=== PATIENT | female | born 1960 | race Caucasian/White ===

== ENCOUNTER 2024-09-10 18:48 | Observation (INO) ==
[2024-09-10] MEDS: NITROGLYCERIN SL 0.4 MG/TAB TAB SL PRN (19:15)
--- NOTE | 2024-09-10 19:15 | Emergency Department Note ---
Impression & Plan Chest pain, Hypertensive urgency, Acute hyponatremia ED Provider Note NAME: AMPARO PERKINS AGE: 63 SEX: F : 1960 ARRIVES VIA: Ambulance INFORMANT: Patient, nursing report ED PROVIDER(S): Armand Yanes MD CHIEF COMPLAINT: Chest pain MEDICAL DECISION MAKING: Patient presents due to concern for chest pain. IV was established and blood work was obtained. Patient did already receive nitro and aspirin and route. Additional nitro ordered as she still had 3 out of 10 pain. Chest x-ray does not show obvious pneumonia or pneumothorax patient was hypertensive here in the department. After initial nitro no significant improvement. The patient was ordered additional nitro. Patient has normal white count hemoglobin 11.1. Platelet count is unremarkable. The patient's kidney function with grade 1.24. Sodium 134. The patient's troponin is not elevated. Upon reassessment the patient had virtual resolution of her pain. BioFire negative. Chest x-ray without obvious pneumonia. I did speak with the on-call hospital service Dr. Dailey and the patient was admitted to the medicine service. Discussion w/ other healthcare providers: Dr. Dailey inpatient medicine service Prior /Outside records reviewed: None Differential diagnosis: Cardiac ischemia, aortic dissection, pulmonary embolism, pneumothorax, pneumonia, pericarditis, myocarditis, GERD, cholecystitis, pancreatitis, musculoskeletal, as well as other pathologies were considered. Diagnostics, as interpreted by me: ECG: Normal sinus rhythm, rate of 88, normal intervals, normal axis T wave version lead III no obvious STEMI. Cardiac monitoring: An order was placed for continuous cardiac monitoring. The monitor shows a rate of 85 with sinus rhythm. Patient was placed on pulse oximetry Medical decision rules: Heart score Imaging studies: I informally interpreted the patient's chest x-ray does not show obvious pneumonia or pneumothorax with formal report to follow. HPI: Patient presents due to concern for chest pain. Patient reports that she began having chest pain around 330 while she was unpacking at her new home. Patient reports that when she moved from her old home there was there are some COVID illnesses. The patient denies any shortness of breath or cough. Patient did receive aspirin 324 and 2 of nitro and route had improvement of her pain from an 8 out of 10 to a 3 out of 10. No prior cardiac history. The patient states the pain is centralized and achy nonradiating no associated nausea vomiting or diaphoresis. Patient denies any leg swelling or calf pain no history of DVT or PE. Patient denies any recent surgeries procedures or hospitalizations and no recent prolonged car plane travel. Patient did recently moved from [place] to the [facility]. PAST MEDICAL HISTORY: See Below PAST SURGICAL HISTORY: See Below SOCIAL HISTORY: See Below HOME MEDICATIONS: See Below ALLERGIES: See Below VITALS: See Below PHYSICAL EXAMINATION: GENERAL: NAD, non-toxic. EYE EXAM: Normal conjunctiva. PERRL, no anisocoria and EOM's grossly intact w/o pain. OROPHARYNX: Moist mucus membranes, grossly normal dentition. NECK: Trachea midline, no stridor. LUNGS: Clear to auscultation. Normal chest wall mechanics. HEART: NSR, no MRG. ABDOMEN: Abdomen soft, non-tender, no masses, no rebound or guarding. BACK: No CVA TTP. SKIN: No rashes and no bruising. UPPER EXTREMITIES: Upper extremities are grossly normal. LOWER EXTREMITIES: Grossly normal, no edema. Negative Homans' sign bilaterally. NEURO EXAM: A&O x3, cranial nerves II-XII grossly intact, normal speech, moves all 4 extremities. Past Med/Surg History Problem List (Updated 09/10/24 @ 21:42 by Armand Yanes MD) Acute hyponatremia (Acute) Hypertensive urgency (Acute) Chest pain (Acute) Colon cancer screening GERD (gastroesophageal reflux disease) Constipation Encounter for pre-operative examination Diabetes Psychiatric illness Anemia Medical History Constipation GERD (gastroesophageal reflux disease) Hx of respiratory syncytial virus infection 10/2023 Hypomagnesemia Manic episode Disorganized schizophrenia Insomnia Generalized weakness Hypertension Hyperlipidemia Hypothyroidism Diabetes mellitus, type 2 Chronic kidney disease stage 3 Surgical History Surgical history unknown Social History Smoking Status: Former smoker Preferred Language: Macedonian Communication Ability: Unknown Communication Ability Comment: of sound mind to sign consent, alert and oriented x3 Sulfide Head Operator Required: No Current Living Situation: Prison Current Living Situation Comment: [facility] Feels Safe at Home: Yes Allergies Allergies Allergy/AdvReac Type Severity Reaction Status Date / Time EUGENIO Inhibitors Allergy Unknown ON [facility] Verified 12/02/23 23:51 MED LIST clonazepam Allergy Unknown ON [facility] Verified 12/02/23 23:51 MED LIST lithium Allergy Unknown ON [facility] Verified 12/02/23 23:51 MED LIST Penicillins Allergy Unknown ON [facility] Verified 12/02/23 23:51 MED LIST pseudoephedrine Allergy Unknown ON [facility] Verified 12/02/23 23:51 MED LIST Sulfa (Sulfonamide Allergy Unknown ON [facility] Verified 12/02/23 23:51 Antibiotics) MED LIST sulfanilamide Allergy Unknown ON [facility] Verified 12/02/23 23:51 MED LIST trifluoperazine Allergy Unknown ON [facility] Verified 12/02/23 23:51 MED LIST ziprasidone Allergy Unknown ON [facility] Verified 12/02/23 23:51 MED LIST Home Meds Home Medications Medication Instructions Recorded Confirmed atorvastatin 20 mg tablet 20 mg PO HS 02/26/22 09/10/24 calcium carbonate (Calcium 500) 1,000 mg PO Q6H PRN Indigestion 02/26/22 09/10/24 divalproex 500 mg tablet,extended 500 mg PO Q12H 02/26/22 09/10/24 release 24 hr fluticasone propionate 50 1 spray intranasal [facility] 02/26/22 09/10/24 mcg/actuation nasal spray,suspension haloperidol decanoate 50 mg/mL 0.75 mg IM Q28D 02/26/22 09/10/24 intramuscular solution levothyroxine 50 mcg tablet 50 mcg PO [facility] 02/26/22 09/10/24 loratadine 10 mg tablet 10 mg PO [facility] 02/26/22 09/10/24 multivitamin with folic acid 400 1 tab PO [facility] 02/26/22 09/10/24 mcg tablet (Daily-Han (with folic acid)) cholecalciferol (vitamin D3) 125 125 mcg PO QAM 11/19/22 09/10/24 mcg (5,000 unit) tablet (Vitamin D3) docusate sodium 50 mg capsule 50 mg PO BID PRN Constipation 11/19/22 09/10/24 metformin 500 mg tablet 500 mg PO BID 11/19/22 09/10/24 acetaminophen 325 mg tablet 650 mg PO QAM 09/10/24 09/10/24 icosapent ethyl 1 gram capsule 0 g PO UD 09/10/24 09/10/24 (Vascepa) olmesartan 5 mg tablet 5 mg PO BID 09/10/24 09/10/24 paroxetine HCl 30 mg tablet 30 mg PO QAM 09/10/24 09/10/24 sitagliptin phosphate 50 mg tablet 50 mg PO DAILY 09/10/24 09/10/24 (Januvia) Previous Rx's Medication Instructions Recorded albuterol sulfate 90 mcg/actuation 2 inh inhalation Q6H PRN shortness 10/28/23 breath activated powder inhaler of breath or wheezing #1 ea pantoprazole 40 mg tablet,delayed 40 mg PO QAM #30 tabs 01/25/24 release famotidine 20 mg tablet 20 mg PO HS #30 tabs 08/12/24 Results & Data (ED) Vital Signs Vital Signs - 24 hr 09/10/24 18:52 09/10/24 18:55 09/10/24 19:00 Temperature 36.6 C Temperature Source Oral Pulse Rate 90 86 84 Pulse Rate [Apical] Respiratory Rate 16 18 Respiratory Effort / Characteristics Non-Labored Spontaneous Respiratory Depth Normal Blood Pressure 176/100 H 178/97 H Blood Pressure [Right Arm] Blood Pressure Mean 125 119 Blood Pressure Mean [Right Arm] Blood Pressure Position Lying Pulse Oximetry 97 97 Oxygen Delivery Method Room Air Room Air Oxygen Flow Rate Sepsis Recent Fever Within 48 Hours No Sepsis New/Unexplained Change in Mental Status N/A Sepsis Action Taken by Nursing No Action Required 09/10/24 19:10 09/10/24 19:15 09/10/24 19:16 Temperature Temperature Source Pulse Rate 83 Pulse Rate [Apical] 84 Respiratory Rate 16 18 Respiratory Effort / Characteristics Respiratory Depth Blood Pressure 161/101 H Blood Pressure [Right Arm] 169/97 H Blood Pressure Mean 138 Blood Pressure Mean [Right Arm] 121 Blood Pressure Position Pulse Oximetry 95 96 Oxygen Delivery Method Room Air Room Air Room Air Oxygen Flow Rate 96 Sepsis Recent Fever Within 48 Hours Sepsis New/Unexplained Change in Mental Status Sepsis Action Taken by Nursing 09/10/24 19:17 09/10/24 19:20 09/10/24 19:25 Temperature Temperature Source Pulse Rate 94 H 90 Pulse Rate [Apical] Respiratory Rate 18 18 Respiratory Effort / Characteristics Respiratory Depth Blood Pressure 139/96 171/101 H Blood Pressure [Right Arm] Blood Pressure Mean 115 141 Blood Pressure Mean [Right Arm] Blood Pressure Position Pulse Oximetry 96 93 96 Oxygen Delivery Method Room Air Room Air Room Air Oxygen Flow Rate Sepsis Recent Fever Within 48 Hours Sepsis New/Unexplained Change in Mental Status Sepsis Action Taken by Nursing 09/10/24 19:30 09/10/24 19:31 09/10/24 19:35 Temperature Temperature Source Pulse Rate 88 91 H Pulse Rate [Apical] 85 Respiratory Rate 20 20 18 Respiratory Effort / Characteristics Respiratory Depth Blood Pressure 162/93 H 156/90 H Blood Pressure [Right Arm] 162/93 H Blood Pressure Mean 106 105 Blood Pressure Mean [Right Arm] 116 Blood Pressure Position Pulse Oximetry 94 96 93 Oxygen Delivery Method Room Air Room Air Room Air Oxygen Flow Rate Sepsis Recent Fever Within 48 Hours Sepsis New/Unexplained Change in Mental Status Sepsis Action Taken by Nursing 09/10/24 19:40 09/10/24 19:45 09/10/24 19:59 Temperature Temperature Source Pulse Rate 88 88 Pulse Rate [Apical] 85 Respiratory Rate 18 18 20 Respiratory Effort / Characteristics Respiratory Depth Blood Pressure 154/92 H 170/99 H Blood Pressure [Right Arm] 175/102 H Blood Pressure Mean 117 147 Blood Pressure Mean [Right Arm] 126 Blood Pressure Position Pulse Oximetry 95 94 97 Oxygen Delivery Method Room Air Room Air Room Air Oxygen Flow Rate Sepsis Recent Fever Within 48 Hours Sepsis New/Unexplained Change in Mental Status Sepsis Action Taken by Nursing 09/10/24 20:00 09/10/24 20:04 09/10/24 20:36 Temperature Temperature Source Pulse Rate Pulse Rate [Apical] 89 94 H 92 H Respiratory Rate 18 20 20 Respiratory Effort / Characteristics Respiratory Depth Blood Pressure Blood Pressure [Right Arm] 151/98 H 142/91 H 184/93 H Blood Pressure Mean Blood Pressure Mean [Right Arm] 115 108 123 Blood Pressure Position Pulse Oximetry 95 95 96 Oxygen Delivery Method Room Air Room Air Room Air Oxygen Flow Rate Sepsis Recent Fever Within 48 Hours Sepsis New/Unexplained Change in Mental Status Sepsis Action Taken by Nursing 09/10/24 21:00 09/10/24 21:30 Temperature Temperature Source Pulse Rate 80 79 Pulse Rate [Apical] Respiratory Rate 16 18 Respiratory Effort / Characteristics Respiratory Depth Blood Pressure 160/90 H 168/109 H Blood Pressure [Right Arm] Blood Pressure Mean 107 135 Blood Pressure Mean [Right Arm] Blood Pressure Position Pulse Oximetry 98 97 Oxygen Delivery Method Room Air Room Air Oxygen Flow Rate Sepsis Recent Fever Within 48 Hours Sepsis New/Unexplained Change in Mental Status Sepsis Action Taken by Prison Medications Current Medication List: was personally reviewed by me Laboratory Data Attestation: I reviewed the patient's lab results. 09/10/24 18:52 09/10/24 18:52 Lab Results 09/10/24 09/10/24 Range/Units 18:52 19:15 WBC 5.98 (4.8-10.8) K/ul RBC 3.63 L (4.20-5.40) M/uL Hgb 11.1 L (12.0-16.0) g/dl Hct 32.4 L (37.0-47.0) % MCV 89.3 (80.0-100.0) fL MCH 30.6 (25.0-34.0) pg MCHC 34.3 (32.0-36.0) g/dL RDW Std Deviation 39.4 (36.4-46.3) fL RDW Coeff of Kp 12.1 (11.5-14.5) % Plt Count 205 (130-400) K/uL MPV 10.4 (9.4-12.4) fL Immature Gran % (Auto) 0.2 % Neut % (Auto) 44.4 % Lymph % (Auto) 38.3 % Trinity % (Auto) 12.2 % Eos % (Auto) 4.2 % Baso % (Auto) 0.7 % Neut # (Auto) 2.66 (1.40-6.50) K/uL Lymph # (Auto) 2.29 (1.20-3.40) K/uL Trinity # (Auto) 0.73 H (0.11-0.59) K/uL Eos # (Auto) 0.25 (0.00-0.50) K/uL Baso # (Auto) 0.04 (0.00-0.20) K/uL Immature Gran # (Auto) 0.01 (0.01-0.20) K/uL PT 10.6 (9.0-12.0) Seconds INR 1.0 (0.9-1.1) APTT 27 (21-31) Seconds PTT Ratio 1.0 Sodium 134 L (136-145) mmol/L Potassium 4.6 (3.5-5.1) mmol/L Chloride 98 (98-107) mmol/L Carbon Dioxide 26 (21-32) mmol/L Anion Gap 10 (3-11) BUN 15 (6-23) mg/dl Creatinine 1.24 H (0.6-1.2) mg/dl Est Cr Clr Drug Dosing 49.5 ml/min eGFR 48.30 BUN/Creatinine Ratio 12.1 (10-20) Glucose 154 H (70-99(Fasting)) mg/dl Calcium 10.0 (8.6-10.3) mg/dl Total Bilirubin 0.3 (0.2-1.0) mg/dl AST 17 (13-39) U/L ALT 14 (7-52) U/L Alkaline Phosphatase 56 (34-104) U/L Troponin I High Sens 6.2 (0-14) pg/ml Total Protein 6.5 (6.0-8.3) gm/dl Albumin 4.3 (3.4-5.0) gm/dl Globulin 2.2 L (2.5-4.0) gm/dl Albumin/Globulin Ratio 2.0 (0.9-2) Lipase 56 (11-82) U/L Adenovirus (PCR) Not Detected (NotDetected) B. pertussis DNA (PCR) Not Detected (NotDetected) B.parapertussis DNA PCR Not Detected (NotDetected) C. pneumoniae DNA (PCR) Not Detected (NotDetected) Coronavirus OC43 (PCR) Not Detected (NotDetected) Coronavirus HKU1 (PCR) Not Detected (NotDetected) Coronavirus 229E (PCR) Not Detected (NotDetected) SARS-CoV-2 (PCR) Not Detected (NotDetected) Coronavirus NL63 (PCR) Not Detected (NotDetected) Human Metapneumovir PCR Not Detected (NotDetected) Influenza Type A (PCR) Not Detected (NotDetected) Influenza Type B (PCR) Not Detected (NotDetected) M. pneumoniae (PCR) Not Detected (NotDetected) Parainfluenza 1 (PCR) Not Detected (NotDetected) Parainfluenza 2 (PCR) Not Detected (NotDetected) Parainfluenza 3 (PCR) Not Detected (NotDetected) Parainfluenza 4 (PCR) Not Detected (NotDetected) RSV (PCR) Not Detected (NotDetected) Entero/Rhino (PCR) Not Detected (NotDetected) Administered Medications Nitroglycerin (Nitroglycerin Sl 0.4 Mg/Tab Tab) 0.4 mg SL Q5M PRN PRN Reason: Chest Pain Stop: 10/10/24 19:01 Last Admin: 09/10/24 20:00 Dose: 0.4 mg Documented By: Admin: 09/10/24 19:32 Dose: 0.4 mg Documented By: Admin: 09/10/24 19:15 Dose: 0.4 mg Documented By: JACKSON Imaging Data Radiologist's Impression: Chest X-Ray 09/10/24 19:02 Exam(s): XR CXR 1 VIEW EXAM: XR Chest, 1 View CLINICAL HISTORY: Chest Pain, nonspecific. TECHNIQUE: Frontal view of the chest. COMPARISON: Chest radiograph 12/02/2023 FINDINGS: Lungs: Bibasilar interstitial prominence are present. No consolidation. Pleural space: Unremarkable. No pneumothorax. Heart: Unremarkable. No cardiomegaly. Mediastinum: Unremarkable. Normal mediastinal contour. Bones/joints: There are degenerative changes of the spine. No acute fracture. IMPRESSION: Bibasilar interstitial prominence may represent atelectasis, pulmonary edema or atypical infection. Electronically signed by: Dayna Holland MD 09/10/24 20:22 PM Discharge Plan Visit Data Chief Complaint: Chest Pain Stated Complaint: CHEST PAIN ED Provider: Armand Yanes Discharge Problem: Chest pain, Hypertensive urgency, Acute hyponatremia Forms Stand Alone Forms: [facility] [employer] Prescriptions Prescriptions: No Action pantoprazole 40 mg tablet,delayed release (DR/EC) 40 mg PO QAM Qty: 30 4RF famotidine 20 mg tablet 20 mg PO HS Qty: 30 5RF atorvastatin 20 mg tablet 20 mg PO HS levothyroxine 50 mcg tablet 50 mcg PO QAM loratadine 10 mg tablet 10 mg PO QAM multivitamin with folic acid [Daily-Han (with folic acid)] 400 mcg tablet 1 tab PO QAM divalproex 500 mg tablet extended release 24 hr 500 mg PO Q12H Rx Instructions: 0800 & 2000 haloperidol decanoate 50 mg/mL solution 0.75 mg IM Q28D Rx Instructions: ON THE 12TH OF THE MONTH fluticasone propionate 50 mcg/actuation spray,suspension 1 spray INTRANASAL QAM Rx Instructions: 1 spray into each nostril daily calcium carbonate [Calcium 500] 500 mg calcium (1,250 mg) Tablet,Chewable 1,000 mg PO Q6H PRN (Reason: Indigestion) metformin 500 mg Tablet 500 mg PO BID docusate sodium 50 mg Capsule 50 mg PO BID PRN (Reason: Constipation) cholecalciferol (vitamin D3) [Vitamin D3] 125 mcg (5,000 unit) Tablet 125 mcg PO QAM albuterol sulfate 90 mcg/actuation aerosol powdr breath activated 2 inh inhalation Q6H PRN (Reason: shortness of breath or wheezing) Qty: 1 0RF Rx Instructions: administer with spacer acetaminophen 325 mg tablet 650 mg PO QAM olmesartan 5 mg tablet 5 mg PO BID Rx Instructions: pt not sure about this med Januvia 50 mg tablet 50 mg PO DAILY paroxetine HCl 30 mg tablet 30 mg PO QAM icosapent ethyl [Vascepa] 1 gram capsule 0 g PO UD Referrals Referrals: Aleshia Ramirez MD [Primary Care Provider] - Discharge Problem: Chest pain Qualifiers: Chest pain type: unspecified Qualified Code(s): R07.9 - Chest pain, unspecified
[2024-09-10 19:24] LABS: Basophils # (auto) 0.04 K/uL (0.00-0.20); Basophils % (auto) 0.7 %; Eosinophils # (auto) 0.25 K/uL (0.00-0.50); Eosinophils % (auto) 4.2 %; Hematocrit (blood only) 32.4 % (37.0-47.0); Hemoglobin 11.1 g/dl (12.0-16.0); Immature Granulocytes # (auto) 0.01 K/uL (0.01-0.20); Immature Granulocytes % (auto) 0.2 %; Lymphocytes # (auto) 2.29 K/uL (1.20-3.40); Lymphocytes % (auto) 38.3 %; Mean Corpuscular Hemoglobin 30.6 pg (25.0-34.0); Mean Corpuscular Hgb Conc 34.3 g/dL (32.0-36.0); Mean Corpuscular Volume 89.3 fL (80.0-100.0); Mean Platelet Volume 10.4 fL (9.4-12.4); Monocytes # (auto) 0.73 K/uL (0.11-0.59); Monocytes % (auto) 12.2 %; Neutrophils # (auto) 2.66 K/uL (1.40-6.50); Neutrophils % (auto) 44.4 %; Platelet Count 205 K/uL (130-400); RDW Coefficient of Variation 12.1 % (11.5-14.5); RDW Standard Deviation 39.4 fL (36.4-46.3); Red Blood Count 3.63 M/uL (4.20-5.40); White Blood Count 5.98 K/ul (4.8-10.8)
[2024-09-10 19:37] LABS: Albumin Level 4.3 gm/dl (3.4-5.0); BUN Creatinine Ratio 12.1 (10-20); Bilirubin,Total 0.3 mg/dl (0.2-1.0); Creatinine Clr Calc Pharmacy 49.5 ml/min; Globulin 2.2 gm/dl (2.5-4.0); Potassium 4.6 mmol/L (3.5-5.1); Total Protein 6.5 gm/dl (6.0-8.3)
[2024-09-10 19:45] LABS: Troponin I High Sensitivity 6.2 pg/ml (0-14)
[2024-09-10 19:50] LABS: Partial Thromboplastin Time 27 Seconds (21-31); Prothrombin Time 10.6 Seconds (9.0-12.0)
[2024-09-10 20:11] LABS: Adenovirus PCR Not Detected (NotDetected); Bordetella parapertussis PCR Not Detected (NotDetected); Bordetella pertussis PCR Not Detected (NotDetected); Chlamydia pneumoniae PCR Not Detected (NotDetected); Coronavirus 229E PCR Not Detected (NotDetected); Coronavirus CoV-2 (COVID19)PCR Not Detected (NotDetected); Coronavirus HKU1 PCR Not Detected (NotDetected); Coronavirus NL63 PCR Not Detected (NotDetected); Coronavirus OC43PCR Not Detected (NotDetected); Human Metapneumovirus PCR Not Detected (NotDetected); Influenza A PCR Not Detected (NotDetected); Influenza B PCR Not Detected (NotDetected); Mycoplasma pneumoniae PCR Not Detected (NotDetected); Parainfluenza Virus 1 PCR Not Detected (NotDetected); Parainfluenza Virus 2 PCR Not Detected (NotDetected); Parainfluenza Virus 3 PCR Not Detected (NotDetected); Parainfluenza Virus 4 PCR Not Detected (NotDetected); Respiratory Syncytial VirusPCR Not Detected (NotDetected); Rhinovirus/Enterovirus PCR Not Detected (NotDetected)
--- NOTE | 2024-09-10 20:22 | XRay Report ---
Exam(s): XR CXR 1 VIEW EXAM: XR Chest, 1 View CLINICAL HISTORY: Chest Pain, nonspecific. TECHNIQUE: Frontal view of the chest. COMPARISON: Chest radiograph 12/02/2023 FINDINGS: Lungs: Bibasilar interstitial prominence are present. No consolidation. Pleural space: Unremarkable. No pneumothorax. Heart: Unremarkable. No cardiomegaly. Mediastinum: Unremarkable. Normal mediastinal contour. Bones/joints: There are degenerative changes of the spine. No acute fracture. IMPRESSION: Bibasilar interstitial prominence may represent atelectasis, pulmonary edema or atypical infection. Electronically signed by: Dayna Holland MD 09/10/24 20:22 PM
--- NOTE | 2024-09-10 22:02 | History & Physical Report ---
Date of Service September 10, 2024 Assessment & Plan (1) Chest pain: Plan: - Trop= 6.2 with repeat pending, no ischemic changes on EKG - will continue to trend troponin - TTE pending - monitor on telemetry - nitro prn (2) Hypertensive urgency: Plan: - BPs elevated to 190s/100s -> no signs of HTN emergency - Will give 10mg IV labetalol - continue home olmesartan 5mg BID-> may consider increased/switching to 20mg daily based on BPs (3) Acute hyponatremia: Plan: - Na= 134 - mildly hyponatremic - repeat qAM Plan Chronic Medical Conditions: DM2: hold home oral medications, continue home dosing Lantus 16 units daily, SSI ACHS while inpatient Hypothymism: continue levothyroxine Schizophrenia/Bipolar Disorder: continue home medications-> divalproex 500mg BID, haloperidol IM q28 days, paroxetine 20mg daily VTE Prophylaxis: Heparin q12 Diet: DM2 Code: Full Dispo: Med Tele History of Present Illness Primary Care Provider: Aleshia Ramirez MD 63 year old female with a past medical history of DM2, schizophrenia, HTN, hypothyroidism, Bipolar disorder presenting with chest pain. States the pain started this afternoon. Mid sternal, no radiation. Denies associated symptoms- denies nausea, diaphoresis, dyspnea. States that she has had similar pain in the past, but has been over a year. Recently moved to the [place] and felt the pain could have been related to moving boxes, but is not reproducible. Notes that a few of her friends have had COVID recently, she is asymptomatic- denies cough, congestion, fever, chills. Received 324mg Asp and nitro via EMS. Pain has now almost completely resolved. ED Course Significant for: CBC unremarkable, CMP with creatine= 1.24 (baseline 1.2-1.3), Trop= 6.2-> repeat pending. EKG with NSR, HR= 88, non-specific ST changes- no acute ischemic changes. Allergies Allergy/AdvReac Type Severity Reaction Status Date / Time EUGENIO Inhibitors Allergy Unknown ON [facility] Verified 12/02/23 23:51 MED LIST clonazepam Allergy Unknown ON [facility] Verified 12/02/23 23:51 MED LIST lithium Allergy Unknown ON [facility] Verified 12/02/23 23:51 MED LIST Penicillins Allergy Unknown ON [facility] Verified 12/02/23 23:51 MED LIST pseudoephedrine Allergy Unknown ON [facility] Verified 12/02/23 23:51 MED LIST Sulfa (Sulfonamide Allergy Unknown ON [facility] Verified 12/02/23 23:51 Antibiotics) MED LIST sulfanilamide Allergy Unknown ON [facility] Verified 12/02/23 23:51 MED LIST trifluoperazine Allergy Unknown ON [facility] Verified 12/02/23 23:51 MED LIST ziprasidone Allergy Unknown ON [facility] Verified 12/02/23 23:51 MED LIST Home Medications Medication Instructions Recorded Confirmed Type atorvastatin 20 mg tablet 20 mg PO HS 02/26/22 09/10/24 History calcium carbonate (Calcium 500) 1,000 mg PO Q6H PRN Indigestion 02/26/22 4 History divalproex 500 mg tablet,extended 500 mg PO Q12H 02/26/22 09/10/24 History release 24 hr fluticasone propionate 50 1 spray intranasal QAM 02/26/22 09/10/24 History mcg/actuation nasal spray,suspension haloperidol decanoate 50 mg/mL 0.75 mg IM Q28D 02/26/22 09/10/24 History intramuscular solution levothyroxine 50 mcg tablet 50 mcg PO QAM 02/26/22 09/10/24 History loratadine 10 mg tablet 10 mg PO QAM 02/26/22 09/10/24 History multivitamin with folic acid 400 1 tab PO QAM 02/26/22 09/10/24 History mcg tablet (Daily-Han (with folic acid)) cholecalciferol (vitamin D3) 125 125 mcg PO QAM 11/19/22 09/10/24 History mcg (5,000 unit) tablet (Vitamin D3) docusate sodium 50 mg capsule 50 mg PO BID PRN Constipation 11/19/22 09/10/24 History metformin 500 mg tablet 500 mg PO BID 11/19/22 09/10/24 History albuterol sulfate 90 mcg/actuation 2 inh inhalation Q6H PRN shortness 10/28/23 09/10/24 Rx breath activated powder inhaler of breath or wheezing #1 ea pantoprazole 40 mg tablet,delayed 40 mg PO QAM #30 tabs 01/25/24 09/10/24 Rx release famotidine 20 mg tablet 20 mg PO HS #30 tabs 08/12/24 09/10/24 Rx acetaminophen 325 mg tablet 650 mg PO QAM 09/10/24 09/10/24 History icosapent ethyl 1 gram capsule 0 g PO UD 09/10/24 09/10/24 History (Vascepa) olmesartan 5 mg tablet 5 mg PO BID 09/10/24 09/10/24 History paroxetine HCl 30 mg tablet 30 mg PO QAM 09/10/24 09/10/24 History sitagliptin phosphate 50 mg tablet 50 mg PO DAILY 09/10/24 09/10/24 History (Januvia) Past Med/Surg History Problem List Acute hyponatremia (Acute) Hypertensive urgency (Acute) Chest pain (Acute) Colon cancer screening GERD (gastroesophageal reflux disease) Constipation Encounter for pre-operative examination Diabetes Psychiatric illness Anemia Medical History Constipation GERD (gastroesophageal reflux disease) Hx of respiratory syncytial virus infection 10/2023 Hypomagnesemia Manic episode Disorganized schizophrenia Insomnia Generalized weakness Hypertension Hyperlipidemia Hypothyroidism Diabetes mellitus, type 2 Chronic kidney disease stage 3 Surgical History Surgical history unknown Social History Smoking Status: Former smoker Tobacco Type: Cigarettes Smoking End Date: 2019; Second Hand Exposure: No; Do You Dip or Chew Tobacco: No; Tobacco Cessation Education Requested by Patient: No Hx Alcohol Use: No Hx Substance Use: No Preferred Language: Senegalese Communication Ability: Effective Communication Ability Comment: of sound mind to sign consent, alert and oriented x3 Instructor Ground Services Required: No Beliefs That Will Affect Care: None Current Living Situation: Personal Care Facility Current Living Situation Comment: lives at [facility] Other Information That Helps Us Care for You: No Feels Safe at Home: Yes Safety Concerns: Feels Safe At This Time Assistive Devices: Denture - Upper, Denture - Lower and Glasses Review of Systems Review of Systems: As per above Physical Exam Physical Exam: Constitutional: well-appearing, no acute distress HEENT: NCAT, no conjunctival injection CV: regular rhythm, no murmur appreciated, extremities well-perfused, no LE edema Resp: CTABL, no wheezes/rales/rhonchi appreciated, no increased work of breathing GI: soft, nondistended, nontender MSK: no gross deformities appreciated Skin: warm, dry, no rash appreciated Neuro: alert, oriented, no focal neurologic deficit appreciated Results & Data Results & Data Vital Signs (Past 12 Hours) Vital Signs Temp Pulse Pulse Resp BP BP Pulse Ox 09/10/24 20:36 92 H 20 184/93 H 96 09/10/24 20:04 94 H 20 142/91 H 95 09/10/24 20:00 89 18 151/98 H 95 09/10/24 19:59 85 20 175/102 H 97 09/10/24 19:45 88 18 170/99 H 94 09/10/24 19:40 88 18 154/92 H 95 09/10/24 19:35 91 H 18 156/90 H 93 09/10/24 19:31 85 20 162/93 H 96 09/10/24 19:30 88 20 162/93 H 94 09/10/24 19:25 90 18 171/101 H 96 09/10/24 19:20 94 H 18 139/96 93 09/10/24 19:17 96 09/10/24 19:16 09/10/24 19:15 83 18 161/101 H 96 09/10/24 19:10 84 16 169/97 H 95 09/10/24 19:00 84 18 178/97 H 97 09/10/24 18:55 86 09/10/24 18:52 36.6 C 90 16 176/100 H 97 O2 Del Method O2 Flow Rate 09/10/24 20:36 Room Air 09/10/24 20:04 Room Air 09/10/24 20:00 Room Air 09/10/24 19:59 Room Air 09/10/24 19:45 Room Air 09/10/24 19:40 Room Air 09/10/24 19:35 Room Air 09/10/24 19:31 Room Air 09/10/24 19:30 Room Air 09/10/24 19:25 Room Air 09/10/24 19:20 Room Air 09/10/24 19:17 Room Air 09/10/24 19:16 Room Air 96 09/10/24 19:15 Room Air 09/10/24 19:10 Room Air 09/10/24 19:00 Room Air 09/10/24 18:55 09/10/24 18:52 Room Air Laboratory Results Laboratory Results WBC 5.98 K/ul (4.8-10.8) 09/10/24 18:52 RBC 3.63 M/uL (4.20-5.40) L 09/10/24 18:52 Hgb 11.1 g/dl (12.0-16.0) L 09/10/24 18:52 Hct 32.4 % (37.0-47.0) L 09/10/24 18:52 MCV 89.3 fL (80.0-100.0) 09/10/24 18:52 MCH 30.6 pg (25.0-34.0) 09/10/24 18:52 MCHC 34.3 g/dL (32.0-36.0) 09/10/24 18:52 RDW Std Deviation 39.4 fL (36.4-46.3) 09/10/24 18:52 RDW Coeff of Kp 12.1 % (11.5-14.5) 09/10/24 18:52 Plt Count 205 K/uL (130-400) 09/10/24 18:52 MPV 10.4 fL (9.4-12.4) 09/10/24 18:52 Immature Gran % (Auto) 0.2 % 09/10/24 18:52 Neut % (Auto) 44.4 % 09/10/24 18:52 Lymph % (Auto) 38.3 % 09/10/24 18:52 Cobb % (Auto) 12.2 % 09/10/24 18:52 Eos % (Auto) 4.2 % 09/10/24 18:52 Baso % (Auto) 0.7 % 09/10/24 18:52 Neut # (Auto) 2.66 K/uL (1.40-6.50) 09/10/24 18:52 Lymph # (Auto) 2.29 K/uL (1.20-3.40) 09/10/24 18:52 Cobb # (Auto) 0.73 K/uL (0.11-0.59) H 09/10/24 18:52 Eos # (Auto) 0.25 K/uL (0.00-0.50) 09/10/24 18:52 Baso # (Auto) 0.04 K/uL (0.00-0.20) 09/10/24 18:52 Immature Gran # (Auto) 0.01 K/uL (0.01-0.20) 09/10/24 18:52 PT 10.6 Seconds (9.0-12.0) 09/10/24 18:52 INR 1.0 (0.9-1.1) 09/10/24 18:52 APTT 27 Seconds (21-31) 09/10/24 18:52 PTT Ratio 1.0 09/10/24 18:52 Sodium 134 mmol/L (136-145) L 09/10/24 18:52 Potassium 4.6 mmol/L (3.5-5.1) 09/10/24 18:52 Chloride 98 mmol/L (98-107) 09/10/24 18:52 Carbon Dioxide 26 mmol/L (21-32) 09/10/24 18:52 Anion Gap 10 (3-11) 09/10/24 18:52 BUN 15 mg/dl (6-23) 09/10/24 18:52 Creatinine 1.24 mg/dl (0.6-1.2) H 09/10/24 18:52 Est Cr Clr Drug Dosing 49.5 ml/min 09/10/24 18:52 eGFR 48.30 09/10/24 18:52 BUN/Creatinine Ratio 12.1 (10-20) 09/10/24 18:52 Glucose 154 mg/dl (70-99(Fasting)) H 09/10/24 18:52 POC Glucose 169 mg/dl (70-99) H 09/10/24 23:05 Calcium 10.0 mg/dl (8.6-10.3) 09/10/24 18:52 Total Bilirubin 0.3 mg/dl (0.2-1.0) 09/10/24 18:52 AST 17 U/L (13-39) 09/10/24 18:52 ALT 14 U/L (7-52) 09/10/24 18:52 Alkaline Phosphatase 56 U/L (34-104) 09/10/24 18:52 Troponin I High Sens 7.5 pg/ml (0-14) 09/10/24 22:30 Total Protein 6.5 gm/dl (6.0-8.3) 09/10/24 18:52 Albumin 4.3 gm/dl (3.4-5.0) 09/10/24 18:52 Globulin 2.2 gm/dl (2.5-4.0) L 09/10/24 18:52 Albumin/Globulin Ratio 2.0 (0.9-2) 09/10/24 18:52 Lipase 56 U/L (11-82) 09/10/24 18:52 Adenovirus (PCR) Not Detected (NotDetected) 09/10/24 19:15 B. pertussis DNA (PCR) Not Detected (NotDetected) 09/10/24 19:15 B.parapertussis DNA PCR Not Detected (NotDetected) 09/10/24 19:15 C. pneumoniae DNA (PCR) Not Detected (NotDetected) 09/10/24 19:15 Coronavirus OC43 (PCR) Not Detected (NotDetected) 09/10/24 19:15 Coronavirus HKU1 (PCR) Not Detected (NotDetected) 09/10/24 19:15 Coronavirus 229E (PCR) Not Detected (NotDetected) 09/10/24 19:15 SARS-CoV-2 (PCR) Not Detected (NotDetected) 09/10/24 19:15 Coronavirus NL63 (PCR) Not Detected (NotDetected) 09/10/24 19:15 Human Metapneumovir PCR Not Detected (NotDetected) 09/10/24 19:15 Influenza Type A (PCR) Not Detected (NotDetected) 09/10/24 19:15 Influenza Type B (PCR) Not Detected (NotDetected) 09/10/24 19:15 M. pneumoniae (PCR) Not Detected (NotDetected) 09/10/24 19:15 Parainfluenza 1 (PCR) Not Detected (NotDetected) 09/10/24 19:15 Parainfluenza 2 (PCR) Not Detected (NotDetected) 09/10/24 19:15 Parainfluenza 3 (PCR) Not Detected (NotDetected) 09/10/24 19:15 Parainfluenza 4 (PCR) Not Detected (NotDetected) 09/10/24 19:15 RSV (PCR) Not Detected (NotDetected) 09/10/24 19:15 Entero/Rhino (PCR) Not Detected (NotDetected) 09/10/24 19:15 Impressions Chest X-Ray 09/10/24 19:02 Exam(s): XR CXR 1 VIEW EXAM: XR Chest, 1 View CLINICAL HISTORY: Chest Pain, nonspecific. TECHNIQUE: Frontal view of the chest. COMPARISON: Chest radiograph 12/02/2023 FINDINGS: Lungs: Bibasilar interstitial prominence are present. No consolidation. Pleural space: Unremarkable. No pneumothorax. Heart: Unremarkable. No cardiomegaly. Mediastinum: Unremarkable. Normal mediastinal contour. Bones/joints: There are degenerative changes of the spine. No acute fracture. IMPRESSION: Bibasilar interstitial prominence may represent atelectasis, pulmonary edema or atypical infection. Electronically signed by: Dayna Holland MD 09/10/24 20:22 PM Supervising Physician Co-Signing Physician Notes Patient seen and examined, chart reviewed, case discussed with Dr. Crouch and I agree with the assessment and plan as above Resident Activity Tracking Resident Involvement: Resident Care Provided Care Provided: Adult Hospital Medicine (1) Chest pain Chest pain type: unspecified Qualified Code(s): R07.9 - Chest pain, unspecified
[2024-09-10] MEDS: LABETALOL HCL IV 5 MG/ML 20ML IV STA (22:31)
[2024-09-10] MEDS ORDERED: CARBOHYDRATES FOR HYPOGLYCEMIA PO PRN (23:03)
[2024-09-10] MEDS ORDERED: GLUCOSE 10 TAB/TUBE PO PRN (23:03)
[2024-09-10] MEDS ORDERED: DEXTROSE 50% 50 ML SYRINGE IV PRN (23:03)
[2024-09-10] MEDS ORDERED: GLUCOSE 40% GEL 15 GM TUBE PO PRN (23:03)
[2024-09-10] MEDS ORDERED: GLUCAGON FOR INJ 1 MG VIAL SQ PRN (23:03)
[2024-09-10] MEDS ORDERED: ALBUTEROL HFA 8 GM INHALER INH PRN (23:06)
[2024-09-10] MEDS: DIVALPROEX EXTENDED RELEASE 500 MG TAB PO SCH (23:29)
--- NOTE | 2024-09-11 01:50 | Billing Data ---
Date of Service September 10, 2024 Coding Level of Care Code 80569 INT INP/OBS CARE
[2024-09-11] MEDS: LEVOTHYROXINE SODIUM 50 MCG TABLET PO SCH (05:56)
[2024-09-11 07:00] LABS: Basophils # (auto) 0.04 K/uL (0.00-0.20); Basophils % (auto) 0.8 %; Eosinophils # (auto) 0.25 K/uL (0.00-0.50); Hematocrit (blood only) 32.8 % (37.0-47.0); Hemoglobin 10.9 g/dl (12.0-16.0); Immature Granulocytes # (auto) 0.02 K/uL (0.01-0.20); Immature Granulocytes % (auto) 0.4 %; Lymphocytes # (auto) 2.28 K/uL (1.20-3.40); Lymphocytes % (auto) 45.5 %; Mean Corpuscular Hemoglobin 30.4 pg (25.0-34.0); Mean Corpuscular Hgb Conc 33.2 g/dL (32.0-36.0); Mean Corpuscular Volume 91.4 fL (80.0-100.0); Mean Platelet Volume 10.1 fL (9.4-12.4); Monocytes # (auto) 0.53 K/uL (0.11-0.59); Monocytes % (auto) 10.6 %; Neutrophils # (auto) 1.89 K/uL (1.40-6.50); Neutrophils % (auto) 37.7 %; Platelet Count 179 K/uL (130-400); RDW Coefficient of Variation 12.4 % (11.5-14.5); RDW Standard Deviation 40.9 fL (36.4-46.3); Red Blood Count 3.59 M/uL (4.20-5.40); White Blood Count 5.01 K/ul (4.8-10.8)
[2024-09-11 07:22] LABS: BUN Creatinine Ratio 12.6 (10-20); Calcium 9.7 mg/dl (8.6-10.3); Creatinine Clr Calc Pharmacy 48.4 ml/min; Magnesium 1.3 mg/dl (1.7-2.4); Potassium 4.4 mmol/L (3.5-5.1)
[2024-09-11] MEDS: INSULIN ASPART PER UNIT CHARGE SC SCH (07:56)
[2024-09-11] MEDS: LANTUS PER UNIT CHARGE SQ SCH (08:23)
[2024-09-11] MEDS: HEPARIN SOD 5,000 UNIT/0.5 ML VIAL SQ SCH (08:24)
[2024-09-11] MEDS: MAGNESIUM SULFATE / D5W 1 GM/100 ML BAG IV SCH (08:24)
[2024-09-11] MEDS: FLUTICASONE PROPIONATE NA SPR 16 GM BTL SCH (08:24)
[2024-09-11] MEDS: PARoxetine HCL 20 MG TAB PO SCH (08:25)
[2024-09-11] MEDS: LOSARTAN POTASSIUM 25 MG TAB PO SCH (08:26)
[2024-09-11] MEDS: PANTOprazole 40 MG TAB PO SCH (08:26)
[2024-09-11] MEDS: LORATADINE 10 MG TAB PO SCH (08:27)
[2024-09-11] MEDS: ACETAMINOPHEN 325 MG TAB PO SCH (08:37)
[2024-09-11] MEDS ORDERED: INFLUENZA VACC TS2024-25(65y+)/PF (IIV3) 0.5mL Syr IM ONE (09:00)
--- NOTE | 2024-09-11 10:28 | Hospitalist Progress Note ---
Date of Service September 11, 2024 Assessment & Plan (1) Chest pain: Plan: Appears to be noncardiac. Troponin series negative so far. She is now asymptomatic. First EKG is unremarkable. Second EKG is pending. Cardiac echo is pending. (2) Hypertensive urgency: Plan: Elevated blood pressure on admission. Now improved. Continue current medical management. (3) Acute hyponatremia: Plan: Mild on admission. Now resolved. (4) Diabetes: Plan: ADA diet. Continue current medical management. Sliding scale coverage as needed (5) Hypomagnesemia: Plan: Parenteral replacement ordered. Repeat magnesium level in a.m. Plan Hopeful discharge to home tomorrow, September 12 Admission and Anticipated Discharge Date Admission Date: September 10, 2024 Subjective Alert and oriented. No chest pain at this time. Initial troponins are negative. EKG #2 is ordered and pending. Awaiting cardiac echo report. Sodium is now 142. Magnesium is low and IV replacement ordered. Review of Systems 2 Review of Systems: Constitutionalno fever or chills ENTno blurred vision, no double vision, no epistaxis, no sore throat Respiratoryno cough, no wheezing, no shortness of breath Cardiacno palpitations, no syncope. Chest discomfort which prompted this admission has resolved Kezia nausea, vomiting, diarrhea, melena, hematochezia GUno urinary retention, no urinary incontinence, no dysuria, no hematuria Musculoskeletalno joint pain, no muscle tenderness Skinno bruising, no rashes, no pruritus Neurono isolated weakness, no paresthesia, no weakness Psychno depression, no anxiety Physical Exam 2 Physical Exam: General-alert and oriented x3, no fever, no chills HEENT-head atraumatic and normocephalic, pupils equal and reactive to light, extraocular muscles intact Neck-no lymphadenopathy or thyromegaly, trachea midline Chest-clear to auscultation. No rales, wheezing or rhonchi Cardiac-regular rate and rhythm, normal S1 and S2 Abdomen-normal bowel sounds, no hepatosplenomegaly Extremities-no cyanosis, clubbing, or edema Neuro-cranial nerves II through XII intact, motor and sensory function within normal limits, strength symmetrical, no focal deficits Psych-normal affect, normal mood Results & Data Results & Data Vital Signs (Past 12 Hours) Vital Signs Temp Pulse Pulse Pulse Resp BP BP 09/11/24 07:08 36.4 C L 68 15 118/77 09/11/24 03:12 36.8 C 69 17 129/64 09/10/24 23:17 09/10/24 23:08 73 09/10/24 23:05 36.9 C 77 16 09/10/24 22:47 36.6 C 73 20 09/10/24 22:46 73 148/82 H 09/10/24 22:39 72 18 09/10/24 22:31 78 185/86 H 09/10/24 22:31 79 09/10/24 22:26 95 H 20 BP Pulse Ox O2 Del Method 09/11/24 07:08 98 Room Air 09/11/24 03:12 96 Room Air 09/10/24 23:17 163/85 H 09/10/24 23:08 09/10/24 23:05 184/97 H 95 Room Air 09/10/24 22:47 148/82 H 96 Room Air 09/10/24 22:46 09/10/24 22:39 160/83 H 96 Room Air 09/10/24 22:31 09/10/24 22:31 185/86 H 09/10/24 22:26 217/124 H 96 Room Air Laboratory Results 09/11/24 06:09 09/11/24 06:09 PG Care Time/CCT Total # of Minutes Spent Total Time Spent with Patient: Total time spent is greater than 50% in coordination of care (as documented) at patient's floor/unit and/or counseling patient: Coding Level of Care Code 76600 SUB INP/OBS CARE 3/50MIN Diagnoses Chest pain R07.9 Chest pain type: unspecified Hypertensive urgency I16.0 Acute hyponatremia E87.1 Diabetes E11.9 Hypomagnesemia E83.42 (1) Chest pain Chest pain type: unspecified Qualified Code(s): R07.9 - Chest pain, unspecified
--- NOTE | 2024-09-11 11:48 | XCELERA ---
[id number] [id number]
--- NOTE | 2024-09-11 12:12 | Electrocardiogram Report ---
Test Reason : Blood Pressure : */* mmHG Vent. Rate : 88 BPM Atrial Rate : 88 BPM P-R Int : 130 ms QRS Dur : 78 ms QT Int : 370 ms P-R-T Axes : 53 36 21 degrees QTcB Int : 447 ms Normal sinus rhythm Nonspecific T wave abnormality Abnormal ECG When compared with ECG of 02-Dec-2023 21:43, No significant change was found Confirmed by Stoney Chang ([id number]) on 09/11/2024 12:12:20 PM Referred By: REFERRED SELF Confirmed By: Stoney Chang
[2024-09-11] MEDS: GENTAMICIN SULFATE 0.3% OP SOLN 5 ML BTL OP SCH (18:06)
[2024-09-11] MEDS: ATORVASTATIN 20 MG TAB PO SCH (20:03)
[2024-09-11] MEDS: FAMOTIDINE 20 MG TAB PO SCH (20:03)
[2024-09-11] MEDS: icosapent ethyL 1 GM CAP PO SCH (20:05)
[2024-09-12 07:07] VITALS: RESP 16
[2024-09-12 07:59] LABS: BUN Creatinine Ratio 14.9 (10-20); Calcium 9.4 mg/dl (8.6-10.3); Creatinine Clr Calc Pharmacy 39.7 ml/min; Magnesium 1.6 mg/dl (1.7-2.4); Potassium 4.4 mmol/L (3.5-5.1)
[2024-09-12 08:05] LABS: Troponin I High Sensitivity 4.7 pg/ml (0-14)
[2024-09-12] MEDS: MAGNESIUM SULFATE / D5W 1 GM/100 ML BAG IV ONE (08:20)
--- NOTE | 2024-09-12 13:22 | Electrocardiogram Report ---
Test Reason : Blood Pressure : */* mmHG Vent. Rate : 66 BPM Atrial Rate : 66 BPM P-R Int : 138 ms QRS Dur : 82 ms QT Int : 416 ms P-R-T Axes : 61 24 21 degrees QTcB Int : 436 ms Normal sinus rhythm Nonspecific T wave abnormality Abnormal ECG When compared with ECG of 10-Sep-2024 18:52, No significant change was found Confirmed by Stoney Chang ([id number]) on 09/12/2024 1:21:51 PM Referred By: REFERRED SELF Confirmed By: Stoney Chang
--- NOTE | 2024-09-12 14:32 | Discharge Summary ---
Discharge Summary Date of Service September 12, 2024 Principal Dx & Hospital Course #1 = Principal Diagnosis (1) Chest pain: Appears to be noncardiac. Pain came on at rest, was partially relieved with nitroglycerin, nonradiating, no acute changes on ECG. BPs high, no hypoxia. No recurrence of pain. No associated symptoms with it. ECG did have TWIs anterior leads but unchanged from previous ECGs Troponin negative x 4, ECHO normal No events on tele Could have been related to elevated BPs She does not have any chest pain with exertion or walking typically so likely does not need exercise stress but could be considered as an outpt Stable for discharge to home (2) Hypertensive urgency: Elevated blood pressure on admission. Now improved. Continue current medical management (3) Hypomagnesemia: Parenteral replacement given on 2 occasions Likely related to PPI use-advised possible dc of PPI as outpt-defer to PCP (4) Acute hyponatremia: Mild on admission. Now resolved. (5) Diabetes: ADA diet. Sliding scale coverage as needed given here resume home metformin and Januvia on discharge Plan Dispo-dc to home Notes For Next Care Provider Consider outpt stress test Medication Changes From Visit None Admission HPI Per Admitting Provider 63 year old female with a past medical history of DM2, schizophrenia, HTN, hypothyroidism, Bipolar disorder presenting with chest pain. States the pain started this afternoon. Mid sternal, no radiation. Denies associated symptoms- denies nausea, diaphoresis, dyspnea. States that she has had similar pain in the past, but has been over a year. Recently moved to the [place] and felt the pain could have been related to moving boxes, but is not reproducible. Notes that a few of her friends have had COVID recently, she is asymptomatic- denies cough, congestion, fever, chills. Received 324mg Asp and nitro via EMS. Pain has now almost completely resolved. ED Course Significant for: CBC unremarkable, CMP with creatine= 1.24 (baseline 1.2-1.3), Trop= 6.2-> repeat pending. EKG with NSR, HR= 88, non-specific ST changes- no acute ischemic changes. Discharge Exam Constitutional WD/WN, vitals as above Respiratory normal respiratory effort, lungs clear to auscultation Cardiovascular RRR, no murmur, no edema Chest (Breasts) normal inspection/palpation of breasts (no ttp over chest wall) Psychiatric A+Ox3, euthymic affect Discharge Plan Discharge Items Patient Disposition: Home - Self-Care Reason For Visit: CHEST PAIN Discharge Diagnosis: Chest pain Hypomagnesemia Condition on Discharge: Good Activity: As commented below Lifting: Gradually increase as tolerated Bathing: No limitations Exercise/Sports: Gradually increase as tolerated Non-emergency contact: Primary Care Provider Call non-emergency contact if: you have any medication questions, your symptoms worsen and your pain is not controlled Follow-up/Referrals: Aleshia Ramirez MD [Primary Care Provider] - (Follow up within 1-2 weeks) Diet: Heart Healthy Addtl Attending Provider Instructions: You were admitted with chest pain that was not from your heart. You did not have a heart attack. Your magnesium levels were low and this was replaced. This could be from taking Protonix which can make it hard for your to absorb magnesium in your gut. Talk to your doctor to see if it is time for you to stop taking Protonix so that your magnesium levels can improve. Pending Studies at Discharge: No Stand-Alone Forms: My [facility] eventblimp, Smoking Cessation Medications and DC Order Prescriptions: Continued pantoprazole 40 mg tablet,delayed release (DR/EC) 40 mg PO QAM Qty: 30 4RF famotidine 20 mg tablet 20 mg PO HS Qty: 30 5RF atorvastatin 20 mg tablet 20 mg PO HS levothyroxine 50 mcg tablet 50 mcg PO QAM loratadine 10 mg tablet 10 mg PO QAM multivitamin with folic acid [Daily-Han (with folic acid)] 400 mcg tablet 1 tab PO QAM divalproex 500 mg tablet extended release 24 hr 500 mg PO Q12H Rx Instructions: 0800 & 2000 haloperidol decanoate 50 mg/mL solution 0.75 mg IM Q28D Rx Instructions: ON THE 12TH OF THE MONTH fluticasone propionate 50 mcg/actuation spray,suspension 1 spray INTRANASAL QAM Rx Instructions: 1 spray into each nostril daily calcium carbonate [Calcium 500] 500 mg calcium (1,250 mg) Tablet,Chewable 1,000 mg PO Q6H PRN (Reason: Indigestion) metformin 500 mg Tablet 500 mg PO BID docusate sodium 50 mg Capsule 50 mg PO BID PRN (Reason: Constipation) cholecalciferol (vitamin D3) [Vitamin D3] 125 mcg (5,000 unit) Tablet 125 mcg PO QAM albuterol sulfate 90 mcg/actuation aerosol powdr breath activated 2 inh inhalation Q6H PRN (Reason: shortness of breath or wheezing) Qty: 1 0RF Rx Instructions: administer with spacer acetaminophen 325 mg tablet 650 mg PO QAM olmesartan 5 mg tablet 5 mg PO BID Rx Instructions: pt not sure about this med Januvia 50 mg tablet 50 mg PO DAILY paroxetine HCl 30 mg tablet 30 mg PO QAM Changed icosapent ethyl [Vascepa] 1 gram capsule 2 g PO BID Qty: 120 0RF Discharge Orders: Discharge Order (Routine); Ordered 09/12/24 Ordered By: Mandie Larson Admission Data Admit Date/Time: 09/10/24 21:43 Attending Provider: Mandie Larson Admit Provider: Mariel Crouch Primary Care Provider: Aleshia Ramirez Other Providers: Eva Dailey Hospital Stay Data Consultations 09/10/24 21:22 ED Decision to Admit Stat Diagnostic Imagining Performed ECHO Pending Results Patient Have Any Pending Studies at Discharge: No Discharge Instructions Given to Patient (Per Discharging Provider) You were admitted with chest pain that was not from your heart. You did not have a heart attack. Your magnesium levels were low and this was replaced. This could be from taking Protonix which can make it hard for your to absorb magnesium in your gut. Talk to your doctor to see if it is time for you to stop taking Protonix so that your magnesium levels can improve. Total Time Total Time Spent Total Time Spent (In Minutes): 35 min Total Time Includes: Examination of the Patient, Discharge Planning and Medication Reconciliation Coding Level of Care Code 47627 INP/OBS DISCH >30 MIN Diagnoses Chest pain R07.9 Chest pain type: unspecified Hypertensive urgency I16.0 Hypomagnesemia E83.42 Acute hyponatremia E87.1 Diabetes E11.9
[2024-09-12 15:25] VITALS: BP 137/69; PULSE 72; TEMP 97.9; O2SAT 96
--- NOTE | 2024-09-13 12:56 | Electrocardiogram Report ---
Test Reason : Blood Pressure : */* mmHG Vent. Rate : 68 BPM Atrial Rate : 68 BPM P-R Int : 138 ms QRS Dur : 82 ms QT Int : 418 ms P-R-T Axes : 61 52 47 degrees QTcB Int : 444 ms Normal sinus rhythm Nonspecific T wave abnormality Abnormal ECG When compared with ECG of 11-Sep-2024 10:58, No significant change was found Confirmed by Stoney Chang ([id number]) on 09/13/2024 12:56:54 PM Referred By: REFERRED SELF Confirmed By: Stoney Chang
== END 2024-09-12 16:00 | disposition home or self-care (01) ==
LOC: 2E 18:48 → ED 18:48 → SUATTDRO 21:43 → 2E 22:51

== ENCOUNTER 2024-12-14 17:46 | Inpatient (IN) ==
--- NOTE | 2024-12-14 18:16 | Emergency Department Note ---
Impression & Plan Delusional disorder, Hypertension, Low magnesium level ED Provider Note NAME: AMPARO PERKINS AGE: 64 SEX: F : 1960 ARRIVES VIA: [employer] INFORMANT: Patient ED PROVIDER(S): Hudson Rodriguez DO CHIEF COMPLAINT: Depression HPI: Patient is a 64-year-old female with a past medical history of bipolar disorder, schizophrenia, depression who presents to the ER on a 302 petition. Patient denies any suicidal or homicidal ideations. No auditory or visual hallucinations. Per the petitioning statement she has been not taking her meds for the past 2 to 3 days and has been rambling about the dark web and the safety of the president and jumps from topic to topic including very random tragedies, traumas of her life. She has also been refusing to sleep in her bed. ADDITIONAL HISTORY OBTAINED: Per HPI Chronic Medical/Social Conditions Affecting Care: Per HPI PAST MEDICAL HISTORY:See Below PAST SURGICAL HISTORY:See Below FAMILY HISTORY:See Below SOCIAL HISTORY:See Below HOME MEDICATIONS:See Below ALLERGIES:See Below VITALS:See Below PHYSICAL EXAMINATION: GENERAL: Sitting up in bed, alert, well appearing, well nourished, no distress, non-toxic EYE EXAM: normal conjunctiva. PERRL and EOM's grossly intact. OROPHARYNX: no exudate, no erythema, lips, buccal mucosa, and tongue normal and mucous membranes are moist NECK: supple, no nuchal rigidity, no adenopathy, non-tender LUNGS: Clear to auscultation. Normal chest wall mechanics HEART: no murmurs, S1 normal and S2 normal ABDOMEN: abdomen soft, non-tender, normo-active bowel sounds, no masses, no rebound or guarding. BACK: Back is symmetrical on inspection and there is no deformity, no midline tenderness, no CVA tenderness. SKIN: no rashes and no bruising UPPER EXTREMITIES: upper extremities are grossly normal. LOWER EXTREMITIES: No pitting edema. NEURO EXAM: Normal sensorium, cranial nerves II-XII grossly intact, normal speech, no gross weakness of arms, no gross weakness of legs. PSYCH: Denies any suicidal or homicidal ideations. No auditory visual hallucinations. MEDICAL DECISION MAKING: Patient is a 64-year-old female who presents to the ER with a past medical history of GERD, diabetes and anemia for 302 petition. No grounds to a [place] consequently was denied. She does appear to be delusional however but does not appear to be danger to herself. She is agreeable to coming in and being evaluated by the hospitalist as well as psychiatry. Blood pressures were 200-2 20. Patient was given IV Lopressor. Labs show no significant leukocytosis or anemia. BMP with creatinine 1.6. Mag slightly low at 1.6. LFTs and bilirubin is unremarkable. Troponin is negative. TSH unremarkable. Salicylates and acetaminophen were negative. Alcohol negative. Patient was updated bedside discussed with the hospitalist for further evaluation management treatment. Consults/Care Managements Discussions: Per [facility] Triage Nursing notes reviewed. Limited review of prior medical records performed Vital Signs: reviewed and remarkable for no significant abnormalities Differential diagnosis: Benign hypertension, hypertensive emergency, cardiovascular pathology, toxicologic, pheochromocytoma, electrolyte abnormality, renal disease, endorgan damage, as well as other pathologies. ER treatment provided: See below Diagnostics interpreted by me include EKG and cardiac monitoring as listed below: -Cardiac Monitoring: An order was placed for continuous cardiac monitoring. The monitor shows a rate of 80 with sinus rhythm. -ECG: Sinus rhythm rate 96 Normal axis No PVCs Poor baseline QTc 462 -Laboratory studies:Interpreted by me as stated above in MDM and shown below. Imaging studies: Xrays: As interpreted by me:none CTs show: none Procedures:none Critical Care: None Past Med/Surg History Problem List (Updated 12/14/24 @ 22:52 by Hudson Rodriguez DO) Low magnesium level (Acute) Hypertension (Acute) Delusional disorder (Acute) Hypertension (Acute) Dehydration (Acute) Hypomagnesemia (Acute) Chest pain (Acute) Diarrhea (Acute) Colon cancer screening GERD (gastroesophageal reflux disease) Constipation Encounter for pre-operative examination Diabetes Psychiatric illness Anemia Medical History Constipation GERD (gastroesophageal reflux disease) Hx of respiratory syncytial virus infection 10/2023 Hypomagnesemia Manic episode Disorganized schizophrenia Insomnia Generalized weakness Hypertension Hyperlipidemia Hypothyroidism Diabetes mellitus, type 2 Chronic kidney disease stage 3 Surgical History Surgical history unknown Social History Smoking Status: Former smoker Tobacco Type: Cigarettes Second Hand Exposure: No; Do You Dip or Chew Tobacco: No; Hx Alcohol Use: No Hx Substance Use: No Preferred Language: Danish Communication Ability: Effective Communication Ability Comment: of sound mind to sign consent, alert and oriented x3 Network Systems Administrator Required: No Beliefs That Will Affect Care: None Current Living Situation: Personal Care Facility Current Living Situation Comment: lives at [facility] Feels Safe at Home: Yes Assistive Devices: None Allergies Allergies Allergy/AdvReac Type Severity Reaction Status Date / Time EUGENIO Inhibitors Allergy Unknown ON [facility] Verified 12/02/23 23:51 MED LIST clonazepam Allergy Unknown ON [facility] Verified 12/02/23 23:51 MED LIST lithium Allergy Unknown ON [facility] Verified 12/02/23 23:51 MED LIST Penicillins Allergy Unknown ON [facility] Verified 12/02/23 23:51 MED LIST pseudoephedrine Allergy Unknown ON [facility] Verified 12/02/23 23:51 MED LIST Sulfa (Sulfonamide Allergy Unknown ON [facility] Verified 12/02/23 23:51 Antibiotics) MED LIST sulfanilamide Allergy Unknown ON [facility] Verified 12/02/23 23:51 MED LIST trifluoperazine Allergy Unknown ON [facility] Verified 12/02/23 23:51 MED LIST ziprasidone Allergy Unknown ON [facility] Verified 12/02/23 23:51 MED LIST Home Meds Home Medications Medication Instructions Recorded Confirmed atorvastatin 20 mg tablet 20 mg PO HS 02/26/22 12/04/24 calcium carbonate (Calcium 500) 1,000 mg PO Q6H PRN Indigestion 02/26/22 12/04/24 divalproex 500 mg tablet,extended 500 mg PO Q12H 02/26/22 12/04/24 release 24 hr fluticasone propionate 50 1 spray intranasal [facility] 02/26/22 12/04/24 mcg/actuation nasal spray,suspension haloperidol decanoate 50 mg/mL 0.75 mg IM Q28D 02/26/22 12/04/24 intramuscular solution levothyroxine 50 mcg tablet 50 mcg PO [facility] 02/26/22 12/04/24 loratadine 10 mg tablet 10 mg PO [facility] 02/26/22 12/04/24 multivitamin with folic acid 400 1 tab PO [facility] 02/26/22 12/04/24 mcg tablet (Daily-Han (with folic acid)) cholecalciferol (vitamin D3) 125 125 mcg PO QAM 11/19/22 12/04/24 mcg (5,000 unit) tablet (Vitamin D3) docusate sodium 50 mg capsule 50 mg PO BID PRN Constipation 11/19/22 12/04/24 acetaminophen 325 mg tablet 650 mg PO QAM 09/10/24 12/04/24 olmesartan 5 mg tablet 5 mg PO BID 09/10/24 12/04/24 paroxetine HCl 30 mg tablet 0 mg PO QAM 09/10/24 12/04/24 sitagliptin phosphate 50 mg tablet 50 mg PO DAILY 09/10/24 12/04/24 (Januvia) icosapent ethyl 1 gram capsule 0 g PO BID 12/04/24 12/04/24 (Vascepa) metformin 500 mg tablet,extended 500 mg PO BID 12/04/24 12/04/24 release 24 hr Previous Rx's Medication Instructions Recorded albuterol sulfate 90 mcg/actuation 2 inh inhalation Q6H PRN shortness 10/28/23 breath activated powder inhaler of breath or wheezing #1 ea pantoprazole 40 mg tablet,delayed 40 mg PO QAM #30 tabs 01/25/24 release famotidine 20 mg tablet 20 mg PO HS #30 tabs 08/12/24 Results & Data (ED) Vital Signs Vital Signs - 24 hr 12/14/24 17:35 12/14/24 19:00 12/14/24 20:11 Temperature 36.5 C Temperature Source Oral Pulse Rate 132 H 95 H Pulse Rate [Finger] 97 H Pulse Rhythm [Finger] Regular Pulse Strength [Finger] Normal Respiratory Rate 20 18 Respiratory Effort / Characteristics Non-Labored Non-Labored Spontaneous Respiratory Depth Normal Normal Respiratory Pattern Regular Blood Pressure 197/132 H 199/123 H Blood Pressure [Right Arm] 200/101 H Blood Pressure Mean 153 Blood Pressure Mean [Right Arm] 134 Blood Pressure Position [Right Arm] Semi-fowlers Pulse Oximetry 99 99 Oxygen Delivery Method Room Air Room Air Sepsis Recent Fever Within 48 Hours No Sepsis New/Unexplained Change in Mental Status N/A Sepsis Action Taken by Nursing No Action Required 12/14/24 20:25 Temperature Temperature Source Pulse Rate 71 Pulse Rate [Finger] Pulse Rhythm [Finger] Pulse Strength [Finger] Respiratory Rate Respiratory Effort / Characteristics Respiratory Depth Respiratory Pattern Blood Pressure Blood Pressure [Right Arm] Blood Pressure Mean Blood Pressure Mean [Right Arm] Blood Pressure Position [Right Arm] Pulse Oximetry Oxygen Delivery Method Sepsis Recent Fever Within 48 Hours Sepsis New/Unexplained Change in Mental Status Sepsis Action Taken by Nursing Laboratory Data 12/14/24 18:16 12/14/24 18:16 Lab Results 12/14/24 12/14/24 Range/Units 16:22 18:16 WBC 6.00 (4.8-10.8) K/ul RBC 4.41 (4.20-5.40) M/uL Hgb 13.3 (12.0-16.0) g/dl Hct 40.0 (37.0-47.0) % MCV 90.7 (80.0-100.0) fL MCH 30.2 (25.0-34.0) pg MCHC 33.3 (32.0-36.0) g/dL RDW Std Deviation 43.6 (36.4-46.3) fL RDW Coeff of Kp 13.0 (11.5-14.5) % Plt Count 272 (130-400) K/uL MPV 10.0 (9.4-12.4) fL Immature Gran % (Auto) 0.2 % Neut % (Auto) 45.1 % Lymph % (Auto) 38.2 % [place] % (Auto) 11.8 % Eos % (Auto) 4.0 % Baso % (Auto) 0.7 % Neut # (Auto) 2.71 (1.40-6.50) K/uL Lymph # (Auto) 2.29 (1.20-3.40) K/uL [place] # (Auto) 0.71 H (0.11-0.59) K/uL Eos # (Auto) 0.24 (0.00-0.50) K/uL Baso # (Auto) 0.04 (0.00-0.20) K/uL Immature Gran # (Auto) 0.01 (0.01-0.20) K/uL Sodium 138 (136-145) mmol/L Potassium 3.8 (3.5-5.1) mmol/L Chloride 101 (98-107) mmol/L Carbon Dioxide 27 (21-32) mmol/L Anion Gap 10 (3-11) BUN 22 (6-23) mg/dl Creatinine 1.61 H (0.6-1.2) mg/dl Est Cr Clr Drug Dosing 35.3 ml/min eGFR 35.09 BUN/Creatinine Ratio 13.7 (10-20) Glucose 290 H (70-99(Fasting)) mg/dl Calcium 10.9 H (8.6-10.3) mg/dl Magnesium 1.6 L (1.7-2.4) mg/dl Total Bilirubin 0.4 (0.2-1.0) mg/dl AST 10 L (13-39) U/L ALT 15 (7-52) U/L Alkaline Phosphatase 83 (34-104) U/L Troponin I High Sens 11.3 (0-14) pg/ml Total Protein 8.0 (6.0-8.3) gm/dl Albumin 4.7 (3.4-5.0) gm/dl Globulin 3.3 (2.5-4.0) gm/dl Albumin/Globulin Ratio 1.4 (0.9-2) TSH 1.561 (0.300-4.500) uIu/ml Salicylates < 3.0 L (3.0-30) mg/dl Acetaminophen < 3 L (10-30) ug/ml Valproic Acid 68 (50-100) mcg/ml Ethyl Alcohol mg/dL < 10.0 (<10.0) mg/dl SARS-CoV-2, RNA, NAAT NEGATIVE (NEGATIVE) Administered Medications Lactated Ringer's (Lr) 1,000 mls @ 80 mls/hr IV .[id number] RADHA Stop: 12/15/24 22:38 Last Admin: 12/14/24 22:30 Dose: 80 mls/hr Documented By: MED Insulin Aspart (Insulin Aspart Per Unit Charge) 0 units SC ACHS RADHA Stop: 01/13/25 21:38 Last Admin: 12/14/24 22:29 Dose: 2 units Documented By: MED Co-signed By: BUD Discontinued Medications Insulin Glargine (Lantus Per Unit Charge) 5 units SQ NOW STA Stop: 12/14/24 20:38 Last Admin: 12/14/24 21:35 Dose: 5 units Documented By: IDD Co-signed By: HERMAN Labetalol HCl (Labetalol Hcl Iv 5 Mg/Ml 20ml) 10 mg IV NOW STA Stop: 12/14/24 19:29 Last Admin: 12/14/24 20:11 Dose: 10 mg Documented By: ELI Lorazepam (Lorazepam 1 Mg Tab) 1 mg SL NOW STA Stop: 12/14/24 19:07 Last Admin: 12/14/24 20:10 Dose: Not Given Documented By: ELI Olanzapine (Olanzapine 5 Mg Tablet) 5 mg PO NOW STA Stop: 12/14/24 19:12 Last Admin: 12/14/24 20:11 Dose: 5 mg Documented By: ELI Discharge Plan Visit Data Chief Complaint: Mental Health Evaluation Stated Complaint: 302 ED Provider: Hudson Rodriguez Discharge Problem: Delusional disorder, Hypertension, Low magnesium level Patient Disposition: Admitted As Inpatient Discharge Instructions Interventions: ED Discharge Assessment Last Done: 12/14/24 21:40 Discharge Problem: Hypertension Qualifiers: Hypertension type: unspecified Qualified Code(s): I10 - Essential (primary) hypertension
[2024-12-14 18:43] LABS: Basophils # (auto) 0.04 K/uL (0.00-0.20); Basophils % (auto) 0.7 %; Eosinophils # (auto) 0.24 K/uL (0.00-0.50); Hemoglobin 13.3 g/dl (12.0-16.0); Immature Granulocytes # (auto) 0.01 K/uL (0.01-0.20); Immature Granulocytes % (auto) 0.2 %; Lymphocytes # (auto) 2.29 K/uL (1.20-3.40); Lymphocytes % (auto) 38.2 %; Mean Corpuscular Hemoglobin 30.2 pg (25.0-34.0); Mean Corpuscular Hgb Conc 33.3 g/dL (32.0-36.0); Mean Corpuscular Volume 90.7 fL (80.0-100.0); Monocytes # (auto) 0.71 K/uL (0.11-0.59); Monocytes % (auto) 11.8 %; Neutrophils # (auto) 2.71 K/uL (1.40-6.50); Neutrophils % (auto) 45.1 %; Platelet Count 272 K/uL (130-400); RDW Standard Deviation 43.6 fL (36.4-46.3); Red Blood Count 4.41 M/uL (4.20-5.40)
[2024-12-14 18:47] LABS: Albumin Level 4.7 gm/dl (3.4-5.0); Bilirubin,Total 0.4 mg/dl (0.2-1.0); Calcium 10.9 mg/dl (8.6-10.3); Potassium 3.8 mmol/L (3.5-5.1)
[2024-12-14 18:53] LABS: Acetaminophen < 3 ug/ml (10-30); Albumin Globulin Ratio 1.4 (0.9-2); BUN Creatinine Ratio 13.7 (10-20); Creatinine Clr Calc Pharmacy 35.3 ml/min; Globulin 3.3 gm/dl (2.5-4.0); Salicylate < 3.0 mg/dl (3.0-30)
[2024-12-14 19:05] LABS: Thyroid Stimulating Hormone 1.561 uIu/ml (0.300-4.500)
[2024-12-14 19:42] LABS: Troponin I High Sensitivity 11.3 pg/ml (0-14)
[2024-12-14] MEDS: LORazepam 1 MG TAB SL STA (20:10)
[2024-12-14] MEDS: LABETALOL HCL IV 5 MG/ML 20ML IV STA (20:11)
[2024-12-14] MEDS: OLANZapine 5 MG TABLET PO STA (20:11)
--- NOTE | 2024-12-14 20:37 | History & Physical Report ---
Date of Service December 14, 2024 Assessment & Plan (1) Psychiatric illness: (2) Hypertension: (3) Diabetes: (4) GERD (gastroesophageal reflux disease): (5) Hyperlipidemia: Plan 64yo female with history of Bipolar disorder, schizophrenia, HTN, DM presenting with increased paranoia and disorganized thinking in setting of medication non- adherence for the last 2-3 days. Patient with hypertension and elevated blood sugar as well. #Psychiatric Illness - denies SI/HI. Medication non-adherence -Admit to medical with telemetry -Resume home medications - Divalproex ER 500mg po BID -Continue Paxil -Psychiatry consultation appreciated #Hypertension - elevated blood pressure in the ER to 200/100. Now improved to 166/98 -Continue Olmesartan 5mg po BID or formulary equivalent -Continue to monitor #Diabetes - elevated blood sugar at 290. Patient on Januvia. Last [id number]=8.4 on 06/10/23 -Lantus 5u BID -ISS -Check HgbA1C with AM labs #GERD - chronic -Continue Pepcid 20mg po qHS -Continue Protonix 40mg po daily #Hyperlipidemia - chronic -Continue Atorvastatin F/E/N - LR at 80mL/hr x 2L, Mg x 2gm IV, CC diet as tolerated Ppx - low risk for DVT Code - Full Dispo -Admit to medical with telemetry History of Present Illness Chief Complaint: paranoia Primary Care Provider: Aleshia Ramirez MD Beatrice Calhoun is a pleasant 64yo female with history of Bipolar disorder, Schizophrenia, Depression, hypertension, DM presenting with increased paranoia. Patient presented on 302 petition. Reports she has not been taking her medications for the past 2-3 days. She has increased focus on the dark web, safety of the president and family members that do not like the president. She denies SI or HI. In the ER she is afebrile, hypertensive with blood pressure to 200/100 and elevated blood sugars. Medical admission requested ER Course: Olanzapine 5mg PO Labetalol 10mg IV Lantus 5u SQ Allergies Allergy/AdvReac Type Severity Reaction Status Date / Time EUGENIO Inhibitors Allergy Unknown ON [facility] Verified 12/02/23 23:51 MED LIST clonazepam Allergy Unknown ON [facility] Verified 12/02/23 23:51 MED LIST lithium Allergy Unknown ON [facility] Verified 12/02/23 23:51 MED LIST Penicillins Allergy Unknown ON [facility] Verified 12/02/23 23:51 MED LIST pseudoephedrine Allergy Unknown ON [facility] Verified 12/02/23 23:51 MED LIST Sulfa (Sulfonamide Allergy Unknown ON [facility] Verified 12/02/23 23:51 Antibiotics) MED LIST sulfanilamide Allergy Unknown ON [facility] Verified 12/02/23 23:51 MED LIST trifluoperazine Allergy Unknown ON [facility] Verified 12/02/23 23:51 MED LIST ziprasidone Allergy Unknown ON [facility] Verified 12/02/23 23:51 MED LIST Home Medications Medication Instructions Recorded Confirmed Type atorvastatin 20 mg tablet 20 mg PO HS 02/26/22 12/04/24 History calcium carbonate (Calcium 500) 1,000 mg PO Q6H PRN Indigestion 02/26/22 12/04/24 History divalproex 500 mg tablet,extended 500 mg PO Q12H 02/26/22 12/04/24 History release 24 hr fluticasone propionate 50 1 spray intranasal [facility] 02/26/22 12/04/24 History mcg/actuation nasal spray,suspension haloperidol decanoate 50 mg/mL 0.75 mg IM Q28D 02/26/22 12/04/24 History intramuscular solution levothyroxine 50 mcg tablet 50 mcg PO [facility] 02/26/22 12/04/24 History loratadine 10 mg tablet 10 mg PO M 02/26/22 12/04/24 History multivitamin with folic acid 400 1 tab PO QAM 02/26/22 12/04/24 History mcg tablet (Daily-Han (with folic acid)) cholecalciferol (vitamin D3) 125 125 mcg PO QAM 11/19/22 12/04/24 History mcg (5,000 unit) tablet (Vitamin D3) docusate sodium 50 mg capsule 50 mg PO BID PRN Constipation 11/19/22 12/04/24 History albuterol sulfate 90 mcg/actuation 2 inh inhalation Q6H PRN shortness 10/28/23 12/04/24 Rx breath activated powder inhaler of breath or wheezing #1 ea pantoprazole 40 mg tablet,delayed 40 mg PO QA #30 tabs 01/25/24 12/04/24 Rx release famotidine 20 mg tablet 20 mg PO HS #30 tabs 11/01/24 02/23/25 Rx acetaminophen 325 mg tablet 650 mg PO QAM 09/10/24 12/04/24 History olmesartan 5 mg tablet 5 mg PO BID 09/10/24 12/04/24 History paroxetine HCl 30 mg tablet 0 mg PO QAM 09/10/24 12/04/24 History sitagliptin phosphate 50 mg tablet 50 mg PO DAILY 09/10/24 12/04/24 History (Januvia) icosapent ethyl 1 gram capsule 0 g PO BID 12/04/24 12/04/24 History (Vascepa) metformin 500 mg tablet,extended 500 mg PO BID 12/04/24 12/04/24 History release 24 hr Past Med/Surg History Problem List Low magnesium level (Acute) Hypertension (Acute) Delusional disorder (Acute) Hypertension (Acute) Dehydration (Acute) Hypomagnesemia (Acute) Chest pain (Acute) Diarrhea (Acute) Colon cancer screening GERD (gastroesophageal reflux disease) Constipation Encounter for pre-operative examination Diabetes Psychiatric illness Anemia Medical History Hypomagnesemia Constipation GERD (gastroesophageal reflux disease) Hx of respiratory syncytial virus infection 10/2023 Hypomagnesemia Manic episode Disorganized schizophrenia Insomnia Generalized weakness Hypertension Hyperlipidemia Hypothyroidism Diabetes mellitus, type 2 Chronic kidney disease stage 3 Surgical History Surgical history unknown Social History Smoking Status: Former smoker Tobacco Type: Cigarettes Smoking End Date: 2019; Second Hand Exposure: No; Do You Dip or Chew Tobacco: No; Hx Alcohol Use: Yes Alcohol type: other Hx Substance Use: No Preferred Language: Occitan Communication Ability: Effective Communication Ability Comment: of sound mind to sign consent, alert and oriented x3 Patrol Judge Required: No Beliefs That Will Affect Care: None Current Living Situation: Personal Care Facility Current Living Situation Comment: [facility] Other Information That Helps Us Care for You: No Feels Safe at Home: Yes Safety Concerns: Feels Safe At This Time Assistive Devices: Denture - Upper, Denture - Lower and Glasses Review of Systems Review of Systems: All systems reviewed & are unremarkable except as noted in HPI & below Physical Exam Physical Exam: General: patient with tangential and scattered thoughts, somewhat rapid speech. She is able to answer questions and follow commands. Skin: warm, dry, intact, no rashes or lesions HEENT: NC/AT, PERRL, EOMI, anicteric sclera, conjunctiva without injection, external ear normal to inspection and nontender, nares patent, moist mucus membranes, dentition intact, no oropharyngeal lesions, neck supple, trachea midline, no LAD, no thyromegaly, no JVD Heart: +S1/S2, regular, no m/r/g Lungs: equal air entry bilaterally, no rales/rhonchi/wheezes Abd: +BS, soft, NT/ND, no masses/organomegaly/ascites Ext: warm, 2+ pulses in UE/LE bilaterally, no clubbing/cyanosis or edema Neuro: nonfocal, patient AA&O x 4, speech intact, no facial droop, moving all extremities on command with equal strength 5/5 Results & Data Results & Data Vital Signs (Past 12 Hours) Vital Signs Temp Pulse Pulse Resp BP BP Pulse Ox 12/14/24 20:25 71 12/14/24 20:11 95 H 199/123 H 12/14/24 19:00 97 H 18 200/101 H 99 12/14/24 17:35 36.5 C 132 H 20 197/132 H 99 O2 Del Method 12/14/24 20:25 12/14/24 20:11 12/14/24 19:00 Room Air 12/14/24 17:35 Room Air Laboratory Results Laboratory Results WBC 6.00 K/ul (4.8-10.8) 12/14/24 18:16 RBC 4.41 M/uL (4.20-5.40) 12/14/24 18:16 Hgb 13.3 g/dl (12.0-16.0) 12/14/24 18:16 Hct 40.0 % (37.0-47.0) 12/14/24 18:16 MCV 90.7 fL (80.0-100.0) 12/14/24 18:16 MCH 30.2 pg (25.0-34.0) 12/14/24 18:16 MCHC 33.3 g/dL (32.0-36.0) 12/14/24 18:16 RDW Std Deviation 43.6 fL (36.4-46.3) 12/14/24 18:16 RDW Coeff of Kp 13.0 % (11.5-14.5) 12/14/24 18:16 Plt Count 272 K/uL (130-400) 12/14/24 18:16 MPV 10.0 fL (9.4-12.4) 12/14/24 18:16 Immature Gran % (Auto) 0.2 % 12/14/24 18:16 Neut % (Auto) 45.1 % 12/14/24 18:16 Lymph % (Auto) 38.2 % 12/14/24 18:16 [place] % (Auto) 11.8 % 12/14/24 18:16 Eos % (Auto) 4.0 % 12/14/24 18:16 Baso % (Auto) 0.7 % 12/14/24 18:16 Neut # (Auto) 2.71 K/uL (1.40-6.50) 12/14/24 18:16 Lymph # (Auto) 2.29 K/uL (1.20-3.40) 12/14/24 18:16 [place] # (Auto) 0.71 K/uL (0.11-0.59) H 12/14/24 18:16 Eos # (Auto) 0.24 K/uL (0.00-0.50) 12/14/24 18:16 Baso # (Auto) 0.04 K/uL (0.00-0.20) 12/14/24 18:16 Immature Gran # (Auto) 0.01 K/uL (0.01-0.20) 12/14/24 18:16 Sodium 138 mmol/L (136-145) 12/14/24 18:16 Potassium 3.8 mmol/L (3.5-5.1) 12/14/24 18:16 Chloride 101 mmol/L (98-107) 12/14/24 18:16 Carbon Dioxide 27 mmol/L (21-32) 12/14/24 18:16 Anion Gap 10 (3-11) 12/14/24 18:16 BUN 22 mg/dl (6-23) 12/14/24 18:16 Creatinine 1.61 mg/dl (0.6-1.2) H 12/14/24 18:16 Est Cr Clr Drug Dosing 35.3 ml/min 12/14/24 18:16 eGFR 35.09 12/14/24 18:16 BUN/Creatinine Ratio 13.7 (10-20) 12/14/24 18:16 Glucose 290 mg/dl (70-99(Fasting)) H 12/14/24 18:16 POC Glucose 212 mg/dl (70-99) H 12/14/24 22:12 Calcium 10.9 mg/dl (8.6-10.3) H 12/14/24 18:16 Magnesium 1.6 mg/dl (1.7-2.4) L 12/14/24 18:16 Total Bilirubin 0.4 mg/dl (0.2-1.0) 12/14/24 18:16 AST 10 U/L (13-39) L 12/14/24 18:16 ALT 15 U/L (7-52) 12/14/24 18:16 Alkaline Phosphatase 83 U/L (34-104) 12/14/24 18:16 Troponin I High Sens 11.3 pg/ml (0-14) 12/14/24 18:16 Total Protein 8.0 gm/dl (6.0-8.3) 12/14/24 18:16 Albumin 4.7 gm/dl (3.4-5.0) 12/14/24 18:16 Globulin 3.3 gm/dl (2.5-4.0) 12/14/24 18:16 Albumin/Globulin Ratio 1.4 (0.9-2) 12/14/24 18:16 TSH 1.561 uIu/ml (0.300-4.500) 12/14/24 18:16 Urine Color Yellow 12/14/24 Unknown Urine Appearance Clear (Clear) 12/14/24 Unknown Urine pH 7.0 (4.5-7.5) 12/14/24 Unknown Ur Specific [place] 1.013 (1.000-1.030) 12/14/24 Unknown Urine Protein Negative (Negative) 12/14/24 Unknown Urine Glucose (UA) 2+ (Negative) H 12/14/24 Unknown Urine Ketones Negative (Negative) 12/14/24 Unknown Urine Blood Negative (Negative) 12/14/24 Unknown Urine Nitrite Negative (Negative) 12/14/24 Unknown Urine Bilirubin Negative (Negative) 12/14/24 Unknown Urine Urobilinogen Negative (Negative) 12/14/24 Unknown Ur Leukocyte Esterase 2+ (Negative) H 12/14/24 Unknown Urine WBC (Auto) 6-10 /hpf (0-5) H 12/14/24 Unknown Urine RBC (Auto) 0-2 /hpf (0-2) 12/14/24 Unknown U Hyaline Cast (Auto) 0-2 /lpf (0-2) 12/14/24 Unknown U Epithel Cells (Auto) 0-2 /hpf (0-2) 12/14/24 Unknown Urine Bacteria (Auto) None Seen (None Seen) 12/14/24 Unknown Ur Random Creatinine 68.7 mg/dl 12/14/24 Unknown Ur Random Sodium 67 mmol/L 12/14/24 Unknown Salicylates < 3.0 mg/dl (3.0-30) L 12/14/24 18:16 Urine Opiates Screen Neg (Neg) 12/14/24 Unknown Ur Methadone, Qual Neg (Neg) 12/14/24 Unknown Urine Fentanyl Screen Neg (Neg) 12/14/24 Unknown Acetaminophen < 3 ug/ml (10-30) L 12/14/24 18:16 Urine Barbiturates Neg (Neg) 12/14/24 Unknown Valproic Acid 68 mcg/ml (50-100) 12/14/24 18:16 Ur Phencyclidine (PCP) Neg (Neg) 12/14/24 Unknown U Amphetamin/Meth Scrn Neg (Neg) 12/14/24 Unknown MDMA (Ecstasy) Screen Neg (Neg) 12/14/24 Unknown U Benzodiazepines Scrn Neg (Neg) 12/14/24 Unknown Ur Cocaine Metabolite Neg (Neg) 12/14/24 Unknown U Marijuana (THC) Screen Neg (Neg) 12/14/24 Unknown Ethyl Alcohol mg/dL < 10.0 mg/dl (<10.0) 12/14/24 18:16 SARS-CoV-2, RNA, NAAT NEGATIVE (NEGATIVE) 12/14/24 16:22 ECG Additional Comments: EKG with NSR at 96bpm, normal axis, no acute ischemic changes PG Care Time/CCT Total # of Minutes Spent Total Time Spent with Patient: Total time spent is greater than 50% in coordination of care (as documented) at patient's floor/unit and/or counseling patient: Coding Level of Care Code 22718 INT INP/OBS CARE MIN Diagnoses Psychiatric illness F99 Hypertension I10 Hypertension type: unspecified Diabetes E11.9 GERD (gastroesophageal reflux disease) K21.9 Hyperlipidemia E78.5 (2) Hypertension Hypertension type: unspecified Qualified Code(s): I10 - Essential (primary) hypertension
[2024-12-14] MEDS: LANTUS PER UNIT CHARGE SQ STA (21:35)
[2024-12-14] MEDS ORDERED: GLUCAGON FOR INJ 1 MG VIAL SQ PRN (21:39)
[2024-12-14] MEDS ORDERED: GLUCOSE 10 TAB/TUBE PO PRN (21:39)
[2024-12-14] MEDS ORDERED: CARBOHYDRATES FOR HYPOGLYCEMIA PO PRN (21:39)
[2024-12-14] MEDS ORDERED: GLUCOSE 40% GEL 15 GM TUBE PO PRN (21:39)
[2024-12-14] MEDS ORDERED: ONDANSETRON INJ 2 MG/ML 2 ML VIAL IV PRN (21:39)
[2024-12-14] MEDS ORDERED: ACETAMINOPHEN 325 MG TAB PO PRN (21:39)
[2024-12-14] MEDS ORDERED: DEXTROSE 50% 50 ML SYRINGE IV PRN (21:39)
[2024-12-14 22:00] LABS: Magnesium 1.6 mg/dl (1.7-2.4)
[2024-12-14] MEDS: INSULIN ASPART PER UNIT CHARGE SC SCH (22:29)
[2024-12-14] MEDS: LACTATED RINGER'S 1,000 ML IV SCH (22:30)
[2024-12-14 23:06] LABS: Appearance Urine Clear (Clear); Bacteria Urine Automated None Seen (None Seen); Bilirubin Urine Negative (Negative); Blood Urine Negative (Negative); Cast Urine Automated 0-2 /lpf (0-2); Color Urine Yellow; Epithelial Cell Urine Auto 0-2 /hpf (0-2); Glucose Urine UA 2+ (Negative); Ketones Urine Negative (Negative); Leukocyte Esterase Urine 2+ (Negative); Nitrite Urine Negative (Negative); Protein Urine Negative (Negative); RBC Urine Automated 0-2 /hpf (0-2); Specific Gravity Urine 1.013 (1.000-1.030); Urobilinogen Urine Negative (Negative)
[2024-12-14 23:30] LABS: Amphetamines+Metham, Urine Neg (Neg); Barbiturates, Urine Neg (Neg); Benzodiazepine, Urine Neg (Neg); Cocaine, Urine Neg (Neg); Creatinine Urine Random 68.7 mg/dl; Fentanyl, Urine Neg (Neg); MDMA (Ecstacy), Urine Neg (Neg); Marijuana, Urine Neg (Neg); Methadone, Urine Neg (Neg); Opiate, Urine Neg (Neg); Phencyclidine, Urine Neg (Neg)
[2024-12-14] MEDS ORDERED: ALBUTEROL 0.5% NEB SOLN 2.5 MG/0.5 ML VIAL NEB PRN (23:39)
[2024-12-15] MEDS: MAGNESIUM SULFATE / D5W 1 GM/100 ML BAG IV SCH (00:19)
[2024-12-15] MEDS: DIVALPROEX EXTENDED RELEASE 500 MG TAB PO SCH (00:20)
[2024-12-15] MEDS: LEVOTHYROXINE SODIUM 50 MCG TABLET PO SCH (05:41)
[2024-12-15 07:15] LABS: Hematocrit (blood only) 33.8 % (37.0-47.0); Hemoglobin 11.1 g/dl (12.0-16.0); Mean Corpuscular Hemoglobin 29.8 pg (25.0-34.0); Mean Corpuscular Hgb Conc 32.8 g/dL (32.0-36.0); Mean Corpuscular Volume 90.6 fL (80.0-100.0); Mean Platelet Volume 9.8 fL (9.4-12.4); Platelet Count 200 K/uL (130-400); RDW Coefficient of Variation 13.1 % (11.5-14.5); RDW Standard Deviation 42.8 fL (36.4-46.3); Red Blood Count 3.73 M/uL (4.20-5.40); White Blood Count 5.14 K/ul (4.8-10.8)
--- NOTE | 2024-12-15 07:35 | Hospitalist Progress Note ---
Date of Service December 15, 2024 Assessment & Plan (1) Psychiatric illness: (2) Hypertension: (3) Diabetes: (4) GERD (gastroesophageal reflux disease): (5) Hyperlipidemia: Plan 64yo female with history of Bipolar disorder, schizophrenia, HTN, DM presenting with increased paranoia and disorganized thinking in setting of medication non- adherence for the last 2-3 days. Patient presented on 302 petition (not upheld as no SI/HI). Reported increased focus on the dark web, safety of the president and family members that do not like the president. No SI/HI. Admission w/ HTN w/ BP 200/100s and Glu 290 #Psychiatric Illness/Bipolar/Schizophrenia - Medication non-adherence Continues to deny SI/HI. Currently is alert/oriented to person/place/year/event. Some flight of ideas/pressure speech but pleasant/cooperative History:Reports hx Bipolar * Pt reports was previously on [place] but stopped 2nd to renal dysfunction. * Liked her Zyprexa but issues w/ compliance and prior outside provider w/ plans to switch her to Invega (per patient) for once yearly injections to improve compliance. Per nursing, got report she missed her Haldol injection and was to get labs for new start Invega Divalproex ER 500mg BID continued Paxil 40mg daily STOPPED Psych consult pending -- they are following up w/ daughter for discussion. Possible 3S tomorrow for ongoing management Continue to monitor #Hypertension BP elevated 200s/100s on admission --> improved to 166/98 --> 146/78 but again elevated this afternoon and metoprolol 12.5mg PO x 1 in addition to home olmesartan 50mg BID (or hospital equivalent) Monitor/adjustment as needed. Consider tartrate BID if needed IVF has been discontinued, PO hydration encouraged #Diabetes/hyperglycemia Elevated blood sugar at 290. No anion gap. A1c 7.4-->7.4 on repeat on Junuvia at baseline Lantus 5u BID, sliding scale and will tighten parameters given low 200s still. Monitor on repeat/increase glargine as needed if remains elevated #Hypomagnesemia Mag 1.6 on arrival. 2gm IV ordered and repeat 2.1 -->Given chronic hypomag (is on PPI), likely benefit from PO supplementation and will monitor if remains low #GERD Chronic, maintained on pepcid HS/protonix 40mg QAM which have been continued and ?cause for her hypomag #Hyperlipidemia Chronic, continue atorvastatin Vit D Deficiency Hx of such, added to labs given noncompliance/adjust PO as able (?once weekly higher dosing?) Vit D acceptable/higher end of normal at 88 Review home meds w/ Vit D 125mcg PO daily -- would reduce to 1000IU daily if needed vs discontinue for now but has not been ordered inpatient Dispo: continued inpatient stay, appreciate psych consult. Possible dc to 3S for med management 12/16 Admission and Anticipated Discharge Date Admission Date: December 14, 2024 Supervising Physician Co-Signing Physician Notes The patient was not seen by me. The chart was reviewed. Case discussed with LARRY Nicholas. Agree with assessment and plan Subjective Eval this morning, resting in bed on her phone. Reports she is in [facility], year 2024 but she does report she frequently forgets not 2023 anymore, month is December and excited for the for her [place] shake from [employer]. She reports someone gave her Paxil and Wellbutrin and they didn't know she had a history of bipolar as it wasn't on her chart. She reports she was happy on Zyprexa in the past but that they had talked about switching her to Abilify or Invega so she would only need a once yearly injection. She also notes she was on lithium in the past that worked well but that she had to go off this because of kidney failure. She denies any active SI/HI at this time and notes her daughter left work as was worried about her and her affinity for [employer]. Denies CP/SOB at this time and then noted to say she quit smoking 4.5 years ago followed by that she was going to run for office and laughed. Cannot find 302 petition on chart but was denied as no SI/HI at this time. Will touch base w/ psych for coordination of care Quit smoking 4.5 yrs ago, then said was going to run for office and laughed. Per nursing, patient missed IV Haldol shot on the as they were going to give Invega but bc she didn't get the blood work it was not able to be given. Results & Data Results & Data Vital Signs (Past 12 Hours) Vital Signs Temp Pulse Pulse Resp BP BP BP 12/15/24 02:58 36.5 C 76 16 146/78 H 12/14/24 23:09 36.5 C 99 H 18 166/98 H 12/14/24 22:29 100 H 12/14/24 21:39 36.5 C 99 H 18 166/98 H 12/14/24 21:07 80 170/84 H 12/14/24 21:00 75 18 170/84 H 12/14/24 20:25 71 12/14/24 20:11 95 H 199/123 H Pulse Ox O2 Del Method 12/15/24 02:58 98 Room Air 12/14/24 23:09 98 Room Air 12/14/24 22:29 12/14/24 21:39 98 Room Air 12/14/24 21:07 12/14/24 21:00 99 Room Air 12/14/24 20:25 12/14/24 20:11 PG Care Time/CCT Total # of Minutes Spent Total Time Spent with Patient: Total time spent is greater than 50% in coordination of care (as documented) at patient's floor/unit and/or counseling patient: Coding Level of Care Code 55278 SUB INP/OBS CARE 3/50MIN Diagnoses Psychiatric illness F99 Hypertension I10 Hypertension type: unspecified Diabetes E11.9 GERD (gastroesophageal reflux disease) K21.9 Hyperlipidemia E78.5 (2) Hypertension Hypertension type: unspecified Qualified Code(s): I10 - Essential (primary) hypertension
[2024-12-15 07:51] LABS: BUN Creatinine Ratio 13.6 (10-20); Creatinine Clr Calc Pharmacy 40.6 ml/min; Potassium 4.4 mmol/L (3.5-5.1)
--- NOTE | 2024-12-15 08:13 | Electrocardiogram Report ---
Test Reason : Blood Pressure : */* mmHG Vent. Rate : 96 BPM Atrial Rate : 96 BPM P-R Int : 126 ms QRS Dur : 74 ms QT Int : 366 ms P-R-T Axes : 61 51 17 degrees QTcB Int : 462 ms Normal sinus rhythm Diffuse Nonspecific ST and T wave abnormality Abnormal ECG When compared with ECG of 04-Dec-2024 03:24, No significant change was found Confirmed by Larry Fajardo ([id number]) on 12/15/2024 8:12:59 AM Referred By: REFERRED SELF Confirmed By: Larry Fajardo
--- OUTSIDE RECORDS SUMMARY | 2024-12-15 08:41 | External Medical Summary | Continuity of Care Document ---
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 Name Role Phone Aleshia Ramirez Primary Care Physician [phone] Encounter [id number] Date(s): 12/07/24 - 12/07/24 [facility] [address], [address] [place] [address] [phone] Encounter Diagnosis Chest pain(Discharge Diagnosis) - 12/06/24 Breast cancer screening(Discharge Diagnosis) - 12/07/24 Bipolar disorder(Discharge Diagnosis) - 12/08/24 Chronic diarrhea(Discharge Diagnosis) - 12/07/24 Dehydration(Discharge Diagnosis) - 12/06/24 Type 2 diabetes, HbA1c goal < 7%(Discharge Diagnosis) - 12/06/24 Hypomagnesemia(Discharge Diagnosis) - 12/06/24 Janet vaginitis(Discharge Diagnosis) - 12/07/24 Living accommodation issues(Discharge Diagnosis) - 12/06/24 Adult hypothyroidism(Discharge Diagnosis) - 12/07/24 Discharge Disposition: Home or Self Care Attending Physician: MD Ramirez Amy L Encounter Type: Clinic Allergies, Adverse Reactions, Alerts Substance Criticality Severity Reaction Reaction Severity Status lithium muscle weakness , incontinence Active penicillin anaphylaxis Active EUGENIO inhibitors 1 unknown Act breezy pseudoephedrine 2 unknown Ac tive clonazePAM 3 unknown Active trifluoperazine 4 unknown Ac tive sulfa drugs anaphylaxis Active ziprasidone 5 unknown Active Sulfanilamide 6 unknown Acti ve 1On updated document from [facility] 2On updated document from [facility] 3On updated document from [facility] 4On updated document from [facility] 5On updated document from [facility] [place] 6On updated document from [facility] Assessment and Plan Extracted from: Title:Office Visit Note Author:MD James, Aleshia Hutchins ate:12/08/24 1.Chest pain STATUS : chronic, resolved. DATA : hx,exam& ER reportreviewed. GOAL : maintain euvolemia, stable cardiac rhythm. PLAN : she didruleout forMIin ER.Herhx isnot suggestiveoftypicalangina, however,since sheis diabetic,this doesincrease herCVDrisk. Will refer tocardiology. 2.Bipolar disorder STATUS: Chronic, uncontrolled. DATA: hx reviewed. GOAL: Maintain psychiatricstability. PLAN: she does appearsomewhathypomanictoday, butisnothallucinating& doesnotappeartobe a dangertoherself. In addition,her daughter& caretakerareprovidinggreat care& supervisionfor her. She has been seeing psychiatry & they are adjusting her medsappropriately. 3.Chronic diarrhea STATUS : chronic, intermittent &somewhat improved. DATA : hx,exam & ER reportreviewed. GOAL : restore normal stooling pattern. PLAN: discussed with her that Metformin &/or magnesium supplement could be contributing to this. Coincidentally, she has a colonoscopy scheduled in few days. Will stop Metformin, as below, & see if this is helpful. 4.Hypomagnesemia STATUS: Chronic, resolved. DATA: Labs reviewed. GOAL: Maintain electrolytestability. PLAN: recheckMg++levelwithnextlabs. Will continue Magnesium supplement at same dose, pending labs. 5.Dehydration STATUS: acute, resolved. DATA: hx,exam& ERreportsreviewed. GOAL: Maintain adequatehydration. PLAN: discussedneed tomaintainwaterintake & advised on alternating water with fluid containing electrolytes. 6.Type 2 diabetes, HbA1c goal < 7% Status : chronic, controlled. Data : diet & glucometers reviewed. Goal : maintain normal blood sugars. Plan : [id number] was 7% in 10/04. Will try stoppingMetformin& havehercontinueJanuvia.Will needto reassess level of diabetic control off of it & decide if any other meds are needed. Asked her daughtertoresearchwhkaylyn acostaofCGMor glucometerwouldbe covered underher insurance. Referral ordered for bladder changer. Her daughter was given phone numbers of rajat valentine she could self-refer. 7.Adult hypothyroidism Status : chronic, stable. Data : sx & TSHreviewed. Goal : maintain euthyroid state. Plan : her last TSH in 10/04 was too low. It was advised to get repeat lab, rather than changing dose, so will recheck now. To decide on any dose change accordingly. However, this could contribute to diarrhea, as well. 8.Living accommodation issues She is doing well in her own apartment & has good supervision from her daughter & rv repairer. 9.Janet vaginitis STATUS: new complaint,stable. DATA: hx reviewed. GOAL: resolvecandidalinfection. PLAN: give themultiplicityof issuesdiscussed today,we werenot ableto completepelvicexam. MaytryTerconazolecreamprn. 10.Breast cancer screening Mammo ordered. Return in3-4 months. Time:Total time spent with this patient on day of evaluation including chart review, ordering, education and coordination of care elements: 45_ minutes Medications acetaminophen 325 mg oral tablet Start: 10/15/21 1:12:00 PM EST, 2 tab, PO, bid Start Date: 10/15/21 Status: Ordered Repeat number: 1 atorvastatin 20 mg oral tablet Start: 07/14/24 5:22:00 PM EDT, 1 tab, PO, qhs, Disp# 28 tab, Refills: 10, FOR HYPERLIPIDEMIA., Pharmacy: [facility] Start Date: 07/14/24 Status: Ordered Quantity: 28.0 Unit: tab Repeat number: 1 Colace 50 mg oral capsule Start: 05/28/22 5:22:00 PM EDT, 1 cap, PO, bid, Disp# 60 cap, Refills: 6, PRN: as needed for constipation, Pharmacy: [facility] Start Date: 05/28/22 Status: Ordered Quantity: 60.0 Unit: cap Repeat number: 7 Contour Test Strips 50 ct Start: 03/03/22 1:35:00 PM EDT, See Instructions, Disp# 50 strip, Use for glucose monitoring in the AM., Pharmacy: [facility] Start Date: 03/03/22 Status: Ordered Quantity: 50.0 Unit: Repeat number: 1 Daily Han oral tablet Start: 07/14/24 5:23:00 PM EDT, 1 tab, PO, Daily, Disp# 28 tab, Refills: 10, *SUPPLEMENT*., Pharmacy: [facility] Start Date: 07/14/24 Status: Ordered Quantity: 28.0 Unit: tab Repeat number: 1 divalproex sodium Start: 10/15/21 1:13:00 PM EST, 500 mg =, PO, bid Start Date: 10/15/21 Status: Ordered Repeat number: 1 famotidine 20 mg oral tablet Start: 11/25/22 7:49:00 PM EST, See Instructions, Disp# 28 tab, Refills: 6, TAKE ONE TABLET BY MOUTHONCE DAILY FOR HEARTBURN, Pharmacy: [facility] Start Date: 11/25/22 Status: Ordered Quantity: 28.0 Unit: tab Repeat number: 1 fluticasone 50 mcg/inh nasal spray Start: 11/19/23 6:12:00 PM EST, 1 spray, each nostril, Daily, Disp# 1 each, Refills: 11, Pharmacy: [facility] Start Date: 11/19/23 Status: Ordered Quantity: 1.0 Unit: each Repeat number: 12 FreeStyle (28G) Lancets Start: 03/31/22 6:09:00 PM EDT, See Instructions, Disp# 50 lancet, Refills: 5, Test glucose in AM and record., Pharmacy: [facility] Start Date: 03/31/22 Status: Ordered Quantity: 50.0 Unit: Repeat number: 6 FreeStyle Test Strip 50 ct Start: 02/28/22 4:30:00 PM EDT, See Instructions, Disp# 50 each, Test every morning before morning meal., Pharmacy: [facility] Start Date: 02/28/22 Status: Ordered Quantity: 50.0 Unit: each Repeat number: 1 Indication: Type 2 diabetes mellitus without complications haloperidol decanoate 50 mg/mL intramuscular solution Start: 10/15/21 8:55:00 PM EST, See Instructions, Disp# 1 each, Refills: 0, Inject 0.75ML IM ONCE EVERY 28 DAYS., Pharmacy: [facility] Start Date: 10/15/21 Status: Ordered Quantity: 1.0 Unit: each Repeat number: 1 Imodium A-D 2 mg oral tablet Start: 05/03/24 8:53:00 PM EDT, 1 tab, PO, q6h, Disp# 120 tab, Refills: 1, PRN: diarrhea, Pharmacy: [facility] Start Date: 05/03/24 Status: Ordered Quantity: 120.0 Unit: tab Repeat number: 2 lamoTRIgine Start: 12/07/24 8:05:00 AM EST Start Date: 12/07/24 Status: Ordered Repeat number: 1 lamoTRIgine 25 mg oral tablet Start: 12/07/24 8:05:00 AM EST Start Date: 12/07/24 Status: Ordered Repeat number: 1 levothyroxine 50 mcg (0.05 mg) oral tablet Start: 07/14/24 5:23:00 PM EDT, 1 tab, PO, Daily, Disp# 28 tab, Refills: 10, *HYPOTHYROIDISM*., Pharmacy: [facility] Start Date: 07/14/24 Status: Ordered Quantity: 28.0 Unit: tab Repeat number: 1 loratadine 10 mg oral tablet Start: 12/24/23 6:38:00 PM EDT, 1 tab, PO, Daily, Disp# 28 tab, Refills: 10, *ALLERGIES*, Pharmacy: [facility] Start Date: 12/24/23 Status: Ordered Quantity: 28.0 Unit: tab Repeat number: 1 Mag-Ox 400 oral tablet Start: 09/23/24 5:00:00 PM EST, 1 tab, PO, bid, Disp# 60 tab, Refills: 5, Pharmacy: [facility] Start Date: 09/23/24 Status: Ordered Quantity: 60.0 Unit: tab Repeat number: 6 Melatonin Start: 10/15/21 1:23:00 PM EST, See Instructions, 3MG tAKE ON TABLET BY MOUTH DAILY AT BEDTIME Start Date: 10/15/21 Status: Ordered Repeat number: 1 NOVOFINE AUTOCOVER 30G NEEDLE Start: 03/22/24 4:58:00 PM EDT, NOVOFINE AUTOCOVER 30G NEEDLE, See Instructions, Disp# 30 pen_needle, Refills: 4, USE ONCE DAILY IN THE AM, Pharmacy [facility] Start Date: 03/22/24 Status: Ordered Quantity: 30.0 Unit: Repeat number: 1 olmesartan 5 mg oral tablet Start: 12/28/23 10:56:00 PM EDT, 2 tab, PO, Daily, Disp# 56 tab, Refills: 10, FOR HTN., Pharmacy: [facility] Start Date: 12/28/23 Status: Ordered Quantity: 56.0 Unit: tab Repeat number: 11 ONE TOUCH ULTRA TEST STRIPS Start: 02/26/24 1:00:00 PM EDT, ONE TOUCH ULTRA TEST STRIPS, See Instructions, Disp# 100 strip, Refills: 4, USE TO TEST BLOOD SUGAR ONCE DAILY IN THE AM FOR DM TEST BLOOD SUGAR THREE TIMES DAILY NEEDED FOR D/D HYPO-HYPERGLYCEMIA, Pharmacy [facility] Start Date: 02/26/24 Status: Ordered Quantity: 100.0 Unit: Repeat number: 1 pantoprazole 40 mg oral delayed release tablet Start: 06/16/24 3:34:00 PM EDT, See Instructions, Disp# 28 tab, Refills: 10, TAKE ONE TABLET BY MOUTHONCE DAILY 30MINS PRIOR TO FIRST MEAL *GERD*, Pharmacy: [facility] Start Date: 06/16/24 Status: Ordered Quantity: 28.0 Unit: tab Repeat number: 1 SITagliptin 50 mg oral tablet Start: 07/21/24 8:37:00 PM EDT, 1 tab, PO, Daily, Disp# 30 tab, Refills: 6, Pharmacy: [facility] Start Date: 07/21/24 Status: Ordered Quantity: 30.0 Unit: tab Repeat number: 7 terconazole 0.4% vaginal cream Start: 12/07/24 8:41:00 AM EST, See Instructions, Disp# 45 g, Refills: 0, apply externally qhs, Pharmacy: [facility] Start Date: 12/07/24 Status: Ordered Quantity: 45.0 Unit: g Repeat number: 1 Vitamin D3 Start: 10/15/21 1:24:00 PM EST, See Instructions, 5,000 UNIT PO DAILY Start Date: 10/15/21 Status: Ordered Repeat number: 1 Mental Status 12/07/24 Barriers to Learning one year None evide nt Mandatory Health Literacy Documentation Yes Health Literacy Communication Barriers N ever Primary Language Afghan Problem List Condition Confirmation Course Effective Dates Status H ealth Status Informant Benign essential hypertension Confirmed Active Chronic bipolar disorder Confirmed Active Chest pain Confirmed Active Constipation, chronic Confirmed Active Chronic diarrhea Confirmed Active Chronic disorganized schizophrenia Confirmed Active Borderline hyperlipidemia Confirmed Active Hypomagnesemia Confirmed Active Adult hypothyroidism Confirmed Active Living accommodation issues Confirmed Active Anxious depression Confirmed Active Type 2 diabetes, HbA1c goal < 7% Confirmed Active Diagnosis Diagnosis Type Effective Dates Health Status Clinical Service Informant Type 2 diabetes, HbA1c goal < 7% Discharge Diagnosis 12/06/24 Non-Specified Hypomagnesemia Discharge Diagnosis 12/06/24 Non-Specified Dehydration Discharge Diagnosis 12/06/24 Non-Specified Chest pain Discharge Diagnosis 12/06/24 Non-Specified Living accommodation issues Discharge Diagnosis 12/06/24 Non-Specified Janet vaginitis Discharge Diagnosis 12/07/24 Non-Specified Chronic diarrhea Discharge Diagnosis 12/07/24 Non-Specified Breast cancer screening Discharge Diagnosis 12/07/24 Non-Specified Adult hypothyroidism Discharge Diagnosis 12/07/24 Non-Specified Bipolar disorder Discharge Diagnosis 12/08/24 Non-Specified Procedures Procedure Date Related Diagnosis Body Site Status Colonoscopy 1, 2 11/30/23 Complete d Upper GI (gastrointestinal) endoscopy 3 01/12/23 Completed Mammogram 4 12/12/22 Completed Colonoscopy 5, 6 11/24/22 Complete d LEEP Completed Tubal ligation Completed 12 polyps, next scope in 6 months 2Pathology: Colon: Fragmented tubular adenoma. Cecum: - Benign cecal mucosa with focal hyperplastic change of the mucosal surface is seen. Dysplasia and carcinoma are not seen 3Z line irregular, at the gastroephageal junction. Biopsied. Gastritis. Biopsied. Normal duodenal bulb and second portion of the duodenum. Biopsied. 41. No mammographic evidence of malignancy 1 year screening is recommended. 5Preparation of the colon was poor. Stool in the sigmoid colon, in the descending colon and in the transverse colon. No specimens collected. 6repeat in 1 yr with 3 day extended prep; refer for capsule endoscopy Vital Signs Most recent to oldest [Reference Range]: 1 Patient Weight 78.7 kg (12/07/24 7:56 AM) Heart Rate 86 bpm (12/07/24 7:56 AM) Respiratory Rate 18 br/min (12/07/24 7:56 AM) Blood Pressure 132/90mmHg (12/07/24 7:56 AM) Cuff Pulse Pressure 42 mmHg (12/07/24 7:56 AM) BP Location # 1 Left Arm (12/07/24 7:56 AM) Social History Social History Type Response Tobacco Former smoker, Cigar ettes, Stopped age 60 Years. Smoking Status Former Smoker, quit > 1 yr Sex Female Sex Representation Female (finding) [facility] Outpt Note * MD James, Aleshia Em: PERFORM Event Display: [facility] Outpt Note Authored Date: [id number] Chief Complaint ER follow up, low magnesium, swelling in lower extremities, podiatry referral, cardiology referral,optometry referral, diarrhea History of Present Illness * This patient is being followed longitudinally for chronic serious medical problems by Dr. Aleshia Ramirez. Their most recent visitwith Dr. Ramirez:09/21/24. She is seen along with her daughter, Maria Alejandra, & a rv repairer. Here for ERfollowupoftheseconcerns : 1) Chestpain - she had a "tight" feeling in left mid-chest, once while she was very anxious. She had this for about hour, lasting until she was given NTG in ER. No SOB, sweating or nausea. She has hadno sx brought on by exertion, but admits that she rarely ever exerts herself.Her onlycardiac hx isthat she had "heart attack" for which she was admitted years ago. No cardiac tests were done, as she was told that it was brought on by accidental exposure to powdered Fentanyl. InER, all tests were normal, so they advised her to follow up with her PCP. She has had no further chest pain since the ER visit. However, she would like a referral for a optics test technician. 2) Bipolar d/o/schizophrenia - her psychiatry provider accidentally started her on Wellbutrin, which made her borderline manic. They have now taperedit off& haveoffered her other med options. She& her daughter arestarting to do some research to decide which medto go with. She is considering an injectable med that is dosed every 6 months. She & her daughter realize that she is somewhat hypomanic, but this is improving over time. She has not been hallucinating & just saw psychiatrist, who started her on Lamotrigine. She just started it this am. 3)Diarrhea- she does have chronic diarrhea, which has been worse recently. She canhave as many as 10 watery stools some days. Someone told her that it could be due to her Metformin. No blood in stool or abdominal pain. 4) Dehydration - she doesn't understand how she can keep getting dehydrated, since she drinks as much water as she does. Her daughter got her sugar-free Gatoraid, so she will be trying that. 5)Type 2 DM - she is worried that Metformin is the cause of her diarrhea & wondered if it could be stopped. Her glucometer is broken, so she needs new testing supplies. She would like to get a CGM. Her diet is better, since she left personal jail. Her daughter cooks a very healthy menu. 6)Hypomagnesemia - she wondered if her magnesium dose should be increased, as ER told her that her level was low. 7)External vaginal yeast infection - she has itching & some clear vaginal discharge, so thinks that it might be a yeast infection. Amparo alsorequests: referral to eye doctor, referral to bladder changer, order for mammogram, diabetic testing supplies (but wants CGM). Review of Systems Review of Systems- Constitutional: no fatigue, has intentionally lost someweight. HEENT: no vision changes, or sinus congestion. Respiratory: no cough, SOB, or wheezing. Cardiac: no chest painor palpitations, +pedal edema. GI: no abdominal pain orvomiting, +change in bowel habits. : no dysuria. Neurologic: no headaches. Musculoskeletal: No joint pains. Physical Exam Vitals & Measurements HR:86(Monitored) RR:18 BP:132/90 SpO2:98% WT:78.700kg(Dosing) WT:78.7kg PHQ2 Data(Data Documented on:12/07/2024 07:56) Emotional health assessment NEGATIVE PE : Alert, in NAD. HEENT - PERRL. Nares - clear. Oropharynx - normal. Neck - supple, without thyromegaly or lymphadenopathy. Lungs - clear, with good breath sounds bilaterally. Heart - RRR without murmur. No pedal edema. Abdomen - +BS, soft, NT without HSM or mass. Neuro - alert & oriented, cognition normal. Skin - warm & dry. Psych - affect somewhatanimated & speaking somewhat loudly, with bouts of pressured speech. Assessment/Plan 1.Chest pain STATUS : chronic, resolved. DATA : hx,exam& ER reportreviewed. GOAL : maintain euvolemia, stable cardiac rhythm. PLAN : she didruleout forMIin ER.Herhx isnot suggestiveoftypicalangina, however,since sheis diabetic,this doesincrease herCVDrisk. Will refer tocardiology. 2.Bipolar disorder STATUS: Chronic, uncontrolled. DATA: hx reviewed. GOAL: Maintain psychiatricstability. PLAN: she does appearsomewhathypomanictoday, butisnothallucinating& doesnotappeartobe a dangertoherself. In addition,her daughter& caretakerareprovidinggreat care& supervisionfor her. She has been seeing psychiatry & they are adjusting hermedsappropriately. 3.Chronic diarrhea STATUS : chronic, intermittent &somewhat improved. DATA : hx,exam & ER reportreviewed. GOAL : restore normal stooling pattern. PLAN: discussed with her that Metformin &/or magnesium supplement could be contributing to this. Coincidentally, she has a colonoscopy scheduled in few days. Will stop Metformin, as below, & see if this is helpful. 4.Hypomagnesemia STATUS: Chronic, resolved. DATA: Labs reviewed. GOAL: Maintain electrolytestability. PLAN: recheckMg++levelwithnextlabs. Will continue Magnesium supplement at same dose, pending labs. 5.Dehydration STATUS: acute, resolved. DATA: hx,exam& ERreportsreviewed. GOAL: Maintain adequatehydration. PLAN: discussedneed tomaintainwaterintake & advised on alternating water with fluid containing electrolytes. 6.Type 2 diabetes, HbA1c goal < 7% Status : chronic, controlled. Data : diet & glucometers reviewed. Goal : maintain normal blood sugars. Plan : ceenguvR5H was 7% in 10/04. Will try stoppingMetformin& havehercontinueJanuvia.Will needto reassess level of diabetic control off of it & decide if any other medsare needed. Asked her daughtertoresearchwhat brandofCGMor glucometerwouldbe covered underiKnowl insurance. Referral ordered for bladder changer. Her daughter was given phone numbers of rajat valentine she could self-refer. 7.Adult hypothyroidism Status : chronic, stable. Data : sx & TSHreviewed. Goal : maintain euthyroid state. Plan : her last TSH in 10/04 was too low. It was advised to get repeat lab, rather than changing dose, so will recheck now. To decide on any dose change accordingly. However, this could contribute to diarrhea, as well. 8.Living accommodation issues She is doing well in her own apartment & has good supervision from her daughter & rv repairer. 9.Janet vaginitis STATUS: new complaint,stable. DATA: hx reviewed. GOAL: resolvecandidalinfection. PLAN: give themultiplicityof issuesdiscussed today,we werenot ableto completepelvicexam. MaytryTerconazolecreamprn. 10.Breast cancer screening Mammo ordered. Return in3-4 months. Time:Total time spent with this patient on day of evaluation including chart review, ordering, education and coordination of care elements: 45_ minutes Problem List/Past Medical History Ongoing Adult hypothyroidism Anxious depression Benign essential hypertension Borderline hyperlipidemia Chest pain Chronic bipolar disorder Chronic diarrhea Chronic disorganized schizophrenia Constipation, chronic Hypomagnesemia Living accommodation issues Type 2 diabetes, HbA1c goal < 7% Procedure/Surgical History Colonoscopy| Service Date: 11/30/2023Upper GI (gastrointestinal) endoscopy| Service Date: 01/12/2023Mammogram| Service Date: 12/12/2022olonoscopy| Service Date: 11/24/2022LEEPTuballigation Medications acetaminophen(acetaminophen 325 mg oral tablet), 650 mg= 2 tab, PO, bid atorvastatin(atorvastatin 20 mg oral tablet), 1 tab, PO, qhs cholecalciferol(Vitamin D3), See Instructions diabetes supplies(Contour Test Strips 50 ct), See Instructions diabetes supplies(FreeStyle Test Strip 50 ct), See Instructions diabetes supplies(FreeStyle (28G) Lancets), See Instructions, 5 refills divalproex sodium, 500 mg, PO, bid docusate(Colace 50 mg oral capsule), 50 mg= 1 cap, PO, bid, PRN, 6 refills famotidine(famotidine 20 mg oral tablet), See Instructions fluticasone nasal(fluticasone 50 mcg/inh nasal spray), 50 mcg= 1 spray, each nostril, Daily, 11 refills haloperidol(haloperidol decanoate 50 mg/mL intramuscular solution), See Instructions lamoTRIgine lamoTRIgine(lamoTRIgine 25 mg oral tablet) levothyroxine(levothyroxine 50 mcg (0.05 mg) oral tablet), 1 tab, PO, Daily loperamide(Imodium A-D 2 mg oral tablet), 2 mg= 1 tab, PO, q6h, PRN, 1 refills loratadine(loratadine 10 mg oral tablet), 1 tab, PO, Daily magnesium oxide(Mag-Ox 400 oral tablet), 400 mg= 1 tab, PO, bid, 5 refills melatonin(Melatonin), See Instructions multivitamin(Daily Han oral tablet), 1 tab, PO, Daily olmesartan(olmesartan 5 mg oral tablet), 2 tab, PO, Daily, 10 refills pantoprazole(pantoprazole 40 mg oral delayed release tablet), See Instructions SITagliptin(SITagliptin 50 mg oral tablet), 50 mg= 1 tab, PO, Daily, 6 refills terconazole topical(terconazole 0.4% vaginal cream), See Instructions unlisted medication(ONE TOUCH ULTRA TEST STRIPS), See Instructions unlisted medication(NOVOFINE AUTOCOVER 30G NEEDLE), See Instructions Allergies EUGENIO inhibitorsunknown Sulfanilamideunknown clonazePAMunknown lithiummuscle weakness, incontinence penicillinanaphylaxis pseudoephedrineunknown sulfa drugsanaphylaxis trifluoperazineunknown ziprasidoneunknown Social History Smoking Status Former Smoker, quit > 1 yr Employment/School Status:Unemployed Tobacco Use:Former smoker Type:Cigarettes Stopped at age:60Years Intake ([employer]) Smoking History Cigarette smoker: Former Smoker, quit > 1 yr Tobacco Product Use: Never used other tobacco products Total pack years: 30 If past smoker, what year did you quit: 2019 What was avg daily use when smoking: .75 (15 cigarettes) How many total years did you smoke: 40 SHX E-Cigarette Use: Never Family History Heart failure: Mother. Malignant tumor of lung: Father. Pacemaker rhythm: PGM. Skin cancer: PGF. Health Status Family Member(s) Recommendations Health Maintenance Pending(in the next year) OverDue Adult Influenza Vaccine due04/11/24and every 1year Due Adult Social Determinants of Health Screening due12/08/24Unknown Frequency Adult Tdap/Td Vaccine due12/08/24Unknown Frequency Diabetic Eye Exam due12/08/24Unknown Frequency Falls Plan of Care due12/08/24Unknown Frequency Hepatitis C Screening due12/08/24One-time only Kidney Health Evaluation due12/08/24Unknown Frequency Osteoporosis Screening due12/08/24One-time only Pneumococcal Vaccine Older Adults due12/08/24One-time only Shingles Vaccine due12/08/24One-time only Due In Future Breast Cancer Screening not due until12/15/24and every 731day Diabetes Management A1c not due until09/22/25and every 366day Satisfied(in the past 1 year) Satisfied Body Mass Index on04/11/24.Satisfied by KEVIN Stevenson, [facility] A1c on09/21/24.Satisfied by Contributor_system, [facility] Evaluation on10/10/24.Satisfied by Contributor_system, [id number] Electronic Signature on File Electronically Reviewed/Signed by: Aleshia Ramirez MD Author Signature Dt/Tm:12/08/2024 11:04 AM 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 [address] [facility] Patient Care team information Care Team Personnel Name: MD James, Aleshia Em Position: Physician - Family Med Member Role: Primary Care Provider Address: [address] [place] [address] Telecom: [phone] Care Team Related Persons Name: MARIA ALEJANDRA MYRICK Name: JENNIFER DANG Insurance Providers Guarantor name: AMPARO PERKINS Health Plan Information #: 2 Payer: KEVIN JUAREZ Member Number: [id number] Policy Number: NA Group Number: NA Health Plan Information #: 1 Payer: [facility] Member Number: [id number] Policy Number: NA Group Number: [id number] Health Plan Information #: 3 Payer: MEDICARE Member Number: NA Policy Number: NA Group Number: NA Health Plan Information #: 4 Payer: [employer] Member Number: NA Policy Number: NA Group Number: NA
[2024-12-15] MEDS: FLUTICASONE PROPIONATE NA SPR 16 GM BTL SCH (08:59)
[2024-12-15] MEDS: PARoxetine HCL 20 MG TAB PO SCH (09:00)
[2024-12-15] MEDS: PANTOprazole 40 MG TAB PO SCH (09:03)
[2024-12-15] MEDS: LOSARTAN POTASSIUM 25 MG TAB PO SCH (09:03)
[2024-12-15] MEDS: LANTUS PER UNIT CHARGE SQ SCH (09:12)
[2024-12-15 11:03] LABS: Estimated Average Glucose 166 mg/dl; Hemoglobin A1C 7.4 % (4.5-5.6)
--- NOTE | 2024-12-15 12:27 | Psychiatric Consultation ---
Date of Consultation December 15, 2024 Impression / Recommendations Impression Diagnostically consistent with acute exacerbation of psychosis and mood lability from BPAD vs schizophrenia vs schizoaffective disorder likely due to recent medication non-adherence due to decreased support around taking daily medications as her daughter typically checks in frequently to ensure she takes them properly. For now continue with Depakote. Can consider restarting recent script for lamictal once medical concerns stabilize. Overall, I spent a total of 60 minutes with this case including review of chart records, review of labwork, review of EKG QTc, direct evaluation of the patient at bedside, counseling the patient, discussion of the patient with the hospitalist provider, discussion with the psychiatric liason during clinical rounds, review of collateral historian information from the family and documentation in the electronic health record. (1) Unspecified psychosis not due to a substance or known physiological condition: (2) Bipolar disorder: Plan -If she attempts to leave AMA please call security and psych liason as she may meet 302 criteria -Continue Depakote 500mg BID -Valproic acid level order to help determine recent adherence with Depakote -For acute behavioral event recommend: haldol 5mg IM, ativan 2mg IM -Attempt to get records from [place] -May benefit from psychiatric hospitalization once medically stable to ensure mood stabilization and to monitor and make further medication changes Psych History Identifying Data Beatrice Calhoun is a 64yo woman with history of Bipolar disorder, Schizophrenia, Depression, hypertension, DM presenting with increased paranoia admitted medically due to HTN and elevated blood sugars. Psychiatry consulted for disorganized thinking and paranoia. Chief Complaint "I was having problems with the meds". History of Present Illness Beatrice presented to the hospital on a 302 petition completed by her daughter due to concerns for increased mood lability and history of reckless behavior during mood episodes and with increased paranoia and delusions. Collateral from daughter to psych liason notable for daughter recently being ill and therefore last week was unable to help Beatrice with her medications and so unclear if she was adherent with these. Today Beatrice presents with bright affect but also discusses possible recent confusion regarding her medications. She can confirm that she's been on Depakote and recently had a haldol PAGAN though her outpatient provider, Suzanne at [place], was planning to switch her to Invega or Abilify PAGAN next month. Collateral from daughter notable for recent initiation of lamictal last week to help with possible depression contributing to excessive sedation. Beatrice describes symptoms of paranoia and delusions including belief that the "[employer]" are monitoring her phone "to communicate with space and defense". Weaves current events, including TV coverage of [place] conflict with her being monitored and helping with defense. Allergies Allergy/AdvReac Type Severity Reaction Status Date / Time EUGENIO Inhibitors Allergy Unknown ON [facility] Verified 12/02/23 23:51 MED LIST clonazepam Allergy Unknown ON [facility] Verified 12/02/23 23:51 MED LIST lithium Allergy Unknown ON [facility] Verified 12/02/23 23:51 MED LIST Penicillins Allergy Unknown ON [facility] Verified 12/02/23 23:51 MED LIST pseudoephedrine Allergy Unknown ON [facility] Verified 12/02/23 23:51 MED LIST Sulfa (Sulfonamide Allergy Unknown ON [facility] Verified 12/02/23 23:51 Antibiotics) MED LIST sulfanilamide Allergy Unknown ON [facility] Verified 12/02/23 23:51 MED LIST trifluoperazine Allergy Unknown ON [facility] Verified 12/02/23 23:51 MED LIST ziprasidone Allergy Unknown ON [facility] Verified 12/02/23 23:51 MED LIST Home Medications Medication Instructions Recorded Confirmed Type atorvastatin 20 mg tablet 20 mg PO HS 02/26/22 12/04/24 History calcium carbonate (Calcium 500) 1,000 mg PO Q6H PRN Indigestion 02/26/22 12/04/24 History divalproex 500 mg tablet,extended 500 mg PO Q12H 02/26/22 12/04/24 History release 24 hr fluticasone propionate 50 1 spray intranasal [facility] 02/26/22 12/04/24 History mcg/actuation nasal spray,suspension haloperidol decanoate 50 mg/mL 0.75 mg IM Q28D 02/26/22 12/04/24 History intramuscular solution levothyroxine 50 mcg tablet 50 mcg PO [facility] 02/26/22 12/04/24 History loratadine 10 mg tablet 10 mg PO [facility] 02/26/22 12/04/24 History multivitamin with folic acid 400 1 tab PO [facility] 02/26/22 12/04/24 History mcg tablet (Daily-Han (with folic acid)) cholecalciferol (vitamin D3) 125 125 mcg PO [facility] 11/19/22 12/04/24 History mcg (5,000 unit) tablet (Vitamin D3) docusate sodium 50 mg capsule 50 mg PO BID PRN Constipation 11/19/22 12/04/24 History albuterol sulfate 90 mcg/actuation 2 inh inhalation Q6H PRN shortness 10/28/23 12/04/24 Rx breath activated powder inhaler of breath or wheezing #1 ea pantoprazole 40 mg tablet,delayed 40 mg PO QAM #30 tabs 01/25/24 12/04/24 Rx release famotidine 20 mg tablet 20 mg PO HS #30 tabs 08/12/24 12/04/24 Rx acetaminophen 325 mg tablet 650 mg PO QAM 09/10/24 12/04/24 History olmesartan 5 mg tablet 5 mg PO BID 09/10/24 12/04/24 History paroxetine HCl 30 mg tablet 0 mg PO QAM 09/10/24 12/04/24 History sitagliptin phosphate 50 mg tablet 50 mg PO DAILY 09/10/24 12/04/24 History (Januvia) icosapent ethyl 1 gram capsule 0 g PO BID 12/04/24 12/04/24 History (Vascepa) metformin 500 mg tablet,extended 500 mg PO BID 12/04/24 12/04/24 History release 24 hr Patient History Medical History Hypomagnesemia Constipation GERD (gastroesophageal reflux disease) Hx of respiratory syncytial virus infection 10/2023 Hypomagnesemia Manic episode Disorganized schizophrenia Insomnia Generalized weakness Hypertension Hyperlipidemia Hypothyroidism Diabetes mellitus, type 2 Chronic kidney disease stage 3 Surgical History Surgical history unknown Social History Smoking Status: Former smoker Tobacco Type: Cigarettes Smoking End Date: 2019; Second Hand Exposure: No; Do You Dip or Chew Tobacco: No; Hx Alcohol Use: Yes Alcohol type: other Hx Substance Use: No Preferred Language: Romansh Communication Ability: Effective Communication Ability Comment: of sound mind to sign consent, alert and oriented x3 Binder Operator Required: No Beliefs That Will Affect Care: None Current Living Situation: Personal Care Facility Current Living Situation Comment: [facility] Other Information That Helps Us Care for You: No Feels Safe at Home: Yes Safety Concerns: Feels Safe At This Time Assistive Devices: Denture - Upper, Denture - Lower and Glasses Physical Exam Psychiatric: Orientation: alert, oriented x 3 and cooperative Apperance: appropriately dressed Eye Contact: good eye contact Motor Behavior: no abnormal motor movements Speech: + pressured speech Affect: + elated affect Mood: + anxious mood; no depressed mood Thought Process: + tangential thought process Thought Content: + paranoid and + delusions Suicidal Thoughts: denies suicidal thoughts Homicidal Thoughts: denies homicidal thoughts Hallucinations: no auditory hallucinations and no visual hallucinations Insight: + limited insight Judgment: + limited judgement Vital Signs (Past 24 Hours): Last Vital Signs Temp 36.4 C L 12/15/24 12:10 Pulse 84 12/15/24 12:10 Resp 18 12/15/24 12:10 BP 176/104 H 12/15/24 12:10 Pulse Ox 100 12/15/24 12:10 O2 Del Method Room Air 12/15/24 12:10 Results & Data (PSY) Medications Administered Divalproex Sodium (Divalproex Extended Release 500 Mg Tab) 500 mg PO BID [facility] Stop: 01/13/25 23:44 Last Admin: 12/15/24 09:04 Dose: 500 mg Documented By: FESTUS Co-signed By: TIFFANY Admin: 12/15/24 00:20 Dose: 500 mg Documented By: MARTHA Fluticasone Propionate (Fluticasone Propionate Na Spr 16 Gm Btl) 1 sprays NA QAM [facility] Stop: 01/14/25 08:59 Last Admin: 12/15/24 08:59 Dose: 1 sprays Documented By: FESTUS Co-signed By: TIFFANY Lactated Ringer's (Lr) 1,000 mls @ 80 mls/hr IV .[id number] [facility] Stop: 12/15/24 22:38 Last Admin: 12/15/24 10:48 Dose: Not Given Documented By: Infusion: 12/15/24 10:47 Dose: Infused Documented By: Infusion: 12/15/24 08:23 Dose: Infused Documented By: Admin: 12/14/24 22:30 Dose: 80 mls/hr Documented By: MARTHA Insulin Aspart (Insulin Aspart Per Unit Charge) 0 units SC ACHS [facility] Stop: 01/13/25 21:38 Last Admin: 12/15/24 09:10 Dose: 3 units Documented By: FESTUS Co-signed By: TIFFANY Admin: 12/14/24 22:29 Dose: 2 units Documented By: MARTHA Co-signed By: BUD Insulin Glargine (Lantus Per Unit Charge) 5 units SQ BID [facility] Stop: 01/14/25 08:59 Last Admin: 12/15/24 09:12 Dose: 5 units Documented By: FESTUS Co-signed By: TIFFANY Levothyroxine Sodium (Levothyroxine Sodium 50 Mcg Tablet) 50 mcg PO DAILYBB [facility] Stop: 01/14/25 06:29 Last Admin: 12/15/24 05:41 Dose: 50 mcg Documented By: MARTHA Losartan Potassium (Losartan Potassium 25 Mg Tab) 12.5 mg PO DAILY [facility] Stop: 01/14/25 08:59 Last Admin: 12/15/24 09:03 Dose: 12.5 mg Documented By: FESTUS Co-signed By: TIFFANY Pantoprazole Sodium (Pantoprazole 40 Mg Tab) 40 mg PO QAM [facility] Stop: 01/14/25 08:59 Last Admin: 12/15/24 09:03 Dose: 40 mg Documented By: FESTUS Co-signed By: TIFFANY Paroxetine HCl (Paroxetine Hcl 20 Mg Tab) 30 mg PO QAM [facility] Stop: 01/14/25 08:59 Last Admin: 12/15/24 09:00 Dose: 30 mg Documented By: FESTUS Co-signed By: TIFFANY Coding Level of Care Code 09338 IN/OBS CONSULT LVL 4,60M Diagnoses Unspecified psychosis not due to a substance or known physiological condition F29 Bipolar disorder F31.9
[2024-12-15] MEDS: METOPROLOL TARTRATE 25 MG TAB PO ONE (14:51)
[2024-12-15] MEDS: FAMOTIDINE 20 MG TAB PO SCH (20:55)
[2024-12-15] MEDS: ATORVASTATIN 20 MG TAB PO SCH (20:57)
[2024-12-15] MEDS: hydrALAZINE HCL 20 MG/ML VIAL IV PRN (22:50)
[2024-12-16 06:58] LABS: BUN Creatinine Ratio 14.1 (10-20); Calcium 9.7 mg/dl (8.6-10.3); Creatinine Clr Calc Pharmacy 33.2 ml/min; Magnesium 1.6 mg/dl (1.7-2.4); Potassium 4.5 mmol/L (3.5-5.1)
--- NOTE | 2024-12-16 07:33 | Hospitalist Progress Note ---
Date of Service December 16, 2024 Assessment & Plan (1) Psychiatric illness: (2) Hypertension: (3) Diabetes: (4) GERD (gastroesophageal reflux disease): (5) Hyperlipidemia: Plan 64yo female with history of Bipolar disorder, schizophrenia, HTN, DM presenting with increased paranoia and disorganized thinking in setting of medication non- adherence for the last 2-3 days. Patient presented on 302 petition (not upheld as no SI/HI). Reported increased focus on the dark web, safety of the president and family members that do not like the president. No SI/HI. Admission w/ HTN w/ BP 200/100s and Glu 290 Pt reports was previously on [place] but stopped 2nd to renal dysfunction. * Liked her Zyprexa but issues w/ compliance and prior outside provider w/ plans to switch her to Invega (per patient) for once yearly injections to improve compliance. Per nursing, got report she missed her Haldol injection and was to get labs for new start Invega #Psychiatric Illness/Bipolar/Schizophrenia suspected 2nd to Medication non-adherence , also daughter was sick and did not help w/ her pills/missed a few doses Currently is alert/oriented to person/place/year/event with some tangential speech/hypomania at present time. Continues to deny SI/HI, no 302 per psych and outpatient follow up recommended at dc unless wants inpatient voluntary Continues on Divalproex ER 500mg BID, level acceptable @59 Paxil DISCONTINUED Consideration to resume lamictal once medically stable. Plans for [facility] follow up dc Continue to monitor #VIDA on CKD acute on chronic, reports stopped lithium in the past 2nd to renal dysfunction - ?2nd to volume overload w/ LE edema. IVF provided on admission and Cr 1.6--> 1.4 but was 1.7 on AM labs once off IVF and reports good PO intake. Repeat BUN/Cr 28/1.75 and was to have follow up w/ cards and reported discontinued her lasix in past w/ renal dysfunction. ?2nd to HTN--Repeat UA only trace leuk esterase and no bacteria/WBC and remains OFF abx at this time. Did add metoprolol 12.5mg BID and BP stable 148/83 but will order HCTZ 25mg PO x 1 and monitor renal function in AM. Home olmesartan/hospital equivalent on hold for now Renal dose meds/avoid nephrotoxins HTN Not at goal, significant elevation 200s/100s on admission On olmesartan 5mg BID [employer]. Was provided 5mg IV hydralazine for elevated BP AM 3 and given metoprolol 12.5mg PO x 1 and scheduled 12.5mg BID for now Avoiding amlodipine w/ her LE edema and HCTZ 25mg PO x 1 given ARB on hold and monitor BP presently 148/83 and acceptable and hydralazine available if needed for significant elevations Diabetes/hyperglycemia Elevated blood sugar at 290 without AG on admission. A1c remains 7.4 and on Januvia at baseline. Insulin 5u BID and SSI with tightened parameters and monitoring/adjustment as needed Hypomagnesemia Mag 1.6 on arrival with 2gm IV ordered and normalized but checked again for completeness and again 1.6 and additional 2gm IV ordered and starting mag oxide BID suspect possible 2nd to chronic PPI use and will monitor in AM for completeness GERD -Chronic, maintained on pepcid HS/protonix 40mg QAM which have been continued Hyperlipidemia -Chronic, continue atorvastatin Vit D Deficiency-Hx of such, added to labs given noncompliance/adjust PO as able (?once weekly higher dosing?) --> VIt D 88 and likely would decrease home supplementation to 1000IU daily at ok to prevent over treatment (on 125mcg PO daily) Dispo: continued inpatient stay working on HTN/VIDA and monitor BNP in AM. Repeat UA does not appear infected and will add for microalbumin to see about resumption of ARB vs alternative medication Hopeful dc 12/17 if HTN improved and renal function with outpatient follow up with [facility]. Admission and Anticipated Discharge Date Admission Date: December 14, 2024 Supervising Physician Co-Signing Physician Notes The patient was not seen by me. The chart was reviewed. Case discussed with LARRY Nicholas. Agree with assessment and plan Subjective Eval this afternoon around lunch, sleepy/tired appearing. Remained similarlly that way during much of encounter until discussed about her appetite and she perked up and said great appetite. Does have some abdominal distention. Was going to have low dose HCTZ for LE edema but decreased on exam and will hold off for now as appears slightly dry mm. Encouraged to push oral fluids (she notes they took her off lasix in the past w/ her renal dysfunctoin). Colace BID to be ordered given constipation. Had added metoprolol BID for BP control and could be causing fatigue but BP improved. She has not seen psych yet but her preference is home w/ her caregivers she has 40hr/week if possible. Will continue to monitor/appreciate psych recs this afternoon. Physical Exam 2 Physical Exam: General: 64yo female laying in bed, fatigued but didn't get good sleep with yelling roommate down the melo Head atraumatic, normocephalic, mm slightly dry, trachea midline Resp: even/unlabored, slightly diminished in the bases but no overt wheezing/rales, on room air CV: RRR, no significant m/r/g, trace pedal edema, calves nontender/pulses present GI: +BS, soft/slight distension, nontender no howard/voiding spontaneously MSK/Neuro; nonfocal , answering questions appropriate w/ some tangential though but no SI/HI, able to follow commands as asked Results & Data Results & Data Vital Signs (Past 12 Hours) Vital Signs Temp Pulse Pulse Resp BP Pulse Ox O2 Del Method 12/16/24 02:22 36.7 C 76 18 176/77 H 94 Room Air 12/15/24 22:35 36.3 C L 79 18 210/115 H 98 Room Air 12/15/24 21:56 74 12/15/24 19:42 36.6 C 83 18 159/83 H 97 Room Air Laboratory Results 12/15/24 06:48 12/16/24 15:38 Mag 1.6 PG Care Time/CCT Total # of Minutes Spent Total Time Spent with Patient: Total time spent is greater than 50% in coordination of care (as documented) at patient's floor/unit and/or counseling patient: Coding Level of Care Code 31813 SUB INP/OBS CARE 3/50MIN Diagnoses Psychiatric illness F99 Hypertension I10 Hypertension type: unspecified Diabetes E11.9 GERD (gastroesophageal reflux disease) K21.9 Hyperlipidemia E78.5 (2) Hypertension Hypertension type: unspecified Qualified Code(s): I10 - Essential (primary) hypertension
[2024-12-16] MEDS: METOPROLOL TARTRATE 25 MG TAB PO SCH (08:28)
[2024-12-16] MEDS: MAGNESIUM OXIDE 400 MG TAB PO SCH (08:28)
[2024-12-16] MEDS: MAGNESIUM SULFATE / D5W 1 GM/100 ML BAG IV SCH (08:28)
[2024-12-16 11:06] LABS: Appearance Urine Clear (Clear); Bacteria Urine Automated None Seen (None Seen); Bilirubin Urine Negative (Negative); Blood Urine Negative (Negative); Cast Urine Automated 0-2 /lpf (0-2); Color Urine Yellow; Epithelial Cell Urine Auto 0-2 /hpf (0-2); Glucose Urine UA Negative (Negative); Ketones Urine Negative (Negative); Leukocyte Esterase Urine Trace (Negative); Nitrite Urine Negative (Negative); Protein Urine Negative (Negative); RBC Urine Automated 0-2 /hpf (0-2); Urobilinogen Urine Negative (Negative); WBC Urine Automated 0-5 /hpf (0-5)
[2024-12-16] MEDS: hydroCHLOROthiazide 25 MG TAB PO STA ×2 (12:10→18:09)
[2024-12-16] MEDS: DOCUSATE SODIUM 100 MG CAP PO SCH (12:56)
--- NOTE | 2024-12-16 16:14 | Communication Note ---
Date of Service: December 16, 2024 Psychiatry update: Beatrice was reported as awake at times overnight and given tangential thought process suggests possible episode of hypomania. However, still no acute safety concerns nor events to suggest 302 criteria. Once medically stable psychiatry to revisit option for voluntary inpatient psychiatric hospitalization, which is recommended, to ensure no worsening of mood instability and to adjust psychiatric medications if needed. However, if she declines she will not meet 302 criteria, unless something changes, as today she is denying any safety c oncerns, is engaging in self-care needs, can speak to her medical conditions and speaks to her outpatient providers, treatment plans and desire to continue to engage with these services for both her psychiatric and medical needs. Discussed with psychiatric liason RN and hospitalist provider.
[2024-12-16 16:15] LABS: Calcium 10.1 mg/dl (8.6-10.3); Creatinine Clr Calc Pharmacy 32.3 ml/min; Potassium 4.1 mmol/L (3.5-5.1)
[2024-12-17 01:35] LABS: Creatinine Urine Random 33.2 mg/dl; Microalbumin Creatinine Ratio < 21.0 mg/g (0-30); Microalbumin Urine < 7.0 mg/L
[2024-12-17 06:31] LABS: Hematocrit (blood only) 39.2 % (37.0-47.0); Hemoglobin 13.1 g/dl (12.0-16.0); Mean Corpuscular Hemoglobin 30.7 pg (25.0-34.0); Mean Corpuscular Hgb Conc 33.4 g/dL (32.0-36.0); Mean Corpuscular Volume 91.8 fL (80.0-100.0); Mean Platelet Volume 10.1 fL (9.4-12.4); Platelet Count 257 K/uL (130-400); RDW Coefficient of Variation 13.2 % (11.5-14.5); RDW Standard Deviation 43.9 fL (36.4-46.3); Red Blood Count 4.27 M/uL (4.20-5.40); White Blood Count 7.91 K/ul (4.8-10.8)
[2024-12-17 06:44] LABS: Anion Gap 8 (3-11); Calcium 10.5 mg/dl (8.6-10.3); Carbon Dioxide 25 mmol/L (21-32); Chloride 107 mmol/L (98-107); Magnesium 1.9 mg/dl (1.7-2.4); Sodium 140 mmol/L (136-145)
[2024-12-17 07:20] LABS: BUN Creatinine Ratio 18.9 (10-20); Blood Urea Nitrogen 31 mg/dl (6-23); Creatinine Clr Calc Pharmacy 34.4 ml/min; Glucose 176 mg/dl (70-99(Fasting))
--- NOTE | 2024-12-17 07:27 | Hospitalist Progress Note ---
Date of Service December 17, 2024 Assessment & Plan (1) Psychiatric illness: (2) Hypertension: (3) Diabetes: (4) GERD (gastroesophageal reflux disease): (5) Hyperlipidemia: Plan 64yo female with history of Bipolar disorder, schizophrenia, HTN, DM presenting with increased paranoia and disorganized thinking in setting of medication non- adherence for the last 2-3 days. Patient presented on 302 petition (not upheld as no SI/HI). Reported increased focus on the dark web, safety of the president and family members that do not like the president. No SI/HI. Admission w/ HTN w/ BP 200/100s and Glu 290 Pt reports was previously on [place] but stopped 2nd to renal dysfunction. * Liked her Zyprexa but issues w/ compliance and prior outside provider w/ plans to switch her to Invega (per patient) for once yearly injections to improve compliance. Per nursing, got report she missed her Haldol injection and was to get labs for new start Invega #Psychiatric Illness/Bipolar/Schizophrenia suspected 2nd to Medication non-adherence , also daughter was sick and did not help w/ her pills/missed a few doses Currently is alert/oriented to person/place/year/event with some tangential speech/hypomania at present time. Continues to deny SI/HI, no 302. Does not want inpatient at this time and can be arranged for outpatient f/u [facility] for possible start Invega/other injectable Psych consulted while inpatient Continue divalproex ER 500mg PO BID - Level acceptable at 59, no adjustment to dose Paxil DC'd Consideration for lamictal resumption however did have some pain to legs/slight rash the other day and ?2nd to use. Does have elevated Cr above baseline and issues w/ lithium and renal impairment in the past. Rash improving on exam. Did not have significant elevated eosinophils on differential but were present. No LFT elevation to suggest DRESS but is possible w/ ongoing use and did recently start this medication in the past 1-2 weeks per patient (confirmed w/ psych is true) and will HOLD OFF resumption of this medication at this time. Stable from psych standpoint for outpatient follow up at [facility] however working on VIDA/HTN as below and hopefully able to dc back to apartment w/ caregivers 12/18 #VIDA on CKD acute on chronic, reports stopped lithium in the past 2nd to renal dysfunction. Cr 1.6 on admission and IVF provided and was 1.4 however off IVF back to 1.7. Gave 1 dose HCTZ for some swelling and dry on exam/hold off further but Cr to 1.6 on AM labs) Suspect multifactorial w/ medication use , also uncontrolled HTN -- uses olmesartan 5mg BID at baseline and recent start lamictal as above which can cause renal impairment/AIN UA did not appear infected. Renal US w/o obstruction, making good urine. ARB remains on HOLD - Hx DM but no significant microalbumin -- possible should stop this medication. Metoprolol BID for HTN w/ improvement and stable 146/81 at present NOT resuming lamictal Renal dose meds/avoid nephrotoxins BMP in AM HTN Not at goal, significant elevation 200s/100s on admission and on olmesartan 5mg BID [employer] and was continued on losartan PO daily inpatient however w/ VIDA on CKD placed on hold and utilizing metoprolol BID for now w/ improvement BP currently stable as above and would avoid further diuretics (BNP not elevated) and have hydralazine IV available Monitor/adjustments as needed but if stable on tartrate 12.5mg BID can continue such at ri. HR stable/no lows Diabetes/hyperglycemia Elevated blood sugar at 290 without AG on admission. A1c remains 7.4 and on Januvia at baseline. Insulin 5u BID and SSI with tightened parameters and monitoring/adjustment as needed Hypomagnesemia Low on arrival -- CHRONIC issue (suspected 2nd to PPI use). Replaced/resolved but again low and placed on mag oxide PO BID and has been stable today and will check in AM to ensure not needing increased dose --> If stable, continue PO BID at ri GERD -Chronic, maintained on pepcid HS/protonix 40mg QAM which have been continued Hyperlipidemia -Chronic, continue atorvastatin Vit D Deficiency-Hx of such, added to labs given noncompliance/adjust PO as able (?once weekly higher dosing?) --> VIt D 88 and likely would decrease home supplementation to 1000IU daily at ri to prevent over treatment (on 125mcg PO daily) Dispo: continued inpatient stay and if renal function improved in AM and BP stable consider ri w/ outpatient follow up with [facility]. F/u with psych in AM if any additional recs for lamictal (was messaged today) but would hold off resuming for now for concerns worsening renal impairment Admission and Anticipated Discharge Date Admission Date: December 14, 2024 Supervising Physician Co-Signing Physician Notes The patient was not seen by me. The chart was reviewed. Case discussed with LARRY Nicholas. Agree with assessment and plan Subjective Eval this morning, resting in bed. Reports feeling better. BP improved. Mental status stable, leg discomfort/swelling resolved. Upon further discussion and prior slight redness, lamictal use discussed and she reports that was new medicine in the past 1-2 weeks. Discussed prior issues w/ lithium and her kidney in the past and possible that having issues w/ lamictal as can cause rash. She reports urine histopath tech in color and good output. No back p ain. Was sent for renal US. Possible dc tomorrow. Physical Exam Physical Exam: General: 64yo female laying in bed, less fatigued, reports feeling better, NAD Head atraumatic, normocephalic, mm improved but still slightly dry Resp: even/unlabored, no wheezing/crackles, on room air CV: RRR, no significant m/r/g, trace pedal edema, calves nontender, pulses present, resolving redness/rash to legs GI: +BS, soft/no overt tenderness, no guarding/rebound : no howard/voiding spontaneously MSK/Neuro: nonfocal, answering questions appropriately, Psych: alert/oriented, cooperative with exam, some tangential thought at times, no SI/HI Results & Data Results & Data Vital Signs (Past 12 Hours) Vital Signs Temp Pulse Pulse Resp BP Pulse Ox O2 Del Method 12/17/24 06:50 62 12/17/24 03:40 36.6 C 64 16 153/80 H 96 Room Air 12/16/24 23:12 78 18 204/132 H 94 Room Air 12/16/24 21:42 75 12/16/24 20:00 101 H 12/16/24 19:42 36.6 C 82 18 127/84 98 Room Air Laboratory Results 12/17/24 12/17/24 12/17/24 Range/Units 08:27 06:52 06:12 WBC 7.91 (4.8-10.8) K/ul RBC 4.27 (4.20-5.40) M/uL Hgb 13.1 (12.0-16.0) g/dl Hct 39.2 (37.0-47.0) % MCV 91.8 (80.0-100.0) fL MCH 30.7 (25.0-34.0) pg MCHC 33.4 (32.0-36.0) g/dL RDW Std Deviation 43.9 (36.4-46.3) fL RDW Coeff of Kp 13.2 (11.5-14.5) % Plt Count 257 (130-400) K/uL MPV 10.1 (9.4-12.4) fL Sodium 140 (136-145) mmol/L Potassium 4.3 TNP (3.5-5.1) mmol/L Chloride 107 (98-107) mmol/L Carbon Dioxide 25 (21-32) mmol/L Anion Gap 8 (3-11) BUN 31 H (6-23) mg/dl Creatinine 1.64 H (0.6-1.2) mg/dl Est Cr Clr Drug Dosing 34.4 ml/min eGFR 34.32 BUN/Creatinine Ratio 18.9 (10-20) Glucose 176 H (70-99(Fasting)) mg/dl POC Glucose 169 H (70-99) mg/dl Calcium 10.5 H (8.6-10.3) mg/dl Magnesium 1.9 (1.7-2.4) mg/dl Ammonia (18-72) umol/L B-Natriuretic Peptide 54 (0-100) pg/ml Ur Random Creatinine mg/dl Ur Random Microalbumin mg/L Microalb/Creat Ratio (0-30) mg/g 12/17/24 12/16/24 12/16/24 Range/Units 00:30 20:12 17:05 WBC (4.8-10.8) K/ul RBC (4.20-5.40) M/uL Hgb (12.0-16.0) g/dl Hct (37.0-47.0) % MCV (80.0-100.0) fL MCH (25.0-34.0) pg MCHC (32.0-36.0) g/dL RDW Std Deviation (36.4-46.3) fL RDW Coeff of Kp (11.5-14.5) % Plt Count (130-400) K/uL MPV (9.4-12.4) fL Sodium (136-145) mmol/L Potassium (3.5-5.1) mmol/L Chloride (98-107) mmol/L Carbon Dioxide (21-32) mmol/L Anion Gap (3-11) BUN (6-23) mg/dl Creatinine (0.6-1.2) mg/dl Est Cr Clr Drug Dosing ml/min eGFR BUN/Creatinine Ratio (10-20) Glucose (70-99(Fasting)) mg/dl POC Glucose 155 H 124 H (70-99) mg/dl Calcium (8.6-10.3) mg/dl Magnesium (1.7-2.4) mg/dl Ammonia (18-72) umol/L B-Natriuretic Peptide (0-100) pg/ml Ur Random Creatinine 33.2 mg/dl Ur Random Microalbumin < 7.0 mg/L Microalb/Creat Ratio < 21.0 (0-30) mg/g 12/16/24 12/16/24 Range/Units 15:38 12:20 WBC (4.8-10.8) K/ul RBC (4.20-5.40) M/uL Hgb (12.0-16.0) g/dl Hct (37.0-47.0) % MCV (80.0-100.0) fL MCH (25.0-34.0) pg MCHC (32.0-36.0) g/dL RDW Std Deviation (36.4-46.3) fL RDW Coeff of Kp (11.5-14.5) % Plt Count (130-400) K/uL MPV (9.4-12.4) fL Sodium 140 (136-145) mmol/L Potassium 4.1 (3.5-5.1) mmol/L Chloride 107 (98-107) mmol/L Carbon Dioxide 25 (21-32) mmol/L Anion Gap 8 (3-11) BUN 28 H (6-23) mg/dl Creatinine 1.75 H (0.6-1.2) mg/dl Est Cr Clr Drug Dosing 32.3 ml/min eGFR 31.75 BUN/Creatinine Ratio 16.0 (10-20) Glucose 140 H (70-99(Fasting)) mg/dl POC Glucose 213 H (70-99) mg/dl Calcium 10.1 (8.6-10.3) mg/dl Magnesium (1.7-2.4) mg/dl Ammonia 26.0 (18-72) umol/L B-Natriuretic Peptide (0-100) pg/ml Ur Random Creatinine mg/dl Ur Random Microalbumin mg/L Microalb/Creat Ratio (0-30) mg/g Diagnostic Findings Renal Ultrasound 12/17/24 07:21 RENAL ULTRASOUND HISTORY: [facility] COMPARISON: CT of 12/03/2023 FINDINGS: Right kidney measures 10 x 5 cm. Left kidney measures 10 x 5 cm. There is no hydronephrosis bilaterally. No renal calculi seen. Renal cortical thickness is normal. There is normal Doppler flow. There are a few cysts at the left kidney measuring up to 2 cm greatest dimension. Urinary bladder is grossly unremarkable. IMPRESSION: No hydronephrosis. ACT 112: Negative or not required by law. Electronically signed by: Vitaliy Maya M.D. 12/17/2024 10:41 AM PG Care Time/CCT Total # of Minutes Spent Total Time Spent with Patient: Total time spent is greater than 50% in coordination of care (as documented) at patient's floor/unit and/or counseling patient: Coding Level of Care Code 86793 SUB INP/OBS CARE 50MIN Diagnoses Psychiatric illness F99 Hypertension I10 Hypertension type: unspecified Diabetes E11.9 GERD (gastroesophageal reflux disease) K21.9 Hyperlipidemia E78.5 (2) Hypertension Hypertension type: unspecified Qualified Code(s): I10 - Essential (primary) hypertension
[2024-12-17 08:04] VITALS: RESP 18
--- NOTE | 2024-12-17 10:42 | Ultrasound Report ---
RENAL ULTRASOUND HISTORY: [facility] COMPARISON: CT of 12/03/2023 FINDINGS: Right kidney measures 10 x 5 cm. Left kidney measures 10 x 5 cm. There is no hydronephrosis bilaterally. No renal calculi seen. Renal cortical thickness is normal. There is normal Doppler flow . There are a few cysts at the left kidney measuring up to 2 cm greatest dimension. Urinary bladder i s grossly unremarkable. IMPRESSION: No hydronephrosis. ACT 112: Negative or not required by law. Electronically signed by: Vitaliy Maya M.D. 12/17/2024 10:41 AM
--- NOTE | 2024-12-17 14:12 | Psychiatric Progress Note ---
Date of Service December 17, 2024 Impression / Recommendations Impression Diagnostically consistent with acute exacerbation of psychosis and mood lability from BPAD vs schizophrenia vs schizoaffective disorder likely due to recent medication non-adherence due to decreased support around taking daily medications as her daughter typically checks in frequently to ensure she takes them properly. A: Concern for hypomania with elevated energy and exaggerated affect. On interview, pt denies SI, HI, AVH; she is oriented to her situation and presents intact reality testing. She presents a reasonable plan to f/u with outpatient providers and use home health care assistance to meet her needs. Has been adherent to her psychiatric medications with therapeutic valproic acid level. She is evasive about daughter's concerns however presents stable behavior and does not appear preoccupied with delusional thoughts. Offered inpatient psychiatry admission however refused. In my opinion, is currently not an imminent threat to herself or others and does not meet 302 criteria for involuntary admission. Can f/u with outpatient psychiatrist for further management. Recommend to hold Lamotrigine. Overall, I spent a total of 60 minutes with this case including review of chart records, review of labwork, review of EKG QTc, direct evaluation of the patient at bedside, counseling the patient, discussion of the patient with the hospitalist provider, discussion with the psychiatric liason during clinical rounds, review of collateral historian information from the family and documentation in the electronic health record. (1) Unspecified psychosis not due to a substance or known physiological condition: (2) Bipolar disorder: Plan -Continue Depakote 500mg BID -Refused inpatient psychiatry admission, does not meet 302 criteria for invol untary admission -For acute behavioral event recommend: haldol 5mg IM, ativan 2mg IM Interval History Identifying Information Beatrice Calhoun is a 64yo woman with history of Bipolar disorder, Schizophrenia, Depression, hypertension, DM presenting with increased paranoia admitted medically due to HTN and elevated blood sugars. Psychiatry consulted for disorganized thinking and paranoia. Chief Complaint Paranoia, delusions Subjective Subjective The patient reports sleeping well. Denies feeling she is targeted or that anyone is after her. Often laughs to herself a lot during the conversation. Re ports "good" energy. Says that her eldest daughter was worried about her safety. When I try to elaborate on this she reports disagreements about the current president and this has been a point of contention with her daughter. Says that they made up and that they both love each other and that she is a good support. She denies SI and HI. Reports sobriety from drugs for 8+ years. Reports a plan to follow up with her outpatient appointments and to get extra home health care assistance for medication management and general caregiving needs. Denies auditory visualizations and feels safe. Reports stopping Paxil and Wellbutrin 2 weeks ago by outpatient provider. Denies having any new onset rashes from lamotrigine initiation. Offered inpatient psychiatric admission and refuses. Physical Exam Mental Examination Appearance: Unkempt Eye Contact: Maintains Eye Contact Motor Behavior: Unremarkable Speech: Normal Mood: Euthymic, Calm and Happy Affect: Congruent and Happy Thought Process: Intact and Evasive Thought Content: Intact and Linear Hallucinations: None Insight: Poor (to limited) Judgement: Poor (to limited) Vital Signs (Past 24 Hours) Last Vital Signs Temp 36.6 C 12/17/24 12:13 Pulse 64 12/17/24 12:13 Resp 18 12/17/24 12:13 BP 149/84 H 12/17/24 12:13 Pulse Ox 99 12/17/24 12:13 O2 Del Method Room Air 12/17/24 12:13 Results & Data ([facility]) Laboratory Results Laboratory Results - last 24 hr 12/16/24 12/16/24 12/16/24 15:38 17:05 20:12 WBC RBC Hgb Hct MCV MCH MCHC RDW Std Deviation RDW Coeff of Kp Plt Count MPV Sodium 140 Potassium 4.1 Chloride 107 Carbon Dioxide 25 Anion Gap 8 BUN 28 H Creatinine 1.75 H Est Cr Clr Drug Dosing 32.3 eGFR 31.75 BUN/Creatinine Ratio 16.0 Glucose 140 H POC Glucose 124 H 155 H Calcium 10.1 Magnesium Ammonia 26.0 B-Natriuretic Peptide Ur Random Creatinine Ur Random Microalbumin Microalb/Creat Ratio 12/17/24 12/17/24 12/17/24 00:30 06:12 06:52 WBC 7.91 RBC 4.27 Hgb 13.1 Hct 39.2 MCV 91.8 MCH 30.7 MCHC 33.4 RDW Std Deviation 43.9 RDW Coeff of Kp 13.2 Plt Count 257 MPV 10.1 Sodium 140 Potassium TNP 4.3 Chloride 107 Carbon Dioxide 25 Anion Gap 8 BUN 31 H Creatinine 1.64 H Est Cr Clr Drug Dosing 34.4 eGFR 34.32 BUN/Creatinine Ratio 18.9 Glucose 176 H POC Glucose Calcium 10.5 H Magnesium 1.9 Ammonia B-Natriuretic Peptide 54 Ur Random Creatinine 33.2 Ur Random Microalbumin < 7.0 Microalb/Creat Ratio < 21.0 12/17/24 12/17/24 08:27 12:24 WBC RBC Hgb Hct MCV MCH MCHC RDW Std Deviation RDW Coeff of Kp Plt Count MPV Sodium Potassium Chloride Carbon Dioxide Anion Gap BUN Creatinine Est Cr Clr Drug Dosing eGFR BUN/Creatinine Ratio Glucose POC Glucose 169 H 242 H Calcium Magnesium Ammonia B-Natriuretic Peptide Ur Random Creatinine Ur Random Microalbumin Microalb/Creat Ratio Current Inpatient Medications Current Inpatient Medications: Current Inpatient Medications Acetaminophen (Acetaminophen 325 Mg Tab) 650 mg PO Q4H PRN PRN Reason: Pain or Fever Stop: 01/13/25 21:38 Albuterol (Albuterol 0.5% Neb Soln 2.5 Mg/0.5 Ml Vial) 2.5 mg NEB Q2H PRN; Protocol PRN Reason: SOB/Wheeze Stop: 01/13/25 23:38 Atorvastatin Calcium (Atorvastatin 20 Mg Tab) [address] [facility] Stop: 01/14/25 20:59 Last Admin: 12/16/24 20:36 Dose: 20 mg Dextrose (Dextrose 50% 50 Ml Syringe) 25 - 50 ml IV UD PRN; Protocol PRN Reason: Hypoglycemia Protocol Stop: 01/13/25 21:38 Divalproex Sodium (Divalproex Extended Release 500 Mg Tab) 500 mg PO BID [facility] Stop: 01/13/25 23:44 Last Admin: 12/17/24 09:09 Dose: 500 mg Docusate Sodium (Docusate Sodium 100 Mg Cap) 100 mg PO BID [facility] Stop: 01/15/25 12:59 Last Admin: 12/17/24 09:20 Dose: 100 mg Famotidine (Famotidine 20 Mg Tab) 20 mg PO HS [facility] Stop: 01/14/25 20:59 Last Admin: 12/16/24 20:36 Dose: 20 mg Fluticasone Propionate (Fluticasone Propionate Na Spr 16 Gm Btl) 1 sprays NA QAM [facility] Stop: 01/14/25 08:59 Last Admin: 12/17/24 11:00 Dose: 1 sprays Glucagon (Glucagon For Inj 1 Mg Vial) 1 mg SQ UD PRN; Protocol PRN Reason: Hypoglycemia Protocol Stop: 01/13/25 21:38 Glucose (Glucose 40% Gel 15 Gm Tube) 15 - 30 gm PO UD PRN; Protocol PRN Reason: Hypoglycemia Protocol Stop: 01/13/25 21:38 Glucose (Glucose 10 Tab/Tube) 4 - 8 tab PO UD PRN; Protocol PRN Reason: Hypoglycemia Protocol Stop: 01/13/25 21:38 Hydralazine HCl (Hydralazine Hcl 20 Mg/Ml Vial) 5 mg IV Q8H PRN PRN Reason: hypertension Stop: 01/14/25 09:27 Last Admin: 12/16/24 23:18 Dose: 5 mg Insulin Aspart (Insulin Aspart Per Unit Charge) 0 units SC ACHS [facility] Stop: 01/13/25 21:38 Last Admin: 12/17/24 12:36 Dose: 5 units Insulin Glargine (Lantus Per Unit Charge) 5 units SQ BID [facility] Stop: 01/14/25 08:59 Last Admin: 12/17/24 09:13 Dose: 5 units Levothyroxine Sodium (Levothyroxine Sodium 50 Mcg Tablet) 50 mcg PO DAILYBB [facility] Stop: 01/14/25 06:29 Last Admin: 12/17/24 06:11 Dose: 50 mcg Losartan Potassium (Losartan Potassium 25 Mg Tab) 12.5 mg PO DAILY [facility] Stop: 01/14/25 08:59 Last Admin: 12/15/24 09:03 Dose: 12.5 mg Magnesium Oxide (Magnesium Oxide 400 Mg Tab) 400 mg PO BID [facility] Stop: 01/15/25 08:59 Last Admin: 12/17/24 09:09 Dose: 400 mg Metoprolol Tartrate (Metoprolol Tartrate 25 Mg Tab) 12.5 mg PO BID [facility] Stop: 01/15/25 08:59 Last Admin: 12/17/24 09:09 Dose: 12.5 mg Miscellaneous (Carbohydrates For Hypoglycemia ) 15 - 30 gm PO UD PRN PRN Reason: Hypoglycemia Protocol Stop: 01/13/25 21:38 Ondansetron HCl (Ondansetron Inj 2 Mg/Ml 2 Ml Vial) 4 mg IV Q6H PRN PRN Reason: Nausea And Vomiting Stop: 01/13/25 21:38 Pantoprazole Sodium (Pantoprazole 40 Mg Tab) 40 mg PO [facility] Stop: 01/14/25 08:59 Last Admin: 12/17/24 09:09 Dose: 40 mg
[2024-12-17] MEDS: SENNA 8.6 MG TAB PO SCH (15:29)
[2024-12-18 06:15] LABS: Calcium 10.4 mg/dl (8.6-10.3); Creatinine Clr Calc Pharmacy 33.2 ml/min; Magnesium 1.6 mg/dl (1.7-2.4); Potassium 4.2 mmol/L (3.5-5.1)
[2024-12-18] MEDS: INFLUENZA VACC TS2024-25(65y+)/PF (IIV3) 0.5mL Syr IM ONE (06:20)
[2024-12-18 07:59] VITALS: BP 120/59; PULSE 79; TEMP 98.1; O2SAT 99
--- NOTE | 2024-12-18 10:00 | Discharge Summary ---
Discharge Summary Date of Service December 18, 2024 Principal Dx & Hospital Course #1 = Principal Diagnosis (1) Psychiatric illness: (2) Hypertension: (3) Diabetes: (4) GERD (gastroesophageal reflux disease): (5) Hyperlipidemia: Plan 64yo female with history of Bipolar disorder, schizophrenia, HTN, DM presenting with increased paranoia and disorganized thinking in setting of medication non- adherence for the last 2-3 days. Patient presented on 302 petition (not upheld as no SI/HI). Reported increased focus on the dark web, safety of the president and family members that do not like the president. No SI/HI. Admission w/ HTN w/ BP 200/100s and Glu 290 Pt reports was previously on [place] but stopped 2nd to renal dysfunction. * Liked her Zyprexa but issues w/ compliance and prior outside provider w/ plans to switch her to Invega (per patient) for once yearly injections to improve compliance. Per nursing, got report she missed her Haldol injection and was to get labs for new start Invega #Psychiatric Illness/Bipolar/Schizophrenia suspected 2nd to Medication non-adherence , also daughter was sick and did not help w/ her pills/missed a few doses Currently is alert/oriented to person/place/year/event with some tangential speech/hypomania at present time. Continues to deny SI/HI, no 302. Does not want inpatient at this time and can be arranged for outpatient f/u [facility] for possible start Invega/other injectable Psych consulted while inpatient Continue divalproex ER 500mg PO BID - Level acceptable at 59, no adjustment to dose Paxil DC'd Consideration for lamictal resumption however did have some pain to legs/slight rash the other day and ?2nd to use. Does have elevated Cr above baseline and issues w/ lithium and renal impairment in the past. Rash improving on exam. Did not have significant elevated eosinophils on differential but were present. No LFT elevation to suggest DRESS but is possible w/ ongoing use and did recently start this medication in the past 1-2 weeks per patient (confirmed w/ psych is true) and will HOLD OFF resumption of this medication at this time. Stable from psych standpoint for outpatient follow up at [facility] however working on VIDA/HTN as below and hopefully able to dc back to apartment w/ caregivers 12/18 #VIDA on CKD acute on chronic, reports stopped lithium in the past 2nd to renal dysfunction. Cr 1.6 on admission and IVF provided and was 1.4 however off IVF back to 1.7. Gave 1 dose HCTZ for some swelling and dry on exam/hold off further but Cr to 1.6 on AM labs) Suspect multifactorial w/ medication use , also uncontrolled HTN -- uses olmesartan 5mg BID at baseline and recent start lamictal as above which can cause renal impairment/AIN UA did not appear infected. Renal US w/o obstruction, making good urine. ARB remains on HOLD - Hx DM but no significant microalbumin -- possible should stop this medication. Metoprolol BID for HTN w/ improvement and stable 146/81 at present NOT resuming lamictal Renal dose meds/avoid nephrotoxins BMP in AM HTN Not at goal, significant elevation 200s/100s on admission and on olmesartan 5mg BID [employer] and was continued on losartan PO daily inpatient however w/ VIDA on CKD placed on hold and utilizing metoprolol BID for now w/ improvement BP currently stable as above and would avoid further diuretics (BNP not elevated) and have hydralazine IV available Monitor/adjustments as needed but if stable on tartrate 12.5mg BID can continue such at oh. HR stable/no lows Diabetes/hyperglycemia Elevated blood sugar at 290 without AG on admission. A1c remains 7.4 and on Januvia at baseline. Insulin 5u BID and SSI with tightened parameters and monitoring/adjustment as needed Hypomagnesemia Low on arrival -- CHRONIC issue (suspected 2nd to PPI use). Replaced/resolved but again low and placed on mag oxide PO BID and has been stable today and will check in AM to ensure not needing increased dose --> If stable, continue PO BID at oh GERD -Chronic, maintained on pepcid HS/protonix 40mg QAM which have been continued Hyperlipidemia -Chronic, continue atorvastatin Vit D Deficiency-Hx of such, added to labs given noncompliance/adjust PO as able (?once weekly higher dosing?) --> VIt D 88 and likely would decrease home supplementation to 1000IU daily at oh to prevent over treatment (on 125mcg PO daily) Dispo: continued inpatient stay and if renal function improved in AM and BP stable consider oh w/ outpatient follow up with [facility]. F/u with psych in AM if any additional recs for lamictal (was messaged today) but would hold off resuming for now for concerns worsening renal impairment Admission HPI Per Admitting Provider Beatrice Calhoun is a pleasant 64yo female with history of Bipolar disorder, Schizoph gen, Depression, hypertension, DM presenting with increased paranoia. Patient presented on 302 petition. Reports she has not been taking her medications for the past 2-3 days. She has increased focus on the dark web, safety of the president and family members that do not like the president. She denies SI or HI. In the ER she is afebrile, hypertensive with blood pressure to 200/100 and eleva ricki blood sugars. Medical admission requested ER Course: Olanzapine 5mg PO Labetalol 10mg IV Lantus 5u SQ Discharge Exam GENERAL APPEARANCE NAD, activity normal for age, well developed/ well nourished, no cyanosis, pallor, or diaphoresis. EYES lids/conjunctiva normal. EARS/NOSE/THROAT Mucous membranes moist, nares normal, lips/teeth normal uvula midline without oral pharyngeal erythema, exudate or swelling TMs normal bilaterally. No lymphangitis/lymphedema. HEAD/NECK normocephalic atraumatic, no facial trauma, neck is supple. RESPIRATORY respiratory effort normal, speaks in full sentences, no tripod position, no accessory muscle use. Lungs clear to auscultation without rhonchi, wheezes, rales CARDIAC Regular rate and rhythm, no edema. ABDOMINAL Soft, ND/NT. No evidence of fluid wave. No pulsatile masses on exam, rebound tenderness, Walters sign or pain over Mcburney's point. MUSCLES/EXTREMITIES No abnormal range of motion, no swelling. SKIN Warm, pink and dry. No rashes, dermatoses, petechiae or lesions. NEUROLOGICAL Speech is clear and appropriate. Normal level of consciousness. Gait and coordination are normal. 5/5 strength in all extremities. PSYCH Normal mood and affect. Judgement/competence is appropriate Discharge Plan Discharge Items Patient Disposition: Home - Self-Care Reason For Visit: HYPERTENSION Discharge Diagnosis: bipolar disorder Activity: Resume your previous activity Non-emergency contact: Primary Care Provider Call non-emergency contact if: you have any medication questions Follow-up/Referrals: Aleshia Ramirez MD [Primary Care Provider] - (PLEASE CALL YOUR PRIMARY CARE PROVIDER TO SCHEDULE A HOSPITAL DISCHARGE FOLLOW-UP APPOINTMENT WITHIN 7-10 DAYS) Diet: Regular Addtl Attending Provider Instructions: MEDS WRITTEN BUT NEED SENT TO PHARMACY IF CONFIRMED DOSING/FREQUENCY FOR THE METOPROLOL AND MAGNESIUM You have been hospitalized for concerns psychosis and paranoia from likely missing several days of your medications, as well as recent start Paxil/Wellbutrin given your underlying bipolar which can make symptoms of kat/hypomania worse and these have been STOPPED. Depakote resumed/continued and your levels have been in acceptable range. Decision to STOP LAMICTAL as we have concerns for possible renal impairment with rash to legs with recent start and can be from that and has resolved since stopping these. Recommend follow up with [facility] to discuss with Invega versus the other injectable agents to help you improve compliance with medications and longer term results for underlying bipolar. For blood pressure, Olmesartan has been STOPPED and we started you on a different medication called METOPROLOL TARTRATE which should be take similarly twice daily at a dose of 12.5mg and can be increased in follow up if needed for ongoing blood pressure control. Your magnesium level was low and has been low in the past. We gave you IV replacement and given repeat was again low started you on Magnesium oxide twice daily to keep stores stable and they have been stable since that time and you are being continued on this twice daily. Would REDUCE vs STOP vitamin D (level acceptable at 88). Please follow up with primary care and psychiatry/[facility] at discharge in 7-10 days to monitor your progress and help to coordinate your care as an outpatient. Please return to the ER with any fever/chills, chest pain, shortness of breath or for any other symptoms concerning for you. It has been a pleasure being a part of the medical team providing for you while you have been in the hospital. Take care! Pending Studies at Discharge: No Stand-Alone Forms: My [facility] [employer], Smoking Cessation Medications and DC Order Prescriptions: New magnesium oxide 400 mg (241.3 mg magnesium) Tablet 400 mg PO BID Qty: 60 0RF metoprolol tartrate 25 mg Tablet 12.5 mg PO BID Qty: 60 0RF Continued pantoprazole 40 mg tablet,delayed release (DR/EC) 40 mg PO QAM Qty: 30 4RF famotidine 20 mg tablet 20 mg PO HS Qty: 30 5RF atorvastatin 20 mg tablet 20 mg PO HS levothyroxine 50 mcg tablet 50 mcg PO QAM loratadine 10 mg tablet 10 mg PO QAM multivitamin with folic acid [Daily-Han (with folic acid)] 400 mcg tablet 1 tab PO QAM divalproex 500 mg tablet extended release 24 hr 500 mg PO Q12H Rx Instructions: 0800 & 1999 haloperidol decanoate 50 mg/mL solution 0.75 mg IM Q28D Rx Instructions: ON THE OF THE MONTH fluticasone propionate 50 mcg/actuation spray,suspension 1 spray INTRANASAL QAM Rx Instructions: 1 spray into each nostril daily calcium carbonate [Calcium 500] 500 mg calcium (1,250 mg) Tablet,Chewable 1,000 mg PO Q6H PRN (Reason: Indigestion) docusate sodium 50 mg Capsule 50 mg PO BID PRN (Reason: Constipation) albuterol sulfate 90 mcg/actuation aerosol powdr breath activated 2 inh inhalation Q6H PRN (Reason: shortness of breath or wheezing) Qty: 1 0RF Rx Instructions: administer with spacer acetaminophen 325 mg tablet 650 mg PO QAM Januvia 50 mg tablet 50 mg PO DAILY metformin 500 mg tablet extended release 24 hr 500 mg PO BID icosapent ethyl [Vascepa] 1 gram capsule 0 g PO BID Rx Instructions: Last filled 09/20/24 x28 day supply. Original Directions: 2g by mouth twice daily Held cholecalciferol (vitamin D3) [Vitamin D3] 125 mcg (5,000 unit) Tablet 125 mcg PO QAM Hold Instructions: hold this until discussed with primary care in follow up Discontinued olmesartan 5 mg tablet 5 mg PO BID Rx Instructions: pt not sure about this med paroxetine HCl 30 mg tablet 0 mg PO QAM Rx Instructions: Last filled 10/17/24 x30 day supply. Original Directions: 30mg by mouth in the morning Discharge Orders: Discharge Order (Routine); Ordered 12/18/24 Ordered By: Gerardo Gutierrez/Other Patient Handouts: Managing Type 2 Diabetes Admission Data Admit Date/Time: 12/14/24 20:36 Attending Provider: Gerardo Rollins Admit Provider: Eva Dailey Primary Care Provider: Aleshia Ramirez Other Providers: Faviola Barnard; Vitaliy Robbins; Ebonie Yañez; Kyleigh Orourke; Andrea Franco; Randal Mccall; Eva Dailey Hospital Stay Data Consultations 12/14/24 19:52 ED Decision to Admit Stat 12/14/24 20:37 Consult Psychiatry Routine Diagnostic Imagining Performed 12/17/24 07:21 US Renal Bladder [US renal/blad retro comp] Routine Pending Results Patient Have Any Pending Studies at Discharge: No Discharge Instructions Given to Patient (Per Discharging Provider) MEDS WRITTEN BUT NEED SENT TO PHARMACY IF CONFIRMED DOSING/FREQUENCY FOR THE METOPROLOL AND MAGNESIUM You have been hospitalized for concerns psychosis and paranoia from likely missing several days of your medications, as well as recent start Paxil/Wellbutrin given your underlying bipolar which can make symptoms of kat/hypomania worse and these have been STOPPED. Depakote resumed/continued and your levels have been in acceptable range. Decision to STOP LAMICTAL as we have concerns for possible renal impairment with rash to legs with recent start and can be from that and has resolved since stopping these. Recommend follow up with [facility] to discuss with Invega versus the other injectable agents to help you improve compliance with medications and longer term results for underlying bipolar. For blood pressure, Olmesartan has been STOPPED and we started you on a different medication called METOPROLOL TARTRATE which should be take similarly twice daily at a dose of 12.5mg and can be increased in follow up if needed for ongoing blood pressure control. Your magnesium level was low and has been low in the past. We gave you IV replacement and given repeat was again low started you on Magnesium oxide twice daily to keep stores stable and they have been stable since that time and you are being continued on this twice daily. Would REDUCE vs STOP vitamin D (level acceptable at 88). Please follow up with primary care and psychiatry/[facility] at discharge in 7-10 days to monitor your progress and help to coordinate your care as an outpatient. Please return to the ER with any fever/chills, chest pain, shortness of breath or for any other symptoms concerning for you. It has been a pleasure being a part of the medical team providing for you while you have been in the hospital. Take care! Total Time Total Time Spent Total Time Spent (In Minutes): 50 Coding Level of Care Code 66549 INP/OBS DISCH >30 MIN Diagnoses Psychiatric illness F99 Hypertension I10 Hypertension type: unspecified Diabetes E11.9 GERD (gastroesophageal reflux disease) K21.9 Hyperlipidemia E78.5
== END 2024-12-18 11:53 | disposition home or self-care (01) | DRG 885 ==
LOC: ED 17:46 → EDINP 20:36 → SUATTDRO 20:36 → 2N 21:40

== ENCOUNTER 2025-07-23 15:57 | Inpatient (IN) ==
[2025-07-23] MEDS: SODIUM CHLORIDE 0.9% 1,000 ML IV SCH (16:08)
--- NOTE | 2025-07-23 16:14 | Emergency Department Note ---
Impression & Plan Acute hyperglycemia, Hypomagnesemia, Acute dehydration, Hypertension, Anemia ED Provider Note NAME: AMPARO PERKINS AGE: 64 SEX: F : 1960 ARRIVES VIA: Ambulance INFORMANT: [Patient][EMS] ED PROVIDER(S): [Guero Banuelos MD] CHIEF COMPLAINT: Illness HISTORY OF PRESENT ILLNESS: Patient is a 64-year-old female who presents to the ED with complaints of higher blood sugars. She has noted some increased thirst and some urinary frequency. As per EMS, the blood sugar as per their device read 546. The patient has not had respiratory complaints or cough or congestion. No vomiting diarrhea. No chest pain or abdominal pain. She thinks she may have a UTI given the urgency with urination. She has not missed any of her medications. PMHx/PSHx/Social Hx: See Below PHYSICAL EXAM: GENERAL: Patient is in no acute distress. HEENT: No acute trauma, normocephalic atraumatic, mucous membranes moist, no nasal congestion. NECK: No stridor, no adenopathy, no meningismus, trachea is midline. LUNGS: Clear to auscultation bilaterally, no wheeze, no rhonchi, breath sounds equal. HEART: Without murmurs gallops or rubs, regular rate and rhythm. ABDOMEN: Soft, nontender, no peritonitis. EXTREMITIES: No cyanosis, full range of motion of all the joints without pain or difficulty. NEUROLOGIC: Oriented x 3, no acute motor or sensory deficits, no focal weakness. SKIN: No jaundice, no diaphoresis. DIFFERENTIAL DIAGNOSIS: UTI, electrolyte imbalance, dehydration, DKA, among others. EMERGENCY DEPARTMENT PROCEDURES: MEDICAL DECISION MAKING: There is no leukocytosis. The patient is anemic however, she has been found anemic before. There was a normal platelet count. No bandemia. VBG did not show any acidosis--I do not think the patient is in DKA. Renal panel testing shows a low sodium and a high sugar. Sugar was over 500. Creatinine was elevated but, this is a baseline finding for the patient. Magnesium is low at 1.5. No liver enzyme elevation. The patient appeared to be in a euthyroid state. Urinalysis shows glucose, no infection. Valproic acid level was therapeutic. Chest film shows some congestion of the left base although, the film looks similar to previous films. No obvious focal pneumonia by my reading. ECG showed a sinus rhythm, no ischemia. On exam, patient was not toxic or febrile. She complained of being thirsty and having urinary frequency. She was hypertensive. The patient received 1.5 L of IV saline. She was given IV magnesium and IV labetalol. The labetalol was given for her higher blood pressure. She was given IV insulin. With our treatment, the patient's blood sugar is now in the 300s. The patient presents hyperglycemic. She is dehydrated. She is hypertensive. The cause for the hyperglycemia is not clear. Given her presentation, given her findings, I do think a hospital stay, further workup/care is in order. I spoke with the patient and case management, the on-call hospitalist was consulted. Prior/Outside records/notes reviewed: Today's EMS notes describing her presentation and transport to this hospital. ECG per my interpretation: Indication was hyperglycemia. The ECG shows a normal sinus rhythm with a rate of 74. There is no ST elevation, no PVCs. The QTc is 432. Continuous Cardiac Monitoring per my interpretation: An order was placed for continuous cardiac monitoring. The monitor shows a rate of 82 with normal sinus rhythm. Imaging/x-ray results per my interpretation: Chest x-ray shows congestion at the left base although, the film seemed similar to previous films. Chronic Medical/Social conditions affecting care: History of bipolar disorder and delusional disorder. Care/Management discussed with: Case management, the on-call hospitalist. Level of care consideration(s): After review of the information above and other included data: --I believe the patient requires escalation of care to admission DISPOSITION: Admission Past Med/Surg History Problem List Anemia (Acute) Hypertension (Acute) Acute dehydration (Acute) Hypomagnesemia (Acute) Acute hyperglycemia (Acute) Atypical chest pain (Acute) Dehydration (Acute) Hypercalcemia (Acute) Viral upper respiratory illness Hypomagnesemia (Acute) Hypercalcemia due to a drug Type 2 diabetes mellitus with hyperglycemia (Acute) Bipolar disorder Delusional disorder (Acute) Constipation Medical History Unspecified psychosis not due to a substance or known physiological condition Low magnesium level Hypertension GERD (gastroesophageal reflux disease) Diabetes Psychiatric illness Constipation GERD (gastroesophageal reflux disease) Hx of respiratory syncytial virus infection 10/2023 Hypomagnesemia Manic episode Disorganized schizophrenia Insomnia Generalized weakness Hypertension Hyperlipidemia Hypothyroidism Diabetes mellitus, type 2 Chronic kidney disease stage 3 Surgical History Surgical history unknown Social History Smoking Status: Former smoker Tobacco Type: Cigarettes Smoking End Date: 2018; Second Hand Exposure: No; Do You Dip or Chew Tobacco: No; Hx Alcohol Use: Yes Alcohol type: other Hx Substance Use: No Preferred Language: Kyrgyz Communication Ability: Effective Communication Ability Comment: of sound mind to sign consent, alert and oriented x3 Ivory Carver Required: No Beliefs That Will Affect Care: None Current Living Situation: Other Current Living Situation Comment: Independent Housing at [facility] Feels Safe at Home: Yes Safety Concerns: Feels Safe At This Time Assistive Devices: Cane, Denture - Upper, Denture - Lower and Glasses Allergies Allergies Allergy/AdvReac Type Severity Reaction Status Date / Time EUGENIO Inhibitors Allergy Unknown ON [facility] Verified 12/26/24 09:55 MED LIST clonazepam Allergy Unknown ON [facility] Verified 12/26/24 09:55 MED LIST lithium Allergy Unknown ON [facility] Verified 12/26/24 09:55 MED LIST Penicillins Allergy Unknown ON [facility] Verified 12/26/24 09:55 MED LIST pseudoephedrine Allergy Unknown ON [facility] Verified 12/26/24 09:55 MED LIST Sulfa (Sulfonamide Allergy Unknown ON [facility] Verified 12/26/24 09:55 Antibiotics) MED LIST sulfanilamide Allergy Unknown ON [facility] Verified 12/26/24 09:55 MED LIST trifluoperazine Allergy Unknown ON [facility] Verified 12/26/24 09:55 MED LIST ziprasidone Allergy Unknown ON [facility] Verified 12/26/24 09:55 MED LIST Home Meds Home Medications Medication Instructions Recorded Confirmed calcium carbonate (Calcium 500) 1,000 mg PO Q6H PRN Indigestion 02/26/22 07/23/25 divalproex 500 mg tablet,extended 500 mg PO BID 02/26/22 07/23/25 release 24 hr levothyroxine 50 mcg tablet 50 mcg PO QAM 02/26/22 07/23/25 loratadine 10 mg tablet 10 mg PO QAM 02/26/22 07/23/25 multivitamin with folic acid 400 1 tab PO QAM 02/26/22 07/23/25 mcg tablet (Daily-Han (with folic acid)) cholecalciferol (vitamin D3) 125 125 mcg PO QAM 11/19/22 07/23/25 mcg (5,000 unit) tablet (Vitamin D3) sitagliptin phosphate 50 mg tablet 50 mg PO DAILY 09/10/24 07/23/25 (Januvia) metoprolol tartrate 25 mg tablet 12.5 mg PO BID 12/27/24 07/23/25 aripiprazole (2 month) 960 mg/3.2 960 mg IM .[id number] 07/10/25 07/23/25 mL susp, extended rel IM syringe (Micahel Asimtufii) peg 3350-electrolytes 236 240 ml PO UD 07/10/25 07/23/25 gram-22.74 gram-6.74 gram-5.86 gram solution (Golytely) aspirin 81 mg tablet,delayed 81 mg PO DAILY 07/23/25 07/23/25 release atorvastatin 80 mg tablet 80 mg PO DAILY 07/23/25 07/23/25 clopidogrel 75 mg tablet 75 mg PO DAILY 07/23/25 07/23/25 Previous Rx's Medication Instructions Recorded famotidine 20 mg tablet 20 mg PO HS #30 tabs 08/12/24 magnesium oxide 400 mg (241.3 mg 400 mg PO BID #60 tabs 12/17/24 magnesium) tablet Results & Data (ED) Vital Signs Vital Signs - 24 hr 07/23/25 16:00 07/23/25 16:03 07/23/25 16:51 Temperature 36.8 C Temperature Source Oral Pulse Rate 82 83 Pulse Rate [Apical] Pulse Rhythm [Apical] Pulse Strength [Apical] Respiratory Rate 19 Respiratory Effort / Characteristics Non-Labored Spontaneous Respiratory Depth Normal Respiratory Pattern Regular Blood Pressure 202/95 H Blood Pressure [Right Arm] Blood Pressure Mean 130 Blood Pressure Mean [Right Arm] Pulse Oximetry 99 99 Oxygen Delivery Method Room Air Room Air Sepsis Recent Fever Within 48 Hours No Sepsis New/Unexplained Change in Mental Status No Sepsis Action Taken by Nursing No Action Required 07/23/25 17:00 07/23/25 18:00 07/23/25 19:22 Temperature Temperature Source Pulse Rate 80 87 Pulse Rate [Apical] 82 Pulse Rhythm [Apical] Regular Pulse Strength [Apical] Normal Respiratory Rate 19 14 16 Respiratory Effort / Characteristics Non-Labored Spontaneous Respiratory Depth Normal Respiratory Pattern Blood Pressure 155/90 H 143/81 H Blood Pressure [Right Arm] 199/74 H Blood Pressure Mean 127 114 Blood Pressure Mean [Right Arm] 115 Pulse Oximetry 95 98 99 Oxygen Delivery Method Room Air Room Air Room Air Sepsis Recent Fever Within 48 Hours Sepsis New/Unexplained Change in Mental Status Sepsis Action Taken by Nursing 07/23/25 19:32 07/23/25 19:54 07/23/25 19:55 Temperature Temperature Source Pulse Rate 83 80 Pulse Rate [Apical] 80 Pulse Rhythm [Apical] Regular Pulse Strength [Apical] Normal Respiratory Rate 16 Respiratory Effort / Characteristics Non-Labored Spontaneous Respiratory Depth Normal Respiratory Pattern Blood Pressure 199/74 H 140/76 Blood Pressure [Right Arm] 140/76 Blood Pressure Mean Blood Pressure Mean [Right Arm] 97 Pulse Oximetry 99 Oxygen Delivery Method Sepsis Recent Fever Within 48 Hours Sepsis New/Unexplained Change in Mental Status Sepsis Action Taken by Nursing 07/23/25 20:44 Temperature Temperature Source Pulse Rate 77 Pulse Rate [Apical] Pulse Rhythm [Apical] Pulse Strength [Apical] Respiratory Rate Respiratory Effort / Characteristics Respiratory Depth Respiratory Pattern Blood Pressure Blood Pressure [Right Arm] Blood Pressure Mean Blood Pressure Mean [Right Arm] Pulse Oximetry Oxygen Delivery Method Sepsis Recent Fever Within 48 Hours Sepsis New/Unexplained Change in Mental Status Sepsis Action Taken by Assisted Medications Current Medication List: was personally reviewed by me Laboratory Data Attestation: I reviewed the patient's lab results. 07/23/25 17:11 07/23/25 17:11 Lab Results 07/23/25 07/23/25 07/23/25 Range/Units 16:19 16:57 17:11 WBC 4.49 L (4.8-10.8) K/ul RBC 3.59 L (4.20-5.40) M/uL Hgb 10.6 L (12.0-16.0) g/dl Hct 31.5 L (37.0-47.0) % MCV 87.7 (80.0-100.0) fL MCH 29.5 (25.0-34.0) pg MCHC 33.7 (32.0-36.0) g/dL RDW Std Deviation 38.4 (36.4-46.3) fL RDW Coeff of Kp 11.9 (11.5-14.5) % Plt Count 147 (130-400) K/uL MPV 10.1 (9.4-12.4) fL Immature Gran % (Auto) 0.9 % Neut % (Auto) 47.4 % Lymph % (Auto) 30.1 % Maury % (Auto) 14.5 % Eos % (Auto) 5.8 % Baso % (Auto) 1.3 % Neut # (Auto) 2.13 (1.40-6.50) K/uL Lymph # (Auto) 1.35 (1.20-3.40) K/uL Maury # (Auto) 0.65 H (0.11-0.59) K/uL Eos # (Auto) 0.26 (0.00-0.50) K/uL Baso # (Auto) 0.06 (0.00-0.20) K/uL Immature Gran # (Auto) 0.04 (0.01-0.20) K/uL VBG pH 7.44 H (7.36-7.41) VBG pCO2 40 (38-50) mmHg VBG pO2 38 mmHg VBG HCO3 27 mmol/L VBG O2 Saturation 70.2 % VBG Base Excess 2.8 mEq/L Sodium 131 L (136-145) mmol/L Potassium 4.5 (3.5-5.1) mmol/L Chloride 99 (98-107) mmol/L Carbon Dioxide 25 (21-32) mmol/L Anion Gap 7 (3-11) BUN 29 H (6-23) mg/dl Creatinine 1.36 H (0.6-1.2) mg/dl Est Cr Clr Drug Dosing 40.7 ml/min eGFR 42.96 BUN/Creatinine Ratio 21.3 H (10-20) Glucose 507 H* (70-99(Fasting)) mg/dl POC Glucose (70-99) mg/dl Calcium 9.2 (8.6-10.3) mg/dl Magnesium 1.5 L (1.7-2.4) mg/dl Total Bilirubin 0.3 (0.2-1.0) mg/dl AST 10 L (13-39) U/L ALT 14 (7-52) U/L Alkaline Phosphatase 82 (34-104) U/L Total Protein 5.9 L (6.0-8.3) gm/dl Albumin 3.6 (3.4-5.0) gm/dl Globulin 2.3 L (2.5-4.0) gm/dl Albumin/Globulin Ratio 1.6 (0.9-2) TSH 0.951 (0.300-4.500) uIu/ml Urine Color Yellow Urine Appearance Clear (Clear) Urine pH 6.5 (4.5-7.5) Ur Specific [place] 1.011 (1.000-1.030) Urine Protein Negative (Negative) Urine Glucose (UA) 3+ H (Negative) Urine Ketones Negative (Negative) Urine Blood Negative (Negative) Urine Nitrite Negative (Negative) Urine Bilirubin Negative (Negative) Urine Urobilinogen Negative (Negative) Ur Leukocyte Esterase Negative (Negative) Urine Comment Valproic Acid 81 (50-100) mcg/ml 07/23/25 Range/Units 19:17 WBC (4.8-10.8) K/ul RBC (4.20-5.40) M/uL Hgb (12.0-16.0) g/dl Hct (37.0-47.0) % MCV (80.0-100.0) fL MCH (25.0-34.0) pg MCHC (32.0-36.0) g/dL RDW Std Deviation (36.4-46.3) fL RDW Coeff of Kp (11.5-14.5) % Plt Count (130-400) K/uL MPV (9.4-12.4) fL Immature Gran % (Auto) % Neut % (Auto) % Lymph % (Auto) % Maury % (Auto) % Eos % (Auto) % Baso % (Auto) % Neut # (Auto) (1.40-6.50) K/uL Lymph # (Auto) (1.20-3.40) K/uL Maury # (Auto) (0.11-0.59) K/uL Eos # (Auto) (0.00-0.50) K/uL Baso # (Auto) (0.00-0.20) K/uL Immature Gran # (Auto) (0.01-0.20) K/uL VBG pH (7.36-7.41) VBG pCO2 (38-50) mmHg VBG pO2 mmHg VBG HCO3 mmol/L VBG O2 Saturation % VBG Base Excess mEq/L Sodium (136-145) mmol/L Potassium (3.5-5.1) mmol/L Chloride (98-107) mmol/L Carbon Dioxide (21-32) mmol/L Anion Gap (3-11) BUN (6-23) mg/dl Creatinine (0.6-1.2) mg/dl Est Cr Clr Drug Dosing ml/min eGFR BUN/Creatinine Ratio (10-20) Glucose (70-99(Fasting)) mg/dl POC Glucose 357 H* (70-99) mg/dl Calcium (8.6-10.3) mg/dl Magnesium (1.7-2.4) mg/dl Total Bilirubin (0.2-1.0) mg/dl AST (13-39) U/L ALT (7-52) U/L Alkaline Phosphatase (34-104) U/L Total Protein (6.0-8.3) gm/dl Albumin (3.4-5.0) gm/dl Globulin (2.5-4.0) gm/dl Albumin/Globulin Ratio (0.9-2) TSH (0.300-4.500) uIu/ml Urine Color Urine Appearance (Clear) Urine pH (4.5-7.5) Ur Specific [place] (1.000-1.030) Urine Protein (Negative) Urine Glucose (UA) (Negative) Urine Ketones (Negative) Urine Blood (Negative) Urine Nitrite (Negative) Urine Bilirubin (Negative) Urine Urobilinogen (Negative) Ur Leukocyte Esterase (Negative) Urine Comment Valproic Acid (50-100) mcg/ml Administered Medications Parenteral Electrolytes (Plasma-Lyte A Ph 7.4) 1,000 mls @ 125 mls/hr IV .Q8H RADHA Stop: 07/24/25 04:14 Last Admin: 07/23/25 20:57 Dose: 125 mls/hr Documented By: AAMIR Insulin Aspart (Insulin Aspart Per Unit Charge) 0 units SC ACHS RADHA Stop: 08/22/25 20:59 Last Admin: 07/23/25 21:44 Dose: 11 units Documented By: DEVAN Co-signed By: [facility] Discontinued Medications Sodium Chloride (Nss) 1,000 mls @ 999 mls/hr IV .Q1H1M RADHA Stop: 07/23/25 17:15 Last Infusion: 07/23/25 17:18 Dose: Infused Documented By: Admin: 07/23/25 16:08 Dose: 999 mls/hr Documented By: HOWARD Magnesium Sulfate/Dextrose (Magnesium Sulfate / D5w) 1 gm in 100 mls @ 100 mls/hr IV Q1H RADHA Stop: 07/23/25 19:46 Last Infusion: 07/23/25 20:11 Dose: Infused Documented By: [facility] Admin: 07/23/25 19:08 Dose: 100 mls/hr Documented By: Infusion: 07/23/25 18:53 Dose: Infused Documented By: [facility] Admin: 07/23/25 17:53 Dose: 100 mls/hr Documented By: HOWARD Sodium Chloride (Nss) 500 mls @ 999 mls/hr IV .Q31M ONE Stop: 07/23/25 19:35 Last Infusion: 07/23/25 19:45 Dose: Infused Documented By: [facility] Admin: 07/23/25 19:11 Dose: 999 mls/hr Documented By: Pawan Potassium Chloride (K [place] / Wtr) 10 meq in 100 mls @ 100 mls/hr IV Q1H [facility] Stop: 07/23/25 22:59 Last Admin: 07/23/25 22:14 Dose: 100 mls/hr Documented By: Infusion: 07/23/25 21:59 Dose: Infused Documented By: [facility] Admin: 07/23/25 20:59 Dose: 100 mls/hr Documented By: Pawan Insulin Glargine (Lantus Per Unit Charge) 15 units SC ONE ONE Stop: 07/23/25 21:01 Last Admin: 07/23/25 21:45 Dose: 15 units Documented By: DEAVN Co-signed By: AAMIR Insulin Human Regular (Novolin-R Insulin Per Unit Charge) 10 units IV NOW STA Stop: 07/23/25 17:47 Last Admin: 07/23/25 17:53 Dose: 10 units Documented By: HOWARD Co-signed By: XIMENA Insulin Human Regular (Novolin-R Insulin Per Unit Charge) 10 units IV NOW STA Stop: 07/23/25 20:12 Last Admin: 07/23/25 20:55 Dose: 10 units Documented By: [facility] Co-signed By: KANDICE Labetalol HCl (Labetalol Hcl Iv 5 Mg/Ml 20ml) 10 mg IV NOW STA Stop: 07/23/25 19:25 Last Admin: 07/23/25 19:32 Dose: 10 mg Documented By: [facility] Imaging Data Radiologist's Impression: Chest X-Ray 07/23/25 18:52 Exam: Chest one view portable. Reason for exam: Weakness. Previous study: Chest radiograph 07/14/2025. FINDINGS: Heart size is normal. Mild residual atelectasis seen in the left lower lobe decreased since the previous study. Right hemithorax is clear. IMPRESSION: Mild atelectasis left lower lobe. Otherwise negative for acute disease. Electronically signed by Vitaliy Patricia 07-23-2025 7:52 PM Discharge Plan Visit Data Chief Complaint: Illness Stated Complaint: HYPERGLYCEMIA ED Provider: Guero Banuelos Discharge Problem: Acute hyperglycemia, Hypomagnesemia, Acute dehydration, Hypertension, Anemia Patient Disposition: Admitted As Inpatient Condition: Fair Discharge Instructions Interventions: ED Discharge Assessment Last Done: 07/23/25 22:30 Discharge Problem: Hypertension Qualifiers: Hypertension type: unspecified Qualified Code(s): I10 - Essential (primary) hypertension Anemia Qualifiers: Anemia type: unspecified type Qualified Code(s): D64.9 - Anemia, unspecified
[2025-07-23 16:37] LABS: Appearance Urine Clear (Clear); Glucose Urine UA 3+ (Negative)
[2025-07-23 17:11] LABS: Base Excess VBG 2.8 mEq/L; HCO3 VBG 27 mmol/L; Oxygen Saturation VBG 70.2 %; PCO2 VBG 40 mmHg (38-50); PO2 VBG 38 mmHg; pH VBG 7.44 (7.36-7.41)
[2025-07-23 17:25] LABS: Hematocrit (blood only) 31.5 % (37.0-47.0); Hemoglobin 10.6 g/dl (12.0-16.0); Immature Granulocytes # (auto) 0.04 K/uL (0.01-0.20); Immature Granulocytes % (auto) 0.9 %; Mean Corpuscular Hemoglobin 29.5 pg (25.0-34.0); Mean Corpuscular Volume 87.7 fL (80.0-100.0); Platelet Count 147 K/uL (130-400); RDW Standard Deviation 38.4 fL (36.4-46.3); Red Blood Count 3.59 M/uL (4.20-5.40); White Blood Count 4.49 K/ul (4.8-10.8)
[2025-07-23 17:45] LABS: Alanine Aminotransferase 14.0 U/L (7-52); Albumin Globulin Ratio 1.6 (0.9-2); Albumin Level 3.6 gm/dl (3.4-5.0); Alkaline Phosphatase 82.0 U/L (34-104); Anion Gap 7.0 (3-11); Bilirubin,Total 0.3 mg/dl (0.2-1.0); Blood Urea Nitrogen 29.0 mg/dl (6-23); Calcium 9.2 mg/dl (8.6-10.3); Carbon Dioxide 25.0 mmol/L (21-32); Chloride 99.0 mmol/L (98-107); Creatinine Clr Calc Pharmacy 40.7 ml/min; Globulin 2.3 gm/dl (2.5-4.0); Glucose 507.0 mg/dl (70-99(Fasting)); Magnesium 1.5 mg/dl (1.7-2.4); Potassium 4.5 mmol/L (3.5-5.1); Sodium 131.0 mmol/L (136-145); Total Protein 5.9 gm/dl (6.0-8.3)
[2025-07-23] MEDS: NovoLIN-R INSULIN PER UNIT CHARGE IV STA ×2 (17:53→20:55)
[2025-07-23] MEDS: MAGNESIUM SULFATE / D5W 1 GM/100 ML BAG IV SCH (17:53)
[2025-07-23 17:57] LABS: Thyroid Stimulating Hormone 0.951 uIu/ml (0.300-4.500)
[2025-07-23] MEDS: SODIUM CHLORIDE 0.9% 500 ML IV ONE (19:11)
[2025-07-23] MEDS: LABETALOL HCL IV 5 MG/ML 20ML IV STA (19:32)
--- NOTE | 2025-07-23 19:52 | XRay Report ---
Exam: Chest one view portable. Reason for exam: Weakness. Previous study: Chest radiograph 07/14/2025. FINDINGS: Heart size is normal. Mild residual atelectasis seen in the left lower lobe decreased since the previous study. Right hemithorax is clear. IMPRESSION: Mild atelectasis left lower lobe. Otherwise negative for acute disease. Electronically signed by Vitaliy Patricia 07-23-2025 7:52 PM
[2025-07-23] MEDS ORDERED: PHARMACY GLYCEMIC MGMT CONSULT PRN (20:11)
--- NOTE | 2025-07-23 20:52 | History & Physical Report ---
"Date of Service July 23, 2025 Assessment & Plan (1) Hypertension: (2) Type 2 diabetes mellitus with hyperglycemia: (3) Hypomagnesemia: Plan Beatrice is a 64 y/o female with PMH of DM2, PAD, hypothyroidism, HTN, Seizures that was brought by EM due to polydipsia, polyuria and urgency. Patient found with glucose of 500 on EMS. Patient takes Januvia. Patient denied any URI, fevers, chills, abdominal pain, nausea, diarrhea, cough, chest pain. She states been compliance to medications. States eating a lasagna and garlic bread for dinner. Denied any new medications. Patient found with hyperglycemia of 507 and hypomagnesemia. Normal UA, no ketones. CXR: negative for acute findings, atelectasis on left lower lobe. No leukocytosis, no fever. Additionally patient found with HTN urgency, treated with IV labetalol. Patient would be admitted for treatment of hyperglycemia Hyperglycemia, osmotic polyuria |DM2 - hx of DM 2 with hyperglycemia on Januvia. Patient states been compliance to medications. currently on Januvia - Patient with complains of polyuria and polydipsias. - Patient denied any chest pain, chills, fevers, abdominal pain, dysuria, frequency, diarrhea. Suspected patient not adherent to medications - By EMS report patient with sugar on 500, 507 on arrival to ED - VBG without acidosis, Urine positive for glucose, no ketones, no protein, no sign of UTI - Chemistry remarkable for hyponatremia 131 (Corrected sodium 138), hypergly cemia, normal potassium and hypomagnesemia 1.5. Normal anion gap - Received 10 units of IV insulin, 2L of NSS, and 2 grams of magnesium - sugar 357 after first intervention, will repeat 10 units of IV insulin on admission - Placed on Plasmalyte 125 ml/hr - Potassium 40 meq IV given - BMP q4 hrs - Novalog Sliding scale added - Hgb A1C in am - Recently increased of atorvastatin to 80 mg, no need to repeat levels now. - CBC, CMP, VBG, Mag in AM Hypertensive urgency - BP on arrival 202/95 - Received labetalol 10 mg IV on ED - continue metoprolol tartrate 12.5 mg BID PAD - On Plavix and Aspirin - Got a stress test recently for surgical intervention - continue atorvastatin 80 mg daily Seizures - continue divalproex - Valproic acid level: 81 hypothyroidism: continue levothyroxine DVT prophylaxis: Aspirin, Plavix Dispo: Med / telemetry History of Present Illness Primary Care Provider: Aleshia Ramirez MD Beatrice is a 64 y/o female with PMH of DM2, PAD, hypothyroidism, HTN, Seizures that was brought by EM due to polydipsia, polyuria and urgency. Patient found with glucose of 500 on EMS. Patient takes Januvia. Patient denied any URI, fevers, chills, abdominal pain, nausea, diarrhea, cough, chest pain. She states been compliance to medications. States eating a lasagna and garlic bread for dinner. Denied any new medications. Patient found with hyperglycemia of 507 and hypomagnesemia. Normal UA, no ketones. CXR: negative for acute findings, atelectasis on left lower lobe. No leukocytosis, no fever. Additionally patient found with HTN urgency, treated with IV labetalol. Patient would be admitted for treatment of hyperglycemia Allergies Allergy/AdvReac Type Severity Reaction Status Date / Time EUGENIO Inhibitors Allergy Unknown ON [facility] Verified 12/26/24 09:55 MED LIST clonazepam Allergy Unknown ON [facility] Verified 12/26/24 09:55 MED LIST lithium Allergy Unknown ON [facility] Verified 12/26/24 09:55 MED LIST Penicillins Allergy Unknown ON [facility] Verified 12/26/24 09:55 MED LIST pseudoephedrine Allergy Unknown ON [facility] Verified 12/26/24 09:55 MED LIST Sulfa (Sulfonamide Allergy Unknown ON [facility] Verified 12/26/24 09:55 Antibiotics) MED LIST sulfanilamide Allergy Unknown ON [facility] Verified 12/26/24 09:55 MED LIST trifluoperazine Allergy Unknown ON [facility] Verified 12/26/24 09:55 MED LIST ziprasidone Allergy Unknown ON [facility] Verified 12/26/24 09:55 MED LIST Home Medications Medication Instructions Recorded Confirmed Type calcium carbonate (Calcium 500) 1,000 mg PO Q6H PRN Indigestion 02/26/22 07/23/25 History divalproex 500 mg tablet,extended 500 mg PO BID 02/26/22 07/23/25 History release 24 hr levothyroxine 50 mcg tablet 50 mcg PO QAM 02/26/22 07/23/25 History loratadine 10 mg tablet 10 mg PO QAM 02/26/22 07/23/25 History multivitamin with folic acid 400 1 tab PO QAM 02/26/22 07/23/25 History mcg tablet (Daily-Han (with folic acid)) cholecalciferol (vitamin D3) 125 125 mcg PO QAM 11/19/22 07/23/25 History mcg (5,000 unit) tablet (Vitamin D3) famotidine 20 mg tablet 20 mg PO HS #30 tabs 08/12/24 07/23/25 Rx sitagliptin phosphate 50 mg tablet 50 mg PO DAILY 09/10/24 07/23/25 History (Januvia) magnesium oxide 400 mg (241.3 mg 400 mg PO BID #60 tabs 12/17/24 07/23/25 Rx magnesium) tablet metoprolol tartrate 25 mg tablet 12.5 mg PO BID 12/27/24 07/23/25 History aripiprazole (2 month) 960 mg/3.2 960 mg IM .[id number] 07/10/25 07/23/25 History mL susp, extended rel IM syringe (Michael Asimtufii) peg 3350-electrolytes 236 240 ml PO UD 07/10/25 07/23/25 History gram-22.74 gram-6.74 gram-5.86 gram solution (Golytely) aspirin 81 mg tablet,delayed 81 mg PO DAILY 07/23/25 07/23/25 History release atorvastatin 80 mg tablet 80 mg PO DAILY 07/23/25 07/23/25 History clopidogrel 75 mg tablet 75 mg PO DAILY 07/23/25 07/23/25 History Past Med/Surg History Problem List (Updated 07/25/25 @ 00:07 by Emily Ramirez) Anemia (Acute) Hypertension (Acute) Acute dehydration (Acute) Hypomagnesemia (Acute) Acute hyperglycemia (Acute) Atypical chest pain (Acute) Viral upper respiratory illness Hypomagnesemia (Acute) Hypercalcemia due to a drug Type 2 diabetes mellitus with hyperglycemia (Acute) Bipolar disorder Delusional disorder (Acute) Constipation Medical History Unspecified psychosis not due to a substance or known physiological condition Low magnesium level Hypertension GERD (gastroesophageal reflux disease) Diabetes Psychiatric illness Constipation GERD (gastroesophageal reflux disease) Hx of respiratory syncytial virus infection 10/2023 Hypomagnesemia Manic episode Disorganized schizophrenia Insomnia Generalized weakness Hypertension Hyperlipidemia Hypothyroidism Diabetes mellitus, type 2 Chronic kidney disease stage 3 Surgical History Surgical history unknown Social History Smoking Status: Former smoker Tobacco Type: Cigarettes Smoking End Date: 2018; Second Hand Exposure: No; Do You Dip or Chew Tobacco: No; Hx Alcohol Use: Yes Alcohol type: other Hx Substance Use: No Preferred Language: Mauritanian Communication Ability: Effective Communication Ability Comment: of sound mind to sign consent, alert and orien ricki x3 Radiation Engineer Required: No Beliefs That Will Affect Care: None Current Living Situation: Other Current Living Situation Comment: Independent Housing at [facility] Feels Safe at Home: Yes Safety Concerns: Feels Safe At This Time Assistive Devices: Cane Review of Systems Review of Systems: as per hpi Physical Exam Constitutional: well developed, well nourished, cooperative and comfortable; no acute distress ENMT: external ear and nose normal, oropharynx normal Respiratory: normal respiratory effort, lungs clear to auscultation Cardiovascular: RRR, no murmur, no edema Gastrointestinal (Abdomen): normal bowel sounds, soft, nontender, no hepato splenomegaly Musculoskeletal: no cyanosis or clubbing, extremities motor strength 5/5 Skin: no rashes, warm and dry Psychiatric: A+Ox3, euthymic affect Results & Data Results & Data Vital Signs (Past 12 Hours) Vital Signs Temp Pulse Pulse Resp BP BP Pulse Ox 07/23/25 19:55 80 140/76 07/23/25 19:54 80 16 140/76 99 07/23/25 19:32 83 199/74 H 07/23/25 19:22 82 16 199/74 H 99 07/23/25 18:00 87 14 143/81 H 98 07/23/25 17:00 80 19 155/90 H 95 07/23/25 16:51 83 07/23/25 16:03 99 07/23/25 16:00 36.8 C 82 19 202/95 H 99 O2 Del Method 07/23/25 19:55 07/23/25 19:54 07/23/25 19:32 07/23/25 19:22 Room Air 07/23/25 18:00 Room Air 07/23/25 17:00 Room Air 07/23/25 16:51 07/23/25 16:03 Room Air 07/23/25 16:00 Room Air Code Status & VTE Plan VTE Prophylaxis Plan VTE Prophylaxis will be ordered: Yes Supervising Physician Co-Signing Physician Notes Attending addendum: I have physically seen this patient, have supervised the medical residents activities, and agree with the H&P unless as otherwise noted. Assessment and Plan: The patient is a 64-year-old female past medical history including diabetes mellitus type 2, hypertension, PAD, hypothyroidism, and seizures. She is brought to the emergency department due to symptoms of increased thirst and increased urination and urinary frequency and urgency. Patient was found to have glucose over 500 on EMS testing. She denies any infectious symptoms predisposing to poor glucose control. Question regarding patient compliance with medications Example if she is lasagna and garlic bread for dinner this evening Glucose in the emergency department was 507, and magnesium was 1.5. She was also given labetalol 10 mg IV for elevated blood pressure. Hyperglycemia/diabetes mellitus type 2/dietary noncompliance- Presently on Januvia, which we continued Symptoms of polyuria and polydipsia secondary to elevated blood sugar Blood sugar 357 after given 10 units regular insulin IV by the ED IV fluids Plasma-Lyte 125 mL/h Potassium chloride 40 mEq IV BMP every 4 hours Further covered with NovoLog sliding scale Check hemoglobin A1c CBC with differential, chemistry profile, VBG and magnesium in a.m. Dietary counseling Hypertensive urgency- Blood pressure on arrival was 202/95 Received labetalol 10 mg IV in ED Continue Toprol tartrate 0.5 mg p.o. twice daily PAD- Continue Plavix and aspirin Continue atorvastatin 80 mg daily Seizure disorder- Continue divalproex Valproic acid level 81 Hypothyroidism- Continue levothyroxine Remaining orders and notations as noted Resident Activity Tracking Resident Involvement: Resident Care Provided Care Provided: Adult Hospital Medicine (1) Hypertension Hypertension type: unspecified Qualified Code(s): I10 - Essential (primary) hypertension (2) Type 2 diabetes mellitus with hyperglycemia Diabetes mellitus assisted insulin use: without termite renewal inspector use Qualified Code(s): E11.65 - Type 2 diabetes mellitus with hyperglycemia"
[2025-07-23] MEDS: PLASMA-LYTE A 1,000 ML IV SCH (20:57)
[2025-07-23] MEDS: POTASSIUM CHLORIDE / WTR 10 MEQ/100 ML PLCT IV SCH (20:59)
[2025-07-23] MEDS ORDERED: GLUCAGON FOR INJ 1 MG VIAL SQ PRN ×2 (21:00→23:36)
[2025-07-23] MEDS ORDERED: GLUCOSE 10 TAB/TUBE PO PRN ×2 (21:00→23:36)
[2025-07-23] MEDS ORDERED: GLUCOSE 40% GEL 15 GM TUBE PO PRN ×2 (21:00→23:36)
[2025-07-23] MEDS ORDERED: CARBOHYDRATES FOR HYPOGLYCEMIA PO PRN ×2 (21:00→23:36)
[2025-07-23] MEDS ORDERED: DEXTROSE 50% 50 ML SYRINGE IV PRN ×2 (21:00→23:36)
[2025-07-23] MEDS: INSULIN ASPART PER UNIT CHARGE SC SCH (21:44)
[2025-07-23] MEDS: LANTUS PER UNIT CHARGE SC ONE (21:45)
[2025-07-23] MEDS ORDERED: INSULIN ASPART PER UNIT CHARGE SC SCH (23:36)
[2025-07-23] MEDS ORDERED: CALCIUM CARBONATE 500 MG CHEWABLE TAB PO PRN (23:45)
[2025-07-24] MEDS: INSULIN ASPART PER UNIT CHARGE SC SCH (00:12)
[2025-07-24] MEDS: FAMOTIDINE 20 MG TAB PO SCH (00:12)
[2025-07-24] MEDS: MELATONIN 3 MG TAB PO PRN (00:12)
[2025-07-24] MEDS: ACETAMINOPHEN 325 MG TAB PO PRN (00:15)
[2025-07-24] MEDS: MAGNESIUM OXIDE 400 MG TAB PO SCH (00:15)
[2025-07-24] MEDS: METOPROLOL TARTRATE 25 MG TAB PO SCH (00:16)
[2025-07-24] MEDS: DIVALPROEX EXTENDED RELEASE 500 MG TAB PO SCH (00:17)
[2025-07-24 01:12] LABS: Anion Gap 8.0 (3-11); Blood Urea Nitrogen 22.0 mg/dl (6-23); Calcium 9.4 mg/dl (8.6-10.3); Carbon Dioxide 25.0 mmol/L (21-32); Chloride 108.0 mmol/L (98-107); Creatinine Clr Calc Pharmacy 43.4 ml/min; Glucose 184.0 mg/dl (70-99(Fasting)); Magnesium 2.1 mg/dl (1.7-2.4); Potassium 3.9 mmol/L (3.5-5.1); Sodium 141.0 mmol/L (136-145)
[2025-07-24] MEDS: ONDANSETRON INJ 2 MG/ML 2 ML VIAL IV PRN (02:04)
[2025-07-24 04:14] LABS: Base Excess VBG -0.6 mEq/L; HCO3 VBG 25 mmol/L; Oxygen Saturation VBG 92.5 %; PCO2 VBG 43 mmHg (38-50); PO2 VBG 61 mmHg; pH VBG 7.37 (7.36-7.41)
[2025-07-24 04:20] LABS: Hematocrit (blood only) 31.5 % (37.0-47.0); Hemoglobin 10.6 g/dl (12.0-16.0); Immature Granulocytes # (auto) 0.03 K/uL (0.01-0.20); Immature Granulocytes % (auto) 0.7 %; Mean Corpuscular Hemoglobin 29.9 pg (25.0-34.0); Mean Corpuscular Volume 89.0 fL (80.0-100.0); Platelet Count 149 K/uL (130-400); RDW Standard Deviation 38.6 fL (36.4-46.3); Red Blood Count 3.54 M/uL (4.20-5.40); White Blood Count 4.15 K/ul (4.8-10.8)
[2025-07-24 04:35] LABS: Anion Gap 7.0 (3-11); Blood Urea Nitrogen 20.0 mg/dl (6-23); Calcium 9.0 mg/dl (8.6-10.3); Carbon Dioxide 25.0 mmol/L (21-32); Chloride 110.0 mmol/L (98-107); Creatinine Clr Calc Pharmacy 46.4 ml/min; Glucose 168.0 mg/dl (70-99(Fasting)); Potassium 4.0 mmol/L (3.5-5.1); Sodium 142.0 mmol/L (136-145)
[2025-07-24] MEDS: LEVOTHYROXINE SODIUM 50 MCG TABLET PO SCH (04:57)
[2025-07-24 08:10] LABS: Hemoglobin A1C 11.9 % (4.5-5.6)
[2025-07-24] MEDS: MULTIVITAMIN TAB PO SCH (10:21)
[2025-07-24] MEDS: CHOLECALCIFEROL 125 MCG (5,000 UNITS) TAB PO SCH (10:23)
[2025-07-24] MEDS: LORATADINE 10 MG TAB PO SCH (10:23)
[2025-07-24] MEDS: ATORVASTATIN 40 MG TAB PO SCH (10:23)
[2025-07-24] MEDS: ASPIRIN 81 MG ECTAB PO SCH (10:24)
[2025-07-24] MEDS: CLOPIDOGREL BISULFATE 75 MG TAB PO SCH (10:24)
--- NOTE | 2025-07-24 12:23 | Pharmacy Report ---
Pharmacy Glycemic Short Note 2 - Date of Service July 24, 2025 - Glycemic Short BSG Results (Last 24 hours): 07/23/25 07/23/25 07/23/25 17:11 19:17 21:31 Glucose 507 H* POC Glucose 357 H* 358 H* 07/24/25 07/24/25 07/24/25 00:07 00:27 00:52 Glucose 184 H POC Glucose 202 H 147 H 07/24/25 07/24/25 07/24/25 04:02 04:52 07:52 Glucose 168 H POC Glucose 170 H 196 H 07/24/25 11:55 Glucose POC Glucose 279 H OUTPATIENT ANTIDIABETIC REGIMEN: * Januvia 50mg PO daily HbA1c: 11.9% on 07/24/25 ASSESSMENT: * Beatrice is a 64 year old female who was admitted 07/23 for hyperglycemia and hypertension. She reportedly has been compliant with her medications at home. Pharmacy has been consulted for glycemic management while she is admitted. * BSG was 507mg/dL on arrival last evening. 10 units of IV regular insulin x 2 were given which brought BSG down to 358mg/dL at bedtime. * Lantus 15 units SQ x 1 was ordered and a weight based bolus insulin regimen with a stress of 3 was started. Overnight BSG checks were also added. * Fasting BSG was 196mg/dL this morning and joan to 279mg/dL at lunch. Lantus 15 units SQ x 1 was ordered and a Lantus scale (0, 5, or 10 units depending on BSG) was added for HS. * Carb ratio was tightened starting with lunch today. PLAN FOR INPATIENT GLYCEMIC CONTROL: * Hold outpatient oral diabetes medications * Basal insulin * Lantus 15 units SQ x 1 at bedtime last night and again at lunch time today and Lantus scale at HS (0,5, or 10 units depending on BSG) * Bolus insulin * NovoLog per scale ACHS or Q6hrs while NPO * Goal Range: Low 120 mg/dL - High 150 mg/dL * Correction Factor: 20 mg/dL/unit * Nutritional / Prandial insulin per carb ratio of 1 unit per 5 grams CHO consumed
[2025-07-24] MEDS: LANTUS PER UNIT CHARGE SC ONE (13:33)
--- NOTE | 2025-07-24 14:30 | Discharge Summary ---
"Date of Service July 24, 2025 Admission HPI Per Admitting Provider Beatrice is a 64 y/o female with PMH of DM2, PAD, hypothyroidism, HTN, Seizures that was brought by EM due to polydipsia, polyuria and urgency. Patient found with glucose of 500 on EMS. Patient takes Januvia. Patient denied any URI, fevers, chills, abdominal pain, nausea, diarrhea, cough, chest pain. She states been compliance to medications. States eating a lasagna and garlic bread for dinner. Denied any new medications. Patient found with hyperglycemia of 507 and hypomagnesemia. Normal UA, no ketones. CXR: negative for acute findings, atelectasis on left lower lobe. No leukocytosis, no fever. Additionally patient found with HTN urgency, treated with IV labetalol. Patient would be admitted for treatment of hyperglycemia Admission Exam Per Admitting Provider Constitutional: well developed, well nourished, cooperative and comfortable; no acute distress ENMT: external ear and nose normal, oropharynx normal Respiratory: normal respiratory effort, lungs clear to auscultation Cardiovascular: RRR, no murmur, no edema Gastrointestinal (Abdomen): normal bowel sounds, soft, nontender, no hepatosplenomegaly Musculoskeletal: no cyanosis or clubbing, extremities motor strength 5/5 Skin: no rashes, warm and dry Psychiatric: A+Ox3, euthymic affect Principal Diagnosis T2DM, hyperglycemia Discharge Exam General: patient resting comfortably, NAD, non-toxic in appearance, answers questions appropriately. Skin: warm, dry, intact HEENT: NC/AT, anicteric sclera, conjunctiva without injection, moist mucus membranes. Heart: +S1/S2, regular, no m/r/g Lungs: equal air entry bilaterally, no rales/rhonchi/wheezes Abd: +BS, soft, NT/ND Ext: warm, no clubbing/cyanosis or edema Neuro: nonfocal, speech intact, no facial droop, moving all extremities. Discharge Data Allergies Allergy/AdvReac Type Severity Reaction Status Date / Time EUGENIO Inhibitors Allergy Unknown ON [facility] Verified 12/26/24 09:55 MED LIST clonazepam Allergy Unknown ON [facility] Verified 12/26/24 09:55 MED LIST lithium Allergy Unknown ON [facility] Verified 12/26/24 09:55 MED LIST Penicillins Allergy Unknown ON [facility] Verified 12/26/24 09:55 MED LIST pseudoephedrine Allergy Unknown ON [facility] Verified 12/26/24 09:55 MED LIST Sulfa (Sulfonamide Allergy Unknown ON [facility] Verified 12/26/24 09:55 Antibiotics) MED LIST sulfanilamide Allergy Unknown ON [facility] Verified 12/26/24 09:55 MED LIST trifluoperazine Allergy Unknown ON [facility] Verified 12/26/24 09:55 MED LIST ziprasidone Allergy Unknown ON [facility] Verified 12/26/24 09:55 MED LIST Consultations 07/23/25 19:25 ED Decision to Admit Stat Hospital Course (1) Hypertension: (2) Type 2 diabetes mellitus with hyperglycemia: (3) Hypomagnesemia: Graciela Barron is a 64 y/o female with PMH of DM2, PAD, hypothyroidism, HTN, Seizures that was brought by EM due to polydipsia, polyuria and urgency. Patient found with glucose of 500 on EMS. Patient takes Januvia. Patient denied any URI, fevers, chills, abdominal pain, nausea, diarrhea, cough, chest pain. She states been compliance to medications. States eating a lasagna and garlic bread for dinner. Denied any new medications. Patient found with hyperglycemia of 507 and hypomagnesemia. Normal UA, no ketones. CXR: negative for acute findings, atelectasis on left lower lobe. No leukocytosis, no fever. Additionally patient found with HTN urgency, treated with IV labetalol. Patient would be admitted for treatment of hyperglycemia Hyperglycemia, osmotic polyuria |DM2 - hx of DM 2 with hyperglycemia on Januvia. Patient states been compliance to medications. currently on Januvia - Patient with complains of polyuria and polydipsias. - Patient denied any chest pain, chills, fevers, abdominal pain, dysuria, frequency, diarrhea. Suspected patient not adherent to medications - By EMS report patient with sugar on 500, 507 on arrival to ED - VBG without acidosis, Urine positive for glucose, no ketones, no protein, no sign of UTI - Chemistry remarkable for hyponatremia 131 (Corrected sodium 138), hyperglycemia, normal potassium and hypomagnesemia 1.5. Normal anion gap - Received 10 units of IV insulin, 2L of NSS, and 2 grams of magnesium - sugar 357 after first intervention, repeated 10 units of IV insulin on admission with 15 units of Insulin glargine given later; sugars: 168 - Novalog Sliding scale added - Hgb A1C: 11.9% from 7.4% in December 2024 - Recently increased of atorvastatin to 80 mg, no need to repeat levels now. - d/c on 20 units daily basal insulin, likely Lantus Hypertensive urgency - BP on arrival / - Received labetalol 10 mg IV on ED - continue metoprolol tartrate 12.5 mg BID - resolved PAD - On Plavix and Aspirin - Got a stress test recently for surgical intervention; stress test unrema rkable, LVEF: 80% - Surgical intervention of R. leg planned with vascular surgery - continue atorvastatin 80 mg daily Seizures - continue divalproex - Valproic acid level: 81 hypothyroidism: continue levothyroxine DVT prophylaxis: Aspirin, Plavix Dispo: Med / telemetry Total Time Total Time Spent Total Time Spent (In Minutes): See attending attestation Discharge Plan Discharge Items Patient Disposition: Personal Skilled Nursing Reason For Visit: HYPERGLYCEMIA Condition on Discharge: Fair Follow-up/Referrals: Aleshia Ramirez MD [Primary Care Provider] - Stand-Alone Forms: My [facility], Smoking Cessation Medications and DC Order Prescriptions: No Action famotidine 20 mg tablet 20 mg PO HS Qty: 30 5RF levothyroxine 50 mcg tablet 50 mcg PO QAM loratadine 10 mg tablet 10 mg PO QAM multivitamin with folic acid [Daily-Han (with folic acid)] 400 mcg tablet 1 tab PO QAM divalproex 500 mg tablet extended release 24 hr 500 mg PO BID calcium carbonate [Calcium 500] 500 mg calcium (1,250 mg) Tablet,Chewable 1,000 mg PO Q6H PRN (Reason: Indigestion) cholecalciferol (vitamin D3) [Vitamin D3] 125 mcg (5,000 unit) Tablet 125 mcg PO QAM Hold Instructions: hold this until discussed with primary care in follow up Januvia 50 mg tablet 50 mg PO DAILY magnesium oxide 400 mg (241.3 mg magnesium) Tablet 400 mg PO BID Qty: 60 0RF metoprolol tartrate 25 mg tablet 12.5 mg PO BID Abilify Asimtufii 960 mg/3.2 mL suspension,extended rel syring 960 mg IM .[id number] Patient Comments: 07/10- Next shot due around Sep 11 per pt peg 3350-electrolytes [Golytely] 236-22.74-6.74 -5.86 gram recon soln 240 ml PO UD Patient Comments: 07/10- hasnt had her procedure, she plans to reschedule. Rx Instructions: Take per split dose instructions aspirin [Aspirin Low-Strength] 81 mg Tablet,Delayed Release (Dr/Ec) 81 mg PO DAILY atorvastatin 80 mg tablet 80 mg PO DAILY clopidogrel 75 mg tablet 75 mg PO DAILY Admission Data Admit Date/Time: 07/23/25 20:45 Attending Provider: Chano Andino Admit Provider: Anisa Cruz Primary Care Provider: Aleshia Ramirez Other Providers: Inocencio Sampson"
--- NOTE | 2025-07-24 14:36 | Hospitalist Progress Note ---
"Date of Service July 24, 2025 Assessment & Plan (1) Hypertension: (2) Type 2 diabetes mellitus with hyperglycemia: (3) Hypomagnesemia: Plan Beatrice is a 64 y/o female with PMH of DM2, PAD, hypothyroidism, HTN, Seizures that was brought by EM due to polydipsia, polyuria and urgency. Patient found with glucose of 500 on EMS. Patient takes Januvia. Patient denied any URI, fevers, chills, abdominal pain, nausea, diarrhea, cough, chest pain. She states been compliance to medications. States eating a lasagna and garlic bread for dinner. Denied any new medications. Patient found with hyperglycemia of 507 and hypomagnesemia. Normal UA, no ketones. CXR: negative for acute findings, atelectasis on left lower lobe. No leukocytosis, no fever. Additionally patient found with HTN urgency, treated with IV labetalol. Patient would be admitted for treatment of hyperglycemia Hyperglycemia, osmotic polyuria |DM2 - hx of DM 2 with hyperglycemia on Januvia. Patient states been compliance to medications. currently on Januvia - Patient with complains of polyuria and polydipsias. - Patient denied any chest pain, chills, fevers, abdominal pain, dysuria, frequency, diarrhea. Suspected patient not adherent to medications - By EMS report patient with sugar on 500, 507 on arrival to ED - VBG without acidosis, Urine positive for glucose, no ketones, no protein, no sign of UTI - Chemistry remarkable for hyponatremia 131 (Corrected sodium 138), hyperglyc emia, normal potassium and hypomagnesemia 1.5. Normal anion gap - Received 10 units of IV insulin, 2L of NSS, and 2 grams of magnesium - sugar 357 after first intervention, repeated 10 units of IV insulin on admission with 15 units of Insulin glargine given later; sugars: 168 - Novalog Sliding scale added - Hgb A1C: 11.9% from 7.4% in December 2024 - Recently increased of atorvastatin to 80 mg, no need to repeat levels now. - d/c on 20 units daily basal insulin. Continue Januvia PO 50mg, consider addition of metformin ER outpatient based on glucose control and follow-up a1c checks; plan for d/c 10/14 AM Hypertensive urgency - BP on arrival 202/95 - Received labetalol 10 mg IV on ED - continue metoprolol tartrate 12.5 mg BID - resolved PAD - On Plavix and Aspirin - Got a stress test recently for surgical intervention; stress test unremarkable, LVEF: 80% - Surgical intervention of R. leg planned with vascular surgery - continue atorvastatin 80 mg daily Seizures - continue divalproex - Valproic acid level: 81 - No seizures inpatient; continue to monitor hypothyroidism: continue levothyroxine DVT prophylaxis: Aspirin, Plavix Dispo: Med / telemetry Admission and Anticipated Discharge Date Admission Date: July 23, 2025 Supervising Physician Co-Signing Physician Notes Attending Attestation & Progress note: Pt seen/examined, chart reviewed, care plan d/w resident physician Dr Conor Mckee. I agree w/ the gonzalez components of his documentation. Patient feeling well today; eager to get home. She is comfortable doing insulin injections outside the hospital. She reports having had a recent stress test ordered by [facility]. She also has upcoming surgery on her right leg PAD with Dr Newton. VSS but BPs are high gen - sitting in chair, NAD mouth - MMM neck - no JVD heart - RRR, s1 s2, no murmur lungs - CTA b/l abd - soft NT ND BS+ ext - pulses right foot <1+, left foot 1-2+ labs reviewed A/P: 1. uncontrolled T2DM - a1c 11.9% -previously all a1c's were 7.5 or less -she admits that she didn't have a glucometer for a while and wasn't monitoring her BSGs -also gained weight over the last few months -agree with once daily lantus; cont januvia; ideally metformin XR if she would be willing to take again -would send to [facility] clinic; would benefit from getting a CGM 2. uncontrolled HTN - -really should be on EUGENIO or ARB -at d/c change metoprolol 12.5mg BID to meto succ 25mg daily for better com pliance watch overnight; hopefully back to [facility] tomorrow Chano Andino MD Subjective Patient is seen resting comfortably at bedside and is eager to return to personal halfway. Patient reports meeting with community nutrition educator who helped teach patient correct use of her long acting insulin medication. Patient remains afebrile and hemodynamically stable w/o acute concerns. Physical Exam Physical Exam: General: patient resting comfortably, NAD, non-toxic in appearance, answers questions appropriately. Skin: warm, dry, intact HEENT: NC/AT, anicteric sclera, conjunctiva without injection, moist mucus membranes. Heart: +S1/S2, regular, no m/r/g Lungs: equal air entry bilaterally, no rales/rhonchi/wheezes Abd: +BS, soft, NT/ND Ext: warm, no clubbing/cyanosis or edema Neuro: nonfocal, speech intact, no facial droop, moving all extremities. 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
--- NOTE | 2025-07-24 15:27 | Electrocardiogram Report ---
Test Reason : Blood Pressure : */* mmHG Vent. Rate : 74 BPM Atrial Rate : 74 BPM P-R Int : 138 ms QRS Dur : 76 ms QT Int : 390 ms P-R-T Axes : 55 16 29 degrees QTcB Int : 432 ms Normal sinus rhythm Normal ECG When compared with ECG of 14-Jul-2025 13:23, No significant change was found Confirmed by Romain Johnson ([id number]) on 07/24/2025 3:27:12 PM Referred By: Confirmed By: Romain Johnson
--- NOTE | 2025-07-24 18:39 | Billing Data ---
Date of Service July 24, 2025 Coding Level of Care Code 47508 SUB INP/OBS CARE
[2025-07-24] MEDS: LANTUS PER UNIT CHARGE SC SCH (20:47)
[2025-07-25 06:09] LABS: Hematocrit (blood only) 36.1 % (37.0-47.0); Hemoglobin 12.1 g/dl (12.0-16.0); Immature Granulocytes # (auto) 0.02 K/uL (0.01-0.20); Immature Granulocytes % (auto) 0.4 %; Mean Corpuscular Hemoglobin 29.9 pg (25.0-34.0); Mean Corpuscular Volume 89.1 fL (80.0-100.0); Platelet Count 162 K/uL (130-400); RDW Standard Deviation 40.3 fL (36.4-46.3); Red Blood Count 4.05 M/uL (4.20-5.40); White Blood Count 4.45 K/ul (4.8-10.8)
--- NOTE | 2025-07-25 06:16 | Billing Data ---
Date of Service July 25, 2025 Coding Level of Care Code 22975 INT INP/OBS CARE
[2025-07-25 06:25] LABS: Anion Gap 9.0 (3-11); Blood Urea Nitrogen 17.0 mg/dl (6-23); Calcium 9.9 mg/dl (8.6-10.3); Carbon Dioxide 24.0 mmol/L (21-32); Chloride 108.0 mmol/L (98-107); Creatinine Clr Calc Pharmacy 40.1 ml/min; Glucose 199.0 mg/dl (70-99(Fasting)); Potassium 4.4 mmol/L (3.5-5.1); Sodium 141.0 mmol/L (136-145)
--- NOTE | 2025-07-25 06:36 | Discharge Summary ---
Date of Service July 25, 2025 Admission HPI Per Admitting Provider Beatrice is a 64 y/o female with PMH of DM2, PAD, hypothyroidism, HTN, Seizures that was brought by EM due to polydipsia, polyuria and urgency. Patient found with glucose of 500 on EMS. Patient takes Januvia. Patient denied any URI, fevers, chills, abdominal pain, nausea, diarrhea, cough, chest pain. She states been compliance to medications. States eating a lasagna and garlic bread for dinner. Denied any new medications. Patient found with hyperglycemia of 507 and hypomagnesemia. Normal UA, no ketones. CXR: negative for acute findings, atelectasis on left lower lobe. No leukocytosis, no fever. Additionally patient found with HTN urgency, treated with IV labetalol. Patient would be admitted for treatment of hyperglycemia Admission Exam Per Admitting Provider Constitutional: well developed, well nourished, cooperative and comfortable; no acute distress ENMT: external ear and nose normal, oropharynx normal Respiratory: normal respiratory effort, lungs clear to auscultation Cardiovascular: RRR, no murmur, no edema Gastrointestinal (Abdomen): normal bowel sounds, soft, nontender, no hepatosplenomegaly Musculoskeletal: no cyanosis or clubbing, extremities motor strength 5/5 Skin: no rashes, warm and dry Psychiatric: A+Ox3, euthymic affect Principal Diagnosis T2DM, hyperglycemia Discharge Exam General: patient resting comfortably, NAD, non-toxic in appearance, answers questions appropriately. Skin: warm, dry, intact HEENT: NC/AT, anicteric sclera, conjunctiva without injection, moist mucus membranes. Heart: +S1/S2, regular, no m/r/g Lungs: equal air entry bilaterally, no rales/rhonchi/wheezes Abd: +BS, soft, NT/ND Ext: warm, no clubbing/cyanosis or edema Neuro: nonfocal, speech intact, no facial droop, moving all extremities. Discharge Data Allergies Allergy/AdvReac Type Severity Reaction Status Date / Time EUGENIO Inhibitors Allergy Unknown ON [facility] Verified 12/26/24 09:55 MED LIST clonazepam Allergy Unknown ON [facility] Verified 12/26/24 09:55 MED LIST lithium Allergy Unknown ON [facility] Verified 12/26/24 09:55 MED LIST Penicillins Allergy Unknown ON [facility] Verified 12/26/24 09:55 MED LIST pseudoephedrine Allergy Unknown ON [facility] Verified 12/26/24 09:55 MED LIST Sulfa (Sulfonamide Allergy Unknown ON [facility] Verified 12/26/24 09:55 Antibiotics) MED LIST sulfanilamide Allergy Unknown ON [facility] Verified 12/26/24 09:55 MED LIST trifluoperazine Allergy Unknown ON [facility] Verified 12/26/24 09:55 MED LIST ziprasidone Allergy Unknown ON [facility] Verified 12/26/24 09:55 MED LIST Consultations 07/23/25 19:25 ED Decision to Admit Stat Hospital Course (1) Hypertension: (2) Type 2 diabetes mellitus with hyperglycemia: (3) Hypomagnesemia: Graciela Barron is a 64 y/o female with PMH of DM2, PAD, hypothyroidism, HTN, Seizures that was brought by EM due to polydipsia, polyuria and urgency. Patient found with glucose of 500 on EMS. Patient takes Januvia. Patient denied any URI, fevers, chills, abdominal pain, nausea, diarrhea, cough, chest pain. She states been compliance to medications. States eating a lasagna and garlic bread for dinner. Denied any new medications. Patient found with hyperglycemia of 507 and hypomagnesemia. Normal UA, no ketones. CXR: negative for acute findings, atelectasis on left lower lobe. No leukocytosis, no fever. Additionally patient found with HTN urgency, treated with IV labetalol. Patient would be admitted for treatment of hyperglycemia Hyperglycemia, osmotic polyuria |DM2 - hx of DM 2 with hyperglycemia on Januvia. Patient states been compliance to medications. currently on Januvia - Patient with complains of polyuria and polydipsias. - Patient denied any chest pain, chills, fevers, abdominal pain, dysuria, frequency, diarrhea. Suspected patient not adherent to medications - By EMS report patient with sugar on 500, 507 on arrival to ED - VBG without acidosis, Urine positive for glucose, no ketones, no protein, no sign of UTI - Chemistry remarkable for hyponatremia 131 (Corrected sodium 138), hyperglycemia, normal potassium and hypomagnesemia 1.5. Normal anion gap - Received 10 units of IV insulin, 2L of NSS, and 2 grams of magnesium - sugar 357 after first intervention, repeated 10 units of IV insulin on admission with 15 units of Insulin glargine given later; sugars: 168 - Novalog Sliding scale added - Hgb A1C: 11.9% from 7.4% in December 2024 - Recently increased of atorvastatin to 80 mg, no need to repeat levels now. - d/c on 25 units daily basal insulin. Continue Januvia PO 50mg, consider addition of metformin ER outpatient based on glucose control and follow-up a1c checks; plan for d/c 07/25 AM Hypertensive urgency - BP on arrival - Received labetalol 10 mg IV on ED - metoprolol tartrate 12.5 mg BID - switch to 25mg succinate ER daily, additionally added Losartan 25mg PO daily PAD - On Plavix and Aspirin - Got a stress test recently for surgical intervention; stress test unremarkable, LVEF: 80% - Surgical intervention of R. leg planned with vascular surgery - continue atorvastatin 80 mg daily Seizures - continue divalproex - Valproic acid level: 81 - No seizures inpatient; continue to monitor hypothyroidism: continue levothyroxine DVT prophylaxis: Aspirin, Plavix Dispo: Med / telemetry Total Time Total Time Spent Total Time Spent (In Minutes): See attending attestation Discharge Plan Discharge Items Patient Disposition: Personal Jail Reason For Visit: HYPERGLYCEMIA Discharge Diagnosis: Hyperglycemia Condition on Discharge: Fair Activity: Per Instructions section Non-emergency contact: Primary Care Provider Call non-emergency contact if: you have any medication questions Follow-up/Referrals: Aleshia Ramirez MD [Primary Care Provider] - Diet: Carb Consistent or DM2 Addtl Attending Provider Instructions: You were admitted to [facility] due to hyperglycemia or high surgar levels in the 500s with excessive thirst and urination. While admitted it was found that your a1c has increased from approximately 7.4% in December to 11.9% in approximately 6 months. This is a large increase and shows poor sugar control for the past few months. To improve these high sugars we have added a medication called Lantus which is a type of long acting insulin to be taken daily. In addition you have met with the nurse informatics educator who was able to help teach you how to administer your Lantus injections and also you were given information about how to maintain a healthier diet and the different types of food you should be eating with division of portions based on differing food groups. If you are able to utilize this diet and medications as discussed, I believe your a1c numbers will decrease and your high sugar counts will be under better control. By doing this, you will be able to avoid the heart, eye, and kidney disease that is often associated with long-term poor control of sugars. Please keep regular follow-up with your PCP and discuss additional medications that may be added. Metformin ER may be an option as this is more tolerable with GI side effects compared to the metformin you were previously on. Additionally please keep follow-up with your regular assistant scientist, Dr. Cazares. You have indicated that you are not interested in a continuous glucose monitoring device, but it may be something to consider ordering with your PCP as it will have the most accurate and frequent records of your blood glucose levels, and would not require you to manually check you glucose numbers. DISCHARGE RECOMMENDATIONS: 1.) Continue Januvia. 2.) Add Lantus 1x/day in AM. 3.) Continue to check blood glucose levels 2x/day- fasting and another time (yvette nge from day to day). 4.) Notify provider of blood glucose values frequently > 200 or any value < 90. 5.) Lifestyle changes- balanced meals with protein/fiber, small portions of carbs/starches. PRESCRIPTIONS NEEDED AT DISCHARGE: 1.) Lantus Solostar Pen (25 units daily) 2.) Pen Needle (non-branded) 32 gauge x 5/32- to inject 1x/day. Your Lantus Solostar Pen, and Pen needles have been sent to your pharmacy. Additionally your Metoprolol tartrate medication has changed from 12.5mg twice daily to Metoprolol succinate 25mg once daily to better control BPs. Additionally a medication called Losartan 25mg has been started to be taken once per day, this will also help you better control your blood pressure. If you feel very lightheaded or that you may pass out, please do not take these medications. Discuss adding/removing blood pressure medications with your PCP and assistant scientist for better BP control after discharge. Take your medications as instructed; do not skip a dose of your medicines. Make sure all of your doctors know every medicine you are taking (including [id number] medicines, vitamins, and supplements). Call your primary care provider before taking any new medicines (including ikpu-xwz-sathwve medicines, vitamins, and supplements), because some of these may interact with your current medications, or may make your symptoms worse. Tell your primary care provider if you cannot afford your medications. CONTACT YOUR PRIMARY CARE PROVIDER if you experience any of the following: Difficulty following your treatment plan, or difficulty taking medications CALL 911 OR GO TO THE EMERGENCY DEPARTMENT if you experience any of the following: Sudden, severe abdominal pain or nausea/vomiting Severe chest pain, or chest pain that radiates (moves) to your jaw or arm Sudden, severe shortness of breath or difficulty breathing Thank you for allowing us to participate in your care. Pending Studies at Discharge: No Stand-Alone Forms: My [employer], Smoking Cessation Skilled Items Patient informed of condition?: Yes DNR: No Discharge Level of Care: Other Communicable Disease: No Discharge Prognosis: Stable Lines: None Urinary Catheter: No Medications and DC Order Prescriptions: New (DME) pen needle, diabetic [Pen Needle] 32 gauge x 5/32" needle See Rx Instructions .Route Qty: 100 0RF Rx Instructions: to be used for insulin admin. 1x per day metoprolol succinate 25 mg tablet extended release 24 hr 25 mg PO DAILY Qty: 30 0RF insulin glargine [Lantus Solostar U-100 Insulin] 100 unit/mL (3 mL) insulin pen 25 unit subcut DAILY Qty: 15 0RF losartan 25 mg tablet 25 mg PO DAILY Qty: 30 0RF Continued famotidine 20 mg tablet 20 mg PO HS Qty: 30 5RF levothyroxine 50 mcg tablet 50 mcg PO QAM loratadine 10 mg tablet 10 mg PO QAM multivitamin with folic acid [Daily-Han (with folic acid)] 400 mcg tablet 1 tab PO QAM divalproex 500 mg tablet extended release 24 hr 500 mg PO BID calcium carbonate [Calcium 500] 500 mg calcium (1,250 mg) Tablet,Chewable 1,000 mg PO Q6H PRN (Reason: Indigestion) cholecalciferol (vitamin D3) [Vitamin D3] 125 mcg (5,000 unit) Tablet 125 mcg PO QAM Hold Instructions: hold this until discussed with primary care in follow up Januvia 50 mg tablet 50 mg PO DAILY magnesium oxide 400 mg (241.3 mg magnesium) Tablet 400 mg PO BID Qty: 60 0RF Abilify Asimtufii 960 mg/3.2 mL suspension,extended rel syring 960 mg IM .[id number] Patient Comments: 07/10- Next shot due around Sep 11 per pt peg 3350-electrolytes [Golytely] 236-22.74-6.74 -5.86 gram recon soln 240 ml PO UD Patient Comments: 07/10- hasnt had her procedure, she plans to reschedule. Rx Instructions: Take per split dose instructions aspirin [Aspirin Low-Strength] 81 mg Tablet,Delayed Release (Dr/Ec) 81 mg PO DAILY atorvastatin 80 mg tablet 80 mg PO DAILY clopidogrel 75 mg tablet 75 mg PO DAILY Discontinued metoprolol tartrate 25 mg tablet 12.5 mg PO BID Discharge Orders: Discharge Order (Routine); Ordered 07/25/25 Ordered By: Conor Mckee Admission Data Admit Date/Time: 07/23/25 20:45 Attending Provider: Chano Andino Admit Provider: Anisa Cruz Primary Care Provider: Aleshia Ramirez Other Providers: Inocencio Sampson Resident Activity Tracking Resident Involvement: Resident Care Provided Care Provided: Adult Hospital Medicine
[2025-07-25 07:45] VITALS: BP 188/96; PULSE 57; RESP 16; TEMP 97.7; O2SAT 97
[2025-07-25] MEDS: LANTUS PER UNIT CHARGE SC SCH (09:04)
== END 2025-07-25 10:16 | disposition home health service (06) | DRG 638 ==
LOC: ED 15:57 → 2N 20:45 → SUATTDRO 20:45 → 2N 22:30

== ENCOUNTER 2025-09-19 06:29 | Inpatient (IN) ==
--- NOTE | 2025-09-13 13:49 | Anesthesiology Consultation ---
Date of Service September 13, 2025 Assessment & Plan Chart Review Chart Review: Acceptable Risk for Surgery and Patient NOT seen in Pre Admission Testing Consults Requested none ASA ASA4 Proposed Anesthesia Anesthesia Type: General Anesthesia Line Insertion: Arterial line History Surgery Operation Date: 09/19/25 10:50 Proposed Procedures p Right Common Femoral Endarterectomy and Bilateral Iliac Stents - Kevin Newton MD Height/Weight Height: 5 ft 2 in Weight: 79.379 kg Allergies Allergy/AdvReac Type Severity Reaction Status Date / Time Penicillins Allergy Severe Anaphylaxis Verified 09/13/25 11:08 Sulfa (Sulfonamide Allergy Severe Anaphylaxis Verified 09/13/25 11:08 Antibiotics) sulfanilamide Allergy Severe Anaphylaxis Verified 09/13/25 11:08 lamotrigine [From Lamictal] Allergy Intermediate Rash Verified 09/13/25 11:08 EUGENIO Inhibitors Allergy Unknown Unknown Verified 09/13/25 11:08 clonazepam Allergy Unknown Unknown Verified 09/13/25 11:08 pseudoephedrine Allergy Unknown Unknown Verified 09/13/25 11:08 trifluoperazine Allergy Unknown Unknown Verified 09/13/25 11:08 ziprasidone Allergy Unknown Unknown Verified 09/13/25 11:08 lithium AdvReac Intermediate MUSCLE Verified 09/13/25 11:08 WEAKNESS, INCONTINENCE Medications Home Medications Medication Instructions Recorded Confirmed Last Taken divalproex 500 mg tablet,extended 500 mg PO BID 02/26/22 09/13/25 08/26/25 release 24 hr levothyroxine 50 mcg tablet 50 mcg PO QAM 02/26/22 09/13/25 08/26/25 loratadine 10 mg tablet 10 mg PO QAM 02/26/22 09/13/25 08/26/25 multivitamin with folic acid 400 1 tab PO QAM 02/26/22 09/13/25 08/26/25 mcg tablet (Daily-Han (with folic acid)) cholecalciferol (vitamin D3) 125 125 mcg PO QAM 11/19/22 09/13/25 08/26/25 mcg (5,000 unit) tablet (Vitamin D3) famotidine 20 mg tablet 20 mg PO HS #30 tabs 08/12/24 09/13/25 08/26/25 magnesium oxide 400 mg (241.3 mg 400 mg PO BID #60 tabs 12/17/24 09/13/25 08/26/25 magnesium) tablet 4 DOSES TODAY aripiprazole (2 month) 960 mg/3.2 960 mg IM .[id number] 07/10/25 09/13/25 Unknown mL susp, extended rel IM syringe (Abilify Asimtufii) aspirin 81 mg tablet,delayed 81 mg PO QAM 07/23/25 09/13/25 08/29/25 release atorvastatin 80 mg tablet 80 mg PO HS 07/23/25 09/13/25 08/26/25 clopidogrel 75 mg tablet 75 mg PO QAM 07/23/25 09/13/25 08/29/25 pen needle, diabetic 32 gauge x #100 ea 07/25/25 08/08/25 Unknown " (Pen Needle) albuterol sulfate 90 mcg/actuation 1 puff inhalation QID PRN Wheezing 08/26/25 09/13/25 Unknown aerosol inhaler docusate sodium 100 mg capsule 100 mg PO BID PRN Constipation 08/26/25 09/13/25 Unknown semaglutide 0.25 mg or 0.5 mg (2 0.25 mg subcut WK 08/26/25 09/13/25 08/23/25 mg/3 mL) subcutaneous pen injector (Ozempic) sitagliptin phosphate 100 mg 100 mg PO QAM 08/26/25 09/13/25 08/26/25 tablet (Januvia) amlodipine 5 mg tablet 5 mg PO QAM #30 tabs 09/04/25 09/13/25 Unknown diphenhydramine HCl 25 mg capsule 50 mg PO BID 09/13/25 09/13/25 Unknown (Benadryl) metoprolol succinate 25 mg 25 mg PO QAM 09/13/25 09/13/25 Unknown tablet,extended release 24 hr Past Medical History Medical History History of anesthesia reaction "during tubal ligation woke up half-way through procedure" Hx of esophageal ulcer 2023 History of asthma PAD (peripheral artery disease) 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 Bipolar disorder Anemia hx Unspecified psychosis not due to a substance or known physiological condition hx Psychiatric illness GERD (gastroesophageal reflux disease) Hx of respiratory syncytial virus infection pt denies Hypomagnesemia Manic episode hx Disorganized schizophrenia Insomnia hx Generalized weakness "numbness not weakness rt leg" Hypertension Hyperlipidemia Hypothyroidism Diabetes mellitus, type 2 Chronic kidney disease hx, "no longer has since stopping lithium" ASCVD Exercise / Class Metabolic Activity III < 4 Walking/Shop/Light housework Past Surgical History Surgical History Hx of cardiac cath (08/29/25) [facility], no stents; f/u [facility] cardio History of bilateral tubal ligation History of esophagogastroduodenoscopy (EGD) Hx of colonoscopy Hx of bilateral cataract extraction Hx of tooth extraction all teeth pulled Past Anesthesia History No Hx of Anesthesia Complications and No Family Hx of Anesthesia Complications History of PONV No Hx of PONV and No Hx of Motion Sickness Social History Smoking Status: Former smoker Do You Dip or Chew Tobacco: No Smoking End Date: 2018 Hx Alcohol Use: Yes Alcohol type: other alcohol intake frequency: other Alcohol Intake Frequency Comment: only once per year Hx Substance Use: No substance use type: does not use Testing Electrocardiogram Date: 09/02/25 Findings: + NSR @ (@ 86) and + NSST changes Chest X-Ray Date: 09/02/25 Findings: + NAD Echocardiogram Date: 09/11/24 EF: 60% LV Function: normal RWMA: + none Other Findings: + LVH (mild) and + diastolic dysfunction (grade 1) Valvular Disease: + no significant valvular disease Cardiac Catheterization Date: 08/29/25 Findings: + RCA (Prox. LI's) and + LCX (Mid LI's;OM1 20-30%prox); no LMA Intervention: + none Location: LAD-30% mid;30% distal
[2025-09-19] MEDS ORDERED: ROCURONIUM BROMIDE 10 MG/ML 5 ML VIAL IV ONE (07:05)
[2025-09-19] MEDS ORDERED: LIDOCAINE 2% 2 ML VIAL/AMP(20MG/ML) INFIL ONE (07:05)
[2025-09-19] MEDS ORDERED: MIDAZOLAM HCL 1 MG/ML 2ML VIAL ONE (07:05)
[2025-09-19] MEDS ORDERED: PROPOFOL IV EMULSION 10 MG/ML 20 ML VIAL IV ONE ×2 (07:05→07:13)
[2025-09-19] MEDS ORDERED: PHENYLEPHRINE HCL 10 MG/ML VIAL ONE ×2 (07:06→11:20)
[2025-09-19] MEDS ORDERED: HEPARIN SOD (PORCINE) 1000 UNIT/ML ONE ×2 (07:06→10:24)
[2025-09-19] MEDS: SODIUM CHLORIDE 0.9% 1,000 ML IV SCH (07:12)
[2025-09-19] MEDS ORDERED: PROMETHAZINE HCL 6.25 MG in SODIUM CHLORIDE 0.9% 50 ML IV PRN (07:13)
[2025-09-19] MEDS ORDERED: ATROPINE SULFATE 0.1 MG/ML 10ML SYR IV PRN (07:13)
[2025-09-19] MEDS ORDERED: ONDANSETRON INJ 2 MG/ML 2 ML VIAL IV PRN ×2 (07:13→13:48)
[2025-09-19] MEDS ORDERED: HYDROmorphone INJ 1 MG/ML SYRINGE IV PRN (07:13)
[2025-09-19] MEDS ORDERED: NALOXONE HCL 0.4 MG/1 ML VIAL/CARP IV PRN (07:13)
[2025-09-19] MEDS ORDERED: FLUMAZENIL 0.1 MG/1 ML 10 ML VIAL IV PRN (07:13)
[2025-09-19] MEDS: LACTATED RINGER'S 1,000 ML IV SCH ×2 (07:13→15:02)
[2025-09-19] MEDS: INSULIN HUMAN REGULAR PER UNIT 15 UNITS in SYRINGE 0 ML IV STA (07:13)
[2025-09-19] MEDS ORDERED: PROTAMINE SULFATE 10 MG/ML 5 ML VIAL IV ONE (07:20)
--- NOTE | 2025-09-19 07:35 | History & Physical Report ---
Date of Service September 19, 2025 History of Present Illness Primary Care Provider: Aleshia Ramirez MD Ms. Calhoun is an elderly female with right iliac artery and common femoral artery stenosis noted on recent imaging. Patient states that she has been complaining of some bilateral leg pain with ambulation, significantly worse in the right leg than the left for the past 6 months or so. She states that after walking about 10-20 steps, she has severe pain and fatigue in her right leg, and both the calf and the thigh. She is unable to determine which area starts first. After resting, she is able to ambulate again. She has had 1 or 2 episodes where both legs just "seize up" where she could not walk anymore and had to be carried or put on a cart. She denies a known history of back problems, and states that she occasionally gets some low back discomfort if she stands for long periods of time. She denies any radiation of this pain down her legs. She denies numbness or tingling in her lower extremities. She denies any nonhealing wounds or ulcerations or discoloration of the feet or toes. She does admit some occasional charley horse type cramps which occur at night. She denies headache, fever, chest pain, shortness of breath, abdominal pain, nausea, vomiting, rest pain, nonhealing wounds or ulcers, other complaints. Review of systems: A total of 14 systems are reviewed and are negative aside from what is related in her HPI Imaging: Patient did have a carotid ultrasound performed prior to today's appointment which demonstrates no significant bilateral ICA stenosis. She had an aortoiliac ultrasound performed prior to today's appointment which demonstrates a 75 to 99% stenosis of the right distal external iliac/common femoral artery, and a bilateral lower extremity arterial ultrasound which redemonstrates the stenosis in her right distal EIA/VEGETABLE TRIMMER with a right leg BLAS of 0.51. There is no other hemodynamically significant stenosis Her CT angiogram showed significant bilateral common iliac artery occlusive disease as well as a 50% left common femoral artery stenosis and a significant high-grade right common femoral artery stenosis. Current Home Meds: ARIPiprazole (Abilify Asimtufii 960 mg/3.2 mL intramuscular suspension, extended release) 960 mg IM every two months SITagliptin (SITagliptin (as phosphate) 50 mg oral tablet) 50 mg PO Daily albuterol (ProAir HFA 90 mcg/inh inhalation aerosol) 1 puff inhaled qid PRN: as needed for wheezing aspirin (aspirin 81 mg oral delayed release tablet) 81 mg PO Daily atorvastatin (atorvastatin 20 mg oral tablet) 20 mg PO qhs cholecalciferol (Vitamin D3) 5,000 UNIT PO DAILY clopidogrel (clopidogrel 75 mg oral tablet) 75 mg PO Daily diabetes supplies (FreeStyle Hemalatha 2 - 14 day sensor) test BID, Dx :E11.9 diabetes supplies (FreeStyle Hemalatha 2 - 14 day reader) test BID, Dx: E11.9 diabetes supplies (FreeStyle Lite Glucose Monitor) Test once dialy diabetes supplies (FreeStyle Lite Test Strips 100 ct) Test once daily diabetes supplies (FreeStyle (28G) Lancets) Test once daily diabetes supplies (FreeStyle Test Strips 100 ct) Test BIDDx: E11.9 diabetes supplies (FreeStyle (28G) Lancets) test BIDDx: E11.9 diabetes supplies (glucometer) Free styleTest BIDDx: E11.9 diabetes supplies (FreeStyle Test Strip 50 ct) Test every morning before morning meal. diabetes supplies (Contour Test Strips 50 ct) Use for glucose monitoring in the AM. diabetes supplies (FreeStyle (28G) Lancets) Test glucose in AM and record. divalproex sodium 500 mg PO bid docusate (Colace 50 mg oral capsule) 50 mg PO bid PRN: as needed for constipation famotidine (famotidine 20 mg oral tablet) TAKE ONE TABLET BY MOUTH ONCE DAILY FOR HEARTBURN levothyroxine (levothyroxine 50 mcg (0.05 mg) oral tablet) 1 tab PO Daily *HYPOTHYROIDISM*. loratadine (loratadine 10 mg oral tablet) 1 tab PO Daily *ALLERGIES* magnesium oxide (Mag-Ox 400 oral tablet) 400 mg PO bid melatonin (Melatonin) 3MG tAKE ON TABLET BY MOUTH DAILY AT BEDTIME metoprolol (metoprolol tartrate 25 mg oral tablet) 12.5 mg PO bid multivitamin (Daily Han oral tablet) 1 tab PO Daily *SUPPLEMENT*. nystatin topical (nystatin 100,000 units/g topical cream) 1 appl topical bid terconazole topical (terconazole 0.4% vaginal cream) apply externally qhs unlisted medication (ONE TOUCH ULTRA TEST STRIPS) USE TO TEST BLOOD SUGAR ONCE DAILY IN THE AM FOR DM TEST BLOOD SUGAR THREE TIMES DAILY NEEDED FOR D/D HYPO-HYPERGLYCEMIA unlisted medication (NOVOFINE AUTOCOVER 30G NEEDLE) USE ONCE DAILY IN THE AM Allergies and Sensitivities: LaMICtal(rash) ziprasidone(unknown) trifluoperazine(unknown) Sulfanilamide(unknown) pseudoephedrine(unknown) clonazePAM(unknown) EUGENIO inhibitors(unknown) sulfa drugs(anaphylaxis) penicillin(anaphylaxis) lithium(muscle weakness, incontinence) Past Medical History: Problems: Peripheral arterial disease Claudication Borderline hyperlipidemia Accelerated hypertension Aortoiliac occlusive disease Peripheral vascular disease Urge incontinence Bilateral hearing loss Ambulatory dysfunction Hyponatremia Hypercholesteremia Type 2 diabetes, HbA1c goal < 7% Chronic disorganized schizophrenia Chronic diarrhea Other cerebrovascular disease Living accommodation issues Benign essential hypertension Hypomagnesemia Ankle edema Adult hypothyroidism Daily urinary incontinence Chronic bipolar disorder Constipation, chronic Anxious depression Surgical history: Positive for EGD, colonoscopy, LEEP, tubal ligation Family history: Positive for heart failure in her mother, lung cancer in her father Social history: Positive for a past history of cigarette smoking, having smoked for 40 years and quit in 2019. She denies alcohol or illicit drug use. She does have a home health aide which accompanies her to visits, as well as a older adult social work specialist due to her history of schizophrenia OBJECTIVE Vitals: 130/80 Right Arm 124/78 Left Arm 78 97 64 98 77.7 height 171 weight Standing Scale Physical Exam Constitutional: In general patient is a healthy-appearing well-nourished well- developed elderly female in no distress. She is alert and oriented without any focal deficits. She does have some mild flight of ideas and is simplistic understanding of her medical care. She does ambulate with a 4 pronged cane. She is in the office with her older adult social work specialist and her home health aide. Her carotids do not demonstrate a bruit. Her heart is regular, lungs are decreased but clear. Radial pulses are +3. Abdomen is soft and nontender with normoactive bowel sounds in all 4 quadrants. Left femoral pulse is +3, right femoral pulse is nonpalpable. Left DP and PT pulses are +1. Right DP and PT pulses are nonpalpable. She has brisk capillary refill to the toes and no sign of ischemia. There are no ulcerations. ASSESSMENT: _ PLAN: _ 1 ) _aortoiliac stenosis Patient appears to have a distal external iliac artery versus proximal common femoral artery stenosis, with a right leg BLAS of 0.51. She does have symptoms of right thigh and calf claudication at a short distance. She has some discomfort in the left leg but it is very mild compared to her right. Due to the symptoms that she is experiencing as well as the location of her stenosis, we recommend a right common femoral artery endarterectomy followed by bilateral iliac stenting. I have discussed the risks options and benefits of the procedure with the patient. The patient understands the risks options and benefits and agrees to the procedure. Allergies Allergy/AdvReac Type Severity Reaction Status Date / Time Penicillins Allergy Severe Anaphylaxis Verified 09/19/25 07:18 Sulfa (Sulfonamide Allergy Severe Anaphylaxis Verified 09/19/25 07:18 Antibiotics) sulfanilamide Allergy Severe Anaphylaxis Verified 09/19/25 07:18 lamotrigine [From Lamictal] Allergy Intermediate Rash Verified 09/19/25 07:18 EUGENIO Inhibitors Allergy Unknown Unknown Verified 09/19/25 07:18 clonazepam Allergy Unknown Unknown Verified 09/19/25 07:18 pseudoephedrine Allergy Unknown Unknown Verified 09/19/25 07:18 trifluoperazine Allergy Unknown Unknown Verified 09/19/25 07:18 ziprasidone Allergy Unknown Unknown Verified 09/19/25 07:18 lithium AdvReac Intermediate MUSCLE Verified 09/19/25 07:18 WEAKNESS, INCONTINENCE Home Medications Medication Instructions Recorded Confirmed Type divalproex 500 mg tablet,extended 500 mg PO BID 02/26/22 09/19/25 History release 24 hr levothyroxine 50 mcg tablet 50 mcg PO QAM 02/26/22 09/19/25 History loratadine 10 mg tablet 10 mg PO QAM 02/26/22 09/19/25 History multivitamin with folic acid 400 1 tab PO QAM 02/26/22 09/19/25 History mcg tablet (Daily-Han (with folic acid)) cholecalciferol (vitamin D3) 125 125 mcg PO QAM 11/19/22 09/19/25 History mcg (5,000 unit) tablet (Vitamin D3) famotidine 20 mg tablet 20 mg PO HS #30 tabs 08/12/24 09/19/25 Rx magnesium oxide 400 mg (241.3 mg 400 mg PO BID #60 tabs 12/17/24 09/19/25 Rx magnesium) tablet aripiprazole (2 month) 960 mg/3.2 960 mg IM .[id number] 07/10/25 09/19/25 History mL susp, extended rel IM syringe (Abilify Asimtufii) aspirin 81 mg tablet,delayed 81 mg PO QAM 07/23/25 09/19/25 History release atorvastatin 80 mg tablet 80 mg PO HS 07/23/25 09/19/25 History clopidogrel 75 mg tablet (Plavix) 75 mg PO QAM 07/23/25 09/19/25 History pen needle, diabetic 32 gauge x #100 ea 07/25/25 08/08/25 Rx /32" (Pen Needle) albuterol sulfate 90 mcg/actuation 1 puff inhalation QID PRN Wheezing 08/26/25 09/19/25 History aerosol inhaler docusate sodium 100 mg capsule 100 mg PO BID PRN Constipation 08/26/25 09/19/25 History semaglutide 0.25 mg or 0.5 mg (2 0.25 mg subcut WK 08/26/25 09/19/25 History mg/3 mL) subcutaneous pen injector (Ozempic) sitagliptin phosphate 100 mg 100 mg PO QAM 08/26/25 09/19/25 History tablet (Januvia) amlodipine 5 mg tablet 5 mg PO QAM #30 tabs 09/04/25 09/19/25 Rx diphenhydramine HCl 25 mg capsule 50 mg PO BID 09/13/25 09/19/25 History (Benadryl) metoprolol succinate 25 mg 25 mg PO QAM 09/13/25 09/19/25 History tablet,extended release 24 hr Past Med/Surg History Problem List Arterial insufficiency of lower extremity (Acute) Hypomagnesemia (Acute) Numbness and tingling of right leg (Acute) Acute leg pain (Acute) Hypertension (Acute) Acute dehydration (Acute) Hypomagnesemia (Acute) Acute hyperglycemia (Acute) Hypercalcemia due to a drug Delusional disorder (Acute) Hypomagnesemia (Acute) Constipation Medical History History of anesthesia reaction "during tubal ligation woke up retirement through procedure" Hx of esophageal ulcer 2023 History of asthma PAD (peripheral artery disease) 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 Bipolar disorder Anemia hx Unspecified psychosis not due to a substance or known physiological condition hx Psychiatric illness GERD (gastroesophageal reflux disease) Hx of respiratory syncytial virus infection pt denies Hypomagnesemia Manic episode hx Disorganized schizophrenia Insomnia hx Generalized weakness "numbness not weakness rt leg" Hypertension Hyperlipidemia Hypothyroidism Diabetes mellitus, type 2 Chronic kidney disease hx, "no longer has since stopping lithium" Surgical History Hx of cardiac cath (08/29/25) [facility], no stents; f/u krystle dejesus [facility] cardio History of bilateral tubal ligation History of esophagogastroduodenoscopy (EGD) Hx of colonoscopy Hx of bilateral cataract extraction Hx of tooth extraction all teeth pulled Social History Smoking Status: Former smoker Tobacco Type: Cigarettes Smoking End Date: 2018; Second Hand Exposure: Yes (hx); Do You Dip or Chew Tobacco: No; Tobacco Cessation Education Requested by Patient: No Hx Alcohol Use: Yes Alcohol type: other Hx Substance Use: No Preferred Language: Greek Communication Ability: Effective Communication Ability Comment: of sound mind to sign consent, alert and oriented x3 Para Educator Required: No Beliefs That Will Affect Care: None Current Living Situation: Alone Current Living Situation Comment: Independent Housing at [facility] Other Information That Helps Us Care for You: No Feels Safe at Home: Yes Safety Concerns: Feels Safe At This Time Assistive Devices: Denture - Upper and Denture - Lower
[2025-09-19] MEDS ORDERED: DEXAMETHASONE SOD INJ 4 MG/ML VIAL ONE (08:49)
[2025-09-19] MEDS ORDERED: KETAMINE HCL 10MG/ML SYR ONE (09:01)
[2025-09-19] MEDS ORDERED: HYDROmorphone INJ 2 MG/ML SYR/VIAL ONE (09:10)
[2025-09-19] MEDS ORDERED: LABETALOL HCL IV 5 MG/ML 20ML IV ONE (09:17)
[2025-09-19] MEDS: GELATIN SPONGE SZ 100 ONE (09:38)
[2025-09-19] MEDS: GELATIN SPONGE SZ 100 EXT ONE (09:38)
[2025-09-19] MEDS: THROMBIN FOR SOLN 20000 UNIT KIT ONE ×2 (11:08→11:41)
[2025-09-19] MEDS ORDERED: ALBUMIN HUMAN 5% 12.5 GM/250 ML VIAL IV ONE (11:08)
[2025-09-19] MEDS ORDERED: PHENYLEPHRINE 100MCG/ML 5ML SYR ONE (11:20)
[2025-09-19] MEDS ORDERED: ePHEDrine sulfate 50 MG/5 ML SYR ONE (11:20)
[2025-09-19] MEDS ORDERED: ONDANSETRON INJ 2 MG/ML 2 ML VIAL ONE (11:25)
[2025-09-19] MEDS: VISIPAQUE IV ONE (11:27)
[2025-09-19] MEDS ORDERED: SUGAMMADEX SODIUM 200 MG/2 ML VIAL IV ONE (11:30)
[2025-09-19] MEDS: HEPARIN (PORCINE) 1000 UNIT/ML 10 ML (CATH LAB USE ONLY) ONE (11:43)
[2025-09-19] MEDS: FLOSEAL HEMOSTATIC MATRIX 10ML TOP ONE (12:02)
[2025-09-19] MEDS: ceFAZolin 330 MG/ML 1 GM VIAL ONE (12:02)
--- NOTE | 2025-09-19 12:02 | Procedure Note ---
Angiogram Post Procedure Fluoroscopy Time (minutes): 1.3 Radiation (mGy): 55 Contrast: 10 Post Operative Report Pre & Post Diagnosis Operation Date: 09/19/25 08:00 Pre-Op Diagnosis: Aortoiliac occlusive disease Post-Op Diagnosis: Aortoiliac occlusive disease I identified the patient and participated in the time-out.: Yes Procedure Operation Date: 09/19/25 08:00 Actual Procedures Right Common Femoral and Superficial Endarterectomy with Patch, Right Common Iliac Artery Transluminal Angioplasty and Stent(Not Applicable) - Kevin Newton MD Surgeon Krys Newton MD Superintendent Quarry MD Sariah Liu PA-C Estimated Blood Loss 550 Findings Consistent with Post-Op Diagnosis R CLUSTER 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 Patient was sedated and intubated and had a Ghosh catheter placed by nursing. The right groin was was prepped and draped in the usual sterile fashion. A vertical incision was made in the right groin and carried down with a combination of electrocautery and sharp dissection. A combination of electrocautery, clips and ties were used for control of superficial branches. The femoral sheath was then opened using Metzenbaum scissors and sharp dissection of the common femoral artery, superficial femoral artery, distal external iliac artery and profunda femoris was performed. The superficial femoral and profunda arteries were encircled with vessel loops. A Satinsky clamp was positioned at the distal external iliac artery after the patient was on therapeutic dose of heparin. A #11 blade was used to make a vertical arteriotomy which was then extended using Lentz scissors proximally and distally. A freer elevator was used to free up the occlusive plaque which encompassed the external iliac, common femoral, superficial femoral and profunda femoris arteries. After all debris was cleared from the femoral artery posterior wall, a bovine pericardial patch was cut to size and was sutured using 5-0 Prolene in a running fashion. Prior to completion of the patch angioplasty, the profunda femoris, diaz perficial femoral artery and external iliac arteries were unclamped and allowed to backbleed and be flushed. Thorough irrigation using heparinized saline flush was performed and the patch angioplasty was completed. At this time, our attention was turned to the endovascular portion of the procedure. A micropuncture needle was used to access the middle of the patch in a retrograde fashion. A micropuncture wire was advanced into the common femoral artery and the micropuncture needle was exchanged for a micropuncture sheath. A soft glide wire was advanced under fluoroscopic guidance into the abdominal aorta and the micropuncture sheath exchanged for a 8 Sinhala sheath. A sheathogram was performed demonstrating atherosclerotic disease of right common iliac artery with the most significant burden just proximal to the origin of the internal iliac artery. The distance from the aortic bifurcation to the origin of the internal iliac was measured intraoperatively and approximately [id number]. We then placed a 8x29mm VBX stent in the right common iliac artery. After deployment, a completion angiogram revealed a small waist at the distal extent of the stent, therefore we elected to perform additional balloon angioplasty using a 9mm [place] balloon with moderate improvement. We then took a completion aortogram. The distal abdominal aorta and contralateral iliac system were also patent. At this time, the wire and sheath were removed from the acess site and the defect was repaired with interrupted 5-0 prolene suture. This appeared hemostatic with no narrowing of the patch. Thrombin-soaked Gelfoam was applied to the right groin. Meticulous hemostasis using electrocautery, thrombin, and floseal was achieved. Antibiotic irrigation was used to irrigate the groin. A multilayer closure of the left groin was completed using 2-0 Vicryl to approximate the femoral sheath as well as multiple layers of subcutaneous tissue. A 3-0 Vicryl suture was used to approximate the deep dermis and jas was used to approximate the skin edges and a provena incisional vac was applied. The patient had excellent signals in the left lower extremity at the end of the case and no change to baseline right lower extremity exam. This concluded the case and the patient was taken to recovery in stable condition. Dr Newton was present and scrubbed for the entirety of the procedure. I attest to the content of the Intraoperative Record and any orders documented therein. Any exceptions are noted below.
--- NOTE | 2025-09-19 12:06 | Post Operative Brief Note ---
Immediate Post Op Note Date of Surgery September 19, 2025 Pre & Post Diagnosis Operation Date: 09/19/25 08:00 Pre-Op Diagnosis: Peripheral artery disease Post-Op Diagnosis: Peripheral artery disease I identified the patient and participated in the time-out.: Yes Procedure Operation Date: 09/19/25 08:00 Actual Procedures p Right Common Femoral and Superficial Endarterectomy with Patch, Right Common Iliac Artery Transluminal Angioplasty and Stent(Not Applicable) - Kevin Newton MD Surgeon Kevin Newton MD Telecommunications Network Engineer MD Sariah Flores PA-C Estimated Blood Loss 550 Findings Consistent with Post-Op Diagnosis Drains Ghosh Catheter Anesthesia Type General Complications none Disposition Accompanied Patient To Recovery: No Disposition: Recovery Room
[2025-09-19] MEDS: INSULIN HUMAN REGULAR PER UNIT 15 UNITS in SYRINGE 14.85 ML IV STA (12:35)
[2025-09-19 13:06] LABS: Hematocrit (blood only) 22.9 % (37.0-47.0); Hemoglobin 7.8 g/dL (12.0-16.0); Immature Granulocytes # (auto) 0.09 K/uL (0.01-0.20); Immature Granulocytes % (auto) 1.1 %; Mean Corpuscular Hemoglobin 31.0 pg (25.0-34.0); Mean Corpuscular Volume 90.9 fL (80.0-100.0); Platelet Count 180 K/uL (130-400); RDW Standard Deviation 41.7 fL (36.4-46.3); Red Blood Count 2.52 M/uL (4.20-5.40); White Blood Count 8.08 K/ul (4.8-10.8)
--- NOTE | 2025-09-19 13:17 | Anesthesiology Progress Note ---
Date of Service September 19, 2025 Anesthesia Post Procedure Vital Signs Vital Signs: Temp Pulse Resp BP BP BP Pulse Ox 09/19/25 13:10 90 12 116/46 L 110/60 95 09/19/25 13:00 36.5 C 88 12 114/47 L 112/65 96 09/19/25 12:50 86 18 118/45 L 112/64 98 09/19/25 12:40 85 14 121/50 L 114/74 100 09/19/25 12:30 84 18 129/67 131/68 100 09/19/25 12:22 36.7 C 84 18 125/66 100 09/19/25 07:26 37.1 C 75 20 146/103 H 96 O2 Del Method O2 Flow Rate 09/19/25 13:10 Room Air 09/19/25 13:00 Room Air 09/19/25 12:50 Room Air 09/19/25 12:40 Oxymask 2 09/19/25 12:30 Oxymask 4 09/19/25 12:22 Oxymask 6 09/19/25 07:26 Room Air Pain Intensity Right Groin: Pain Intensity: 3 Transfer of Care Handoff Completed per policy Notes Mental Status: alert / awake / arousable Patient Amnestic to Procedure: Yes Nausea / Vomiting: adequately controlled Pain: adequately controlled Airway Patency, RR, SpO2: stable & adequate BP & HR: stable & adequate Hydration State: stable & adequate Anesthetic Complications: no major complications apparent
[2025-09-19] MEDS ORDERED: SODIUM CHLORIDE 0.9% 100 ML IV PRN (13:27)
[2025-09-19 13:30] LABS: Polychromasia 1+
[2025-09-19] MEDS ORDERED: [UNRECOGNIZED DRUG - OTHER] IM SCH (13:48)
[2025-09-19] MEDS ORDERED: PHARMACY GLYCEMIC MGMT CONSULT PRN (13:48)
[2025-09-19] MEDS ORDERED: ALBUTEROL HFA 8 GM INHALER INH PRN (13:48)
[2025-09-19] MEDS ORDERED: ARIPIPRAZOLE 960 MG/3.2 ML IM SCH (13:48)
[2025-09-19] MEDS: NovoLIN-R INSULIN PER UNIT CHARGE ONE ×2 (14:01)
--- NOTE | 2025-09-19 14:36 | Critical Care Consultation ---
Date of Consultation September 19, 2025 Assessment & Plan (1) PAD (peripheral artery disease): Pt does have known PAD and underwent RLE DRIER TENDER endarterectomy. Antiplatelets, pain control and antihypertensives per primary team. Monitor neurovascular checks per primary team recommendations. Monitor in ICU overnight. Monitor hemoglobin and transfuse if hemoglobin less than 7. Maintain euglycemia. History of Present Illness Reason for Consultation: Post femoral endarterectomy and iliac stent Attending Physician: Kevin Newton MD History of Present Illness 65-year-old female who presents electively for femoral artery stenosis and endarterectomy with iliac stent. Procedure with about 550 mL blood loss. Mildly hypertensive post procedure. Otherwise no significant issues. Patient without any major complaints. Allergies Allergy/AdvReac Type Severity Reaction Status Date / Time Penicillins Allergy Severe Anaphylaxis Verified 09/19/25 07:18 Sulfa (Sulfonamide Allergy Severe Anaphylaxis Verified 09/19/25 07:18 Antibiotics) sulfanilamide Allergy Severe Anaphylaxis Verified 09/19/25 07:18 lamotrigine [From Lamictal] Allergy Intermediate Rash Verified 09/19/25 07:18 EUGENIO Inhibitors Allergy Unknown Unknown Verified 09/19/25 07:18 clonazepam Allergy Unknown Unknown Verified 09/19/25 07:18 pseudoephedrine Allergy Unknown Unknown Verified 09/19/25 07:18 trifluoperazine Allergy Unknown Unknown Verified 09/19/25 07:18 ziprasidone Allergy Unknown Unknown Verified 09/19/25 07:18 lithium AdvReac Intermediate MUSCLE Verified 09/19/25 07:18 WEAKNESS, INCONTINENCE Home Medications Medication Instructions Recorded Confirmed Type divalproex 500 mg tablet,extended 500 mg PO BID 02/26/22 09/19/25 History release 24 hr levothyroxine 50 mcg tablet 50 mcg PO QAM 02/26/22 09/19/25 History loratadine 10 mg tablet 10 mg PO QAM 02/26/22 09/19/25 History multivitamin with folic acid 400 1 tab PO QAM 02/26/22 09/19/25 History mcg tablet (Daily-Han (with folic acid)) cholecalciferol (vitamin D3) 125 125 mcg PO QAM 11/19/22 09/19/25 History mcg (5,000 unit) tablet (Vitamin D3) famotidine 20 mg tablet 20 mg PO HS #30 tabs 08/12/24 09/19/25 Rx magnesium oxide 400 mg (241.3 mg 400 mg PO BID #60 tabs 12/17/24 09/19/25 Rx magnesium) tablet aripiprazole (2 month) 960 mg/3.2 960 mg IM [id number] 07/10/25 09/19/25 History mL susp, extended rel IM syringe (Abilify Asimtufii) aspirin 81 mg tablet,delayed 81 mg PO QAM 07/23/25 09/19/25 History release atorvastatin 80 mg tablet 80 mg PO HS 07/23/25 09/19/25 History clopidogrel 75 mg tablet (Plavix) 75 mg PO QAM 07/23/25 09/19/25 History pen needle, diabetic 32 gauge x #100 ea 07/25/25 08/08/25 Rx " (Pen Needle) albuterol sulfate 90 mcg/actuation 1 puff inhalation QID PRN Wheezing 08/26/25 09/19/25 History aerosol inhaler docusate sodium 100 mg capsule 100 mg PO BID PRN Constipation 08/26/25 09/19/25 History semaglutide 0.25 mg or 0.5 mg (2 0.25 mg subcut WK 08/26/25 09/19/25 History mg/3 mL) subcutaneous pen injector (Ozempic) sitagliptin phosphate 100 mg 100 mg PO QAM 08/26/25 09/19/25 History tablet (Januvia) amlodipine 5 mg tablet 5 mg PO QAM #30 tabs 09/04/25 09/19/25 Rx diphenhydramine HCl 25 mg capsule 50 mg PO BID 09/13/25 09/19/25 History (Benadryl) metoprolol succinate 25 mg 25 mg PO QAM 09/13/25 09/19/25 History tablet,extended release 24 hr Patient History Medical History History of anesthesia reaction "during tubal ligation woke up retirement through procedure" Hx of esophageal ulcer 2023 History of asthma PAD (peripheral artery disease) 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 Bipolar disorder Anemia hx Unspecified psychosis not due to a substance or known physiological condition hx Psychiatric illness GERD (gastroesophageal reflux disease) Hx of respiratory syncytial virus infection pt denies Hypomagnesemia Manic episode hx Disorganized schizophrenia Insomnia hx Generalized weakness "numbness not weakness rt leg" Hypertension Hyperlipidemia Hypothyroidism Diabetes mellitus, type 2 Chronic kidney disease hx, "no longer has since stopping lithium" Surgical History Hx of cardiac cath (08/29/25) [facility], no stents; [facility] History of bilateral tubal ligation History of esophagogastroduodenoscopy (EGD) Hx of colonoscopy Hx of bilateral cataract extraction Hx of tooth extraction all teeth pulled Social History Smoking Status: Former smoker Tobacco Type: Cigarettes Smoking End Date: 2018; Second Hand Exposure: Yes (hx); Do You Dip or Chew Tobacco: No; Tobacco Cessation Education Requested by Patient: No Hx Alcohol Use: Yes Alcohol type: other Hx Substance Use: No Preferred Language: Syriac Communication Ability: Effective Communication Ability Comment: of sound mind to sign consent, alert and or iented x3 Dermatology Teacher Required: No Beliefs That Will Affect Care: None Current Living Situation: Alone Current Living Situation Comment: Independent Housing at [facility] Other Information That Helps Us Care for You: No Feels Safe at Home: Yes Safety Concerns: Feels Safe At This Time Assistive Devices: Denture - Upper and Denture - Lower Review of Systems Review of Systems: All systems reviewed & are unremarkable except as noted in HPI & below Physical Exam Physical Exam: General-alert and oriented x3, no fever, no chills HEENT-head atraumatic and normocephalic, pupils equal and reactive to light, extraocular muscles intact Neck-no lymphadenopathy or thyromegaly, trachea midline Chest-clear to auscultation. No rales, wheezing or rhonchi Cardiac-regular rate and rhythm, normal S1 and S2 Abdomen-normal bowel sounds, no hepatosplenomegaly Extremities-no cyanosis, clubbing, or edema. Normal warmth and coloration of the right lower extremity with normal peripheral capillary refill of the right lower extremity toes Neuro-cranial nerves II through XII intact, motor and sensory function within normal limits, strength symmetrical, no focal deficits Psych-normal affect, normal mood Results & Data Results & Data Vital Signs (Past 12 Hours) Vital Signs Temp Pulse Pulse Resp BP BP BP 09/19/25 14:12 88 20 09/19/25 14:00 108/58 L 09/19/25 14:00 108/58 L 09/19/25 14:00 108/58 L 09/19/25 14:00 108/58 L 09/19/25 14:00 108/58 L 09/19/25 14:00 36.3 C L 09/19/25 13:51 89 17 09/19/25 13:10 90 12 116/46 L 09/19/25 13:00 36.5 C 88 12 114/47 L 09/19/25 12:50 86 18 118/45 L 09/19/25 12:40 85 14 121/50 L 09/19/25 12:30 84 18 129/67 09/19/25 12:22 36.7 C 84 18 09/19/25 07:26 37.1 C 75 20 146/103 H BP Pulse Ox O2 Del Method O2 Flow Rate 09/19/25 14:12 93 09/19/25 14:00 09/19/25 14:00 09/19/25 14:00 09/19/25 14:00 09/19/25 14:00 09/19/25 14:00 09/19/25 13:51 96 Room Air 09/19/25 13:10 110/60 95 Room Air 09/19/25 13:00 112/65 96 Room Air 09/19/25 12:50 112/64 98 Room Air 09/19/25 12:40 114/74 100 Oxymask 2 09/19/25 12:30 131/68 100 Oxymask 4 09/19/25 12:22 125/66 100 Oxymask 6 09/19/25 07:26 96 Room Air Coding Level of Care Code 79837 INT INP/OBS CARE 40MIN Diagnoses PAD (peripheral artery disease) I73.9
[2025-09-19] MEDS: LANTUS PER UNIT CHARGE SC STA (14:56)
--- NOTE | 2025-09-19 15:10 | Pharmacy Report ---
Pharmacy Glycemic Short Note 2 - Date of Service September 19, 2025 - Glycemic Short BSG Results (Last 24 hours): 09/19/25 09/19/25 09/19/25 07:01 07:43 07:59 POC Glucose 292 H 212 H 160 H 09/19/25 09/19/25 09/19/25 08:54 10:32 12:28 POC Glucose 113 H 219 H 338 H* 09/19/25 09/19/25 12:30 13:06 POC Glucose 341 H* 326 H* OUTPATIENT ANTIDIABETIC REGIMEN: * Sitagliptin 100mg PO daily * Ozempic 0.25mg SQ weekly * HbA1c: 11.9% (07/24/25) ASSESSMENT: * Beatrice is a 65 year old female with T2DM who presents to the hospital for R femoral endarterectomy * AM glucose today around 0700 was 292, above goal range * Patient received 15 units of IV insulin and came down to 113 at 0900 * Glucose at 1230 this afternoon was 338 * Patient received another 15 units of IV insulin and 30 minutes later was still elevated at 326 * Will need to follow up with 1630 glucose value to see how the second 15 units of IV insulin affected the BSG * Given patient already got 30 units of IV insulin, gave insulin glargine 20 units now * Glargine scale this evening for extra coverage depending on BSGs * Insulin aspart meal coverage with stress level of 3 * T2DM diet * Stressors: recent surgery, dexamethasone 8mg IV given around 0900 09/19 PLAN FOR INPATIENT GLYCEMIC CONTROL: * Hold outpatient oral diabetes medications * Basal insulin * Lantus 20 units x1; Lantus 0/5/10 at 2100 (0 units if <180, 5 units if 180- 220, 10 units if >220) * Bolus insulin * NovoLog per scale ACHS or Q6hrs while NPO * Goal Range: Low 110 mg/dL - High 140 mg/dL * Correction Factor: 20 mg/dL/unit * Nutritional / Prandial insulin per carb ratio of 1 unit per 7 grams CHO consumed
[2025-09-19] MEDS ORDERED: GLUCOSE 40% GEL 15 GM TUBE PO PRN (15:15)
[2025-09-19] MEDS ORDERED: GLUCOSE 10 TAB/TUBE PO PRN (15:15)
[2025-09-19] MEDS ORDERED: GLUCAGON FOR INJ 1 MG VIAL SQ PRN (15:15)
[2025-09-19] MEDS ORDERED: CARBOHYDRATES FOR HYPOGLYCEMIA PO PRN (15:15)
[2025-09-19] MEDS ORDERED: DEXTROSE 50% 50 ML SYRINGE IV PRN (15:15)
[2025-09-19] MEDS: DOCUSATE SODIUM 100 MG CAP PO PRN (16:11)
[2025-09-19] MEDS: INSULIN ASPART PER UNIT CHARGE SC SCH (16:52)
[2025-09-19] MEDS: INSULIN HUMAN REGULAR PER UNIT 5 UNITS in SYRINGE 4.95 ML IV ONE (20:48)
[2025-09-19] MEDS: DIVALPROEX EXTENDED RELEASE 500 MG TAB PO SCH (20:48)
[2025-09-19] MEDS: ATORVASTATIN 40 MG TAB PO SCH (20:48)
[2025-09-19] MEDS: diphenhydrAMINE Capsule 25 MG CAP PO SCH (20:48)
[2025-09-19] MEDS: FAMOTIDINE 20 MG TAB PO SCH (20:48)
[2025-09-19] MEDS: LANTUS PER UNIT CHARGE SC ONE (20:49)
[2025-09-19] MEDS: MAGNESIUM OXIDE 400 MG TAB PO SCH (20:55)
[2025-09-20] MEDS: INSULIN ASPART PER UNIT CHARGE SC SCH (00:22)
[2025-09-20] MEDS: LEVOTHYROXINE SODIUM 50 MCG TABLET PO SCH (03:50)
[2025-09-20 05:04] LABS: Hematocrit (blood only) 22.5 % (37.0-47.0); Hemoglobin 7.7 g/dL (12.0-16.0); Immature Granulocytes # (auto) 0.04 K/uL (0.01-0.20); Immature Granulocytes % (auto) 0.4 %; Mean Corpuscular Hemoglobin 29.7 pg (25.0-34.0); Mean Corpuscular Volume 86.9 fL (80.0-100.0); Platelet Count 151 K/uL (130-400); RDW Standard Deviation 44.4 fL (36.4-46.3); Red Blood Count 2.59 M/uL (4.20-5.40); White Blood Count 9.01 K/ul (4.8-10.8)
[2025-09-20 05:18] LABS: Anion Gap 7.0 (3-11); Blood Urea Nitrogen 34.0 mg/dl (6-23); Calcium 8.1 mg/dl (8.6-10.3); Carbon Dioxide 21.0 mmol/L (21-32); Chloride 109.0 mmol/L (98-107); Creatinine Clr Calc Pharmacy 37.7 ml/min; Glucose 126.0 mg/dl (70-99(Fasting)); Potassium 4.3 mmol/L (3.5-5.1); Sodium 137.0 mmol/L (136-145)
[2025-09-20 05:30] LABS: Polychromasia 1+
[2025-09-20] MEDS ORDERED: SODIUM CHLORIDE 0.9% 100 ML IV PRN ×2 (06:26→07:11)
[2025-09-20] MEDS: MoRPHine SULFATE 4 MG/ML 1 ML CARP\\VIAL IV PRN (07:48)
--- NOTE | 2025-09-20 08:00 | Critical Care Progress Note ---
Date of Service September 20, 2025 Assessment & Plan (1) PAD (peripheral artery disease): Plan: Continue to monitor in ICU Consider transfusion due to symptomatic anemia, defer to vascular surgery team Hold Norvasc and Benadryl Decrease metoprolol dose to 12.5 mg PO to avoid tachycardia Pain management, antihypertensives, and antiplatelets management per primary team (2) Acute anemia: Plan: Hemoglobin transfusion per vascular surgery. AM Hgb today (09/20) 7.8, borderline near goal >7 (3) Acute hyperglycemia: Plan: Appreciate pharmacy assistance with management of patient's glucose. She is a poorly controlled diabetic with a recent A1c of over 11. Spoke with PCP Dr. Ramirez via [facility] in regards to elevated A1C, pt previously on insulin but stopped due to issues with receiving it from pharmacy, emphasized importance of taking all her medications and following with PCP within 1 week of discharge, discussed specific importance for appropriate wound healing Plan Patient separately seen and examined from resident physician. Agree with the note as above. Hemodynamically she is stable. She has received 2 packed units of RBCs. She is being transferred out of the ICU progress to the surgery and she is doing well. Art line has been removed. She is sitting up in a chair. Glucoses are better controlled at this time. Neurologic exam benign. Lower extremities are warm. She denies chest pain. Lung sounds are clear. Regular heart rate and rhythm. ICU to sign off. Thank you for the consult. Admission and Anticipated Discharge Date Admission Date: September 19, 2025 Subjective 65 yo F s/p femoral artery stenosis and endarterectomy with iliac stent on 09/19. Patient states she is feeling tired this morning. Reports slight dizziness and LH. She is very tender to touch around surgical site, but denies active bleeding in area. Denies CP, SOB, changes in vision, [place]. No other acute concerns. Review of Systems Review of Systems: All systems reviewed & are unremarkable except as noted in HPI & below Physical Exam Constitutional: no acute distress Respiratory: normal respiratory effort, lungs clear to auscultation Cardiovascular: RRR, no murmur, no edema Gastrointestinal (Abdomen): normal bowel sounds, soft, nontender, no hepatosplenomegaly Musculoskeletal: neurovascularly intact in LE, 2+ pedal pulses b/l, appropriate strength BLE, swelling around surgical site, severe pain to palpation upon touch of medial R thigh Skin: no rashes, warm and dry Psychiatric: A+Ox3, euthymic affect Results & Data Results & Data Vital Signs (Past 12 Hours) Vital Signs Temp Pulse Resp BP Pulse Ox Pulse Ox O2 Del Method 09/20/25 07:38 92 H 09/20/25 07:29 85 13 108/48 L 95 Room Air 09/20/25 06:00 84 12 126/54 L 95 Room Air 09/20/25 05:00 84 14 130/52 L 92 Room Air 09/20/25 04:00 36.5 C 83 13 123/53 L 94 Room Air 09/20/25 03:00 89 13 129/60 95 Room Air 09/20/25 02:00 83 13 116/58 L 94 Room Air 09/20/25 01:00 85 13 124/59 L 93 Room Air 09/20/25 00:00 36.6 C 89 13 121/62 94 Room Air 09/19/25 23:24 96 09/19/25 23:00 81 14 121/62 97 Room Air 09/19/25 22:00 89 14 123/56 L 92 Room Air 09/19/25 21:00 92 H 20 124/70 97 Room Air 09/19/25 20:00 36.8 C 93 H 16 125/72 94 Room Air O2 Del Method 09/20/25 07:38 09/20/25 07:29 09/20/25 06:00 09/20/25 05:00 09/20/25 04:00 09/20/25 03:00 09/20/25 02:00 09/20/25 01:00 09/20/25 00:00 09/19/25 23:24 Room Air 09/19/25 23:00 09/19/25 22:00 09/19/25 21:00 09/19/25 20:00 Resident Activity Tracking Resident Involvement: Resident Care Provided Care Provided: Adult Hospital Medicine
[2025-09-20] MEDS: METOPROLOL SUCC 25MG EXT REL TAB PO SCH (08:50)
[2025-09-20] MEDS: LORATADINE 10 MG TAB PO SCH (08:50)
[2025-09-20] MEDS: CLOPIDOGREL BISULFATE 75 MG TAB PO SCH (08:50)
[2025-09-20] MEDS: ASPIRIN 81 MG ECTAB PO SCH (08:50)
[2025-09-20] MEDS: CHOLECALCIFEROL 125 MCG (5,000 UNITS) TAB PO SCH (08:51)
[2025-09-20] MEDS: MULTIVITAMIN TAB PO SCH (08:51)
--- NOTE | 2025-09-20 08:55 | Critical Care Progress Note ---
Date of Service September 20, 2025 Assessment & Plan (1) PAD (peripheral artery disease): Plan: Pt does have known PAD and underwent RLE SUPERVISOR CLAIMS endarterectomy. Antiplatelets, pain control and antihypertensives per primary team. Monitor neurovascular checks per primary team recommendations. Monitor in ICU overnight. Monitor hemoglobin and transfuse if hemoglobin less than 7. Maintain euglycemia. (2) Acute anemia: Plan: Hemoglobin transfusion per vascular surgery. (3) Acute hyperglycemia: Plan: Appreciate pharmacy assistance with management of patient's glucose. She is a poorly controlled diabetic with a recent A1c of over 11. Admission and Anticipated Discharge Date Admission Date: September 19, 2025 Subjective Patient with some mild dizziness this morning. Also with increased swelling and soreness around the incision site. Denies chest pain or shortness of breath. Review of Systems Review of Systems: All systems reviewed & are unremarkable except as noted in HPI & below Physical Exam Physical Exam: General-alert and oriented x3, no fever, no chills HEENT-head atraumatic and normocephalic, pupils equal and reactive to light, extraocular muscles intact Neck-no lymphadenopathy or thyromegaly, trachea midline Chest-clear to auscultation. No rales, wheezing or rhonchi Cardiac-regular rate and rhythm, normal S1 and S2 Abdomen-normal bowel sounds, no hepatosplenomegaly Extremities-no cyanosis, clubbing, or edema. Normal warmth and coloration of the right lower extremity with normal peripheral capillary refill of the right lower extremity toes. Bruising around the endarterectomy site Neuro-cranial nerves II through XII intact, motor and sensory function within normal limits, strength symmetrical, no focal deficits Psych-normal affect, normal mood Results & Data Results & Data Vital Signs (Past 12 Hours) Vital Signs Temp Pulse Resp BP Pulse Ox Pulse Ox O2 Del Method 09/20/25 08:00 84 17 09/20/25 08:00 111/61 09/20/25 08:00 92 H 09/20/25 07:38 92 H 09/20/25 07:29 85 13 108/48 L 95 Room Air 09/20/25 06:00 84 12 126/54 L 95 Room Air 09/20/25 05:00 84 14 130/52 L 92 Room Air 09/20/25 04:00 36.5 C 83 13 123/53 L 94 Room Air 09/20/25 03:00 89 13 129/60 95 Room Air 09/20/25 02:00 83 13 116/58 L 94 Room Air 09/20/25 01:00 85 13 124/59 L 93 Room Air 09/20/25 00:00 36.6 C 89 13 121/62 94 Room Air 09/19/25 23:24 96 09/19/25 23:00 81 14 121/62 97 Room Air 09/19/25 22:00 89 14 123/56 L 92 Room Air 09/19/25 21:00 92 H 20 124/70 97 Room Air O2 Del Method 09/20/25 08:00 09/20/25 08:00 09/20/25 08:00 09/20/25 07:38 09/20/25 07:29 09/20/25 06:00 09/20/25 05:00 09/20/25 04:00 09/20/25 03:00 09/20/25 02:00 09/20/25 01:00 09/20/25 00:00 09/19/25 23:24 Room Air 09/19/25 23:00 09/19/25 22:00 09/19/25 21:00 Coding Level of Care Code 01949 SUB INP/OBS CARE 11/05MIN Diagnoses PAD (peripheral artery disease) I73.9 Acute anemia D64.9 Acute hyperglycemia R73.9
[2025-09-20] MEDS: LANTUS PER UNIT CHARGE SC SCH (08:57)
--- NOTE | 2025-09-20 13:06 | Surgery Progress Note ---
Date of Service September 20, 2025 Assessment & Plan (1) Arterial insufficiency of lower extremity: Plan: Patient POD#1 from a right femoral endart with patch and an iliac stent insertion. She is doing well. Foot is well perfused. (2) Acute blood loss as cause of postoperative anemia: Plan: She lost a fair amount of blood yesterday requiring transfusion of 2 units post surgery. will follow serial hgb. Admission and Anticipated Discharge Date Admission Date: September 19, 2025 Subjective Complains of incision pain and buttock discomfort when sitting. Denies any foot discomfort. Says her foot feel better. Physical Exam Constitutional: WD/WN, vitals as above Cardiovascular: Rate/Rhythm: regular rate and regular rhythm good dopplers in both feet Skin: + incision (prevena in place) Neurologic: CN's II-XI intact bilaterally and moves all extremities Psychiatric: A+Ox3, euthymic affect Results & Data Vital Signs (Past 12 Hours) Vital Signs Temp Pulse Resp BP Pulse Ox O2 Del Method 09/20/25 11:17 36.6 C 80 17 127/61 99 09/20/25 10:26 36.6 C 77 15 115/51 L 97 09/20/25 09:56 36.5 C 83 14 133/58 L 99 09/20/25 09:41 36.4 C L 78 13 119/53 L 100 09/20/25 09:25 36.4 C L 86 14 122/58 L 100 09/20/25 08:00 84 17 09/20/25 08:00 111/61 09/20/25 08:00 92 H 09/20/25 07:38 92 H 09/20/25 07:29 85 13 108/48 L 95 Room Air 09/20/25 06:00 84 12 126/54 L 95 Room Air 09/20/25 05:00 84 14 130/52 L 92 Room Air 09/20/25 04:00 36.5 C 83 13 123/53 L 94 Room Air 09/20/25 03:00 89 13 129/60 95 Room Air 09/20/25 02:00 83 13 116/58 L 94 Room Air
--- NOTE | 2025-09-20 13:31 | Billing Data ---
Date of Service September 20, 2025 I personally spent 25 minutes on the date of service in activities related to this patient's encounter, including 15 minutes of counseling with patient regarding treatment plan and 10 minutes of clinical review of lab results and documentation. I did preparole counseling aide the patient regarding their diagnosis and treatment plan and they expressed understanding. This note was dictated using voice recognition software and may include grammatical errors, extra words, word substitutions and other inaccuracies due to errors in the voice recognition software and differences in speech patterns. Coding Level of Care Code 79554 SUB INP/OBS CARE 11/05MIN
--- NOTE | 2025-09-20 14:29 | Pharmacy Report ---
Pharmacy Glycemic Short Note 2 - Date of Service September 20, 2025 - Glycemic Short BSG Results (Last 24 hours): 09/19/25 09/19/25 09/19/25 16:15 16:17 19:44 Glucose POC Glucose 322 H* 312 H* 318 H* 09/20/25 09/20/25 09/20/25 00:12 04:09 04:53 Glucose 126 H POC Glucose 190 H 138 H 09/20/25 09/20/25 07:08 11:13 Glucose POC Glucose 132 H 189 H OUTPATIENT ANTIDIABETIC REGIMEN: * Sitagliptin 100mg PO daily * Ozempic 0.25mg SQ weekly * HbA1c: 11.9% (07/24/25) ASSESSMENT: 09/20 * Patient's BSGs have improved, fasting 126 mg/dL today with 50 units of basal yesterday * No further steroids ordered, will reduce lantus to weight stress II and monitor for now * Continue with tighter carb ratio for now- monitor 09/19 * Beatrice is a 65 year old female with T2DM who presents to the hospital for R femoral endarterectomy * AM glucose today around 0700 was 292, above goal range * Patient received 15 units of IV insulin and came down to 113 at 0900 * Glucose at 1230 this afternoon was 338 * Patient received another 15 units of IV insulin and 30 minutes later was still elevated at 326 * Will need to follow up with 1630 glucose value to see how the second 15 units of IV insulin affected the BSG * Given patient already got 30 units of IV insulin, gave insulin glargine 20 units now * Glargine scale this evening for extra coverage depending on BSGs * Insulin aspart meal coverage with stress level of 3 * T2DM diet * Stressors: recent surgery, dexamethasone 8mg IV given around 0900 09/19 PLAN FOR INPATIENT GLYCEMIC CONTROL: * Hold outpatient oral diabetes medications * Basal insulin * Lantus 15 units BID * Bolus insulin * NovoLog per scale ACHS or Q6hrs while NPO * Goal Range: Low 110 mg/dL - High 140 mg/dL * Correction Factor: 15 mg/dL/unit * Nutritional / Prandial insulin per carb ratio of 1 unit per 5 grams CHO consumed
[2025-09-21 07:15] LABS: Hematocrit (blood only) 26.6 % (37.0-47.0); Hemoglobin 9.1 g/dL (12.0-16.0); Immature Granulocytes # (auto) 0.04 K/uL (0.01-0.20); Immature Granulocytes % (auto) 0.6 %; Mean Corpuscular Hemoglobin 29.9 pg (25.0-34.0); Mean Corpuscular Volume 87.5 fL (80.0-100.0); Platelet Count 138 K/uL (130-400); RDW Standard Deviation 46.7 fL (36.4-46.3); Red Blood Count 3.04 M/uL (4.20-5.40); White Blood Count 7.11 K/ul (4.8-10.8)
[2025-09-21] MEDS: POLYETHYLENE (MIRALAX) 17 GM PACK PO PRN (08:26)
--- NOTE | 2025-09-21 13:42 | Surgery Progress Note ---
Date of Service September 21, 2025 Assessment & Plan (1) Arterial insufficiency of lower extremity: Plan: Patient POD#2 from a right femoral endart with patch and an iliac stent insertion. She is doing well. PT\OT recommends rehab. Patient should be ready tomorrow for d\c to rehab. (2) Acute blood loss as cause of postoperative anemia: Plan: VSS. Hgb stable. No current bleeding post op. Admission and Anticipated Discharge Date Admission Date: September 19, 2025 Subjective Complains of incisional pain. Denies any foot or lower leg pain. Physical Exam Constitutional: WD/WN, vitals as above Respiratory: normal respiratory effort; no respiratory distress Cardiovascular: Rate/Rhythm: regular rate and regular rhythm Extremities: no edema Skin: + incision (prevena in place) Neurologic: CN's II-XI intact bilaterally and moves all extremities Psychiatric: A+Ox3, euthymic affect Results & Data Vital Signs (Past 12 Hours) Vital Signs Temp Pulse Resp BP Pulse Ox O2 Del Method 09/21/25 08:38 36.7 C 89 18 132/83 97 Room Air
[2025-09-22 07:15] VITALS: BP 134/83; PULSE 83; RESP 17; TEMP 97.9; O2SAT 97
[2025-09-22 07:38] LABS: Hematocrit (blood only) 27.0 % (37.0-47.0); Hemoglobin 9.1 g/dL (12.0-16.0); Immature Granulocytes # (auto) 0.02 K/uL (0.01-0.20); Immature Granulocytes % (auto) 0.4 %; Mean Corpuscular Hemoglobin 30.3 pg (25.0-34.0); Mean Corpuscular Volume 90.0 fL (80.0-100.0); Platelet Count 145 K/uL (130-400); RDW Standard Deviation 47.6 fL (36.4-46.3); Red Blood Count 3.00 M/uL (4.20-5.40); White Blood Count 5.19 K/ul (4.8-10.8)
--- NOTE | 2025-09-22 09:19 | Surgery Progress Note ---
Date of Service September 22, 2025 Assessment & Plan (1) Arterial insufficiency of lower extremity: Plan: Patient POD#3 from a right femoral endart with patch and an iliac stent insertion. She is doing well post op. Using minimal pain medication. Ambulating with walker. Discussed with Dr Newton. [facility]BIGNIEW for d/c home with home health, Pt/OT. (2) Acute blood loss as cause of postoperative anemia: Plan: VSS. Hgb stable. No current bleeding post op. 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 Pt states having some pain in R groin, but none down her leg or foot. Ambulating with walker indepdently. Feeling well. No new complaints. Review of Systems Review of Systems: All systems reviewed & are unremarkable except as noted in HPI & below Physical Exam Constitutional: WD/WN, vitals as above Respiratory: normal respiratory effort; no respiratory distress Cardiovascular: Rate/Rhythm: regular rate and regular rhythm Vessels: posterior tibial pulses present and dorsalis pedis pulses present Extremities: no edema Skin: + incision (prevena in place) Neurologic: CN's II-XI intact bilaterally and moves all extremities Psychiatric: A+Ox3, euthymic affect Results & Data Vital Signs (Past 12 Hours) Vital Signs Temp Pulse Resp BP BP Pulse Ox O2 Del Method 09/22/25 07:14 36.6 C 83 17 134/83 97 Room Air 09/21/25 21:42 37 C 76 16 125/76 98 Room Air
--- NOTE | 2025-09-22 09:22 | Discharge Summary ---
Date of Service September 22, 2025 Admission HPI Per Admitting Provider Ms. Calhoun is an elderly female with right iliac artery and common femoral artery stenosis noted on recent imaging. Patient states that she has been complaining of some bilateral leg pain with ambulation, significantly worse in the right leg than the left for the past 6 months or so. She states that after walking about 10-20 steps, she has severe pain and fatigue in her right leg, and both the calf and the thigh. She is unable to determine which area starts first. After resting, she is able to ambulate again. She has had 1 or 2 episodes where both legs just "seize up" where she could not walk anymore and had to be carried or put on a cart. She denies a known history of back problems, and states that she occasionally gets some low back discomfort if she stands for long periods of time. She denies any radiation of this pain down her legs. She denies numbness or tingling in her lower extremities. She denies any nonhealing wounds or ulcerations or discoloration of the feet or toes. She does admit some occasional charley horse type cramps which occur at night. She denies headache, fever, chest pain, shortness of breath, abdominal pain, nausea, vomiting, rest pain, nonhealing wounds or ulcers, other complaints. Review of systems: A total of 14 systems are reviewed and are negative aside from what is related in her HPI Imaging: Patient did have a carotid ultrasound performed prior to today's appointment which demonstrates no significant bilateral ICA stenosis. She had an aortoiliac ultrasound performed prior to today's appointment which demonstrates a 75 to 99% stenosis of the right distal external iliac/common femoral artery, and a bilateral lower extremity arterial ultrasound which redemonstrates the stenosis in her right distal EIA/INFORMATION TECHNOLOGY SECURITY ANALYST with a right leg BLAS of 0.51. There is no other hemodynamically significant stenosis Her CT angiogram showed significant bilateral common iliac artery occlusive disease as well as a 50% left common femoral artery stenosis and a significant high-grade right common femoral artery stenosis. Current Home Meds: ARIPiprazole (Abilify Asimtufii 960 mg/3.2 mL intramuscular suspension, extended release) 960 mg IM every two months SITagliptin (SITagliptin (as phosphate) 50 mg oral tablet) 50 mg PO Daily albuterol (ProAir HFA 90 mcg/inh inhalation aerosol) 1 puff inhaled qid PRN: as needed for wheezing aspirin (aspirin 81 mg oral delayed release tablet) 81 mg PO Daily atorvastatin (atorvastatin 20 mg oral tablet) 20 mg PO qhs cholecalciferol (Vitamin D3) 5,000 UNIT PO DAILY clopidogrel (clopidogrel 75 mg oral tablet) 75 mg PO Daily diabetes supplies (FreeStyle Hemalatha 2 - 14 day sensor) test BID, Dx :E11.9 diabetes supplies (FreeStyle Hemalatha 2 - 14 day reader) test BID, Dx: E11.9 diabetes supplies (FreeStyle Lite Glucose Monitor) Test once dialy diabetes supplies (FreeStyle Lite Test Strips 100 ct) Test once daily diabetes supplies (FreeStyle (28G) Lancets) Test once daily diabetes supplies (FreeStyle Test Strips 100 ct) Test BIDDx: E11.9 diabetes supplies (FreeStyle (28G) Lancets) test BIDDx: E11.9 diabetes supplies (glucometer) Free styleTest BIDDx: E11.9 diabetes supplies (FreeStyle Test Strip 50 ct) Test every morning before morning meal. diabetes supplies (Contour Test Strips 50 ct) Use for glucose monitoring in the AM. diabetes supplies (FreeStyle (28G) Lancets) Test glucose in AM and record. divalproex sodium 500 mg PO bid docusate (Colace 50 mg oral capsule) 50 mg PO bid PRN: as needed for constipation famotidine (famotidine 20 mg oral tablet) TAKE ONE TABLET BY MOUTH ONCE DAILY FOR HEARTBURN levothyroxine (levothyroxine 50 mcg (0.05 mg) oral tablet) 1 tab PO Daily *HYPOTHYROIDISM*. loratadine (loratadine 10 mg oral tablet) 1 tab PO Daily *ALLERGIES* magnesium oxide (Mag-Ox 400 oral tablet) 400 mg PO bid melatonin (Melatonin) 3MG tAKE ON TABLET BY MOUTH DAILY AT BEDTIME metoprolol (metoprolol tartrate 25 mg oral tablet) 12.5 mg PO bid multivitamin (Daily Han oral tablet) 1 tab PO Daily *SUPPLEMENT*. nystatin topical (nystatin 100,000 units/g topical cream) 1 appl topical bid terconazole topical (terconazole 0.4% vaginal cream) apply externally qhs unlisted medication (ONE TOUCH ULTRA TEST STRIPS) USE TO TEST BLOOD SUGAR ONCE DAILY IN THE AM FOR DM TEST BLOOD SUGAR THREE TIMES DAILY NEEDED FOR D/D HYPO-HYPERGLYCEMIA unlisted medication (NOVOFINE AUTOCOVER 30G NEEDLE) USE ONCE DAILY IN THE AM Allergies and Sensitivities: LaMICtal(rash) ziprasidone(unknown) trifluoperazine(unknown) Sulfanilamide(unknown) pseudoephedrine(unknown) clonazePAM(unknown) EUGENIO inhibitors(unknown) sulfa drugs(anaphylaxis) penicillin(anaphylaxis) lithium(muscle weakness, incontinence) Past Medical History: Problems: Peripheral arterial disease Claudication Borderline hyperlipidemia Accelerated hypertension Aortoiliac occlusive disease Peripheral vascular disease Urge incontinence Bilateral hearing loss Ambulatory dysfunction Hyponatremia Hypercholesteremia Type 2 diabetes, HbA1c goal < 7% Chronic disorganized schizophrenia Chronic diarrhea Other cerebrovascular disease Living accommodation issues Benign essential hypertension Hypomagnesemia Ankle edema Adult hypothyroidism Daily urinary incontinence Chronic bipolar disorder Constipation, chronic Anxious depression Surgical history: Positive for EGD, colonoscopy, LEEP, tubal ligation Family history: Positive for heart failure in her mother, lung cancer in her father Social history: Positive for a past history of cigarette smoking, having smoked for 40 years and quit in 2019. She denies alcohol or illicit drug use. She does have a home health aide which accompanies her to visits, as well as a social worker clinical due to her history of schizophrenia OBJECTIVE Vitals: 130/80 Right Arm 124/78 Left Arm 78 97 64 98 77.7 height 171 weight Standing Scale Physical Exam Constitutional: In general patient is a healthy-appearing well-nourished well-de veloped elderly female in no distress. She is alert and oriented without any focal deficits. She does have some mild flight of ideas and is simplistic understanding of her medical care. She does ambulate with a 4 pronged cane. She is in the office with her social worker clinical and her home health aide. Her carotids do not demonstrate a bruit. Her heart is regular, lungs are decreased but clear. Radial pulses are +3. Abdomen is soft and nontender with normoactive bowel sounds in all 4 quadrants. Left femoral pulse is +3, right femoral pulse is nonpalpable. Left DP and PT pulses are +1. Right DP and PT pulses are nonpalpable. She has brisk capillary refill to the toes and no sign of ischemia. There are no ulcerations. ASSESSMENT: _ PLAN: _ 1 ) _aortoiliac stenosis Patient appears to have a distal external iliac artery versus proximal common femoral artery stenosis, with a right leg BLAS of 0.51. She does have symptoms of right thigh and calf claudication at a short distance. She has some discomfort in the left leg but it is very mild compared to her right. Due to the symptoms that she is experiencing as well as the location of her stenosis, we recommend a right common femoral artery endarterectomy followed by bilateral iliac stenting. I have discussed the risks options and benefits of the procedure with the patient. The patient understands the risks options and benefits and agrees to the procedure. Admission Exam Per Admitting Provider Constitutional: In general patient is a healthy-appearing well-nourished well- developed elderly female in no distress. She is alert and oriented without any focal deficits. She does have some mild flight of ideas and is simplistic understanding of her medical care. She does ambulate with a 4 pronged cane. She is in the office with her social worker clinical and her home health aide. Her carotids do not demonstrate a bruit. Her heart is regular, lungs are decreased but clear. Radial pulses are +3. Abdomen is soft and nontender with normoactive bowel sounds in all 4 quadrants. Left femoral pulse is +3, right femoral pulse is nonpalpable. Left DP and PT pulses are +1. Right DP and PT pulses are nonpalpable. She has brisk capillary refill to the toes and no sign of ischemia. There are no ulcerations. Principal Diagnosis 1. s/p R INFORMATION TECHNOLOGY SECURITY ANALYST endarterectomy with bovine patch angioplasty, R iliac stent placement 2. Post op anemia - resolved 3. Aortoiliac stenosis 4. PAD Discharge Exam Constitutional WD/WN, vitals as above Respiratory normal respiratory effort; no respiratory distress Cardiovascular Rate/Rhythm: regular rate and regular rhythm Vessels: posterior tibial pulses present and dorsalis pedis pulses present Extremities: no edema Skin + incision (prevena in place) Neurologic CN's II-XI intact bilaterally and moves all extremities Psychiatric A+Ox3, euthymic affect Discharge Data Allergies Allergy/AdvReac Type Severity Reaction Status Date / Time Penicillins Allergy Severe Anaphylaxis Verified 09/19/25 07:18 Sulfa (Sulfonamide Allergy Severe Anaphylaxis Verified 09/19/25 07:18 Antibiotics) sulfanilamide Allergy Severe Anaphylaxis Verified 09/19/25 07:18 lamotrigine [From Lamictal] Allergy Intermediate Rash Verified 09/19/25 07:18 EUGENIO Inhibitors Allergy Unknown Unknown Verified 09/19/25 07:18 clonazepam Allergy Unknown Unknown Verified 09/19/25 07:18 pseudoephedrine Allergy Unknown Unknown Verified 09/19/25 07:18 trifluoperazine Allergy Unknown Unknown Verified 09/19/25 07:18 ziprasidone Allergy Unknown Unknown Verified 09/19/25 07:18 lithium AdvReac Intermediate MUSCLE Verified 09/19/25 07:18 WEAKNESS, INCONTINENCE Consultations 09/19/25 13:48 Consult Sawmill Relief Worker Routine Procedures Performed Operation Date: 09/19/25 08:00 Actual Procedures p Right Common Femoral and Superficial Endarterectomy with Patch, Right Common Iliac Artery Transluminal Angioplasty and Stent(Not Applicable) - Kevin Newton MD Ordered Studies 09/19/25 08:16 EV angio LE RT Routine Hospital Course (1) Arterial insufficiency of lower extremity: Patient POD#3 from a right femoral endart with patch and an iliac stent insertion. She is doing well post op. Using minimal pain medication. Ambulating with walker. Discussed with Dr Newton. OK for d/c home with home health, Pt/OT. (2) Acute blood loss as cause of postoperative anemia: VSS. Hgb stable. No current bleeding post op. Total Time Total Time Spent Total Time Spent (In Minutes): 0 Discharge Plan Discharge Items Patient Disposition: Home - Home Health Services Reason For Visit: Right Common Femoral Artery Stenosis and Bilatera Discharge Diagnosis: 1. s/p R INFORMATION TECHNOLOGY SECURITY ANALYST endarterectomy with bovine patch angioplasty and R iliac artery stent 2. aortoiliac stenosis 3. PAD Condition on Discharge: Good Activity: Per Instructions section Lifting: No more than 10 pounds Lifting Comment: No more than 10 lbs x 6 weeks Bathing Comment: May shower after dressing removed, approx 1 week. NO SOAKING BATHS x 6 wks. Exercise Comment: Ambulate for exercise as tolerated. Weightbearing: Full weightbearing Non-emergency contact: Primary Care Provider and Surgeon Call non-emergency contact if: you have any medication questions, your symptoms worsen, your pain is not controlled, your pain is concerning for you, you have a fever, your wound has increased redness and your wound has increased drainage Follow-up/Referrals: Aleshia Ramirez MD [Primary Care Provider] - (Follow up with PCP within 2 weeks) Kevin Newton MD [Physician] - (Follow up with Dr Newton or Sariah Velazquez PA-C, in 2 weeks for staple removal) Diet: Carb Consistent or DM2 and Heart Healthy Addtl Attending Provider Instructions: ACTIVITY RECOMMENDATIONS: See Above SPECIAL CARE INSTRUCTIONS: 1. Your Right groin has a Prevena incision wound vac in place. When the battery dies in the machine (in approx 1 week), you may remove the entire dressing and machine and place in garbage. Call Dr Newton's office if you have questions. 2. Dry dressing to R groin if there is any drainage after the wound vac removal. If no drainage, no dressing required. Call your doctor if: * Temperature above 101 degrees * Pain not relieved by pain medicine ordered * There is increased drainage or redness from any incision * You have any unanswered questions or concerns. Pending Studies at Discharge: No Stand-Alone Forms: [facility] [email or web address], Smoking Cessation Medications and DC Order Prescriptions: New oxycodone-acetaminophen [Percocet] 5-325 mg Tablet 1 tab PO Q6H PRN (Reason: pain) Qty: 20 0RF Continued famotidine 20 mg tablet 20 mg PO HS Qty: 30 5RF levothyroxine 50 mcg tablet 50 mcg PO QAM loratadine 10 mg tablet 10 mg PO QAM multivitamin with folic acid [Daily-Han (with folic acid)] 400 mcg tablet 1 tab PO QAM divalproex 500 mg tablet extended release 24 hr 500 mg PO BID cholecalciferol (vitamin D3) [Vitamin D3] 125 mcg (5,000 unit) Tablet 125 mcg PO QAM Hold Instructions: hold this until discussed with primary care in follow up magnesium oxide 400 mg (241.3 mg magnesium) Tablet 400 mg PO BID Qty: 60 0RF Rx Instructions: PER PT "TOOK 4 TABLETS TO DAY D/T LEG CRAMPS". docusate sodium 100 mg Capsule 100 mg PO BID PRN (Reason: Constipation) albuterol sulfate 90 mcg/actuation Hfa Aerosol Inhaler 1 puff INHALATION QID PRN (Reason: Wheezing) Januvia 100 mg tablet 100 mg PO QAM Rx Instructions: PER EXT MED HX FILLED 08/10/25 Ozempic 0.25 mg or 0.5 mg (2 mg/3 mL) pen injector 0.25 mg SUBCUT WK Rx Instructions: Wednesdays Asimtufii 960 mg/3.2 mL suspension,extended rel syring 960 mg IM .[id number] Patient Comments: received 09/11/25 Rx Instructions: DUE 09/12/25 aspirin 81 mg Tablet,Delayed Release (Dr/Ec) 81 mg PO QAM atorvastatin 80 mg tablet 80 mg PO HS clopidogrel [Plavix] 75 mg tablet 75 mg PO QAM (DME) pen needle, diabetic [Pen Needle] 32 gauge x 5/32" needle See Rx Instructions .Route Qty: 100 0RF Rx Instructions: to be used for insulin admin. 1x per day amlodipine 5 mg Tablet 5 mg PO QAM Qty: 30 0RF diphenhydramine HCl [Benadryl] 25 mg Capsule 50 mg PO BID metoprolol succinate 25 mg tablet extended release 24 hr 25 mg PO QAM Discharge Orders: Discharge Order (Routine); Ordered 09/22/25 Ordered By: Sariah Velazquez Admission Data Admit Date/Time: 09/19/25 07:35 Attending Provider: Kevin Newton Admit Provider: Kevin Newton Primary Care Provider: Aleshia Ramirez Other Providers: [facility],Home [facility]; Edgar Eckert; Leif Jimenes; Chad Reyes; Zach Cotto; Tyshawn Lawrence; Paulette High; Ronaldo Davila; Malik Wilkerson; Mary Peter; Garfield Vee; Victoria Brady
[2025-09-22] MEDS ORDERED: LANTUS PER UNIT CHARGE SC SCH (21:00)
== END 2025-09-22 16:30 | disposition home health service (06) | DRG 253 ==
LOC: ASU 06:29 → 1E 07:35 → 3N 09-20 17:11
DX: I10 Essential (primary) hypertension; E11.65 Type 2 diabetes mellitus with hyperglycemia; Z79.82 Long term (current) use of aspirin; Z79.85 Long-term (current) use of injectable non-insulin antidiabetic drugs; F20.1 Disorganized schizophrenia; E78.5 Hyperlipidemia, unspecified; F31.9 Bipolar disorder, unspecified; Z88.2 Allergy status to sulfonamides; Z79.890 Hormone replacement therapy; Z88.0 Allergy status to penicillin; I70.211 Atherosclerosis of native arteries of extremities with intermittent claudication, right leg; D62 Acute posthemorrhagic anemia; E03.9 Hypothyroidism, unspecified; I70.0 Atherosclerosis of aorta; I70.8 Atherosclerosis of other arteries; Z87.891 Personal history of nicotine dependence; E11.51 Type 2 diabetes mellitus with diabetic peripheral angiopathy without gangrene

== ENCOUNTER 2025-09-23 13:12 | Inpatient (IN) ==
--- NOTE | 2025-09-23 13:44 | Emergency Department Note ---
Impression & Plan Encounter for management of wound VAC, Ambulatory dysfunction ED Provider Note NAME: AMPARO PERKINS AGE: 65 SEX: F : 1960 ARRIVES VIA: Ambulance INFORMANT: Patient, ED PROVIDER(S): Ray Ramsey MD CHIEF COMPLAINT: Wound VAC assessment HPI: This is 65-year-old female presenting for wound VAC evaluation. Patient was discharged yesterday after having a right femoral graft done by Dr. Newton, vascular surgery. She was discharged home. She that she is having trouble with ambulation at home as well as help. She talk to her to have more help at home but feel that she is having issues. She reports a new sound to her wound VAC like there is an air. She thinks that there may be a tear to this area. She reports no new or worsening leg pain, swelling or redness. ROS: See above HPI for pertinent positives & negatives. A total of 10 systems reviewed and were otherwise negative. PAST MEDICAL HISTORY: See Below PAST SURGICAL HISTORY: See Below FAMILY HISTORY: See Below SOCIAL HISTORY: See Below HOME MEDICATIONS: See Below ALLERGIES: See Below VITALS: See Below PHYSICAL EXAMINATION: General: resting comfortably in no acute distress Head: Normocephalic and atraumatic Eyes: Normal inspection, extraocular muscles intact Ear, nose, throat: Normal external exam Neck: Normal range of motion Respiratory: lungs clear to auscultation bilaterally Cardiovascular: Regular rate/rhythm, no murmur GI: Right groin wound VAC in place, likely tear to the dressing, with a soft nontender abdomen Extremities: nontender, moves all extremities, palpable pulses distally to bilateral lower extremities, well-perfused Neuro: The patient awake and alert, appropriately conversive, no focal deficits, symmetric faces Skin: Warm, dry, and intact MEDICAL DECISION MAKING: This 65-year-old female presenting for wound VAC evaluation. Will replace the wound VAC. Otherwise patient does endorse difficulty with home ambulation and care. - Bloodwork is reviewed showing no significant leukocytosis, anemia, electrolyte or creatinine abnormality. No significant change since yesterday - Will have nurse replace wound VAC. At this time with patient's having difficulty with ambulation at home as well as home care, will admit for PT, OT and possible placement Differential diagnosis: Wound infection, wound VAC malfunction, amatory dysfunction Diagnostics interpreted by me: ECG: None Cardiac Monitoring: An order was placed for continuous cardiac monitoring. The monitor shows a rate of 74 with sinus rhythm. Past Med/Surg History Problem List (Updated 09/24/25 @ 06:30 by Ray Ramsey MD) Ambulatory dysfunction (Acute) Encounter for management of wound VAC (Acute) Rectal bleeding Physical deconditioning Ambulatory dysfunction Acute blood loss as cause of postoperative anemia Acute anemia Arterial insufficiency of lower extremity (Acute) Hypomagnesemia (Acute) Numbness and tingling of right leg (Acute) Acute leg pain (Acute) Hypertension (Acute) Acute dehydration (Acute) Hypomagnesemia (Acute) Acute hyperglycemia (Acute) Hypercalcemia due to a drug Delusional disorder (Acute) Hypomagnesemia (Acute) Constipation Medical History History of anesthesia reaction "during tubal ligation woke up shelter through procedure" Hx of esophageal ulcer 2023 History of asthma PAD (peripheral artery disease) 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 Bipolar disorder Anemia hx Unspecified psychosis not due to a substance or known physiological condition hx Psychiatric illness GERD (gastroesophageal reflux disease) Hx of respiratory syncytial virus infection pt denies Hypomagnesemia Manic episode hx Disorganized schizophrenia Insomnia hx Generalized weakness "numbness not weakness rt leg" Hypertension Hyperlipidemia Hypothyroidism Diabetes mellitus, type 2 Chronic kidney disease hx, "no longer has since stopping lithium" Surgical History Hx of cardiac cath (08/29/25) [facility], no stents; f/u edgar garcia cardio History of bilateral tubal ligation History of esophagogastroduodenoscopy (EGD) Hx of colonoscopy Hx of bilateral cataract extraction Hx of tooth extraction all teeth pulled Social History Smoking Status: Unknown if ever smoked Tobacco Type: Cigarettes Second Hand Exposure: Yes (hx); Do You Dip or Chew Tobacco: No; Hx Alcohol Use: No Hx Substance Use: No Preferred Language: German Communication Ability: Effective Duplicator Punch Operator Required: No Beliefs That Will Affect Care: None Current Living Situation: Alone Current Living Situation Comment: Independent Housing at [facility] Feels Safe at Home: Yes Safety Concerns: Feels Safe At This Time Assistive Devices: Walker Allergies Allergies Allergy/AdvReac Type Severity Reaction Status Date / Time Penicillins Allergy Severe Anaphylaxis Verified 09/19/25 07:18 Sulfa (Sulfonamide Allergy Severe Anaphylaxis Verified 09/19/25 07:18 Antibiotics) sulfanilamide Allergy Severe Anaphylaxis Verified 09/19/25 07:18 lamotrigine [From Lamictal] Allergy Intermediate Rash Verified 09/19/25 07:18 EUGENIO Inhibitors Allergy Unknown Unknown Verified 09/19/25 07:18 clonazepam Allergy Unknown Unknown Verified 09/19/25 07:18 pseudoephedrine Allergy Unknown Unknown Verified 09/19/25 07:18 trifluoperazine Allergy Unknown Unknown Verified 09/19/25 07:18 ziprasidone Allergy Unknown Unknown Verified 09/19/25 07:18 lithium AdvReac Intermediate MUSCLE Verified 09/19/25 07:18 WEAKNESS, INCONTINENCE Home Meds Home Medications Medication Instructions Recorded Confirmed divalproex 500 mg tablet,extended 500 mg PO BID 02/26/22 09/23/25 release 24 hr levothyroxine 50 mcg tablet 50 mcg PO QAM 02/26/22 09/23/25 loratadine 10 mg tablet 10 mg PO QAM 02/26/22 09/23/25 multivitamin with folic acid 400 1 tab PO QAM 02/26/22 09/23/25 mcg tablet (Daily-Han (with folic acid)) cholecalciferol (vitamin D3) 125 125 mcg PO QAM 11/19/22 09/23/25 mcg (5,000 unit) tablet (Vitamin D3) aripiprazole (2 month) 960 mg/3.2 960 mg IM .[id number] 07/10/25 09/23/25 mL susp, extended rel IM syringe (Abilify Asimtufii) aspirin 81 mg tablet,delayed 81 mg PO QAM 07/23/25 09/23/25 release atorvastatin 80 mg tablet 80 mg PO HS 07/23/25 09/23/25 clopidogrel 75 mg tablet (Plavix) 75 mg PO QAM 07/23/25 09/23/25 albuterol sulfate 90 mcg/actuation 1 puff inhalation QID PRN Wheezing 08/26/25 09/23/25 aerosol inhaler docusate sodium 100 mg capsule 100 mg PO BID PRN Constipation 08/26/25 09/23/25 semaglutide 0.25 mg or 0.5 mg (2 0.25 mg subcut WK 08/26/25 09/23/25 mg/3 mL) subcutaneous pen injector (Ozempic) sitagliptin phosphate 100 mg 100 mg PO QAM 08/26/25 09/23/25 tablet (Januvia) diphenhydramine HCl 25 mg capsule 50 mg PO BID 09/13/25 09/23/25 (Benadryl) metoprolol succinate 25 mg 25 mg PO QAM 09/13/25 09/23/25 tablet,extended release 24 hr Previous Rx's Medication Instructions Recorded famotidine 20 mg tablet 20 mg PO HS #30 tabs 08/12/24 magnesium oxide 400 mg (241.3 mg 400 mg PO BID #60 tabs 12/17/24 magnesium) tablet pen needle, diabetic 32 gauge x #100 ea 07/25/25" (Pen Needle) amlodipine 5 mg tablet 5 mg PO QAM #30 tabs 09/04/25 oxycodone-acetaminophen 5 mg-325 1 tab PO Q6H PRN pain #20 tabs 09/22/25 mg tablet (Percocet) Results & Data (ED) Vital Signs Vital Signs - 24 hr 09/23/25 13:01 09/23/25 13:28 09/23/25 15:22 Temperature 36.5 C Temperature Source Oral Pulse Rate 83 90 Pulse Rate [Apical] 84 Pulse Rhythm [Apical] Regular Pulse Strength [Apical] Normal Respiratory Rate 19 16 Respiratory Effort / Characteristics Non-Labored Spontaneous Non-Labored Spontaneous Respiratory Depth Normal Normal Respiratory Pattern Regular Blood Pressure 185/87 H Blood Pressure [Left Arm] 200/118 H Blood Pressure Mean 119 Blood Pressure Mean [Left Arm] 145 Pulse Oximetry 93 97 Oxygen Delivery Method Room Air Room Air Sepsis Recent Fever Within 48 Hours No Sepsis New/Unexplained Change in Mental Status No Sepsis Action Taken by Nursing No Action Required Laboratory Data 09/24/25 05:39 09/23/25 14:33 Lab Results 09/23/25 09/23/25 09/23/25 Range/Units 13:27 14:07 14:33 WBC Cancelled 5.90 RBC Cancelled 3.21 L Hgb Cancelled 9.7 L Hct Cancelled 29.3 L MCV Cancelled 91.3 MCH Cancelled 30.2 MCHC Cancelled 33.1 RDW Std Deviation Cancelled 46.3 RDW Coeff of Kp Cancelled 13.9 Plt Count Cancelled 155 MPV Cancelled 10.7 Immature Gran % (Auto) Cancelled 0.5 Neut % (Auto) Cancelled 53.6 Lymph % (Auto) Cancelled 28.8 Hickman % (Auto) Cancelled 14.4 Eos % (Auto) Cancelled 2.0 Baso % (Auto) Cancelled 0.7 Neut # (Auto) Cancelled 3.16 Lymph # (Auto) Cancelled 1.70 Hickman # (Auto) Cancelled 0.85 H Eos # (Auto) Cancelled 0.12 Baso # (Auto) Cancelled 0.04 Immature Gran # (Auto) Cancelled 0.03 Absolute Nucleated RBC Cancelled Nucleated RBC % (auto) Cancelled Neutrophils % (Manual) Cancelled Band Neutrophils % Cancelled Lymphocytes % (Manual) Cancelled Prolymphocyte % Cancelled Reactive Lymphs % (Man) Cancelled Monocytes % (Manual) Cancelled Eosinophils % (Manual) Cancelled Basophils % (Manual) Cancelled Metamyelocytes % (Man) Cancelled Myelocytes % (Man) Cancelled Promyelocytes % (Man) Cancelled Blast Cells % (Manual) Cancelled Plasma Cell % (Manual) Cancelled Other Cells % Cancelled Nucleated RBC % Cancelled Neutrophils # (Manual) Cancelled Band Neutrophils # Cancelled Total Absolute Neuts Cancelled Lymphocytes # (Manual) Cancelled Prolymphocyte # Cancelled Reactive Lymphs # Cancelled Total Abs Lymphocytes Cancelled Monocytes # (Manual) Cancelled Eosinophils # (Manual) Cancelled Basophils # (Manual) Cancelled Metamyelocytes # (Man) Cancelled Myelocytes # (Manual) Cancelled Promyelocytes # (Man) Cancelled Blast Cells # (Man) Cancelled Plasma Cell # (Manual) Cancelled Other Cells # Cancelled Nucleated RBCs # (Man) Cancelled Hypersegmented Neuts Cancelled Hyposegmented Neuts Cancelled Hypogranular Neuts Cancelled Large Granular Lymphs Cancelled # Lrg Granular Lymphs Cancelled Hairy Cells Cancelled Smudge Cells Cancelled Toxic Granulation Cancelled Toxic Vacuolation Cancelled Dohle Bodies Cancelled Desean Rods Cancelled Platelet Estimate Cancelled Hypogranular Platelets Cancelled Giant Platelets Cancelled Platelet Satelliting Cancelled RBC Morphology Cancelled Polychromasia Cancelled Hypochromasia Cancelled Poikilocytosis Cancelled Basophilic Stippling Cancelled Anisocytosis Cancelled Microcytosis Cancelled Macrocytosis Cancelled Spherocytes Cancelled Pappenheimer Bodies Cancelled Sickle Cells Cancelled Target Cells Cancelled Tear Drop Cells Cancelled Ovalocytes Cancelled Stomatocytes Cancelled [place] Bodies Cancelled Echinocytes Cancelled Acanthocytes (Spur) Cancelled Rouleaux Cancelled RBC Agglutinates Cancelled Schistocytes Cancelled Sezary Cell Cancelled Sodium 139 (136-145) mmol/L Potassium TNP 4.3 Chloride 105 (98-107) mmol/L Carbon Dioxide 26 (21-32) mmol/L Anion Gap 8 (3-11) BUN 19 (6-23) mg/dl Creatinine 1.38 H (0.6-1.2) mg/dl Est Cr Clr Drug Dosing 39.7 ml/min eGFR 41.95 BUN/Creatinine Ratio 13.8 (10-20) Glucose 271 H (70-99(Fasting)) mg/dl Calcium 9.5 (8.6-10.3) mg/dl Total Bilirubin 0.5 (0.2-1.0) mg/dl AST TNP 17 ALT 12 (7-52) U/L Alkaline Phosphatase 129 H (34-104) U/L Total Protein 6.1 (6.0-8.3) gm/dl Albumin 3.4 (3.4-5.0) gm/dl Globulin 2.7 (2.5-4.0) gm/dl Albumin/Globulin Ratio 1.3 (0.9-2) Lipase 17 (11-82) U/L Blood Parasites ID Cancelled Administered Medications Acetaminophen (Acetaminophen 325 Mg Tab) 650 mg PO Q4H PRN PRN Reason: pain/fever Stop: 10/23/25 15:24 Last Admin: 09/24/25 05:46 Dose: 650 mg Documented By: Admin: 09/23/25 20:37 Dose: 650 mg Documented By: JUANITO Atorvastatin Calcium (Atorvastatin 40 Mg Tab) 80 mg PO HS [facility] Stop: 10/23/25 20:59 Last Admin: 09/23/25 20:33 Dose: 80 mg Documented By: JUANITO Divalproex Sodium (Divalproex Extended Release 500 Mg Tab) 500 mg PO BID RADHA Stop: 10/23/25 20:59 Last Admin: 09/23/25 20:34 Dose: 500 mg Documented By: JUANITO Famotidine (Famotidine 20 Mg Tab) 20 mg PO HS [facility] Stop: 10/23/25 20:59 Last Admin: 09/23/25 20:34 Dose: 20 mg Documented By: JUANITO Insulin Aspart (Insulin Aspart Per Unit Charge) 0 units SC ACHS RADHA Stop: 10/23/25 17:29 Last Admin: 09/23/25 20:42 Dose: 3 units Documented By: JUANITO Co-signed By: SKYLER Admin: 09/23/25 18:31 Dose: 7 units Documented By: yaw Co-signed By: philippe Levothyroxine Sodium (Levothyroxine Sodium 50 Mcg Tablet) 50 mcg PO DAILYBB [facility] Stop: 10/24/25 06:29 Last Admin: 09/24/25 05:47 Dose: 50 mcg Documented By: JUANITO Magnesium Hydroxide (Magnesium Hydroxide Susp 30 Ml Udc) 30 ml PO Q6H PRN PRN Reason: Constipation Stop: 10/23/25 15:24 Last Admin: 09/23/25 20:37 Dose: 30 ml Documented By: JUANITO Magnesium Oxide (Magnesium Oxide 400 Mg Tab) 400 mg PO BID [facility] Stop: 10/23/25 17:03 Last Admin: 09/23/25 20:33 Dose: 400 mg Documented By: Admin: 09/23/25 18:27 Dose: 400 mg Documented By: yaw Discontinued Medications Lactated Ringer's (Lr) 1,000 mls @ 80 mls/hr IV .[id number] ONE Stop: 09/24/25 04:17 Last Infusion: 09/24/25 04:31 Dose: Infused Documented By: Admin: 09/23/25 16:16 Dose: 80 mls/hr Documented By: chepe Insulin Glargine (Lantus Per Unit Charge) 20 units SC NOW ONE Stop: 09/23/25 17:31 Last Admin: 09/23/25 18:30 Dose: 20 units Documented By: yaw Co-signed By: philippe Discharge Plan Visit Data Chief Complaint: Wound Recheck Stated Complaint: wound dressing change ED Provider: Ray Ramsey Discharge Problem: Encounter for management of wound VAC, Ambulatory dysfunction Patient Disposition: Admitted As Inpatient Condition: Fair Discharge Instructions Interventions: ED Discharge Assessment Last Done: 09/23/25 16:35
[2025-09-23 14:21] LABS: Alanine Aminotransferase 12 U/L (7-52); Albumin Globulin Ratio 1.3 (0.9-2); Albumin Level 3.4 gm/dl (3.4-5.0); Alkaline Phosphatase 129 U/L (34-104); Anion Gap 8 (3-11); Bilirubin,Total 0.5 mg/dl (0.2-1.0); Blood Urea Nitrogen 19 mg/dl (6-23); Calcium 9.5 mg/dl (8.6-10.3); Carbon Dioxide 26 mmol/L (21-32); Chloride 105 mmol/L (98-107); Creatinine Clr Calc Pharmacy 39.7 ml/min; Globulin 2.7 gm/dl (2.5-4.0); Glucose 271 mg/dl (70-99(Fasting)); Lipase 17 U/L (11-82); Sodium 139 mmol/L (136-145); Total Protein 6.1 gm/dl (6.0-8.3)
[2025-09-23 14:33] LABS: Hematocrit (blood only) 29.3 % (37.0-47.0); Hemoglobin 9.7 g/dL (12.0-16.0); Immature Granulocytes # (auto) 0.03 K/uL (0.01-0.20); Immature Granulocytes % (auto) 0.5 %; Mean Corpuscular Hemoglobin 30.2 pg (25.0-34.0); Mean Corpuscular Volume 91.3 fL (80.0-100.0); Platelet Count 155 K/uL (130-400); RDW Standard Deviation 46.3 fL (36.4-46.3); Red Blood Count 3.21 M/uL (4.20-5.40); White Blood Count 5.90 K/ul (4.8-10.8)
[2025-09-23 15:10] LABS: Potassium 4.3 mmol/L (3.5-5.1)
[2025-09-23] MEDS ORDERED: ONDANSETRON INJ 2 MG/ML 2 ML VIAL IV PRN (15:25)
[2025-09-23] MEDS ORDERED: POLYETHYLENE (MIRALAX) 17 GM PACK PO PRN (15:25)
[2025-09-23] MEDS ORDERED: ALUMINUM/MAGNESIUM SUSP 30 ML UDC PO PRN (15:25)
[2025-09-23] MEDS: LACTATED RINGER'S 1,000 ML IV ONE (16:16)
[2025-09-23] MEDS ORDERED: GLUCAGON FOR INJ 1 MG VIAL SQ PRN (16:41)
[2025-09-23] MEDS ORDERED: GLUCOSE 10 TAB/TUBE PO PRN (16:41)
[2025-09-23] MEDS ORDERED: PHARMACY GLYCEMIC MGMT CONSULT PRN (16:41)
[2025-09-23] MEDS ORDERED: GLUCOSE 40% GEL 15 GM TUBE PO PRN (16:41)
[2025-09-23] MEDS ORDERED: DEXTROSE 50% 50 ML SYRINGE IV PRN (16:41)
[2025-09-23] MEDS ORDERED: CARBOHYDRATES FOR HYPOGLYCEMIA PO PRN (16:41)
[2025-09-23] MEDS ORDERED: ALBUTEROL HFA 8 GM INHALER INH PRN (16:53)
--- NOTE | 2025-09-23 17:24 | History & Physical Report ---
<Statement entered by Indy Isaac MD - 09/23/25 18:49> I have reviewed vital signs, chart notes, labs and imaging. I have personally seen, evaluated and examined the patient. I have also discussed the management of the patient with the TJ and I agree with the exam findings documented in the history and physical examination and the documented assessment and plan unless otherwise stated below. Date of Service September 23, 2025 Assessment & Plan (1) Ambulatory dysfunction: (2) Physical deconditioning: (3) Arterial insufficiency of lower extremity: (4) Hypertension: (5) Bipolar disorder: (6) Type 2 diabetes mellitus with hyperglycemia: (7) VIDA (acute kidney injury): (8) PAD (peripheral artery disease): (9) Rectal bleeding: Plan Patient is a 65-year-old female with past medical history significant for peripheral arterial disease, hypertension, type 2 diabetes, bipolar disorder. She was recently admitted to [facility] on 09/19/2025 for worsening bilateral leg pain with ambulation in the setting of right iliac artery and common femoral artery stenosis. She underwent right femoral endart with stenting on 09/19/25. She was discharged from [facility] on 09/22/25 with plans for PT/OT home health and close follow with personal medical case manager. Presented to [facility] ED via EMS with c/o right Prevena incisional site vac malfunctioning and inability to be strong enough at home with walking. Would like to go to SNF for conditioning. ##Ambulatory dysfunction/deconditioning admit to med/surg in setting of recent surgery-->right femoral endart with patch and an iliac stent insertion PT/OT consults ##VIDA prerenal--Cr 1.38 LR 80ml/hrX1 bag trend ##Arterial insufficiency of lower extremity/PAD s/p right femoral endart with patch and iliac stent insertion with Dr. Newton 09/19/25 cont DAPT, statin spoke with Dr. Newton->ok to leave Prevena off and apply dry dressing to right groin ##T2DM last A1c 07/24/25 11.9 on home Jardiance/Ozempic BSG ACHS with SSI coverage/long acting basal with pharm consult A1C in am ##HTN cont metoprolol, amlodipine ##hypothyroidism cont Synthroid ##rectal bleeding H/H 9/7/29.3 on arrival no melena, hematochezia on DAPT start Protonix one reported episode this post constipated stooling (when wiping rectum) with noted external hemorrhoid on exam FOBT stool last c-scope 11/30/23 (note poor prep)-->5mm polyp cecum, 4mm polyp transverse colon with path of tubular adenoma, no dysplasia/carcinoma, rec to have repeat scope in 6m as prep not adequate for colon CA screening in consideration of recent vascular surgery with intervention/stenting keep DAPT for now trend H/H ##Bi-polar d/o/schizophrenia depakote BID Abilify IM Q2 months, last had 09/12/25 DVT prophylaxis: low risk, SCDs Diet: CC, DM2 Disposition: Full admit med/surg CODE STATUS: FULL CODE History of Present Illness Chief Complaint: Wound vac not working, ambulatory dysfunction Primary Care Provider: Aleshia Ramirez MD Patient is a 65-year-old female with past medical history significant for peripheral arterial disease, hypertension, type 2 diabetes, bipolar disorder|schizophrenia. she was recently admitted to [facility] on 09/19/2025 for worsening bilateral leg pain with ambulation in the setting of right iliac artery and common femoral artery stenosis. She underwent right common femoral and superficial endarterectomy with patch, right common iliac artery transluminal angioplasty and stent with Dr. Newton on 09/19/2025. She did have an estimated 550 mL of blood loss. She received 2 units of packed red blood cells during the admission and was in the intensive care unit postoperatively. She was discharged on 09/22/2025 as she was doing well postoperatively using minimal pain medication with plan to discharge home with home health and PT/OT. She was discharged with Prevena to the right groin area for postoperative healing. Today she noticed that there was a hissing noise coming from the Prevena. She also states she has felt slightly weaker today and feels she needs inpatient rehabilitation due to having more difficulty getting around her apartment. She is taking Oxycodone for her pain which helps take the edge off. Last had a hard BM this am and reports when she wiped there was some blood on the toilet paper. Reports no clots with stooling, covered stool in blood, melena, hematochezia. She denies fever, chills, SOB. ED nursing is attempting to trouble shoot Prevena as there is noted intermittent noise coming from pump. Right groin dressing has been taken down with noted jas from surgical intervention-no bleeding, swelling/hematoma, drainage or erythema to area. After full discussion with patient she has decided to be a FULL CODE during her hospitalization. Allergies Allergy/AdvReac Type Severity Reaction Status Date / Time Penicillins Allergy Severe Anaphylaxis Verified 09/19/25 07:18 Sulfa (Sulfonamide Allergy Severe Anaphylaxis Verified 09/19/25 07:18 Antibiotics) sulfanilamide Allergy Severe Anaphylaxis Verified 09/19/25 07:18 lamotrigine [From Lamictal] Allergy Intermediate Rash Verified 09/19/25 07:18 EUGENIO Inhibitors Allergy Unknown Unknown Verified 09/19/25 07:18 clonazepam Allergy Unknown Unknown Verified 09/19/25 07:18 pseudoephedrine Allergy Unknown Unknown Verified 09/19/25 07:18 trifluoperazine Allergy Unknown Unknown Verified 09/19/25 07:18 ziprasidone Allergy Unknown Unknown Verified 09/19/25 07:18 lithium AdvReac Intermediate MUSCLE Verified 09/19/25 07:18 WEAKNESS, INCONTINENCE Home Medications Medication Instructions Recorded Confirmed Type divalproex 500 mg tablet,extended 500 mg PO BID 02/26/22 09/23/25 History release 24 hr levothyroxine 50 mcg tablet 50 mcg PO QAM 02/26/22 09/23/25 History loratadine 10 mg tablet 10 mg PO QAM 02/26/22 09/23/25 History multivitamin with folic acid 400 1 tab PO QAM 02/26/22 09/23/25 History mcg tablet (Daily-Han (with folic acid)) cholecalciferol (vitamin D3) 125 125 mcg PO QAM 11/19/22 09/23/25 History mcg (5,000 unit) tablet (Vitamin D3) famotidine 20 mg tablet 20 mg PO HS #30 tabs 08/12/24 09/23/25 Rx magnesium oxide 400 mg (241.3 mg 400 mg PO BID #60 tabs 12/17/24 09/23/25 Rx magnesium) tablet aripiprazole (2 month) 960 mg/3.2 960 mg IM .[id number] 07/10/25 09/23/25 History mL susp, extended rel IM syringe (Abilify Asimtufii) aspirin 81 mg tablet,delayed 81 mg PO QAM 07/23/25 09/23/25 History release atorvastatin 80 mg tablet 80 mg PO HS 07/23/25 09/23/25 History clopidogrel 75 mg tablet (Plavix) 75 mg PO QAM 07/23/25 09/23/25 History pen needle, diabetic 32 gauge x #100 ea 07/25/25 09/23/25 Rx 5/32" (Pen Needle) albuterol sulfate 90 mcg/actuation 1 puff inhalation QID PRN Wheezing 08/26/25 09/23/25 History aerosol inhaler docusate sodium 100 mg capsule 100 mg PO BID PRN Constipation 08/26/25 09/23/25 History semaglutide 0.25 mg or 0.5 mg (2 0.25 mg subcut WK 08/26/25 09/23/25 History mg/3 mL) subcutaneous pen injector (Ozempic) sitagliptin phosphate 100 mg 100 mg PO QAM 08/26/25 09/23/25 History tablet (Januvia) amlodipine 5 mg tablet 5 mg PO QAM #30 tabs 09/04/25 09/23/25 Rx diphenhydramine HCl 25 mg capsule 50 mg PO BID 09/13/25 09/23/25 History (Benadryl) metoprolol succinate 25 mg 25 mg PO QAM 09/13/25 09/23/25 History tablet,extended release 24 hr oxycodone-acetaminophen 5 mg-325 1 tab PO Q6H PRN pain #20 tabs 09/22/25 09/23/25 Rx mg tablet (Percocet) Past Med/Surg History Problem List (Updated 09/23/25 @ 17:33 by YOCASTA Chamberlain) Rectal bleeding Physical deconditioning Ambulatory dysfunction Acute blood loss as cause of postoperative anemia Acute anemia Arterial insufficiency of lower extremity (Acute) Hypomagnesemia (Acute) Numbness and tingling of right leg (Acute) Acute leg pain (Acute) Hypertension (Acute) Acute dehydration (Acute) Hypomagnesemia (Acute) Acute hyperglycemia (Acute) Hypercalcemia due to a drug Delusional disorder (Acute) Hypomagnesemia (Acute) Constipation Medical History History of anesthesia reaction "during tubal ligation woke up fpc through procedure" Hx of esophageal ulcer 2023 History of asthma PAD (peripheral artery disease) 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 Bipolar disorder Anemia hx Unspecified psychosis not due to a substance or known physiological condition hx Psychiatric illness GERD (gastroesophageal reflux disease) Hx of respiratory syncytial virus infection pt denies Hypomagnesemia Manic episode hx Disorganized schizophrenia Insomnia hx Generalized weakness "numbness not weakness rt leg" Hypertension Hyperlipidemia Hypothyroidism Diabetes mellitus, type 2 Chronic kidney disease hx, "no longer has since stopping lithium" Surgical History Hx of cardiac cath (08/29/25) [facility], no stents; f/u [facility] cardio History of bilateral tubal ligation History of esophagogastroduodenoscopy (EGD) Hx of colonoscopy Hx of bilateral cataract extraction Hx of tooth extraction all teeth pulled Social History Smoking Status: Former smoker Tobacco Type: Cigarettes Second Hand Exposure: Yes (hx); Do You Dip or Chew Tobacco: No; Hx Alcohol Use: Yes Alcohol type: other Hx Substance Use: No Preferred Language: Vietnamese Communication Ability: Effective Restaurant Area Director Required: No Beliefs That Will Affect Care: None Current Living Situation: Alone Current Living Situation Comment: Independent Housing at [facility] Feels Safe at Home: Yes Assistive Devices: Cane, Walker and Other Review of Systems Review of Systems: All systems reviewed & are unremarkable except as noted in Subjective Physical Exam Physical Exam: GENERAL APPEARANCE: A&O. Sitting comfortably on stretcher. NAD. SKIN: Normal color without rashes or lesions.Normal turgor. R groin incisional site without erythema, drainage, or swelling. Emmett intact. HEENT: Head AT/NC. Buccal mucosa is moist and pink. NECK: No jugular venous distention. No thyroid enlargement. There is no lymphadenopathy. HEART: RRR without m/g/r LUNGS: Normal inspiratory effort. CTA without w/r/r. ABDOMEN: No guarding or rigidity. Normoactive BS in all four quadrants. Abdomen soft and NT. Rectal: Normal spincter tone, small external hemorrhoid with no bleeding, no palpable masses. No BRBPR. MSK: No bony gross/deformities throughout. ROM intact. EXTREMITIES: No edema, No peripheral cyanosis. Neuro: CN 2-12 grossly intact. No focal neuro deficits PSYCHIATRIC: Normal affect. Eye contact is good. Speech is normal rate and content. Responses are appropriate. Results & Data Results & Data Vital Signs (Past 12 Hours) Vital Signs Temp Pulse Pulse Resp BP BP Pulse Ox 09/23/25 16:35 86 16 145/85 H 98 09/23/25 15:41 80 16 175/116 H 100 09/23/25 15:22 84 16 200/118 H 97 09/23/25 13:28 90 09/23/25 13:01 36.5 C 83 19 185/87 H 93 O2 Del Method 09/23/25 16:35 Room Air 09/23/25 15:41 Room Air 09/23/25 15:22 Room Air 09/23/25 13:28 09/23/25 13:01 Room Air Laboratory Results Labs reviewed: CBC, BMP Code Status & VTE Plan VTE Prophylaxis Plan VTE Prophylaxis will be ordered: Yes PG Care Time/CCT Total # of Minutes Spent Total Time Spent with Patient: Total time spent is greater than 50% in coordination of care (as documented) at patient's floor/unit and/or counseling patient: Coding Level of Care Code 84519 INT INP/OBS CARE 2/55MIN Diagnoses Ambulatory dysfunction R26.2 Physical deconditioning R53.81 Arterial insufficiency of lower extremity I73.9 Hypertension I10 Hypertension type: unspecified Bipolar disorder F31.9 Type 2 diabetes mellitus with hyperglycemia, without long-term current use of insulin E11.65 Diabetes mellitus mcfp insulin use: without mcfp use VIDA (acute kidney injury) N17.9 PAD (peripheral artery disease) I73.9 Rectal bleeding K62.5 (4) Hypertension Hypertension type: unspecified Qualified Code(s): I10 - Essential (primary) hypertension (6) Type 2 diabetes mellitus with hyperglycemia Diabetes mellitus mcfp insulin use: without mcfp use Qualified Code(s): E11.65 - Type 2 diabetes mellitus with hyperglycemia
--- NOTE | 2025-09-23 18:11 | Pharmacy Report ---
Pharmacy Glycemic Short Note 2 - Date of Service September 23, 2025 - Glycemic Short BSG Results (Last 24 hours): 09/23/25 09/23/25 13:27 17:33 Glucose 271 H POC Glucose 160 H OUTPATIENT ANTIDIABETIC REGIMEN: * Semaglutide * Sitagliptin * HbA1c 11.9% on 07/24/25 ASSESSMENT: * 65 yo F w T2DM and very recent admission with steroid-induced hyperglycemia after a dose of dexamethasone on 09/19. No basal insulin on 09/22 (day of discharge). Re-admitted today (09/23) for wound vac malfunction and ambulatory dysfunction. Insulin regimen now likely will need to be reduced as compared to prior now that steroids are wearing/have worn off * Will give one-time dose of Lantus for hyperglycemia this PM. Ongoing to be assessed in AM * Will initiate weight-based moderate stress Novolog PLAN FOR INPATIENT GLYCEMIC CONTROL: * Hold outpatient oral diabetes medications * Basal insulin * Lantus 20 units SQ x1 * Bolus insulin * NovoLog per scale ACHS or Q6hrs while NPO * Goal Range: Low 110 mg/dL - High 140 mg/dL * Correction Factor: 30 mg/dL/unit * Nutritional / Prandial insulin per carb ratio of 1 unit per 9 grams CHO consumed
[2025-09-23] MEDS: MAGNESIUM OXIDE 400 MG TAB PO SCH (18:27)
[2025-09-23] MEDS: LANTUS PER UNIT CHARGE SC ONE (18:30)
[2025-09-23] MEDS: INSULIN ASPART PER UNIT CHARGE SC SCH (18:31)
[2025-09-23] MEDS: ATORVASTATIN 40 MG TAB PO SCH (20:33)
[2025-09-23] MEDS: DIVALPROEX EXTENDED RELEASE 500 MG TAB PO SCH (20:34)
[2025-09-23] MEDS: FAMOTIDINE 20 MG TAB PO SCH (20:34)
[2025-09-23] MEDS: MAGNESIUM HYDROXIDE SUSP 30 ML UDC PO PRN (20:37)
[2025-09-23] MEDS: ACETAMINOPHEN 325 MG TAB PO PRN (20:37)
[2025-09-24] MEDS: LEVOTHYROXINE SODIUM 50 MCG TABLET PO SCH (05:47)
[2025-09-24 06:09] LABS: Hematocrit (blood only) 25.5 % (37.0-47.0); Hemoglobin 8.4 g/dL (12.0-16.0); Immature Granulocytes # (auto) 0.01 K/uL (0.01-0.20); Immature Granulocytes % (auto) 0.2 %; Mean Corpuscular Hemoglobin 29.6 pg (25.0-34.0); Mean Corpuscular Volume 89.8 fL (80.0-100.0); Platelet Count 165 K/uL (130-400); RDW Standard Deviation 45.8 fL (36.4-46.3); Red Blood Count 2.84 M/uL (4.20-5.40); White Blood Count 4.14 K/ul (4.8-10.8)
[2025-09-24 06:33] LABS: Anion Gap 7.0 (3-11); Blood Urea Nitrogen 17.0 mg/dl (6-23); Calcium 9.0 mg/dl (8.6-10.3); Carbon Dioxide 27.0 mmol/L (21-32); Chloride 109.0 mmol/L (98-107); Creatinine Clr Calc Pharmacy 45.3 ml/min; Glucose 101.0 mg/dl (70-99(Fasting)); Potassium 4.3 mmol/L (3.5-5.1); Sodium 143.0 mmol/L (136-145)
[2025-09-24 07:16] LABS: Hemoglobin A1C 7.7 % (4.5-5.6)
[2025-09-24] MEDS: METOPROLOL SUCC 25MG EXT REL TAB PO SCH (08:02)
[2025-09-24] MEDS: ASPIRIN 81 MG ECTAB PO SCH (08:02)
[2025-09-24] MEDS: CLOPIDOGREL BISULFATE 75 MG TAB PO SCH (08:02)
[2025-09-24] MEDS: LORATADINE 10 MG TAB PO SCH (08:03)
[2025-09-24] MEDS: POLYETHYLENE (MIRALAX) 17 GM PACK PO SCH (12:46)
--- NOTE | 2025-09-24 16:43 | Hospitalist Progress Note ---
Date of Service September 24, 2025 Assessment & Plan (1) Ambulatory dysfunction: (2) Physical deconditioning: (3) Arterial insufficiency of lower extremity: (4) Hypertension: (5) Bipolar disorder: (6) Type 2 diabetes mellitus with hyperglycemia: (7) VIDA (acute kidney injury): (8) PAD (peripheral artery disease): (9) Rectal bleeding: Plan Patient is a 65-year-old female with past medical history significant for peripheral arterial disease, hypertension, type 2 diabetes, bipolar disorder. She was recently admitted to [facility] on 09/19/2025 for worsening bilateral leg pain with ambulation in the setting of right iliac artery and common femoral artery stenosis. She underwent right femoral endart with stenting on 09/19/25. She was discharged from [facility] on 09/22/25 with plans for PT/OT home health and close follow with personal director of casework department. Presented to [facility] ED via EMS with c/o right Prevena incisional site vac malfunctioning and inability to be strong enough at home with walking. Would like to go to SNF for conditioning. ##Ambulatory dysfunction/deconditioning admit to med/surg in setting of recent surgery-->right femoral endart with patch and an iliac stent insertion PT/OT consults - rec short term rehab ##VIDA prerenal--Cr 1.38 LR 80ml/hrX1 bag -resolved, improved to 1.2 which is within her baseline ##Arterial insufficiency of lower extremity/PAD s/p right femoral endart with patch and iliac stent insertion with Dr. Newton 09/19/25 cont DAPT, statin spoke with Dr. Newton->ok to leave Prevena off and apply dry dressing to right groin -incision site doing well and no bleeding -RLE warm/wp and good pulses ##T2DM last A1c 07/24/25 11.9 on home Jardiance/Ozempic BSG ACHS with SSI coverage/long acting basal with pharm consult A1C 7.7 which is huge improvement from previous (11s) ##HTN cont metoprolol, amlodipine ##hypothyroidism cont Synthroid ##rectal bleeding H/H 06/18/.3 on arrival no melena, hematochezia on DAPT start Protonix one reported episode this post constipated stooling (when wiping rectum) with noted external hemorrhoid on exam FOBT stool last c-scope 11/30/23 (note poor prep)-->5mm polyp cecum, 4mm polyp transverse colon with path of tubular adenoma, no dysplasia/carcinoma, rec to have repeat scope in 6m as prep not adequate for colon CA screening in consideration of recent vascular surgery with intervention/stenting keep DAPT for now trend H/H -drop in Hg today but likely dilutional, recheck CBC in AM, iron studies ##Bi-polar d/o/schizophrenia depakote BID Abilify IM Q2 months, last had 09/12/25 DVT prophylaxis: low risk, SCDs Diet: CC, DM2 Disposition: Full admit med/surg CODE STATUS: FULL CODE Admission and Anticipated Discharge Date Admission Date: September 23, 2025 Subjective Feels fine except for postsurgical pain in right groin hurts when she gets up Controlled by oral pain medicines No bleeding from incision Physical Exam 2 Physical Exam: Last 24h vitals reviewed GEN: no acute distress, lying flat on HEENT: pupils equal, sclerae anicteric, moist MM RESP: normal WOB, CTAB CV: reg no mrg ABD: soft/nt/nd +BT : no howard SKIN: warm and dry, no generalized rashes EXT: RLE warm and well perfused 2+ DP pulse. R groin incision dressed, no swelling, c/d/i NEURO: AOx person, place, and situation. Face symmetric, speech normal, moves 4 ext spontaneously and equally Results & Data Results & Data Vital Signs (Past 12 Hours) Vital Signs Temp Pulse Resp BP BP Pulse Ox O2 Del Method 09/24/25 15:00 36.8 C 66 18 146/79 H 97 Room Air 09/24/25 07:55 36.8 C 64 18 118/76 94 Room Air Laboratory Results 09/24/25 05:39 09/24/25 05:39 PG Care Time/CCT Total # of Minutes Spent Total Time Spent with Patient: Total time spent is greater than 50% in coordination of care (as documented) at patient's floor/unit and/or counseling patient: Coding Level of Care Code 10390 SUB INP/OBS CARE 2/35MIN Diagnoses Ambulatory dysfunction R26.2 Physical deconditioning R53.81 Arterial insufficiency of lower extremity I73.9 Hypertension I10 Hypertension type: unspecified Bipolar disorder F31.9 Type 2 diabetes mellitus with hyperglycemia, without long-term current use of insulin E11.65 Diabetes mellitus mcc insulin use: without mcc use VIDA (acute kidney injury) N17.9 PAD (peripheral artery disease) I73.9 Rectal bleeding K62.5 (4) Hypertension Hypertension type: unspecified Qualified Code(s): I10 - Essential (primary) hypertension (6) Type 2 diabetes mellitus with hyperglycemia Diabetes mellitus mcc insulin use: without mcc use Qualified Code(s): E11.65 - Type 2 diabetes mellitus with hyperglycemia
[2025-09-24] MEDS: SENNA 8.6 MG TAB PO SCH (20:18)
[2025-09-24] MEDS: LANTUS PER UNIT CHARGE SC SCH (20:21)
[2025-09-25 06:46] LABS: Hematocrit (blood only) 27.1 % (37.0-47.0); Hemoglobin 9.1 g/dL (12.0-16.0); Mean Corpuscular Hemoglobin 30.1 pg (25.0-34.0); Mean Corpuscular Volume 89.7 fL (80.0-100.0); Platelet Count 188 K/uL (130-400); RDW Standard Deviation 45.5 fL (36.4-46.3); Red Blood Count 3.02 M/uL (4.20-5.40); White Blood Count 4.49 K/ul (4.8-10.8)
[2025-09-25 07:11] LABS: Iron 44.0 mcg/dl (35-150); Transferrin 198.0 mg/dl (200-360)
[2025-09-25 07:31] LABS: Ferritin 60.2 ng/ml (8-388)
--- NOTE | 2025-09-25 14:02 | Pharmacy Report ---
Pharmacy Glycemic Short Note 2 - Date of Service September 25, 2025 - Glycemic Short BSG Results (Last 24 hours): 09/24/25 09/24/25 09/25/25 16:47 20:03 07:49 POC Glucose 130 H 162 H 143 H 09/25/25 11:50 POC Glucose 168 H OUTPATIENT ANTIDIABETIC REGIMEN: * Semaglutide * Sitagliptin * HbA1c 11.9% on 07/24/25, 7.7% 09/24/25 ASSESSMENT: 09/25 * A1c improved to 7.7% from previous. * Fasting 143 mg/dL this morning with 5 units of basal last PM, will continue with same today * BSGs have been within acceptable range (<180 mg/dL), continue with current parameters 09/23 * 65 yo F w T2DM and very recent admission with steroid-induced hyperglycemia after a dose of dexamethasone on 09/19. No basal insulin on 09/22 (day of discharge). Re-admitted today (09/23) for wound vac malfunction and ambulatory dysfunction. Insulin regimen now likely will need to be reduced as compared to prior now that steroids are wearing/have worn off * Will give one-time dose of Lantus for hyperglycemia this PM. Ongoing to be assessed in AM * Will initiate weight-based moderate stress Novolog PLAN FOR INPATIENT GLYCEMIC CONTROL: * Hold outpatient oral diabetes medications * Basal insulin * Lantus 5 units sq HS * Bolus insulin * NovoLog per scale ACHS or Q6hrs while NPO * Goal Range: Low 110 mg/dL - High 140 mg/dL * Correction Factor: 30 mg/dL/unit * Nutritional / Prandial insulin per carb ratio of 1 unit per 9 grams CHO consumed
--- NOTE | 2025-09-25 16:56 | Hospitalist Progress Note ---
Date of Service September 25, 2025 Assessment & Plan (1) Ambulatory dysfunction: (2) Physical deconditioning: (3) Arterial insufficiency of lower extremity: (4) Hypertension: (5) Bipolar disorder: (6) Type 2 diabetes mellitus with hyperglycemia: (7) VIDA (acute kidney injury): (8) PAD (peripheral artery disease): (9) Rectal bleeding: Plan Patient is a 65-year-old female with past medical history significant for peripheral arterial disease, hypertension, type 2 diabetes, bipolar disorder. 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 She underwent right femoral endart with stenting on 09/19/25. She was discharged from [facility] on 09/22/25 with plans for PT/OT home health and close follow with personal spring encaser. Ham ricki to [facility] ED via EMS with c/o right Prevena incisional site vac malfunctioning and inability to be strong enough at home with walking. Would like to go to SNF for conditioning. #Ambulatory dysfunction/deconditioning in setting of recent surgery and recent hospital discharge-->right femoral endart with patch and an iliac stent insertion PT/OT consults - rec short term rehab #VIDA prerenal--Cr 1.38. treated with IV fluids -resolved, improved to 1.2 which is within her baseline #Arterial insufficiency of lower extremity/PAD s/p right femoral endart with patch and iliac stent insertion with Dr. Newton 09/19/25 cont DAPT, statin spoke with Dr. Newton->ok to leave Prevena off and apply dry dressing to right groin -incision site doing well and no bleeding -RLE warm/wp and good pulses, exertional claudication has resolved #T2DM last A1c 07/24/25 11.9 on home Jardiance/Ozempic BSG ACHS with SSI coverage/long acting basal with pharm consult A1C 7.7 which is huge improvement from previous (11s) - reviewed blood glucoses and they are at goal today #HTN - she was quite high yesterday much improved today though still labile, continue to monitor cont metoprolol, amlodipine #hypothyroidism cont Synthroid #rectal bleeding - reports rectal blood this sounds like hemorrhoid blood and has external hemorrhoid on exam, no melena last c-scope 11/30/23 (note poor prep)-->5mm polyp cecum, 4mm polyp transverse colon with path of tubular adenoma, no dysplasia/carcinoma, rec to have repeat scope in 6m as prep not adequate for colon CA screening in consideration of recent vascular surgery with intervention/stenting keep DAPT for now trend H/H - hemoglobin was 9.1 today which is same as 48 hours ago, so yesterday's drop was spurious. No evidence of ongoing bleeding - constipation now resolved on bowel regimen, no rectal bleeding noted during this admission - I will stop the PPI because she does not usually take 1 and risks outweigh benefits #Bi-polar d/o/schizophrenia depakote BID Abilify IM Q2 months, last had 09/12/25 DVT prophylaxis: enoxaparin discussed with care coordination and acute rehab and some SNF referrals have been made Admission and Anticipated Discharge Date Admission Date: September 23, 2025 Subjective continues to have right groin postoperative pain, it is better lying flat and aggravates her when she is sitting up in a chair too long. on the plus side she is not having any calf pain or leg pain with ambulation which is definitely an improvement compared to baseline Physical Exam Physical Exam: General Appearance: Normal. Vital signs: Reviewed past 24h vital signs in EMR, unremarkable. HEENT: Within normal limits. Respiratory: Respirations nonlabored, no rhonchi rales or wheezes. Cardiovascular: Regular rate and rhythm, no murmur. Gastrointestinal: Abdomen soft NT/ND, normal active bowel tones. Extremities: warm and well perfused, no LE edema. right groin incision dressed, no swelling no strikethrough. 1+ DP pulse on right lower extremity which is warm and well-perfused Skin: Warm and dry, no rash. Neurological: AOx4, normal speech and mentation, harrison x 4. Psychiatric: Normal. Results & Data Results & Data Vital Signs (Past 12 Hours) Vital Signs Temp Pulse Pulse Resp BP BP Pulse Ox 09/25/25 14:16 36.3 C L 70 18 170/87 H 97 09/25/25 07:50 36.6 C 66 18 118/76 96 O2 Del Method 09/25/25 14:16 Room Air 09/25/25 07:50 Room Air Laboratory Results - Laboratory Studies: - Blood glucose: within target range - WBC: 4.4 - Platelets: 188 - Transferrin: 198 - Iron: 44 - Ferritin: 60 serum iron 44 PG Care Time/CCT Total # of Minutes Spent Total Time Spent with Patient: Total time spent is greater than 50% in coordination of care (as documented) at patient's floor/unit and/or counseling patient: Coding Level of Care Code 12801 SUB INP/OBS CARE 2/35MIN Diagnoses Ambulatory dysfunction R26.2 Physical deconditioning R53.81 Arterial insufficiency of lower extremity I73.9 Hypertension I10 Hypertension type: unspecified Bipolar disorder F31.9 Type 2 diabetes mellitus with hyperglycemia, without long-term current use of insulin E11.65 Diabetes mellitus local company intermodal truck driver insulin use: without local company intermodal truck driver use VIDA (acute kidney injury) N17.9 PAD (peripheral artery disease) I73.9 Rectal bleeding K62.5 (4) Hypertension Hypertension type: unspecified Qualified Code(s): I10 - Essential (primary) hypertension (6) Type 2 diabetes mellitus with hyperglycemia Diabetes mellitus senior living insulin use: without senior living use Qualified Code(s): E11.65 - Type 2 diabetes mellitus with hyperglycemia
[2025-09-25] MEDS: ENOXAPARIN INJ 40 MG/0.4 ML SYR SQ SCH (21:44)
[2025-09-25] MEDS: LANTUS PER UNIT CHARGE SC SCH (21:44)
--- NOTE | 2025-09-26 19:34 | Hospitalist Progress Note ---
Date of Service September 26, 2025 Assessment & Plan (1) Ambulatory dysfunction: (2) Physical deconditioning: (3) Arterial insufficiency of lower extremity: (4) Hypertension: (5) Bipolar disorder: (6) Type 2 diabetes mellitus with hyperglycemia: (7) VIDA (acute kidney injury): (8) PAD (peripheral artery disease): (9) Rectal bleeding: Plan Patient is a 65-year-old female with past medical history significant for peripheral arterial disease, hypertension, type 2 diabetes, bipolar disorder. She was recently admitted to 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 She underwent right femoral endart with stenting on 09/19/25. She was discharged from [facility] on 09/22/25 with plans for PT/OT home health and close follow with personal child support case officer. Presclarita ricki to [facility] ED via EMS with c/o right Prevena incisional site vac malfunctioning and inability to be strong enough at home with walking. Would like to go to SNF for conditioning. #Ambulatory dysfunction/deconditioning in setting of recent surgery and recent hospital discharge-->right femoral endarterectomy by Dr. Newton with patch and an iliac stent insertion PT/OT consults - rec short term rehab #VIDA prerenal--Cr 1.38. treated with IV fluids -resolved, improved to 1.2 which is within her baseline #Arterial insufficiency of lower extremity/PAD s/p right femoral endart with patch and iliac stent insertion with Dr. Newton 09/19/25 cont DAPT, statin spoke with Dr. Newton day of admission -->ok to leave Prevena off and apply dry dressing to right groin -incision site doing well and no bleeding -RLE warm/wp and good pulses, exertional claudication has resolved #T2DM last A1c 07/24/25 11.9 on home Jardiance/Ozempic BSG ACHS with SSI coverage/long acting basal with pharm consult A1C 7.7 which is huge improvement from previous (11s) -BG at goal past 24h #HTN - she was quite high yesterday much improved today though still labile, continue to monitor cont metoprolol, amlodipine #hypothyroidism cont Synthroid #rectal bleeding - reports rectal blood this sounds like hemorrhoid blood and has external hemorrhoid on exam, no melena last c-scope 11/30/23 (note poor prep)-->5mm polyp cecum, 4mm polyp transverse colon with path of tubular adenoma, no dysplasia/carcinoma, rec to have repeat scope in 6m as prep not adequate for colon CA screening in consideration of recent vascular surgery with intervention/stenting keep DAPT for now trend H/H - hemoglobin was 9.1 yesterday which is same as 48 hours ago, so 09/24 drop was spurious. No evidence of ongoing bleeding - ordered/reviewed iron studies and not iron deficient - constipation now resolved on bowel regimen, no rectal bleeding noted during this admission #Bi-polar d/o/schizophrenia depakote BID Abilify IM Q2 months, last had 09/12/25 DVT prophylaxis: enoxaparin discussed with care coordination and [facility] declined, referral to [facility] Admission and Anticipated Discharge Date Admission Date: September 23, 2025 Subjective R groin pain persists when sitting or when up and out of bed No bleeding at incision site Encouraged to get up OOB No shortness of breath, CP, abd pain or N/V. Finally moving bowels. Physical Exam Physical Exam: General Appearance: Normal. Vital signs: Reviewed past 24h vital signs in EMR, unremarkable. Exam unchanged 09/26 except R DP pulse stronger HEENT: Within normal limits. Respiratory: Respirations nonlabored, no rhonchi rales or wheezes. Cardiovascular: Regular rate and rhythm, no murmur. Gastrointestinal: Abdomen soft NT/ND, normal active bowel tones. Extremities: warm and well perfused, no LE edema. right groin incision dressed, no swelling no strikethrough. 2+ DP pulse on right lower extremity which is warm and well-perfused Skin: Warm and dry, no rash. Neurological: AOx4, normal speech and mentation, harrison x 4. Psychiatric: Normal. Results & Data Results & Data Vital Signs (Past 12 Hours) Vital Signs Temp Pulse Resp BP Pulse Ox O2 Del Method 09/26/25 14:32 36.7 C 70 17 145/78 H 98 Room Air 09/26/25 08:48 Room Air PG Care Time/CCT Total # of Minutes Spent Total Time Spent with Patient: Total time spent is greater than 50% in coordination of care (as documented) at patient's floor/unit and/or counseling patient: Coding Level of Care Code 07632 SUB INP/OBS CARE 2/35MIN Diagnoses Ambulatory dysfunction R26.2 Physical deconditioning R53.81 Arterial insufficiency of lower extremity I73.9 Hypertension I10 Hypertension type: unspecified Bipolar disorder F31.9 Type 2 diabetes mellitus with hyperglycemia, without long-term current use of insulin E11.65 Diabetes mellitus alf insulin use: without longwall foreman use VIDA (acute kidney injury) N17.9 PAD (peripheral artery disease) I73.9 Rectal bleeding K62.5 (4) Hypertension Hypertension type: unspecified Qualified Code(s): I10 - Essential (primary) hypertension (6) Type 2 diabetes mellitus with hyperglycemia Diabetes mellitus longwall foreman insulin use: without alf use Qualified Code(s): E11.65 - Type 2 diabetes mellitus with hyperglycemia
--- NOTE | 2025-09-27 11:11 | Hospitalist Progress Note ---
Date of Service September 27, 2025 Assessment & Plan (1) Ambulatory dysfunction: (2) Physical deconditioning: (3) Arterial insufficiency of lower extremity: (4) Hypertension: (5) Bipolar disorder: (6) Type 2 diabetes mellitus with hyperglycemia: (7) VIDA (acute kidney injury): (8) PAD (peripheral artery disease): (9) Rectal bleeding: Plan Patient is a 65-year-old female with past medical history significant for peripheral arterial disease, hypertension, type 2 diabetes, bipolar disorder. 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 She underwent right femoral endart with stenting on 09/19/25. She was discharged from [facility] on 09/22/25 with plans for PT/OT home health and close follow with personal senior case manager. Presented to [facility] ED via EMS with c/o right Prevena incisional site vac malfunctioning and inability to be strong enough at home with walking. Would like to go to SNF for conditioning. #Ambulatory dysfunction/deconditioning in setting of recent surgery and recent hospital discharge-->right femoral endarterectomy by Dr. Newton with patch and an iliac stent insertion PT/OT consults - rec short term rehab #VIDA prerenal--Cr 1.38. treated with IV fluids -resolved, improved to 1.2 which is within her baseline #Arterial insufficiency of lower extremity/PAD s/p right femoral endart with patch and iliac stent insertion with Dr. Newton 09/19/25 cont DAPT, statin spoke with Dr. Newton day of admission -->ok to leave Prevena off and apply dry dressing to right groin -incision site doing well and no bleeding -RLE warm/wp and good pulses, exertional claudication has resolved #T2DM last A1c 07/24/25 11.9 on home Jardiance/Ozempic BSG ACHS with SSI coverage/long acting basal with pharm consult A1C 7.7 which is huge improvement from previous (11s) -BG is now at goal #HTN - labile, continue to monitor cont metoprolol, amlodipine #hypothyroidism Stable. Cont Synthroid #rectal bleeding - reports rectal blood this sounds like hemorrhoid blood and has external hemorrhoid on exam, no melena last c-scope 11/30/23 (note poor prep)-->5mm polyp cecum, 4mm polyp transverse colon with path of tubular adenoma, no dysplasia/carcinoma, rec to have repeat scope in 6m as prep not adequate for colon CA screening in consideration of recent vascular surgery with intervention/stenting keep DAPT for now trend H/H - hemoglobin is stable. No evidence of ongoing bleeding - ordered/reviewed iron studies and not iron deficient - constipation now resolved on bowel regimen, no rectal bleeding noted during this admission #Bi-polar d/o/schizophrenia depakote BID Abilify IM Q2 months, last had 09/12/25 #DVT prophylaxis: enoxaparin #Dis[facility]ins[facility]. Placement pending at [facility]. Admission and Anticipated Discharge Date Admission Date: September 23, 2025 Subjective Alert and oriented. No new problems. Caregivers at the bedside [id number] glucose 123 this morning. Placement at [facility] is pending. Review of Systems 2 Review of Systems: Constitutionalno fever or chills ENTno blurred vision, no double vision, no epistaxis, no sore throat Respiratoryno cough, no wheezing, no shortness of breath Cardiacno palpitations, no chest pain, no syncope Kezia nausea, vomiting, diarrhea, melena, hematochezia GUno urinary retention, no urinary incontinence, no dysuria, no hematuria Musculoskeletalno joint pain, no muscle tenderness Skinno bruising, no rashes, no pruritus Neurono isolated weakness, no paresthesia, no weakness Psychno depression, no anxiety Physical Exam 2 Physical Exam: General-alert and oriented x3, no fever, no chills HEENT-head atraumatic and normocephalic, pupils equal and reactive to light, extraocular muscles intact Neck-no lymphadenopathy or thyromegaly, trachea midline Chest-clear to auscultation. No rales, wheezing or rhonchi Cardiac-regular rate and rhythm, normal S1 and S2 Abdomen-normal bowel sounds, no hepatosplenomegaly Extremities-no cyanosis, clubbing, or edema Neuro-cranial nerves II through XII intact, motor and sensory function within normal limits, strength symmetrical, no focal deficits Psych-normal affect, normal mood Results & Data Results & Data Vital Signs (Past 12 Hours) Vital Signs Temp Pulse Pulse Resp BP Pulse Ox O2 Del Method 09/27/25 07:49 37.2 C 60 17 116/76 96 Room Air 09/27/25 07:23 36.4 C L 57 L 16 122/81 98 Room Air 09/27/25 00:08 36.8 C 69 18 114/75 95 Room Air Laboratory Results 09/25/25 06:17 09/24/25 05:39 PG Care Time/CCT Total # of Minutes Spent Total Time Spent with Patient: Total time spent is greater than 50% in coordination of care (as documented) at patient's floor/unit and/or counseling patient: Coding Level of Care Code 23142 SUB INP/OBS CARE 2/35MIN Diagnoses Ambulatory dysfunction R26.2 Physical deconditioning R53.81 Arterial insufficiency of lower extremity I73.9 Hypertension I10 Hypertension type: unspecified Bipolar disorder F31.9 Type 2 diabetes mellitus with hyperglycemia, without long-term current use of insulin E11.65 Diabetes mellitus [facility] insulin use: without long term care administrator use VIDA (acute kidney injury) N17.9 PAD (peripheral artery disease) I73.9 Rectal bleeding K62.5 (4) Hypertension Hypertension type: unspecified Qualified Code(s): I10 - Essential (primary) hypertension (6) Type 2 diabetes mellitus with hyperglycemia Diabetes mellitus long term care administrator insulin use: without [facility] use Qualified Code(s): E11.65 - Type 2 diabetes mellitus with hyperglycemia
[2025-09-28 07:39] LABS: Hematocrit (blood only) 28.1 % (37.0-47.0); Hemoglobin 9.2 g/dL (12.0-16.0); Mean Corpuscular Hemoglobin 29.6 pg (25.0-34.0); Mean Corpuscular Volume 90.4 fL (80.0-100.0); Platelet Count 213 K/uL (130-400); RDW Standard Deviation 45.5 fL (36.4-46.3); Red Blood Count 3.11 M/uL (4.20-5.40); White Blood Count 4.19 K/ul (4.8-10.8)
[2025-09-28 07:57] LABS: Immature Granulocytes # (auto) 0.03 K/uL (0.01-0.20); Immature Granulocytes % (auto) 0.7 %
[2025-09-28 08:24] LABS: Anion Gap 7.0 (3-11); Blood Urea Nitrogen 19.0 mg/dl (6-23); Calcium 9.3 mg/dl (8.6-10.3); Carbon Dioxide 26.0 mmol/L (21-32); Chloride 107.0 mmol/L (98-107); Creatinine Clr Calc Pharmacy 38.0 ml/min; Glucose 136.0 mg/dl (70-99(Fasting)); Potassium 4.4 mmol/L (3.5-5.1); Sodium 140.0 mmol/L (136-145)
--- NOTE | 2025-09-28 12:12 | Pharmacy Report ---
Pharmacy Glycemic Short Note 2 - Date of Service September 28, 2025 - Glycemic Short BSG Results (Last 24 hours): 09/27/25 09/27/25 09/28/25 16:33 20:15 07:15 Glucose 136 H POC Glucose 108 H 188 H 09/28/25 09/28/25 07:47 11:21 Glucose POC Glucose 132 H 192 H OUTPATIENT ANTIDIABETIC REGIMEN: * Semaglutide * Sitagliptin * HbA1c 11.9% on 07/24/25, 7.7% 09/24/25 ASSESSMENT: 09/28/25: * Blood sugars have been reasonably controlled over past 72 hours w/ occasional excursions > 180 mg/dL * Fasting blood sugars have been mildly elevated (132 mg/dL this morning) * Mild adjustments to insulin regimen today 09/25 * A1c improved to 7.7% from previous. * Fasting 143 mg/dL this morning with 5 units of basal last PM, will continue with same today * BSGs have been within acceptable range (<180 mg/dL), continue with current parameters 09/23 * 65 yo F w T2DM and very recent admission with steroid-induced hyperglycemia after a dose of dexamethasone on 09/19. No basal insulin on 09/22 (day of discharge). Re-admitted today (09/23) for wound vac malfunction and ambulatory dysfunction. Insulin regimen now likely will need to be reduced as compared to prior now that steroids are wearing/have worn off * Will give one-time dose of Lantus for hyperglycemia this PM. Ongoing to be assessed in AM * Will initiate weight-based moderate stress Novolog PLAN FOR INPATIENT GLYCEMIC CONTROL: * Hold outpatient oral diabetes medications * Basal insulin * Lantus 8 units SC HS * Bolus insulin * NovoLog per scale ACHS or Q6hrs while NPO * Goal Range: Low 120 mg/dL - High 150 mg/dL * Correction Factor: 30 mg/dL/unit * Nutritional / Prandial insulin per carb ratio of 1 unit per 8 grams CHO consumed
--- NOTE | 2025-09-28 16:05 | Hospitalist Progress Note ---
Date of Service September 28, 2025 Assessment & Plan (1) Ambulatory dysfunction: (2) Physical deconditioning: (3) Arterial insufficiency of lower extremity: (4) Hypertension: (5) Bipolar disorder: (6) Rectal bleeding: Plan Patient is a 65-year-old female with past medical history significant for peripheral arterial disease, hypertension, type 2 diabetes, bipolar disorder. 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 She underwent right femoral endart with stenting on 09/19/25. She was discharged from [facility] on 09/22/25 with plans for PT/OT home health and close follow with personal porter sample case. Presented to [facility] ED via EMS with c/o right Prevena incisional site vac malfunctioning and inability to be strong enough at home with walking. Would like to go to SNF for conditioning. #Ambulatory dysfunction/deconditioning - in setting of recent surgery and recent hospital discharge-->right femoral endarterectomy by Dr. Newton with patch and an iliac stent insertion - PT/OT consults - rec short term rehab. She is a one-person assist and was able to ambulate 35 feet x 2 easily fatigued with distance. 6 clicks score 17, 43% functional mobility loss. Pending p2p [facility] [phone] Opt 5 per porter sample case. On-call initially was disconnected, second call rang through with no option to leave voicemail. D id notify case management. Can reattempt in the morning, patient is also preliminarily accepted for SNF #VIDA Prerenal VIDA. Baseline creatinine around 1.21.38 Creatinine 1.44 Trend daily Hold nephrotoxins #Arterial insufficiency of lower extremity/PAD - s/p right femoral endart with patch and iliac stent insertion with Dr. Newton 09/19/25 - cont DAPT, statin -This was reviewed by Dr. Newton day of admission -->ok to leave Prevena off and apply dry dressing to right groin -incision site doing well and no bleeding -RLE warm/wp and good pulses, exertional claudication has resolved #T2DM - last A1c 07/24/25 11.9 on home Jardiance/Ozempic - BSG ACHS with SSI coverage/long acting basal with pharm consult - A1C 7.7 which is huge improvement from previous (11s) -Glycemic control while inpatient #HTN - cont metoprolol, amlodipine #hypothyroidism Stable. Cont Synthroid # History of hematochezia -Suspected hemorrhoid blood, some bright red blood per rectum. Has external hemorrhoids on prior exam. No melena last c-scope 11/30/23 (note poor prep)-->5mm polyp cecum, 4mm polyp transverse colon with path of tubular adenoma, no dysplasia/carcinoma, rec to have repeat scope in 6m as prep not adequate for colon CA screening in consideration of recent vascular surgery with intervention/stenting keep DAPT for now - hemoglobin is stable. No evidence of ongoing bleeding - ordered/reviewed iron studies and not iron deficient - constipation now resolved on bowel regimen, no rectal bleeding noted during this admission #Bi-polar d/o/schizophrenia depakote BID Abilify IM Q2 months, last had 09/12/25 #DVT prophylaxis: enoxaparin #Dispositioninsurance declined placement in [facility]. [facility] Admission and Anticipated Discharge Date Admission Date: September 23, 2025 Tricia Barron is seen at the bedside. She reports that she has some pain at her staple site when she moves otherwise feels well. The ischemic pain in her leg resolved after her surgery and has not recurred. She denies fever chills or sweats. She reports she does feel overall weak and has more trouble walking than normal and is waiting to hear about rehab versus SNF. No other questions or acute concerns at time bedside visit. Physical Exam Physical Exam: General: A&Ox3. NAD. Cooperative. HEENT: Atraumatic, normocephalic. Vision and hearing grossly intact. Pulm: CTAB A&P. -wheezes, -rales, -rhonchi. Symmetrical chest rise. No increase in work of breathing. No respiratory distress. Cardiac: RRR, -mrg. Radial pulses intact and symmetrical. Abdominal: Nontender, nondistended, soft. BS present. Extremities: Right femoral surgical site C/C/I jas intact no dehiscence bleeding or contusion. Lower extremities are warm well-perfused with cap refill less than 2 seconds bilaterally. Results & Data Results & Data Vital Signs (Past 12 Hours) Vital Signs Temp Pulse Resp BP Pulse Ox O2 Del Method 09/28/25 14:33 36.8 C 64 16 143/63 H 96 Room Air 09/28/25 07:56 Room Air 09/28/25 07:03 36.8 C 67 16 101/65 94 Room Air PG Care Time/CCT Total # of Minutes Spent Total Time Spent with Patient: Total time spent is greater than 50% in coordination of care (as documented) at patient's floor/unit and/or counseling patient: Coding Level of Care Code 02582 SUB INP/OBS CARE 3/50MIN Diagnoses Ambulatory dysfunction R26.2 Physical deconditioning R53.81 Arterial insufficiency of lower extremity I73.9 Hypertension I10 Hypertension type: unspecified Bipolar disorder F31.9 Rectal bleeding K62.5 (4) Hypertension Hypertension type: unspecified Qualified Code(s): I10 - Essential (primary) hypertension
[2025-09-28] MEDS: LANTUS PER UNIT CHARGE SC SCH (20:11)
[2025-09-29 07:08] LABS: Hematocrit (blood only) 28.0 % (37.0-47.0); Hemoglobin 9.3 g/dL (12.0-16.0); Mean Corpuscular Hemoglobin 30.0 pg (25.0-34.0); Mean Corpuscular Volume 90.3 fL (80.0-100.0); Platelet Count 219 K/uL (130-400); RDW Standard Deviation 45.7 fL (36.4-46.3); Red Blood Count 3.10 M/uL (4.20-5.40); White Blood Count 3.91 K/ul (4.8-10.8)
[2025-09-29 07:25] LABS: Anion Gap 7.0 (3-11); Blood Urea Nitrogen 21.0 mg/dl (6-23); Calcium 9.3 mg/dl (8.6-10.3); Carbon Dioxide 26.0 mmol/L (21-32); Chloride 107.0 mmol/L (98-107); Creatinine Clr Calc Pharmacy 37.0 ml/min; Glucose 136.0 mg/dl (70-99(Fasting)); Potassium 4.1 mmol/L (3.5-5.1); Sodium 140.0 mmol/L (136-145)
[2025-09-29 07:31] LABS: Immature Granulocytes # (auto) 0.05 K/uL (0.01-0.20); Immature Granulocytes % (auto) 1.3 %
[2025-09-29 10:38] LABS: Appearance Urine Clear (Clear); Bacteria Urine Automated None Seen (None Seen); Cast Urine Automated 0-2 /lpf (0-2); Glucose Urine UA Negative (Negative); RBC Urine Automated 0-2 /hpf (0-2); WBC Urine Automated 21-50 /hpf (0-5)
--- NOTE | 2025-09-29 11:45 | Hospitalist Progress Note ---
Date of Service September 29, 2025 Assessment & Plan (1) Ambulatory dysfunction: (2) Physical deconditioning: (3) Arterial insufficiency of lower extremity: (4) Hypertension: (5) Bipolar disorder: (6) Rectal bleeding: Plan Patient is a 65-year-old female with past medical history significant for peripheral arterial disease, hypertension, type 2 diabetes, bipolar disorder. She was recently admitted to [facility] on 09/19/2025 for worsening bilateral leg pain with ambulation in the setting of right iliac artery and common femoral artery stenosis. She underwent right femoral endart with stenting on 09/19/25. She was discharged from [facility] on 09/22/25 with plans for PT/OT home health and close follow with personal business case analyst. Presented to [facility] ED via EMS with c/o right Prevena incisional site vac malfunctioning and inability to be strong enough at home with walking. Would like to go to SNF for conditioning. Ambulatory dysfunction/deconditioning - in setting of recent surgery and recent hospital discharge-->right femoral endarterectomy by Dr. Newton with patch and an iliac stent insertion - PT/OT consults - rec short term rehab. She is a one-person assist and was able to ambulate 35 feet x 2 easily fatigued with distance. 6 clicks score 17, 43% functional mobility loss. Pending p2p [facility] [phone] Opt 5 per business case analyst. On-call initially was disconnected, second call rang through with no option to leave voicemail. Di d notify case management. Discussed with case management. Targeting SNF. Placement is pending. Cystitis Development of polyuria, urgency, and some incontinence similar to prior UTIs on 09/29 UA with leukocyte esterase, white blood cells, possibly some epithelial contamination. UCx pending Empirically covered with Rocephin. Urine culture pending. Bladder scan pending to R/L any retention/overflow VIDA Prerenal VIDA. Baseline creatinine around 1.21.38 Creatinine uptrending 1.48. Bladder scan pending. UTI evaluation as noted Trend daily Hold nephrotoxins #Arterial insufficiency of lower extremity/PAD - s/p right femoral endart with patch and iliac stent insertion with Dr. Newton 09/19/25 - cont DAPT, statin -This was reviewed by Dr. Newton day of admission -->ok to leave Prevena off and apply dry dressing to right groin -incision site doing well and no bleeding -RLE warm/wp and good pulses, exertional claudication has resolved #T2DM - last A1c 07/24/25 11.9 on home Jardiance/Ozempic - BSG ACHS with SSI coverage/long acting basal with pharm consult - A1C 7.7 which is huge improvement from previous (11s) -Glycemic control while inpatient #HTN - cont metoprolol, amlodipine #hypothyroidism Stable. Cont Synthroid # History of hematochezia -Suspected hemorrhoid blood, some bright red blood per rectum. Has external hemorrhoids on prior exam. No melena last c-scope 11/30/23 (note poor prep)-->5mm polyp cecum, 4mm polyp transverse colon with path of tubular adenoma, no dysplasia/carcinoma, rec to have repeat scope in 6m as prep not adequate for colon CA screening in consideration of recent vascular surgery with intervention/stenting keep DAPT for now - hemoglobin is stable. No evidence of ongoing bleeding - ordered/reviewed iron studies and not iron deficient - constipation now resolved on bowel regimen, no rectal bleeding noted during this admission #Bi-polar d/o/schizophrenia depakote BID Abilify IM Q2 months, last had 09/12/25 #DVT prophylaxis: enoxaparin #Dispositionplacement pending Admission and Anticipated Discharge Date Admission Date: September 23, 2025 Subjective Seen at bedside. Has some incontinence and increased urgency which is similar to UTIs in the past. Otherwise no questions or concerns. No fevers chills or sweats. No flank pain or abdominal pain Physical Exam Physical Exam: General: A&Ox3. NAD. Cooperative. HEENT: Atraumatic, normocephalic. Vision and hearing grossly intact. Pulm: CTAB A&P. -wheezes, -rales, -rhonchi. Symmetrical chest rise. No increase in work of breathing. No respiratory distress. Cardiac: RRR, -mrg. Radial pulses intact and symmetrical. Abdominal: Nontender, nondistended, soft. BS present. Slight suprapubic fullness/pressure on palpation Extremities: Right femoral surgical site C/D/I jas intact no dehiscence bleeding or contusion. Lower extremities are warm well-perfused with cap refill less than 2 seconds bilaterally. Results & Data Results & Data Vital Signs (Past 12 Hours) Vital Signs Temp Pulse Resp BP Pulse Ox O2 Del Method 09/29/25 07:15 36.8 C 54 L 17 117/79 97 Room Air 09/29/25 07:05 Room Air PG Care Time/CCT Total # of Minutes Spent Total Time Spent with Patient: Total time spent is greater than 50% in coordination of care (as documented) at patient's floor/unit and/or counseling patient: Coding Level of Care Code 68599 SUB INP/OBS CARE 3/50MIN Diagnoses Ambulatory dysfunction R26.2 Physical deconditioning R53.81 Arterial insufficiency of lower extremity I73.9 Hypertension I10 Hypertension type: unspecified Bipolar disorder F31.9 Rectal bleeding K62.5 (4) Hypertension Hypertension type: unspecified Qualified Code(s): I10 - Essential (primary) hypertension
--- NOTE | 2025-09-29 13:42 | Pharmacy Report ---
Pharmacy Glycemic Short Note 2 - Date of Service September 29, 2025 - Glycemic Short BSG Results (Last 24 hours): 09/28/25 09/28/25 09/29/25 16:15 20:03 06:46 Glucose 136 H POC Glucose 127 H 153 H 09/29/25 09/29/25 07:45 11:27 Glucose POC Glucose 137 H 212 H OUTPATIENT ANTIDIABETIC REGIMEN: * Semaglutide * Sitagliptin * HbA1c 11.9% on 07/24/25, 7.7% 09/24/25 ASSESSMENT: 09/29: * Patient received total of 26 units of insulin yesterday, of which 8 units were basal * Fasting BSG 137 mg/dl - continue same basal * no change to CF/CR 09/28/25: * Blood sugars have been reasonably controlled over past 72 hours w/ occasional excursions > 180 mg/dL * Fasting blood sugars have been mildly elevated (132 mg/dL this morning) * Mild adjustments to insulin regimen today 09/25 * A1c improved to 7.7% from previous. * Fasting 143 mg/dL this morning with 5 units of basal last PM, will continue with same today * BSGs have been within acceptable range (<180 mg/dL), continue with current parameters 09/23 * 65 yo F w T2DM and very recent admission with steroid-induced hyperglycemia after a dose of dexamethasone on 09/19. No basal insulin on 09/22 (day of discharge). Re-admitted today (09/23) for wound vac malfunction and ambulatory dysfunction. Insulin regimen now likely will need to be reduced as compared to prior now that steroids are wearing/have worn off * Will give one-time dose of Lantus for hyperglycemia this PM. Ongoing to be assessed in AM * Will initiate weight-based moderate stress Novolog PLAN FOR INPATIENT GLYCEMIC CONTROL: * Hold outpatient oral diabetes medications * Basal insulin * Lantus 8 units SC HS * Bolus insulin * NovoLog per scale ACHS or Q6hrs while NPO * Goal Range: Low 120 mg/dL - High 150 mg/dL * Correction Factor: 30 mg/dL/unit * Nutritional / Prandial insulin per carb ratio of 1 unit per 8 grams CHO consumed
[2025-09-30 07:00] LABS: Hematocrit (blood only) 28.1 % (37.0-47.0); Hemoglobin 9.3 g/dL (12.0-16.0); Immature Granulocytes # (auto) 0.02 K/uL (0.01-0.20); Immature Granulocytes % (auto) 0.5 %; Mean Corpuscular Hemoglobin 29.8 pg (25.0-34.0); Mean Corpuscular Volume 90.1 fL (80.0-100.0); Platelet Count 224 K/uL (130-400); RDW Standard Deviation 44.2 fL (36.4-46.3); Red Blood Count 3.12 M/uL (4.20-5.40); White Blood Count 4.44 K/ul (4.8-10.8)
[2025-09-30 07:30] LABS: Anion Gap 8.0 (3-11); Blood Urea Nitrogen 24.0 mg/dl (6-23); Calcium 9.4 mg/dl (8.6-10.3); Carbon Dioxide 26.0 mmol/L (21-32); Chloride 107.0 mmol/L (98-107); Creatinine Clr Calc Pharmacy 39.7 ml/min; Glucose 160.0 mg/dl (70-99(Fasting)); Potassium 4.2 mmol/L (3.5-5.1); Sodium 141.0 mmol/L (136-145)
[2025-09-30] MEDS: cefTRIAXone SODIUM 1,000 MG/50 ML BAG IV SCH (09:55)
--- NOTE | 2025-09-30 11:50 | Hospitalist Progress Note ---
Date of Service September 30, 2025 Assessment & Plan (1) Ambulatory dysfunction: (2) Physical deconditioning: (3) Arterial insufficiency of lower extremity: (4) Hypertension: (5) Bipolar disorder: (6) Rectal bleeding: Plan Patient is a 65-year-old female with past medical history significant for peripheral arterial disease, hypertension, type 2 diabetes, bipolar disorder. She was recently admitted to [facility] on 09/19/2025 for worsening bilateral leg pain with ambulation in the setting of right iliac artery and common femoral artery stenosis. She underwent right femoral endart with stenting on 09/19/25. She was discharged from [facility] on 09/22/25 with plans for PT/OT home health and close follow with personal renal case manager. Presented to [facility] ED via EMS with c/o right Prevena incisional site vac malfunctioning and inability to be strong enough at home with walking. Would like to go to SNF for conditioning. Ambulatory dysfunction/deconditioning - in setting of recent surgery and recent hospital discharge-->right femoral endarterectomy by Dr. Newton with patch and an iliac stent insertion - PT/OT consults - rec short term rehab. She is a one-person assist and was able to ambulate 35 feet x 2 easily fatigued with distance. 6 clicks score 17, 43% functional mobility loss. Case management following, placement pending Cystitis Development of polyuria, urgency, and some incontinence similar to prior UTIs on 09/29 UA with leukocyte esterase, white blood cells, possibly some epithelial contamination. UCx pending No urinary retention on bladder scan Continue Rocephin, follow urine cultures VIDA Prerenal VIDA. Baseline creatinine around 1.21.38 Creatinine uptrending 1.48. Bladder scan pending. UTI evaluation as noted Trend daily Hold nephrotoxins #Arterial insufficiency of lower extremity/PAD - s/p right femoral endart with patch and iliac stent insertion with Dr. Newton 09/19/25 - cont DAPT, statin -This was reviewed by Dr. Newton day of admission -->ok to leave Prevena off and apply dry dressing to right groin -incision site doing well and no bleeding -RLE warm/wp and good pulses, exertional claudication resolved #T2DM - last A1c 07/24/25 11.9 on home Jardiance/Ozempic - BSG ACHS with SSI coverage/long acting basal with pharm consult - A1C 7.7 which is huge improvement from previous (11s) -Glycemic control while inpatient #HTN - cont metoprolol, amlodipine #hypothyroidism Stable. Cont Synthroid # History of hematochezia -Suspected hemorrhoid blood, some bright red blood per rectum. Has external hemorrhoids on prior exam. No melena last c-scope 11/30/23 (note poor prep)-->5mm polyp cecum, 4mm polyp transverse colon with path of tubular adenoma, no dysplasia/carcinoma, rec to have repeat scope in 6m as prep not adequate for colon CA screening in consideration of recent vascular surgery with intervention/stenting keep DAPT for now - hemoglobin is stable. No evidence of ongoing bleeding - ordered/reviewed iron studies and not iron deficient - constipation now resolved on bowel regimen, no rectal bleeding noted during this admission #Bi-polar d/o/schizophrenia depakote BID Abilify IM Q2 months, last had 09/12/25 #DVT prophylaxis: enoxaparin #Dispositionplacement pending Admission and Anticipated Discharge Date Admission Date: September 23, 2025 Subjective Seen at the bedside. Continues to have some incontinence and frequency. No fevers chills or sweats. No other new symptoms. No questions or concerns this morning. Awaiting placement Physical Exam Physical Exam: General: A&Ox3. NAD. Cooperative. HEENT: Atraumatic, normocephalic. Vision and hearing grossly intact. Pulm: CTAB A&P. -wheezes, -rales, -rhonchi. Symmetrical chest rise. No increase in work of breathing. No respiratory distress. Cardiac: RRR, -mrg. Results & Data Results & Data Vital Signs (Past 12 Hours) Vital Signs Temp Pulse Resp BP Pulse Ox O2 Del Method 09/30/25 07:30 Room Air 09/30/25 07:27 36.5 C 66 18 154/85 H 99 Room Air 09/30/25 03:55 36.8 C 72 18 150/83 H 96 Room Air PG Care Time/CCT Total # of Minutes Spent Total Time Spent with Patient: Total time spent is greater than 50% in coordination of care (as documented) at patient's floor/unit and/or counseling patient: Coding Level of Care Code 65132 SUB INP/OBS CARE 2/35MIN Diagnoses Ambulatory dysfunction R26.2 Physical deconditioning R53.81 Arterial insufficiency of lower extremity I73.9 Hypertension I10 Hypertension type: unspecified Bipolar disorder F31.9 Rectal bleeding K62.5 (4) Hypertension Hypertension type: unspecified Qualified Code(s): I10 - Essential (primary) hypertension
[2025-09-30] MEDS: diphenhydrAMINE Capsule 25 MG CAP PO ONE (17:04)
[2025-09-30] MEDS: LANTUS PER UNIT CHARGE SC SCH (21:08)
[2025-10-01 06:57] LABS: Hematocrit (blood only) 28.2 % (37.0-47.0); Hemoglobin 9.5 g/dL (12.0-16.0); Immature Granulocytes # (auto) 0.03 K/uL (0.01-0.20); Immature Granulocytes % (auto) 0.6 %; Mean Corpuscular Hemoglobin 30.5 pg (25.0-34.0); Mean Corpuscular Volume 90.7 fL (80.0-100.0); Platelet Count 220 K/uL (130-400); RDW Standard Deviation 45.1 fL (36.4-46.3); Red Blood Count 3.11 M/uL (4.20-5.40); White Blood Count 4.76 K/ul (4.8-10.8)
[2025-10-01 07:13] LABS: Anion Gap 8.0 (3-11); Blood Urea Nitrogen 25.0 mg/dl (6-23); Calcium 9.4 mg/dl (8.6-10.3); Carbon Dioxide 25.0 mmol/L (21-32); Chloride 109.0 mmol/L (98-107); Creatinine Clr Calc Pharmacy 40.0 ml/min; Glucose 108.0 mg/dl (70-99(Fasting)); Potassium 4.0 mmol/L (3.5-5.1); Sodium 142.0 mmol/L (136-145)
--- NOTE | 2025-10-01 14:26 | Hospitalist Progress Note ---
Date of Service October 01, 2025 Assessment & Plan (1) Ambulatory dysfunction: (2) Physical deconditioning: (3) Arterial insufficiency of lower extremity: (4) Hypertension: (5) Bipolar disorder: (6) Rectal bleeding: Plan Patient is a 65-year-old female with past medical history significant for peripheral arterial disease, hypertension, type 2 diabetes, bipolar disorder. She was recently admitted to [facility] on 09/19/2025 for worsening bilateral leg pain with ambulation in the setting of right iliac artery and common femoral artery stenosis. She underwent right femoral endart with stenting on 09/19/25. She was discharged from [facility] on 09/22/25 with plans for PT/OT home health and close follow with personal lining caser. Presented to [facility] ED via EMS with c/o right Prevena incisional site vac malfunctioning and inability to be strong enough at home with walking. Would like to go to SNF for conditioning. Ambulatory dysfunction/deconditioning - in setting of recent surgery and recent hospital discharge-->right femoral endarterectomy by Dr. Newton with patch and an iliac stent insertion - PT/OT consults - rec short term rehab. She is a one-person assist and was able to ambulate 35 feet x 2 easily fatigued with distance. 6 clicks score 17, 43% functional mobility loss. [facility] denied, [facility] placement pending and had SNF auth however no beds available. Pending placement. D/w case management and patient. She anticipates placement to [facility]. Had caregivers in the past, but reports she no longer has these and her customer care specialist is away on vacation. Cystitis Development of polyuria, urgency, and some incontinence similar to prior UTIs on 09/29 UA with leukocyte esterase, white blood cells, possibly some epithelial contamination. No urinary retention on bladder scan - Sx resolved. UC mixed mitzi. Abx discontinued VIDA Prerenal VIDA. Baseline creatinine around 1.21.38 Creatinine uptrended 09/30 1.48. No urinary retention on bladder scan. Downtrending on recheck Trend daily #Arterial insufficiency of lower extremity/PAD - s/p right femoral endarterectomy with patch and iliac stent insertion with Dr. Newton 09/19/25 - cont DAPT, statin -This was reviewed by Dr. Newton day of admission -->ok to leave Prevena off -incision site doing well and no bleeding -RLE warm/wp and good pulses, exertional claudication resolved #T2DM - last A1c 07/24/25 11.9 on home Jardiance/Ozempic - BSG ACHS with SSI coverage/long acting basal with pharm consult - A1C 7.7 which is huge improvement from previous (11s) -Glycemic control while inpatient #HTN - cont metoprolol, amlodipine #hypothyroidism Stable. Cont Synthroid # History of hematochezia -Suspected hemorrhoid blood, some bright red blood per rectum. Has external hemorrhoids on prior exam. No melena last c-scope 11/30/23 (note poor prep)-->5mm polyp cecum, 4mm polyp transverse colon with path of tubular adenoma, no dysplasia/carcinoma, rec to have repeat scope in 6m as prep not adequate for colon CA screening in consideration of recent vascular surgery with intervention/stenting keep DAPT for now - hemoglobin was stable. No evidence of ongoing bleeding - iron studies not indicative of [place] - constipation now resolved on bowel regimen, no rectal bleeding noted during this admission #Bi-polar d/o/schizophrenia depakote BID Abilify IM Q2 months, last had 09/12/25 #DVT prophylaxis: enoxaparin #Dispositionplacement pending Admission and Anticipated Discharge Date Admission Date: September 23, 2025 Subjective Urinary symptoms resolved today No fevers/chills No chest pain. No dyspnea No abdominal pain Mild discomfort at her staple line, no increased pain. Pending placement. D/w case management and patient. She anticipates placement to . Had caregivers in the past, but reports she no longer has these and her customer care specialist is away on vacation. Physical Exam Physical Exam: General: A&Ox3. NAD. Cooperative. HEENT: Atraumatic, normocephalic. Vision and hearing grossly intact. Pulm: CTAB A&P. -wheezes, -rales, -rhonchi. Symmetrical chest rise. No increase in work of breathing. No respiratory distress. Cardiac: RRR, -mrg. Ext: RLE staple line intact, C/D/I Results & Data Results & Data Vital Signs (Past 12 Hours) Vital Signs Temp Pulse Resp BP Pulse Ox O2 Del Method 10/01/25 07:35 Room Air 10/01/25 07:32 36.3 C L 61 16 112/71 98 Room Air PG Care Time/CCT Total # of Minutes Spent Total Time Spent with Patient: Total time spent is greater than 50% in coordination of care (as documented) at patient's floor/unit and/or counseling patient: Coding Level of Care Code 67892 SUB INP/OBS CARE 2/35MIN Diagnoses Ambulatory dysfunction R26.2 Physical deconditioning R53.81 Arterial insufficiency of lower extremity I73.9 Hypertension I10 Hypertension type: unspecified Bipolar disorder F31.9 Rectal bleeding K62.5 (4) Hypertension Hypertension type: unspecified Qualified Code(s): I10 - Essential (primary) hypertension
[2025-10-01] MEDS: INSULIN ASPART PER UNIT CHARGE SC SCH (17:48)
[2025-10-02 05:40] VITALS: O2SAT 95
[2025-10-02 06:47] LABS: Hematocrit (blood only) 28.1 % (37.0-47.0); Hemoglobin 9.2 g/dL (12.0-16.0); Immature Granulocytes # (auto) 0.03 K/uL (0.01-0.20); Immature Granulocytes % (auto) 0.7 %; Mean Corpuscular Hemoglobin 29.6 pg (25.0-34.0); Mean Corpuscular Volume 90.4 fL (80.0-100.0); Platelet Count 217 K/uL (130-400); RDW Standard Deviation 44.5 fL (36.4-46.3); Red Blood Count 3.11 M/uL (4.20-5.40); White Blood Count 4.56 K/ul (4.8-10.8)
[2025-10-02 07:01] LABS: Anion Gap 7.0 (3-11); Blood Urea Nitrogen 24.0 mg/dl (6-23); Calcium 9.1 mg/dl (8.6-10.3); Carbon Dioxide 24.0 mmol/L (21-32); Chloride 108.0 mmol/L (98-107); Creatinine Clr Calc Pharmacy 39.4 ml/min; Glucose 134.0 mg/dl (70-99(Fasting)); Potassium 4.1 mmol/L (3.5-5.1); Sodium 139.0 mmol/L (136-145)
[2025-10-02] MEDS: INSULIN ASPART PER UNIT CHARGE SC SCH (09:00)
[2025-10-02 09:24] VITALS: RESP 16
[2025-10-02 11:53] VITALS: BP 150/80; PULSE 70; TEMP 97.7
--- NOTE | 2025-10-02 12:54 | Pharmacy Report ---
Pharmacy Glycemic Short Note 2 - Date of Service October 02, 2025 - Glycemic Short BSG Results (Last 24 hours): 10/01/25 10/01/25 10/02/25 16:39 20:31 06:23 Glucose 134 H POC Glucose 108 H 191 H 10/02/25 10/02/25 07:32 11:40 Glucose POC Glucose 144 H 205 H OUTPATIENT ANTIDIABETIC REGIMEN: * Semaglutide * Sitagliptin * HbA1c 11.9% on 07/24/25, 7.7% 09/24/25 ASSESSMENT: 10/02: * Beatrice received a total of 31 units of insulin yesterday (10 units were basal and 21 units were bolus). * Fasting BSG was 144mg/dL. Since lunch BSG has been > 200mg/dL the last few days, will trial tightening bolus insulin parameters with breakfast, and then loosening the rest of the day. 09/29: * Patient received total of 26 units of insulin yesterday, of which 8 units were basal * Fasting BSG 137 mg/dl - continue same basal * no change to CF/CR 09/28/25: * Blood sugars have been reasonably controlled over past 72 hours w/ occasional excursions > 180 mg/dL * Fasting blood sugars have been mildly elevated (132 mg/dL this morning) * Mild adjustments to insulin regimen today 09/25 * A1c improved to 7.7% from previous. * Fasting 143 mg/dL this morning with 5 units of basal last PM, will continue with same today * BSGs have been within acceptable range (<180 mg/dL), continue with current parameters 09/23 * 65 yo F w T2DM and very recent admission with steroid-induced hyperglycemia after a dose of dexamethasone on 09/19. No basal insulin on 09/22 (day of discharge). Re-admitted today (09/23) for wound vac malfunction and ambulatory dysfunction. Insulin regimen now likely will need to be reduced as compared to prior now that steroids are wearing/have worn off * Will give one-time dose of Lantus for hyperglycemia this PM. Ongoing to be assessed in AM * Will initiate weight-based moderate stress Novolog PLAN FOR INPATIENT GLYCEMIC CONTROL: * Hold outpatient diabetes medications * Basal insulin * Lantus 10 units SC HS * Bolus insulin * NovoLog per scale ACHS or Q6hrs while NPO * Goal Range: Low 120 mg/dL - High 150 mg/dL * Breakfast -Correction Factor: 30 mg/dL/unit -Nutritional / Prandial insulin per carb ratio of 1 unit per 5 grams CHO consumed * Lunch, dinner, HS -Correction Factor: 35 mg/dL/unit -Nutritional / Prandial insulin per carb ratio of 1 unit per 6 grams CHO consumed
--- NOTE | 2025-10-02 14:57 | Discharge Summary ---
Discharge Summary Date of Service October 02, 2025 Principal Dx & Hospital Course #1 = Principal Diagnosis (1) Ambulatory dysfunction: (2) Physical deconditioning: (3) Arterial insufficiency of lower extremity: (4) Hypertension: (5) Bipolar disorder: (6) Rectal bleeding: Plan Patient is a 65-year-old female with past medical history significant for peripheral arterial disease, hypertension, type 2 diabetes, bipolar disorder. She was recently admitted to [facility] on 09/19/2025 for worsening bilateral leg pain with ambulation in the setting of right iliac artery and common femoral artery stenosis. She underwent right femoral endart with stenting on 09/19/25. She was discharged from [facility] on 09/22/25 with plans for PT/OT home health and close follow with personal pillowcase maker. Presented to [facility] ED via EMS with c/o right Prevena incisional site vac malfunctioning and inability to be strong enough at home with walking. Would like to go to SNF for conditioning. Patient deciding she would like to return to her home on d/c with home health physical therapy ([facility]). She has caregivers through family care-agency updated per . She has close follow up with Dr. Newton on 10/03 at 1500 for removal of jas from right femoral endarterectomy. ##Ambulatory dysfunction/deconditioning in setting of recent surgery and recent hospital discharge-->right femoral endarterectomy by Dr. Newton with patch and an iliac stent insertion PT/OT consults - rec short term rehab. She is a one-person assist and was able to ambulate 35 feet x 2 easily fatigued with distance. 6 clicks score 17, 43% functional mobility loss. [facility] denied, [facility] placement pending and had SNF auth however no beds available. Pending placement. D/w case management and patient. She anticipates placement to CC. Had caregivers in the past, but reports she no longer has these and her healthcare business analyst is away on vacation patient would like to go home for discharge with PT f/u and assistance of [facility] caregivers ##Cystitis Development of polyuria, urgency, and some incontinence similar to prior UTIs on 09/29 UA with leukocyte esterase, white blood cells, possibly some epithelial contamination. No urinary retention on bladder scan abx discontinued as UC with mixed skin mitzi ##VIDA Prerenal VIDA. Baseline creatinine around 1.21.38 Creatinine uptrended 09/30 1.48. No urinary retention on bladder scan. Downtrending on recheck Trend daily #Arterial insufficiency of lower extremity/PAD s/p right femoral endarterectomy with patch and iliac stent insertion with Dr. Newton 09/19/25 cont DAPT, statin reviewed by Dr. Newton day of admission -->ok to leave Prevena off incision site doing well and no bleeding RLE warm with good pulses, exertional claudication resolved #T2DM last A1c 07/24/25 11.9 on home Jardiance/Ozempic BSG ACHS with SSI coverage/long acting basal with pharm consult A1C 7.7 which is huge improvement from previous (11s) Glycemic control while inpatient d/c on home SLGT2/GLP1 #HTN cont metoprolol, amlodipine #hypothyroidism Cont Synthroid # History of hematochezia Suspected hemorrhoid blood, some bright red blood per rectum. Has external hemorrhoids on prior exam. No melena last c-scope 11/30/23 (note poor prep)-->5mm polyp cecum, 4mm polyp transverse colon with path of tubular adenoma, no dysplasia/carcinoma, rec to have repeat scope in 6m as prep not adequate for colon CA screening in consideration of recent vascular surgery with intervention/stenting keep DAPT for now hemoglobin stable, no evidence of ongoing bleeding iron studies not indicative of BEVERLY constipation now resolved on bowel regimen, no rectal bleeding noted during this admission follow up being orchestrated with [facility] for outpatient colonoscopy per nurse navigator #Bi-polar d/o/schizophrenia depakote BID Abilify IM Q2 months, last had 09/12/25 #DVT prophylaxis: enoxaparin #Disposition: d/c home with home health PT Admission HPI Per Admitting Provider Patient is a 65-year-old female with past medical history significant for peripheral arterial disease, hypertension, type 2 diabetes, bipolar disorder|schizophrenia. she was recently admitted to [facility] on 09/19/2025 for worsening bilateral leg pain with ambulation in the setting of right iliac artery and common femoral artery stenosis. She underwent right common femoral and superficial endarterectomy with patch, right common iliac artery transluminal angioplasty and stent with Dr. Newton on 09/19/2025. She did have an estimated 550 mL of blood loss. She received 2 units of packed red blood cells during the admission and was in the intensive care unit postoperatively. She was discharged on 09/22/2025 as she was doing well postoperatively using minimal pain medication with plan to discharge home with home health and PT/OT. She was discharged with Prevena to the right groin area for postoperative healing. Today she noticed that there was a hissing noise coming from the Prevena. She also states she has felt slightly weaker today and feels she needs inpatient rehabilitation due to having more difficulty getting around her apartment. She is taking Oxycodone for her pain which helps take the edge off. Last had a hard BM this am and reports when she wiped there was some blood on the toilet paper. Reports no clots with stooling, covered stool in blood, melena, hematochezia. She denies fever, chills, SOB. ED nursing is attempting to trouble shoot Prevena as there is noted intermittent noise coming from pump. Right groin dressing has been taken down with noted jas from surgical intervention-no bleeding, swelling/hematoma, drainage or erythema to area. After full discussion with patient she has decided to be a FULL CODE during her hospitalization. Discharge Exam GENERAL APPEARANCE: A&O. Sitting comfortably in bed. NAD. SKIN: Normal color without rashes or lesions.Normal turgor. R groin incisional site without erythema, drainage, or swelling. Harwood intact. HEENT: Head AT/NC. Buccal mucosa is moist and pink. NECK: No jugular venous distention. No thyroid enlargement. There is no lymphadenopathy. HEART: RRR without m/g/r LUNGS: Normal inspiratory effort. CTA without w/r/r. ABDOMEN: No guarding or rigidity. Normoactive BS in all four quadrants. Abdomen soft and NT. Rectal: Normal spincter tone, small external hemorrhoid with no bleeding, no palpable masses. No BRBPR. MSK: No bony gross/deformities throughout. ROM intact. EXTREMITIES: No edema, No peripheral cyanosis. Neuro: CN 2-12 grossly intact. No focal neuro deficits PSYCHIATRIC: Normal affect. Eye contact is good. Speech is normal rate and content. Responses are appropriate. Discharge Plan Discharge Items Patient Disposition: Home - Self-Care Reason For Visit: WOUND VAC MALFUNCTION, AMBULATORY DYSFUNCTION Discharge Diagnosis: Ambulatory dysfunction Condition on Discharge: Good Activity: Resume your previous activity Bathing: No limitations Weightbearing: Full weightbearing Non-emergency contact: Primary Care Provider Call non-emergency contact if: you have any medication questions, your symptoms worsen, your pain is not controlled, your pain is worsening and your pain is concerning for you Follow-up/Referrals: Aleshia Ramirez MD [Primary Care Provider] - 10/09/25 1:40 pm Kevin Newton MD [Physician] - (Follow up as scheduled on 10/03/25) Diet: Carb Consistent or DM2 Addtl Attending Provider Instructions: Beatrice, You were admitted to the hospital due to your incisional vacuum malfunctioning and concerns related to your walking at home. While you have been in the hospital you worked with physical therapy that recommended you go to a short term rehab for continued strengthening. At this time, you have decided to go home with [facility] home health and with assistance of your caregivers. Please make sure you follow up with Dr. Newton's office on 10/03/25 at 3pm as scheduled to have your jas removed from your right groin area. Please also make sure you follow up with your family doctor within one week of admission. We are also arranging an outpatient gastroenterology appointment for you as you need to have another colonoscopy for follow up since you reported a small amount of bright, red blood when wiping after a bowel movement prior to your arrival in the hospital. Medications: Your medication list has been reviewed and reconciled upon discharge to ensure accuracy and continuity of care. An updated list of all your medications is included with your hospital discharge paperwork. Please review this list closely, and make note of any changes. Take your medications as instructed; do not skip a dose of your medicines. Make sure all of your doctors know every medicine you are taking (including bkum-ldp-lxnybpl medicines, vitamins, and supplements). Call your primary care provider before taking any new medicines (including over- the-counter medicines, vitamins, and supplements), because some of these may interact with your current medications, or may make your symptoms worse. Tell your primary care provider if you cannot afford your medications. Activity: You can do normal everyday activities as your body allows. Take rest breaks if you feel tired. Do not overexert. Stop activity if you have pain, shortness of breath or feel dizzy. Follow-up appointments: Make an appointment with your primary care physician within one week of discharge. A copy of this summary will be sent to them. Every time you see your primary care physician, or any other doctor, bring your medication list, and a list of questions. CONTACT YOUR PRIMARY CARE PROVIDER if you experience any of the following: Shortness of breath or difficulty breathing Fevers or chills Feeling tired with normal activity or experiencing dizziness or fainting Difficulty following your treatment plan, or difficulty taking medications CALL 911 OR GO TO THE EMERGENCY DEPARTMENT if you experience any of the following: Severe abdominal pain or nausea/vomiting Severe chest pain, or chest pain that radiates (moves) to your jaw or arm Sudden, severe shortness of breath or difficulty breathing Thank you for allowing us to participate in your care. Pending Studies at Discharge: No Stand-Alone Forms: My [facility] [place], Smoking Cessation Medications and DC Order Prescriptions: Continued famotidine 20 mg tablet 20 mg PO HS Qty: 30 5RF levothyroxine 50 mcg tablet 50 mcg PO QAM loratadine 10 mg tablet 10 mg PO QAM multivitamin with folic acid [Daily-Han (with folic acid)] 400 mcg tablet 1 tab PO QAM divalproex 500 mg tablet extended release 24 hr 500 mg PO BID cholecalciferol (vitamin D3) [Vitamin D3] 125 mcg (5,000 unit) Tablet 125 mcg PO QAM Hold Instructions: hold this until discussed with primary care in follow up magnesium oxide 400 mg (241.3 mg magnesium) Tablet 400 mg PO BID Qty: 60 0RF docusate sodium 100 mg Capsule 100 mg PO BID PRN (Reason: Constipation) albuterol sulfate 90 mcg/actuation Hfa Aerosol Inhaler 1 puff INHALATION QID PRN (Reason: Wheezing) Januvia 100 mg tablet 100 mg PO QAM Ozempic 0.25 mg or 0.5 mg (2 mg/3 mL) pen injector 0.25 mg SUBCUT WK Rx Instructions: [place] Abilify Asimtufii 960 mg/3.2 mL suspension,extended rel syring 960 mg IM .[id number] Patient Comments: received 09/11/25 Rx Instructions: DUE 09/12/25 aspirin 81 mg Tablet,Delayed Release (Dr/Ec) 81 mg PO QAM atorvastatin 80 mg tablet 80 mg PO HS clopidogrel [Plavix] 75 mg tablet 75 mg PO QAM (DME) pen needle, diabetic [Pen Needle] 32 gauge x 5/32" needle See Rx Instructions .Route Qty: 100 0RF Rx Instructions: to be used for insulin admin. 1x per day amlodipine 5 mg Tablet 5 mg PO QAM Qty: 30 0RF diphenhydramine HCl [Benadryl] 25 mg Capsule 50 mg PO BID metoprolol succinate 25 mg tablet extended release 24 hr 25 mg PO QAM oxycodone-acetaminophen [Percocet] 5-325 mg Tablet 1 tab PO Q6H PRN (Reason: pain) Qty: 20 0RF Discharge Orders: Discharge Order (Routine); Ordered 10/02/25 Ordered By: Jeannette Gutierrez/Other Patient Handouts: DVT Post Op Prevention Admission Data Admit Date/Time: 09/23/25 15:26 Attending Provider: Esteban Dorsey Admit Provider: Indy Isaac Primary Care Provider: Aleshia Ramirez Other Providers: Esteban Dorsey; [facility]; [place],[facility]; [facility] Other Interventions: Discharge Summary Assessment (RN) Last Done: 10/02/25 13:24 Hospital Stay Data Consultations 09/23/25 14:44 ED Decision to Admit Stat Pending Results Patient Have Any Pending Studies at Discharge: No Discharge Instructions Given to Patient (Per Discharging Provider) Beatrice, You were admitted to the hospital due to your incisional vacuum malfunctioning and concerns related to your walking at home. While you have been in the hospital you worked with physical therapy that recommended you go to a short term rehab for continued strengthening. At this time, you have decided to go home with [facility] home health and with assistance of your caregivers. Please make sure you follow up with Dr. Newton's office on 10/03/25 at 3pm as scheduled to have your jas removed from your right groin area. Please also make sure you follow up with your family doctor within one week of admission. We are also arranging an outpatient gastroenterology appointment for you as you need to have another colonoscopy for follow up since you reported a small amount of bright, red blood when wiping after a bowel movement prior to your arrival in the hospital. Medications: Your medication list has been reviewed and reconciled upon discharge to ensure accuracy and continuity of care. An updated list of all your medications is included with your hospital discharge paperwork. Please review this list closely, and make note of any changes. Take your medications as instructed; do not skip a dose of your medicines. Make sure all of your doctors know every medicine you are taking (including lyfd-ume-fsweblv medicines, vitamins, and supplements). Call your primary care provider before taking any new medicines (including over- the-counter medicines, vitamins, and supplements), because some of these may interact with your current medications, or may make your symptoms worse. Tell your primary care provider if you cannot afford your medications. Activity: You can do normal everyday activities as your body allows. Take rest breaks if you feel tired. Do not overexert. Stop activity if you have pain, shortness of breath or feel dizzy. Follow-up appointments: Make an appointment with your primary care physician within one week of discharge. A copy of this summary will be sent to them. Every time you see your primary care physician, or any other doctor, bring your medication list, and a list of questions. CONTACT YOUR PRIMARY CARE PROVIDER if you experience any of the following: Shortness of breath or difficulty breathing Fevers or chills Feeling tired with normal activity or experiencing dizziness or fainting Difficulty following your treatment plan, or difficulty taking medications CALL 911 OR GO TO THE EMERGENCY DEPARTMENT if you experience any of the following: Severe abdominal pain or nausea/vomiting Severe chest pain, or chest pain that radiates (moves) to your jaw or arm Sudden, severe shortness of breath or difficulty breathing Thank you for allowing us to participate in your care. Supervising Physician Co-Signing Physician Notes The patient was not seen by me. The chart was reviewed. Case discussed with YOCASTA Sutton. Agree with assessment and plan. Total Time Total Time Spent Total Time Spent (In Minutes): 40 minutes total Coding Level of Care Code 83767 INP/OBS DISCH >30 MIN Diagnoses Ambulatory dysfunction R26.2 Physical deconditioning R53.81 Arterial insufficiency of lower extremity I73.9 Hypertension I10 Hypertension type: unspecified Bipolar disorder F31.9 Rectal bleeding K62.5
== END 2025-10-02 14:30 | disposition home or self-care (01) | DRG 948 ==
LOC: SUATTDRO → ED 13:12 → SUATTDRO 15:26 → 3N 15:26